=== PATIENT | male | born 1950 | race Caucasian/White ===

== ENCOUNTER 2017-05-11 17:18 | Inpatient (IN) | payer OTHER ==
[~2017-05-11] VITALS: Ht 185.4 cm; Wt 63.5 kg
[2017-05-11] MEDS ORDERED: MAG HYDROX/AL HYDROX/SIMETH 30 ML LIQUID UDC PO PRN (18:30)
[2017-05-11] MEDS ORDERED: BUPRENORPHINE HCL 2 MG TAB.SUBL SL PRN (18:30)
[2017-05-11] MEDS ORDERED: LOPERAMIDE HCL 2 MG CAPSULE PO PRN ×2 (18:30)
[2017-05-11] MEDS ORDERED: LORAZEPAM 2 MG/1 ML VIAL IM PRN (18:30)
[2017-05-11] MEDS ORDERED: DICYCLOMINE HCL 20 MG TABLET PO PRN (18:30)
[2017-05-11] MEDS ORDERED: MIRALAX 17 GM POWD.PACK PO PRN (18:30)
[2017-05-11] MEDS ORDERED: MAGNESIUM HYDROXIDE 30 ML LIQUID UDC PO PRN (18:30)
[2017-05-11] MEDS ORDERED: hydrALAZINE HCL 50 MG TABLET PO PRN (18:30)
[2017-05-11] MEDS ORDERED: ONDANSETRON ODT 4 MG TAB.RAPDIS SL PRN (18:30)
[2017-05-11] MEDS ORDERED: diphenhydrAMINE 50 MG CAPSULE PO PRN (18:30)
[2017-05-11] MEDS ORDERED: ONDANSETRON 4 MG/2 ML VIAL IM PRN (18:30)
[2017-05-11] MEDS ORDERED: ACETAMINOPHEN 325 MG TABLET PO PRN (18:30)
[2017-05-11 18:57] LABS: *AMPHETAMINE, URINE NEGATIVE (NEGATIVE); *BARBITURATE, URINE NEGATIVE (NEGATIVE); *CANNABINOID, URINE POSITIVE (NEGATIVE); *COCCAINE, URINE NEGATIVE (NEGATIVE); *OPIATE, URINE NEGATIVE (NEGATIVE); *PHENCYCLIDINE SCREEN,URINE NEGATIVE (NEGATIVE)
[2017-05-11] MEDS: METHOCARBAMOL 750 MG TABLET PO PRN (19:30)
[2017-05-11] MEDS ORDERED: THIAMINE HCL 200 MG/2 ML VIAL IM ONE (19:30)
[2017-05-11] MEDS: LORAZEPAM 1 MG TABLET PO PRN (19:30)
--- NOTE | 2017-05-11 19:30 | NUR ---
RN note PRN Ativan and PRN Subutex Pt noted to be anxious, agitated and with tremors observed. COWS-13, CIWA-14. Administered Subutex 4 mg SL PRN and Ativan 2 mg PO. Will reassess.
--- NOTE | 2017-05-11 19:30 | NUR ---
1930 Patient received in his room # 310, on [facility] floor, awake, moderately intoxicated, slightly agitated and asking " for meds now". Patient threatens " to go AMA", per Charge Nurse, Arlen report to this nurse. Patient presents with a bloated face, smell of alcohol on his person and has gross body shakes and hand tremors. Patient's color is slightly rosenda and his skin is warm, dry and intact. Dry, intact, medium-sized, red-colored abrasion noted on right knee and dry, intact medium-sized, dark red-colored abrasion noted on right elbow. Patient states, " I was drinking and missed my balance recently". Patient's speech is slightly slow and slurred but appropriate for the most part. Patient states that he stands 6 feet and 1 inch tall and he weighs 140 lbs. Patient states, " I guess I lost weight in the last few months, maybe almost 20 pounds". " Sometimes, I just have no desire to eat". Patient is oriented to person, place and his personal situation. Reoriented to day, date and time. Patient gives eye contact briefly, then he looks away when he answers nurse's assess questions. Patient states that this is his first time in detox treatment and also he school secretary brought him to [facility], this afternoon. Patient denies any food and drug allergies and he states that he has " sees a counselor and has a PCP, but the names are in his wallet, which he is not in possession of at this time. Patient denies any seizure history or pre-existing psychiatric condition, though he states that he does feel some undiagnosed depression sometimes. 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 Patient states that he has been under pain management ( prescribed hydrocodone and medical marijuana) for his neuropathy. Vital signs are: 98.3-73-18 98/64, O2 Sat 96%, CIWA 6. Patient is admitted for: (1) Alcohol (Vodka), 750 ml orally daily for the past 3 months, last drink was on 05/11/17, but patient is unsure of the amount, (2) Hydrocodone (prescribed is pain mgmt since 2007), 2 to 3 tabs per day, Orally, last use was on 05/09/17, " maybe 2 pills". (3) Medical Marijuana smoked daily, but patient is unsure of the amount. Patient smoked last on 05/10/17, but patient can not remember the amount. Patient keeps nodding out during assessments and had to be frequently prompted to stay alert. Patient also tened to ramble on when asked pointed questions Addendum: 05/12/17 at 0626 by CHRIS ABREU RN 1929 continued- Patient also tended to ramble on when asked pointed questions about himself. Patient oriented to nurse call light and his room. Fall/seizure precautions in place. Bed is locked and in lowest position. Call light in place on patient's bed.
--- NOTE | 2017-05-11 19:32 | NUR ---
RN note PRN Robaxin Pt c/o muscle pain=01/22. Administered Robaxin 750 mg PO as ordered. Will reassess.
[2017-05-11 20:00] VITALS: BP 98/64
--- NOTE | 2017-05-11 20:30 | NUR ---
RN note reassess Pt reassessed, COWS=7, CIWA=9. Per pt, pain level decreased to 3/10. Pt noted to be more calm.
[2017-05-11] MEDS ORDERED: TRAZODONE 50 MG TABLET PO PRN (21:00)
[2017-05-11] MEDS ORDERED: LORAZEPAM 1 MG TABLET PO SCH (21:00)
[2017-05-11 23:25] LABS: BASOPHILS % (AUTO) 0.8 % (0.0-2.0); EOSINOPHILS % (AUTO) 0.8 % (0.0-7.0); HEMATOCRIT 39.6 % (36.7-47.1); HEMOGLOBIN 13.5 g/dL (12.5-16.3); LYMPHOCYTES # (AUTO) 0.8 K/uL (20.0-40.0); LYMPHOCYTES % (AUTO) 17.3 % (20.5-51.5); MEAN CORPUSCULAR HEMOGLOBIN 33.5 uug (23.8-33.4); MEAN CORPUSCULAR HGB CONC 34 g/dL (32.5-36.3); MEAN CORPUSCULAR VOLUME 98.4 fL (73.0-96.2); MONOCYTES # (AUTO) 0.3 K/uL (2.0-10.0); MONOCYTES % (AUTO) 6.2 % (0.0-11.0); NEUTROPHILS # (AUTO) 3.7 K/uL (1.8-8.9); NEUTROPHILS % (AUTO) 74.9 % (38.5-71.5); PLATELET COUNT (AUTO) 92 K/uL (152-348); RED BLOOD CELL COUNT(AUTO) 4.03 MIL/uL (4.06-5.63); WHITE BLOOD COUNT (AUTO) 4.9 K/uL (3.6-10.2)
[2017-05-11 23:26] LABS: BILIRUBIN,TOTAL 0.8 mg/dL (0.2-1.0); CREATININE 0.8 mg/dL (0.6-1.3); MAGNESIUM 1.8 mg/dL (1.8-2.4); POTASSIUM 3.6 mmol/L (3.5-5.1); TOTAL PROTEIN, SERUM 6.5 g/dL (6.4-8.2)
[2017-05-12] VITALS (8 sets, daily range): BP systolic 97–174; BP diastolic 58–99
--- NOTE | 2017-05-12 | NUR ---
V/S are: 98.5-102-14 97/58, O2 Sat 96%. Patient is too sleepy to participate in COWS,CIWA assessments at this time.
--- NOTE | 2017-05-12 | NUR ---
Patient sleeping soundly with eyes closed and respirations deep, even, unlabored at 14. V/S are: 98.5-102-14 97/58, O2 Sat 97%. CIWA, COWS deferred as patient continues to sleep.
[2017-05-12] MEDS ORDERED: LORAZEPAM 1 MG TABLET ONE (01:30)
[2017-05-12] MEDS ORDERED: IBUP-1953 PO (02:44)
[2017-05-12] MEDS ORDERED: OXYM15SP NS (02:44)
[2017-05-12] MEDS ORDERED: FLUO-119 PO (02:44)
[2017-05-12] MEDS ORDERED: MILK175C4 PO (02:44)
[2017-05-12] MEDS ORDERED: NAPR375T4 PO (02:44)
[2017-05-12] MEDS ORDERED: NEOM28.3 TP (02:44)
[2017-05-12] MEDS ORDERED: AMOX125S56 PO (02:44)
[2017-05-12] MEDS ORDERED: GLYC-16 RC (02:44)
[2017-05-12] MEDS ORDERED: PRED20TA PO (02:44)
[2017-05-12] MEDS ORDERED: TEST200V3 IM (02:44)
[2017-05-12 03:50] LABS: EOSINOPHILS % (MANUAL) 1 % (0-8); LYMPHOCYTES % (MANUAL) 19 % (20-40); MONOCYTES % (MANUAL) 6 % (2-10); NEUTROPHILS % (MANUAL) 74 % (42-75)
--- NOTE | 2017-05-12 04:00 | NUR ---
V/S are: 98.3-108-16 127/70, O2 Sat 97%, COWS 5, COWS 6. Patient continues to be sleepy.
[2017-05-12] MEDS: LORAZEPAM 1 MG TABLET PO PRN ×2 (04:09→06:10)
--- NOTE | 2017-05-12 04:10 | NUR ---
RN note PRN Ativan Pt c/o feeling anxious, increasingly agitated and with gross tremors noted. CIWA=9. Administered Ativan 1 mg PO. Will reassess.
--- NOTE | 2017-05-12 05:17 | NUR ---
RN note reassess Pt still noted with gross tremors but somewhat better than the previous hour. CIWA=7.
--- NOTE | 2017-05-12 06:11 | NUR ---
RN note PRN Ativan Pt c/o increasing gross tremors, anxiety and mild nausea. CIWA=10. Administered Ativan 1 mg PO PRN as ordered. Will be reassessed.
--- NOTE | 2017-05-12 06:30 | NUR ---
0630 Patient slept a total of 9 hours and he had 1 void and no stools. Total intake was 500 ml p.o. Prn medications given noted separately per floor protocol. V/SS afebrile, last COWS 5, Last CIWA 6. Patient is presently sleeping comfortably with eyes closed and respirations even, unlabored at 14. Patient not awakened for COWS, CIWA as these assessments ordered Q 4hr while awake.
--- NOTE | 2017-05-12 07:35 | NUR ---
START OF SHIFT Received report from manager shift nurse. Pt is lying in bed resting. He is a yo male admitted to [facility] on 05/11 for ETOH and Opioid dependence. He is A&O and ambulatory. NKA, full code status, on a regular diet. PMH of Head and neck cancer, HPV, fractures of nose, fingers, arm, leg, bilateral feet neuropathy. On admission pt reported using vodka 750mL per day for 3 months, hydrocodone, 2-3 tabs per day, and medical marijuana. 4 day Ativan taper started today with PRN Subutex available. Pt is observed with moderate tremors and moist skin. He reports anxiety. Taper due today. Fall and seizure precautions in place. Bed is down with call light in reach. Addendum: 05/12/17 at 1332 by SE VITALE RN He is a 67 yo male.
[2017-05-12] MEDS: MULTIVITAMINS,THERAPEUTIC TABLET PO SCH (08:29)
[2017-05-12] MEDS: THIAMINE HCL 100 MG TABLET PO SCH (08:29)
[2017-05-12] MEDS: FOLIC ACID 1 MG TABLET PO SCH (08:29)
[2017-05-12] MEDS ORDERED: TUBERCULIN,PURIF.PROT.DERIV. 5 TU/0.1 ML TEST ID ONE (09:00)
[2017-05-12] MEDS ORDERED: LORAZEPAM 1 MG TABLET PO SCH (09:00)
[2017-05-12] MEDS ORDERED: LORAZEPAM 1 MG TABLET PO ONE (10:00)
[2017-05-12] MEDS ORDERED: PROPRANOLOL HCL 20 MG TABLET PO ONE (10:00)
--- NOTE | 2017-05-12 10:20 | NUR ---
One time Ativan and Inderal administration Pt has severe gross tremors, diaphoresis, anxiety, and restlessness. He has visual hallucinations. He reports seeing rats running across the room. He is A&O x3. COWS 11 and CIWA 17. Notified who saw pt on the floor. Onetime order for Ativan and Inderal received and carried out.
--- NOTE | 2017-05-12 11:20 | NUR ---
One time Ativan and Inderal reassessment PRN Ativan and Inderal somewhat effective. Tremors are now reduced to moderate. He is less diaphoretic. He reports feeling less anxious. COWS 8 and CIWA 13.
--- NOTE | 2017-05-12 12:30 | NUR ---
IV Insertion 22 gauge IV inserted to the left hand and secured in place. It is patent and intact. Pt tolerated the insertion.
[2017-05-12] MEDS: IV D5 1/2 NS 1000 ML 1,000 ML IV SCH ×2 (12:48→21:22)
--- NOTE | 2017-05-12 13:00 | NUR ---
1:1 INHALATION THERAPY TEACHER Pt placed on 1:1 INHALATION THERAPY TEACHER for safety. He has full body tremors, unsteady gait, mild hallucinations, and mild confusion.
[2017-05-12] MEDS: METHOCARBAMOL 750 MG TABLET PO PRN (13:06)
[2017-05-12] MEDS: LORAZEPAM 1 MG TABLET PO SCH ×3 (13:06→21:20)
--- NOTE | 2017-05-12 13:10 | NUR ---
PRN Zofran and Robaxin Pt has moderate-severe full body tremors, nausea, diaphoresis, and anxiety. PRN Zofran and Robaxin administered.
--- NOTE | 2017-05-12 14:10 | NUR ---
PRN Zofran and Robaxin reassessment PRN Zofran effective. Pt reports nausea is relieved. PRN Robaxin somewhat effective. Pt reports Robaxin provided some relief. No further medications requested.
[2017-05-12] MEDS: IBUPROFEN 400 MG TABLET PO PRN (16:10)
--- NOTE | 2017-05-12 16:14 | NUR ---
PRN Motrin Pt reports low back pain 11/22. PRN Motrin administered.
--- NOTE | 2017-05-12 17:14 | NUR ---
PRN Motrin reassessment PRN Motrin effective. Pt reports back ache is relieved.
--- NOTE | 2017-05-12 18:54 | NUR ---
IV RE-INSERTED IV re-inserted on Left upper arm #22 gauge, intact and patent flushed with 10cc NS.
--- NOTE | 2017-05-12 19:15 | NUR ---
START OF SHIFT NOTE : Pt. is a 67 years old male admitted to [facility] on 05/11/2017 for ETOH and Opioid dependence. NKA, full code status, on a regular diet. PMH of Head and neck cancer, HPV, fractures of nose, fingers, arm, leg, bilateral feet neuropathy. 4 day Ativan taper started on 05/13/2017 with PRN Subutex available. Pt is observed with moderate tremors, unsteady gait, complains of flashes, mild body ache, anxiety. He is placed 1:1 JIG GRINDER for safety. IV D51/2NS is running at 125 ml/hour. Safety measures in place : bed on lowest position with side rails x2 up for safety, call light within reach. Will continue to monitor closely and offer help.
--- NOTE | 2017-05-12 19:28 | NUR ---
END OF SHIFT Report provided to retail shift leader nurse. Pt is lying in bed resting. He has a 1:[address] for safety r/t unsteady gait, tremors, and weakness. He is a 67 [facility] and [facility]ioid [facility]. He is A&O and ambulatory. NKA, full code status, on a regular diet. PMH of Head and neck cancer, HPV, fractures of nose, fingers, arm, leg, bilateral feet neuropathy. On admission pt reported using vodka 750mL per day for 3 months, hydrocodone, 2-3 tabs per day, and medical marijuana. 4 day Ativan taper started today with PRN Subutex available. Pt had severe tremors, restlessness, diaphoresis, anxiety, and hallucinations. Symptoms have improved throughout the day. Onetime Ativan and Inderal administered. PRN Robaxin, Motrin, and Zofran administered along with Ativan taper. Symptoms have improved throughout the day. He had a 22 gauge IV to the right hand that became dislodged. New IV site is 22 gauge to the left FA. It is patent is intact. D5 NS running at 125mL/hr. Last COWS 5 and CIWA 8. His appetite is poor. He drank 480mL Fall and seizure precautions in place. Bed is down with call light in reach.
--- NOTE | 2017-05-12 21:00 | NUR ---
PRN DESYREL , VISTARIL Pt. complains of increased level of anxiety, sleeplessness. PRN DESYREL , VISTARIL given as ordered. Safety measures in place : bed on lowest position with side rails x2 up for safety, call light within reach. Will continue to monitor closely and offer help.
[2017-05-12] MEDS: PROPRANOLOL HCL 20 MG TABLET PO SCH (21:20)
[2017-05-12] MEDS: GABAPENTIN 100 MG CAPSULE PO SCH (21:21)
--- NOTE | 2017-05-12 22:00 | NUR ---
RE-ASSESSMENT DIANA DIAZ Pt. is sleeping, RR=16, unlabored and even . Safety measures in place : bed on lowest position with side rails x2 up for safety, call light within reach. Will continue to monitor closely and offer help.
[2017-05-13] VITALS (9 sets, daily range): BP systolic 114–170; BP diastolic 61–102
--- NOTE | 2017-05-13 00:12 | NUR ---
PRN ATIVAN PO , CIWA=8 Pt. complains of increased level of anxiety,is restless and agitated CIWA=8. PRN ATIVAN PO given as ordered. Safety measures in place : bed on lowest position with side rails x2 up for safety, call light within reach. Will continue to monitor closely and offer help.
[2017-05-13] MEDS: LORAZEPAM 1 MG TABLET PO PRN ×3 (00:38→06:22)
--- NOTE | 2017-05-13 01:00 | NUR ---
RE-ASSESSMENT ATIVAN Pt. is less restrless and agitated, can resting quietly short periods of time , CIWA=6, RR=18, unlabored and even . Safety measures in place : bed on lowest position with side rails x2 up for safety, call light within reach. Will continue to monitor closely and offer help.
--- NOTE | 2017-05-13 02:43 | NUR ---
RN note PRN Ativan IV Pt noted to be more anxious, with increasing hallucinations and worsening symptoms of Delirium Tremens. Pt refuses PO medication. MD notified and he ordered Ativan 2 mg IV Q4H for CIWA >15. Current CIWA is 23. Primary nurse to administer.
--- NOTE | 2017-05-13 02:43 | NUR ---
PRN ATIVAN IV , CIWA=23 Pt. is restless and agitated, disoriented, skin wet, CIWA=23. PRN ATIVAN IV given as ordered(MD was called). Safety measures in place : bed on lowest position with side rails x2 up for safety, call light within reach. Will continue to monitor closely and offer help.
[2017-05-13] MEDS ORDERED: LORAZEPAM 2 MG/1 ML VIAL IV PRN ×2 (02:45→14:45)
[2017-05-13] MEDS ORDERED: LORAZEPAM 2 MG/1 ML VIAL ONE (02:58)
--- NOTE | 2017-05-13 03:30 | NUR ---
RE-ASSESSMENT ATIVAN IV , CIWA=11 Pt. is less restless and agitated, fell asleep, CIWA=11, RR=18, unlabored and even . Safety measures in place : bed on lowest position with side rails x2 up for safety, call light within reach. Will continue to monitor closely and offer help.
[2017-05-13] MEDS: IV D5 1/2 NS 1000 ML 1,000 ML IV SCH ×2 (04:30→13:06)
--- NOTE | 2017-05-13 06:30 | NUR ---
PRN ATIVAN PO , HYDRALAZINE ,CIWA=13 Pt. is restless again, confused, skin wet, CIWA=13, RZ=389/102, AK=052. PRN HYDRALAZINE, ATIVAN PO given as ordered. Safety measures in place : bed on lowest position with side rails x2 up for safety, call light within reach. Will continue to monitor closely and offer help.
--- NOTE | 2017-05-13 06:53 | NUR ---
END OF SHIFT NOTE : Pt. is a 67 years old male admitted to [facility] on 05/11/2017 for ETOH and Opioid dependence. NKA, full code status, on a regular diet. PMH of Head and neck cancer, HPV, fractures of nose, fingers, arm, leg, bilateral feet neuropathy. 4 day Ativan taper started on 05/13/2017 with PRN Subutex available. He is placed 1:1 FATS AND OILS LOADER for safety. PRN BENADRYL, DESYREL, HYDRALAZINE were given during my shift. Pt. became agitated and confused after midnight, PO dose of Ativan didnt work, is contacted, new order given, Ativan 2mg IV given as ordered at 02:30 A.M., CIWA=23 and COWS=9. IV is removed accidentally by patient at 03:15 A.M. RR=16, even and unlabored, lungs clear upon auscultation, abdomen soft and non- distended. Pt denies nausea, vomiting and diarrhea. CIWA and COWS taken when pt. was alert during the night, LAST CIWA=13 ,COWS= 6 at 0630 , INTAKE= 355ml+1,000 ml(IV), voided x 1, slept 3 hours. Safety measures in place : bed on lowest position with side rails x2 up for safety, call light within reach. Will continue to monitor closely and offer help.
--- NOTE | 2017-05-13 07:30 | NUR ---
PRN Ativan and Hydralazine reassessment PRN Ativan and Hydralazine mostly effective. Pt is lying still in bed resting with eyes closed. He continues to be slightly restless. B/P 129/88 and HR 94.
--- NOTE | 2017-05-13 07:35 | NUR ---
START OF SHIFT Received report from material handler 1st shift nurse. Pt is lying in bed resting. He is a 67 yo male admitted to [facility] on 05/11 for ETOH and Opioid dependence. He is disoriented with unsteady gait r/t withdrawal symptoms. 1:[address] for safety[address] He uses a wheelchair to transfer. He has NKA, is full code status, and on a regular diet. PMH of Head and neck cancer, HPV, fractures of nose, fingers, arm, leg, bilateral feet neuropathy. On admission pt reported using vodka 750mL per day for 3 months, hydrocodone, 2-3 tabs per day, and medical marijuana. 4 day Ativan taper started yesterday with PRN Subutex available. Pt is observed to be lying in bed with eyes closed and restless at times. Respirations even and unlabored. Fall and seizure precautions in place. Bed is down with call light in reach.
[2017-05-13 08:25] LABS: BASOPHILS % (AUTO) 0.5 % (0.0-2.0); EOSINOPHILS # (AUTO) 0.1 K/uL (0.0-0.7); EOSINOPHILS % (AUTO) 0.8 % (0.0-7.0); HEMATOCRIT 38.7 % (36.7-47.1); HEMOGLOBIN 13.3 g/dL (12.5-16.3); LYMPHOCYTES # (AUTO) 0.5 K/uL (20.0-40.0); LYMPHOCYTES % (AUTO) 5.9 % (20.5-51.5); MEAN CORPUSCULAR HEMOGLOBIN 33.6 uug (23.8-33.4); MEAN CORPUSCULAR HGB CONC 34 g/dL (32.5-36.3); MEAN CORPUSCULAR VOLUME 97.9 fL (73.0-96.2); MONOCYTES # (AUTO) 0.5 K/uL (2.0-10.0); MONOCYTES % (AUTO) 6.5 % (0.0-11.0); NEUTROPHILS # (AUTO) 6.9 K/uL (1.8-8.9); NEUTROPHILS % (AUTO) 86.3 % (38.5-71.5); RED BLOOD CELL COUNT(AUTO) 3.96 MIL/uL (4.06-5.63)
[2017-05-13 08:41] LABS: PLATELET COUNT (AUTO) 77 K/uL (152-348); WHITE BLOOD COUNT (AUTO) 7.9 K/uL (3.6-10.2)
[2017-05-13] MEDS ORDERED: LORAZEPAM 1 MG TABLET PO SCH (09:00)
[2017-05-13] MEDS: GABAPENTIN 100 MG CAPSULE PO SCH (09:01)
[2017-05-13] MEDS: LORAZEPAM 1 MG TABLET PO SCH ×2 (09:01→15:00)
[2017-05-13] MEDS: FOLIC ACID 1 MG TABLET PO SCH (09:01)
[2017-05-13] MEDS: PROPRANOLOL HCL 20 MG TABLET PO SCH (09:01)
[2017-05-13] MEDS: MULTIVITAMINS,THERAPEUTIC TABLET PO SCH (09:02)
[2017-05-13] MEDS: METHOCARBAMOL 750 MG TABLET PO PRN (09:02)
[2017-05-13] MEDS: THIAMINE HCL 100 MG TABLET PO SCH (09:02)
[2017-05-13] MEDS: IBUPROFEN 400 MG TABLET PO PRN (09:02)
[2017-05-13 09:15] LABS: BILIRUBIN,DIRECT 0.7 mg/dL (0.0-0.2); CREATININE 0.7 mg/dL (0.6-1.3); MAGNESIUM 1.5 mg/dL (1.8-2.4); POTASSIUM 3.5 mmol/L (3.5-5.1); TOTAL PROTEIN, SERUM 6.1 g/dL (6.4-8.2)
[2017-05-13] MEDS: LORAZEPAM 2 MG/1 ML VIAL IM ONE ×2 (09:30→10:15)
--- NOTE | 2017-05-13 09:58 | NUR ---
# 22g IV started left upper arm. D51/2NS @ 125cc/hr via pump.
[2017-05-13 10:00] LABS: BAND % (MANUAL) 2 % (0-10); LYMPHOCYTES % (MANUAL) 10 % (20-40); MONOCYTES % (MANUAL) 5 % (2-10); NEUTROPHILS % (MANUAL) 83 % (42-75)
[2017-05-13] MEDS ORDERED: MAGNESIUM OXIDE 400 MG TABLET PO ONE (10:15)
[2017-05-13] MEDS: LORAZEPAM 2 MG/1 ML VIAL IV PRN ×2 (10:15→13:54)
--- NOTE | 2017-05-13 10:20 | NUR ---
PRN Ativan IV 2mg Pt is confused, anxious, restless, disoriented, and hallucinating. CIWA score 43. PRN Ativan IV administered.
[2017-05-13 10:51] LABS: HEPATITIS B SURFACE AG Negative (Negative)
--- NOTE | 2017-05-13 11:10 | NUR ---
Nursing Note PRN Ativan IV 2mg documented in eMAR at 1108 was actually administered at 1020. Computer lost power before saving scanned medication at 1020.
--- NOTE | 2017-05-13 11:20 | NUR ---
PRN Ativan reassessment PRN Ativan somewhat effective. Pt's tremors decreased and he is somewhat less anxious and agitated. He is able to relax in bed with occasional restlessness. CIWA 20.
[2017-05-13 12:07] LABS: *TESTOSTERONE, SERUM 246 ng/dL (264-916)
[2017-05-13] MEDS ORDERED: LORAZEPAM 2 MG/1 ML VIAL IV ONE ×2 (12:30→14:45)
--- NOTE | 2017-05-13 12:50 | NUR ---
One time Ativan Pt's CIWA 33. He is oriented to person only. He is experiencing moderate auditory and visual hallucinations with moderate tremors. B/P 127/66 and HR 89. Ativan IV administered per MD orders.
--- NOTE | 2017-05-13 13:35 | NUR ---
PRN Ativan reassessment PRN Ativan not effective. Pt's CIWA increased to 39.
--- NOTE | 2017-05-13 13:54 | NUR ---
PRN Ativan Pt is experiencing delirium tremons. He is disoriented, experiencing visual and auditory hallucinations, anxiety, and restlessness. CIWA score 39. PRN Ativan IV administered per orders.
--- NOTE | 2017-05-13 14:55 | NUR ---
PRN Ativan reassessment PRN Ativan somewhat effective. Pt's CIWA score now 30. He continues to be anxious, restless, and disoriented.
--- NOTE | 2017-05-13 15:05 | NUR ---
One time Ativan MD in to assess pt. Pt continues to be disoriented, confused, with tremors, hallucinations, anxiety, and restlessness. CIWA score 36. One time Ativan IV administered per orders.
--- NOTE | 2017-05-13 17:40 | NUR ---
PT TRANSFERRED Pt transferred to the ER at 1740 per MD orders.
[2017-05-14] MEDS ORDERED: LORAZEPAM 1 MG TABLET PO SCH ×2 (09:00)
[2017-05-15] MEDS ORDERED: LORAZEPAM 1 MG TABLET PO SCH ×2 (09:00)
[2017-05-16] MEDS ORDERED: LORAZEPAM 1 MG TABLET PO SCH (09:00)
== END 2017-05-13 17:13 | disposition short-term general hospital (02) | DRG 896 ==
LOC: SRC 17:18
PROVIDERS: ADMIT Internal Medicine; ATTEND Internal Medicine
PROC: HZ2ZZZZ Detoxification Services for Substance Abuse Treatment (ICD-10-PCS; principal; 2017-05-11)
DX: F10.231 Alcohol dependence with withdrawal delirium (principal); K85.20 Alcohol induced acute pancreatitis without necrosis or infection; F11.90 Opioid use, unspecified, uncomplicated; D69.6 Thrombocytopenia, unspecified; K70.10 Alcoholic hepatitis without ascites; Y90.9 Presence of alcohol in blood, level not specified; E29.1 Testicular hypofunction; Z85.89 Personal history of malignant neoplasm of other organs and systems; G47.00 Insomnia, unspecified; F12.10 Cannabis abuse, uncomplicated; I15.9 Secondary hypertension, unspecified; R26.81 Unsteadiness on feet
CPT/HCPCS: 36415; 80307; 80349; 82746; 83735; 84403; 85025; 86580; 86592; 86705; 86803; 87340; 87806; A4663; G0480; J2060; J3411; Q0162; Q0163

== ENCOUNTER 2017-05-13 17:51 | Inpatient (IN) | payer MEDICARE, OTHER ==
[~2017-05-13] VITALS: Ht 172.7 cm; Wt 68.9 kg
[~2017-05-13 17:51] MED LIST: AMOX125S56 PO; FLUO-119 PO; GLYC-16 RC; IBUP-1953 PO; MILK175C4 PO; NAPR-1192 PO; NEOM28.3 TP; OXYM15SP NS; PRED20TA PO; TEST200V3 IM
--- NOTE | 2017-05-13 17:56 | NUR ---
Dr. Orozco spoke with Dr. Westbrook via telephone.
--- NOTE | 2017-05-13 18:00 | NUR ---
Information about pt's current medications unavailable upon arrival.
--- NOTE | 2017-05-13 18:04 | NUR ---
Mrsa collected and sent to lab.
[2017-05-13] MEDS ORDERED: IV NORMAL SALINE 1000 ML BAG IV ONE (18:15)
[2017-05-13] MEDS ORDERED: MAGNESIUM HYDROXIDE 30 ML LIQUID UDC PO PRN (18:30)
[2017-05-13 18:38] VITALS: BP 141/87
--- NOTE | 2017-05-13 18:38 | NUR ---
Patient in from ER. vitals signs stable patient restless agitated. vitals signs stable 98.8. 141/87. HR 86, RR25. patient restless agitated attempting to get out of bed. Gas Line Repairer Hidy notified. Dr. Westbrook will be called to be notified of pt's admission. pending procedures will be endorse to incoming shift.
[2017-05-13 19:00] VITALS: BP 154/95
--- NOTE | 2017-05-13 19:23 | NUR ---
Dr. Westbrook called to be notified of new admission and also to be notified of the need for 1:1 sitter. due restlessness and agitation pt. getting OOB. without supervision. and not following commands.
--- NOTE | 2017-05-13 19:29 | NUR ---
spoked to gumaro henriquez and informed md patient very confused on and off oriented only to name ,tries to get oob bed ,high risk for fall . as per day shift he already stood up twice to walk unable to educate patient restless and very anxious and , with order to have sitter and may restraint if needed .
--- NOTE | 2017-05-13 19:30 | NUR ---
report received from Ellen flores day shift. new admission from ER . dx : AMS AND DT .patient confused, agitated/ anxious at times ,uncooperative and unable to educate, noted patient to be hallucinating visually and auditory , tremors noted at times to bilateral upper and lower extremities.called doctor florence for admitting orders.called nursing wet end supervisor informed patient very confused and tries to get oob unable to educate and potential for fall and harm to self . no family noted at this time . Addendum: 05/14/17 at 0245 by ABILIO PARRY RN Amended: Links added.
[2017-05-13 20:00] VITALS: BP 149/95
--- NOTE | 2017-05-13 20:00 | NUR ---
sitter at bedside to help with patient and for patient safety .
[2017-05-13] MEDS: LORAZEPAM 2 MG/1 ML VIAL IV PRN ×2 (20:11→22:46)
[2017-05-13] MEDS: ENOXAPARIN SODIUM 40 MG/0.4 ML DISP.SYRIN SQ SCH (20:13)
[2017-05-13] MEDS: IV NS 1000 ML 1,000 ML IV PRN (20:22)
[2017-05-13 21:00] VITALS: BP 156/95
[2017-05-13 22:00] VITALS: BP 146/92
[2017-05-13 23:00] VITALS: BP 154/29
--- NOTE | 2017-05-13 23:00 | NUR ---
unable to educate patient very confused .condom -reliefit placed to carver bag drain. Addendum: 05/14/17 at 0247 by ABILIO PARRY RN Amended: Links added. Addendum: 05/14/17 at 0248 by ABILIO PARRY RN Amended: Links added.
--- NOTE | 2017-05-13 23:00 | NUR ---
Ativan given prn as needed for agitation,now patient less anxious and less body tremors noted sleeps on and off vital signs with in normal limits .soft wrist restraints applied .follow restraints protocol .continue to monitor vital signs levels of comfort and
[2017-05-14] VITALS (29 sets, daily range): BP systolic 86–224; BP diastolic 48–113
[2017-05-14] MEDS: LORAZEPAM 2 MG/1 ML VIAL IV PRN ×6 (01:13→12:28)
--- NOTE | 2017-05-14 05:30 | NUR ---
prn Ativan given for agitation and restless continue to monitor vital signs and levels of pain . continue to follow restraints protocol .am care done and changed soiled linens and gown .scds used to bilateral lower extremities.hob up.
[2017-05-14 05:46] LABS: BASOPHILS % (AUTO) 0.2 % (0.0-2.0); EOSINOPHILS # (AUTO) 0.1 K/uL (0.0-0.7); EOSINOPHILS % (AUTO) 1.1 % (0.0-7.0); HEMATOCRIT 38.1 % (40-50); LYMPHOCYTES # (AUTO) 0.7 K/UL (0.8-4.8); MEAN CORPUSCULAR HEMOGLOBIN 33.5 UUG (27.0-31.0); MEAN CORPUSCULAR HGB CONC 34 g/dL (32.0-37.0); MEAN CORPUSCULAR VOLUME 98.1 FL (82.0-92.0); MONOCYTES # (AUTO) 0.6 K/UL (0.1-1.30); NEUTROPHILS # (AUTO) 7.5 K/UL (1.8-8.9); NEUTROPHILS % (AUTO) 83.7 % (38.5-71.5); PLATELET COUNT (AUTO) 81 K/UL (150-450); RED BLOOD CELL COUNT(AUTO) 3.88 MIL/UL (4.7-6.1); WHITE BLOOD COUNT (AUTO) 8.9 K/UL (4.0-11.2)
[2017-05-14 06:08] LABS: BILIRUBIN,DIRECT 0.5 mg/dL (0.0-0.2); BILIRUBIN,TOTAL 1.5 mg/dL (0.2-1.0); CREATININE 0.7 mg/dL (0.6-1.3); MAGNESIUM 1.6 mg/dL (1.8-2.4); PHOSPHOROUS 2.8 mg/dL (2.5-4.9); POTASSIUM 3.6 mmol/L (3.5-5.1)
--- NOTE | 2017-05-14 07:30 | NUR ---
RECIEVED PT RESTING IN BED, ON SOFT WRIST RESTRAINTS BOTH HANDS. AWAKE BUT VERY CONFUSE. DOES NOT FOLLOW COMMANDS. VERY JITTERY AND SHAKEY AND PT RESPIRATION IS VERY ERRATIC. O2SAT IS MAINTAINED AT 98% ON 2LNC. IV SITE IS INTACT. IVF INFUSING WELL ON LEFT UPPER ARM. AFEBRILE.
[2017-05-14] MEDS: IV NS 1000 ML 1,000 ML IV PRN (07:51)
[2017-05-14] MEDS: PANTOPRAZOLE SODIUM 40 MG TABLET.DR PO SCH (07:55)
--- NOTE | 2017-05-14 08:30 | NUR ---
SEEN AND EXAMINED BY DR ANDREWS WITH NEW ORDERS. AWARE OF PT'S DETOXIFICATION CONDITION. PT IS CONSTANTLY MEDICATED WITH ATIVAN 1MG SLOW IVP ORDERED.
[2017-05-14] MEDS: THIAMINE HCL 100 MG TABLET PO SCH (09:12)
[2017-05-14] MEDS: MULTIVITAMINS,THERAPEUTIC TABLET PO SCH (09:12)
[2017-05-14] MEDS: FOLIC ACID 1 MG TABLET PO SCH (09:12)
--- NOTE | 2017-05-14 10:00 | NUR ---
PT IS ON SEVERE AND INTENSED TREMORS, SBP IS GOING UP IN THE 200. AND HR IS FASTER ABOVE 110. SLEEPING ON AND OFF.
[2017-05-14] MEDS: IV D5 1/2 NS 1000 ML 1,000 ML IV SCH ×2 (11:05→20:23)
[2017-05-14 11:21] LABS: BAND % (MANUAL) 1 % (0-10); EOSINOPHILS % (MANUAL) 1 % (0-8); LYMPHOCYTES % (MANUAL) 10 % (20-40); MONOCYTES % (MANUAL) 6 % (2-10); NEUTROPHILS % (MANUAL) 82 % (42-75)
[2017-05-14] MEDS ORDERED: LORAZEPAM 2 MG/1 ML VIAL IV PRN (13:30)
--- NOTE | 2017-05-14 15:00 | NUR ---
PT DOES NOT RESPOND TO ATIVAN MEDICATION. CONTINUED TO BE SHAKING A LOT AND RESPIRATORY RATE IS BECOMING SHALLOW. NOTIFIED DR ANDREWS OF PT'S CONDITION. NUPUR FOR INTUBATION FOR DETOXING CONDITION.
--- NOTE | 2017-05-14 15:20 | NUR ---
NOTIFIED ER MD . INTUBATION DONE BY DR DUARTE. ET 7.5CM AT 23CM LIP LINE. VENT SETTING AT AC-16, VT-500, FIO2-100, PEEP-5. CHEST XRAY DONE FOR ET PLACEMENT CONFIRMATION. PT GOT ETOMEDATE OF 20MG SLOW IVP AND FOLLOWED BY SACCS 0F 50MG SLOW IVP ORDERED.
--- NOTE | 2017-05-14 15:43 | NUR ---
PT WAS INTUBATED AND PLACED ON FOX VENT, AC 16, Vt 500, +5, FIO2 100%. 7.5 ETT IS PATENT AND SECURED WITH ANCHOR FAST AT APPROX 23CM AT THE LIP. TOLERATING VENT SETTINGS WELL AT THIS TIME. MINIMAL AMOUNT OF SECRETIONS. ALARMS ARE ON AND AUDIBLE, BVM AT BEDSIDE. WILL CONTINUE TO MONITOR.
[2017-05-14] MEDS: MAGNESIUM SULFATE/D5W 100 ML IV SCH ×2 (16:08→17:28)
[2017-05-14] MEDS: PROPOFOL 100 ML IV PRN ×2 (16:30→20:34)
--- NOTE | 2017-05-14 16:30 | NUR ---
ABG DONE, PO2 ABOVE 500, FIO2 LOWERED DOWN TO 60%. PT IS A LITTLE BIT AWAKE. STARTED ON PROPOFOL DRIP FOR SEDATION AT 5MCG/KG/MIN.
[2017-05-14 16:52] LABS: ABG BASE EXCESS -4.2 mmol/L; ABG HCO3 18.8 mmol/L; ABG PO2 507.8 mmHg (75.0-100.0); ABG SITE RIGHT BRACHIAL; COHb 0.8 % (0.5-1.5); MetHb 0.4 % (0.0-1.5); O2Hb 98.5 % (94.0-97.0); VENT MODE VENT - A/C; VT, ABG 500 mL
[2017-05-14] MEDS: DEXTROSE 5% IV PRN ×2 (17:28→23:47)
[2017-05-14] MEDS: LORAZEPAM IV PRN ×2 (17:28→23:47)
--- NOTE | 2017-05-14 17:30 | NUR ---
STARTED ON ATIVAN DRIP AT 2MG/HR ORDERED TO KEEP PT CALM.
[2017-05-14] MEDS: ENOXAPARIN SODIUM 40 MG/0.4 ML DISP.SYRIN SQ SCH (18:40)
--- NOTE | 2017-05-14 19:15 | NUR ---
Pt is on Browning settings AC 16, VT 500, PEEP+5 and FIO2-60%. 7.5 ETT is at 23cm at the lip. BVM is at bedside, Pt to be monitored throughout the shift. Browning alarm parameters have been checked and remain audible at this time.
--- NOTE | 2017-05-14 19:30 | NUR ---
received patient orally intubated and sedated on propofol . patient also on Ativan for DT withdrawal .patient open eyes to name but doesn't follow commands on and off restless .restraints protocol followed and observed .continue to monitor vital signs and levels of comfort and levels of sedation . Addendum: 05/15/17 at 0532 by ABILIO PARRY RN Amended: Links added. Addendum: 05/15/17 at 0535 by ABILIO PARRY RN Amended: Links added. Addendum: 05/15/17 at 0538 by ABILIO PARRY RN Amended: Links added.
--- NOTE | 2017-05-14 20:00 | NUR ---
tolerating vent setting saturation 98% and rr 16 to 20.suction patient orally via mouth and via ett . hob up . Addendum: 05/15/17 at 0535 by ABILIO PARRY RN Amended: Links added. Addendum: 05/15/17 at 0538 by ABILIO PARRY RN Amended: Links added.
--- NOTE | 2017-05-14 22:00 | NUR ---
soft wrist restraint used for patient safety at times notes to be reaching to the ETT tube .continue to monitor levels of sedation and comfort. Addendum: 05/15/17 at 0538 by ABILIO PARRY RN Amended: Links added.
[2017-05-15] VITALS (26 sets, daily range): BP systolic 86–137; BP diastolic 38–85
--- NOTE | 2017-05-15 02:00 | NUR ---
no new skin breakdown noted . turned and reposition patient . Addendum: 05/15/17 at 0541 by ABILIO PARRY RN Amended: Links added.
--- NOTE | 2017-05-15 04:30 | NUR ---
am care done ,changed soiled linens and gown .skin care done . no new skin injury done . turned and reposition . hob up .
[2017-05-15 05:12] LABS: CREATININE 0.9 mg/dL (0.6-1.3); MAGNESIUM 1.8 mg/dL (1.8-2.4)
[2017-05-15 05:28] LABS: POTASSIUM 2.7 mmol/L (3.5-5.1)
[2017-05-15] MEDS: IV D5 1/2 NS 1000 ML 1,000 ML IV SCH ×2 (05:46→18:13)
--- NOTE | 2017-05-15 05:56 | NUR ---
Pt remains on Browning at this time. No changes made to the ventilator settings. Pt appeared to have tolerated ventilator settings well. 7.[address] patent and secure at approx. 23cm at the lip. Browning alarm parameters have been checked and remain audible.
--- NOTE | 2017-05-15 06:00 | NUR ---
tolerating vent setting . vital signs with in normal limits . remains confused and doesn't follow commands .open eyes spontaneously and moved upper and lower extremities . condom catheter in place intake and output done .
[2017-05-15] MEDS: PANTOPRAZOLE SODIUM 40 MG TABLET.DR PO SCH (06:18)
--- NOTE | 2017-05-15 06:30 | NUR ---
called md service for lab result this am . awaiting call back .
--- NOTE | 2017-05-15 07:30 | NUR ---
RECIEVED PT LYING IN BED, SLEEPING ON AND OFF. PT ON PROPOFOL DRIP AT 5MCG/KG/MIN ON RIGHT AC. PT ON SOFT WRIST RESTRAINTS BOTH HANDS. OPENS EYES VERY EASILY. ETT 7.5CM AT 23CM LIP LINE. VENT SETTING OF AC-16, TV-500, FIO2 60%, AND PEEP-5. O2 SAT 100%. LUNGS ARE ARE CLEAR. SECRETIONS IS VERY MINIMAL. AFEBRILE.
[2017-05-15] MEDS ORDERED: POTASSIUM CHLORIDE 50 ML IV SCH (08:45)
[2017-05-15] MEDS: THIAMINE HCL 100 MG TABLET PO SCH (09:00)
[2017-05-15] MEDS: MULTIVITAMINS,THERAPEUTIC TABLET PO SCH (09:00)
[2017-05-15] MEDS: FOLIC ACID 1 MG TABLET PO SCH (09:00)
--- NOTE | 2017-05-15 09:00 | NUR ---
STARTED ON ATIVAN DRIP AT 4MG/HR. PT STILL ON AND OFF RESTLESSNESS.
--- NOTE | 2017-05-15 09:00 | NUR ---
SEEN AND EXAMINED BY DR ANDREWS WITH NEW ORDERS.
[2017-05-15 09:21] LABS: ABG BASE EXCESS 0.5 mmol/L; ABG HCO3 22.4 mmol/L; ABG PCO2 28.3 mmHg (35.0-45.0); ABG PH 7.516 (7.350-7.450); ABG PO2 250.8 mmHg (75.0-100.0); ABG SITE RIGHT RADIAL; ABG TOTAL HEMOGLOBIN 12.6 G/dL (13.5-18.0); COHb 1.2 % (0.5-1.5); MetHb 0.5 % (0.0-1.5); O2Hb 98.1 % (94.0-97.0); VENT MODE VENT - A/C; VT, ABG 500 mL
[2017-05-15] MEDS ORDERED: MAGNESIUM SULFATE/D5W 100 ML IV SCH (09:30)
--- NOTE | 2017-05-15 09:52 | NUR ---
PT RECEIVED ORALLY INTUBATED WITH 7.5 ETT 23CM AT THE LIP ON FOX VENT WITH SETTINGS OF A/C 20, VT 500, PEEP +5, 60%. VENT ALARMS ARE ON AND AUDIBLE. ETT IS SECURE WITH ANCHOR-FAST AND PT HAS GOOD SKIN INTEGRITY. ORAL CARE DONE AND ETT MOVED TO THE CENTER. POST ABG, FIO2 TITRATED TO 50%, RN TRACY WAS NOTIFIED AND AWARE. PT IS SHOWING NO SIGNS OF RESPIRATORY DISTRESS AT THIS TIME. WILL CONTINUE TO MONITOR.
--- NOTE | 2017-05-15 10:30 | NUR ---
SEEN AND EXAMINED BY DR HERRERA FOR CONSULT. ABG DONE AND FIO2 DOWN TO 50%.
[2017-05-15] MEDS: PANTOPRAZOLE SODIUM 40 MG VIAL IV SCH (10:31)
[2017-05-15] MEDS: POTASSIUM CHLORIDE 10 MEQ in IV DEXTROSE 5% 50 ML IV SCH ×4 (10:52→16:19)
--- NOTE | 2017-05-15 11:00 | NUR ---
VENT CHANGED TO AC-12 ORDERED.
--- NOTE | 2017-05-15 12:00 | NUR ---
PROPOFOL UO TO 15MCG/KG/MIN. PT STILL FIGHTING ON THE VENT.
--- NOTE | 2017-05-15 13:56 | NUR ---
VENT RATE CHANGED TO 12 PER MD ORDERS. FIO2 TITRATED TO 40%. MACI MOLINA WAS NOTIFIED AND AWARE.
--- NOTE | 2017-05-15 14:00 | NUR ---
PT VOID IS DECREASING. BLADDER SCAN DONE AND 450CC URINE. INSERTED FOLEYCATHER BUT RESISTANT. RANI CHARGE NURSE IN MED SURG INSERTED A COUDET FR 14 WITH GOOD SUCCESS. DRAINED VERY DARK ORANGEY URINE.
[2017-05-15] MEDS: LORAZEPAM IV PRN ×2 (15:00→17:58)
[2017-05-15] MEDS: DEXTROSE 5% IV PRN ×2 (15:00→17:58)
--- NOTE | 2017-05-15 16:00 | NUR ---
PT HAS A HUGE LIQUIDY STOOL VEY FOWL ODOR. PM CARE RENDERED. FIRST STEP MATTRESS PLACED IN. PROPOFOL DRIP INCREASED UP TO 45MCG/KG/MIN AND ATIVAN UP TO 7MG/HR. PT IS CALM.
--- NOTE | 2017-05-15 16:30 | NUR ---
INSERTED NGT FR 14 ORDERED FOR TUBE FEEDING.. BUT UNABLE TO. TRIED BOTH NARES. ANOTHER RN TRIED IT BUT FAILED.
--- NOTE | 2017-05-15 17:15 | NUR ---
CONSULT ORDER RECEIVED FOR NG TF. 67 YEAR OLD MALE ADMITTED FOR SUPERVISED WITHDRAWAL FROM ALCOHOL, HAD TO BE TRANSFERRED TO CCU FOR UNSTABLE VITALS, PT IS VERY LETHARGIC AND ALTERED INITIATE TF- FIBERSOURCE 75 CC X 24 HRS TO PROVIDED 2160 KCAL IN 1650 MLS VOLUME FORMULA,89 GMS PROTEIN START TF AT 30 CCS AND INCREASE BY 10 CCS Q 8 HRS TO MEET GOAL RATE OF 75 CCS DETAIL ASSESSMENT WILL BE DONE IN 2 DAYS CONTINUE PLAN OF CARE Addendum: 05/15/17 at [address] Amended: Links added.
[2017-05-15] MEDS: PROPOFOL 100 ML IV PRN ×2 (17:32→23:48)
--- NOTE | 2017-05-15 18:00 | NUR ---
HAD ANOTHER BOUTS OF VERY LARGE LOOSE BM. INSERTED FLEXISEAL ORDERED.
--- NOTE | 2017-05-15 18:34 | NUR ---
SPUTUM SAMPLE COLLECTED, MACI MOLINA WAS NOTIFIED AND AWARE.
[2017-05-15] MEDS: ENOXAPARIN SODIUM 40 MG/0.4 ML DISP.SYRIN SQ SCH (18:56)
--- NOTE | 2017-05-15 19:59 | NUR ---
PT RECEIVED ON FOX VENT WITH VENT SETTINGS OF AC 12, VT 500 PEEP +5, 40% FIO2. PT SHOWING NO S/S OF RESPIRATORY DISTRESS AT THIS TIME. NO CHANGES MADE ON VENT AT THIS TIME. ALARMS CHECKED, ARE ON AND AUDIBLE. PT IS ORALLY INTUBATED WITH 7.5 ETT APPROX. 23CM LIP LINE. ETT IS PATENT AND SECURED VIA ANCHOR FAST. ORAL CARE DONE. HME CHANGED. SUCTIONED SMALL AMOUNT OF THICK, PALE SECRETIONS. AMBU BAG IS AT BEDSIDE. VENT PLUGGED INTO RED EMERGENCY OUTLET. WILL CONTINUE TO MONITOR ACCORDINGLY.
[2017-05-16] VITALS (32 sets, daily range): BP systolic 86–126; BP diastolic 43–82
[2017-05-16] MEDS: IV D5 1/2 NS 1000 ML 1,000 ML IV SCH ×2 (02:54→13:10)
[2017-05-16 04:55] LABS: BASOPHILS # (AUTO) 0.1 K/uL (0.0-8.0); BASOPHILS % (AUTO) 0.5 % (0.0-2.0); EOSINOPHILS # (AUTO) 0.1 K/uL (0.0-0.7); EOSINOPHILS % (AUTO) 0.9 % (0.0-7.0); HEMATOCRIT 37.2 % (40-50); HEMOGLOBIN 12.9 G/DL (14.0-18.0); LYMPHOCYTES # (AUTO) 0.6 K/UL (0.8-4.8); LYMPHOCYTES % (AUTO) 5.3 % (20.5-51.5); MEAN CORPUSCULAR HGB CONC 35 g/dL (32.0-37.0); MONOCYTES # (AUTO) 0.9 K/UL (0.1-1.30); MONOCYTES % (AUTO) 8.3 % (0.0-11.0); NEUTROPHILS # (AUTO) 9.3 K/UL (1.8-8.9); PLATELET COUNT (AUTO) 111 K/UL (150-450)
[2017-05-16 05:18] LABS: BILIRUBIN,TOTAL 1.2 mg/dL (0.2-1.0); CREATININE 0.7 mg/dL (0.6-1.3); TOTAL PROTEIN, SERUM 5.7 g/dL (6.4-8.2)
--- NOTE | 2017-05-16 07:26 | NUR ---
Pt received in bed, semi-dior's, unable to communicate.. orally intubated, ETT 7.5, 23 at lip moved to center of mouth.. Vent: Browning with settings: A/C 12, Vt 500, PEEP +5, FiO2 30%, tolerating well, no changes made at this time.. Alarms on and audible, charted as received.. will continue to monitor..
[2017-05-16 08:26] LABS: ABG BASE EXCESS 1.5 mmol/L; ABG HCO3 25.2 mmol/L; ABG PCO2 36.7 mmHg (35.0-45.0); ABG PH 7.455 (7.350-7.450); ABG PO2 112.2 mmHg (75.0-100.0); ABG SITE LEFT RADIAL; ABG TOTAL HEMOGLOBIN 12.3 G/dL (13.5-18.0); COHb 1.3 % (0.5-1.5); MetHb 0.3 % (0.0-1.5); O2Hb 97.2 % (94.0-97.0); VENT MODE VENT - A/C; VT, ABG 500 mL
[2017-05-16] MEDS: PROPOFOL 100 ML IV PRN (08:44)
[2017-05-16] MEDS: LORAZEPAM IV PRN (08:45)
[2017-05-16] MEDS: DEXTROSE 5% IV PRN (08:45)
[2017-05-16] MEDS ORDERED: PANTOPRAZOLE SODIUM 40 MG VIAL IV SCH (09:00)
[2017-05-16] MEDS: FOLIC ACID 1 MG TABLET PO SCH (09:00)
[2017-05-16] MEDS: PANTOPRAZOLE SODIUM 40 MG VIAL IV SCH (09:00)
[2017-05-16] MEDS: THIAMINE HCL 100 MG TABLET PO SCH (09:00)
[2017-05-16] MEDS: MULTIVITAMINS,THERAPEUTIC TABLET PO SCH (09:00)
[2017-05-16] MEDS ORDERED: POTASSIUM CHLORIDE 20 MEQ POWDER PACKET GT ONE ×2 (12:30→15:30)
[2017-05-16] MEDS ORDERED: LORAZEPAM IV PRN (14:00)
[2017-05-16] MEDS ORDERED: DEXTROSE 5% IV PRN (14:00)
[2017-05-16] MEDS ORDERED: SODIUM PHOSPHATE MM 15 MM in IV DEXTROSE 5% 250 ML IV ONE (17:30)
[2017-05-16] MEDS: ENOXAPARIN SODIUM 40 MG/0.4 ML DISP.SYRIN SQ SCH (18:45)
--- NOTE | 2017-05-16 19:44 | NUR ---
Receive pt orally intubated with 7.5 ETT~23cm at lip line, on Browning vent with the following settings of AC-12, Vt-500, PEEP+5, FIO2-30%. No respiratory distress noted. Airway care done, pt responded to physical stimuli. ETT moved to the right. Resus. bag at bedside. PPE used. Vent and alarms checked and reset.
[2017-05-17] VITALS (35 sets, daily range): BP systolic 90–154; BP diastolic 49–98
[2017-05-17] MEDS: IV D5 1/2 NS 1000 ML 1,000 ML IV SCH ×3 (02:39→17:14)
[2017-05-17] MEDS: PROPOFOL 100 ML IV PRN ×3 (02:40→17:16)
[2017-05-17 05:08] LABS: CARBON DIOXIDE 27 mmol/L (21-32); CHLORIDE 106 mmol/L (98-107); CREATININE 0.6 mg/dL (0.6-1.3); GLUCOSE 153 mg/dL (74-106); UREA NITROGEN, BLOOD 6 mg/dL (7-18)
[2017-05-17 05:13] LABS: POTASSIUM 2.7 mmol/L (3.5-5.1)
[2017-05-17] MEDS ORDERED: POTASSIUM CHLORIDE 20 MEQ POWDER PACKET PO ONE (06:45)
--- NOTE | 2017-05-17 07:50 | NUR ---
RECEIVED PT ON CONTINUOUS VENT AC 12 VT 500 PEEP 5 FIO2 30%. ORAL CARE DONE, SUCTION SMALL AMOUNT THICK YELLOW SECRETIONS.VENT CHECKED, ALARMS WORKI NG WELL AND AUDIBLE. PPE USED. NO DISTRESS NOTED AT THIS TIME. WILL CONTINUE TO MONITOR.
[2017-05-17] MEDS: PANTOPRAZOLE SODIUM 40 MG VIAL IV SCH (08:05)
[2017-05-17] MEDS: THIAMINE HCL 100 MG TABLET PO SCH (08:06)
[2017-05-17] MEDS: MULTIVITAMINS,THERAPEUTIC TABLET PO SCH (08:06)
[2017-05-17] MEDS: FOLIC ACID 1 MG TABLET PO SCH (08:06)
[2017-05-17 08:56] LABS: ABG BASE EXCESS -0.2 mmol/L; ABG HCO3 22.7 mmol/L; ABG PCO2 31.6 mmHg (35.0-45.0); ABG PH 7.474 (7.350-7.450); ABG PO2 136.1 mmHg (75.0-100.0); ABG SITE RIGHT RADIAL; ABG TOTAL HEMOGLOBIN 12.4 G/dL (13.5-18.0); COHb 1.1 % (0.5-1.5); MetHb 0.3 % (0.0-1.5); O2Hb 97.8 % (94.0-97.0); VENT MODE VENT - A/C
[2017-05-17] MEDS: VANCOMYCIN FOR PO/GT/NG USE GT SCH ×2 (12:00→17:05)
[2017-05-17] MEDS: ENOXAPARIN SODIUM 40 MG/0.4 ML DISP.SYRIN SQ SCH (18:04)
--- NOTE | 2017-05-17 19:58 | NUR ---
PATIENT RECEIVED ON MECHANICAL VENTILATOR WITH THE FOLLOWING SETTINGS THAT ARE CHARTED ON THE MECHANICAL VENT NOTES. SUCTIONED SMALL AMOUNTS OF THICK YELLOW SECRETIONS. ET TUBE SIZE 7.5, 23 CM AT LIP LINE. ET TUBE IS IN THE MIDDLE OF THE LIP. NO SOB NOTED AT THIS TIME. ALARMS ARE ON AND AUDIBLE. VENT IS PLUGGED IN THE RED OUTLET. WILL CONTINUE TO MONITOR THROUGHOUT SHIFT.
[2017-05-17] MEDS ORDERED: FIBERSOURCE HN 1000ML LIQUID NG PRN (20:00)
[2017-05-18] VITALS (31 sets, daily range): BP systolic 81–177; BP diastolic 47–114
[2017-05-18] MEDS: VANCOMYCIN FOR PO/GT/NG USE GT SCH ×5 (00:10→23:44)
[2017-05-18] MEDS: PROPOFOL 100 ML IV PRN ×5 (01:09→23:47)
[2017-05-18] MEDS: IV D5 1/2 NS 1000 ML 1,000 ML IV SCH ×3 (04:19→23:47)
[2017-05-18 06:51] LABS: BASOPHILS % (AUTO) 0.4 % (0.0-2.0); EOSINOPHILS # (AUTO) 0.1 K/uL (0.0-0.7); EOSINOPHILS % (AUTO) 0.9 % (0.0-7.0); HEMATOCRIT 36.4 % (36.7-47.1); HEMOGLOBIN 12.5 g/dL (12.5-16.3); LYMPHOCYTES # (AUTO) 0.7 K/uL (20.0-40.0); LYMPHOCYTES % (AUTO) 7.1 % (20.5-51.5); MEAN CORPUSCULAR HEMOGLOBIN 34.1 uug (23.8-33.4); MEAN CORPUSCULAR HGB CONC 34 g/dL (32.5-36.3); MEAN CORPUSCULAR VOLUME 99.3 fL (73.0-96.2); MONOCYTES # (AUTO) 1.4 K/uL (2.0-10.0); MONOCYTES % (AUTO) 15.2 % (0.0-11.0); NEUTROPHILS % (AUTO) 76.4 % (38.5-71.5); PLATELET COUNT (AUTO) 205 K/uL (152-348); RED BLOOD CELL COUNT(AUTO) 3.66 MIL/uL (4.06-5.63); WHITE BLOOD COUNT (AUTO) 9.1 K/uL (3.6-10.2)
[2017-05-18 06:52] LABS: CARBON DIOXIDE 25 mmol/L (21-32); CHLORIDE 106 mmol/L (98-107); CREATININE 0.5 mg/dL (0.6-1.3); GLUCOSE 124 mg/dL (74-106); MAGNESIUM 1.7 mg/dL (1.8-2.4); PHOSPHOROUS 2.8 mg/dL (2.5-4.9); POTASSIUM 3.1 mmol/L (3.5-5.1); UREA NITROGEN, BLOOD 6 mg/dL (7-18)
[2017-05-18] MEDS ORDERED: POTASSIUM CHLORIDE 20 MEQ TAB.PRT.SR PO ONE (08:30)
[2017-05-18] MEDS: MAGNESIUM SULFATE/D5W 100 ML IV SCH ×2 (09:01→10:11)
[2017-05-18] MEDS: THIAMINE HCL 100 MG TABLET PO SCH (09:02)
[2017-05-18] MEDS: FOLIC ACID 1 MG TABLET PO SCH (09:02)
[2017-05-18] MEDS: MULTIVITAMINS,THERAPEUTIC TABLET PO SCH (09:02)
[2017-05-18] MEDS: PANTOPRAZOLE SODIUM 40 MG VIAL IV SCH (09:02)
[2017-05-18 09:07] LABS: ABG BASE EXCESS 1.1 mmol/L; ABG HCO3 24.2 mmol/L; ABG PCO2 33.5 mmHg (35.0-45.0); ABG PH 7.477 (7.350-7.450); ABG PO2 121.5 mmHg (75.0-100.0); ABG SITE LEFT RADIAL; ABG TOTAL HEMOGLOBIN 12.2 G/dL (13.5-18.0); COHb 0.8 % (0.5-1.5); MetHb 0.4 % (0.0-1.5); O2Hb 97.8 % (94.0-97.0); VENT MODE VENT - A/C; VT, ABG 500 mL
[2017-05-18] MEDS: POTASSIUM CHLORIDE 20 MEQ POWDER PACKET NG SCH (09:42)
[2017-05-18] MEDS: CLONIDINE HCL 0.1 MG TABLET PO PRN ×2 (09:49→19:48)
[2017-05-18] MEDS: HYDROCODONE/APAP 5-325MG TABLET PO PRN (09:50)
[2017-05-18] MEDS ORDERED: IV NORMAL SALINE 500 ML IV ONE ×2 (12:15→13:30)
--- NOTE | 2017-05-18 12:15 | NUR ---
persistent hypotension, call to Dr Westbrook. orders received for fluid challenge 500ml NS Addendum: 05/18/17 at 1222 by LAURE POLLACK RN Amended: Links added.
--- NOTE | 2017-05-18 13:30 | NUR ---
call to dr Westbrook for persistent hypotension despite fluid bolus. orders received for another 500 ml fluid bolus. then levophed prn to keep map >65 Addendum: 05/18/17 at 1416 by LAURE POLLACK RN Amended: Links added. Addendum: 05/18/17 at 1417 by LAURE POLLACK RN Amended: Links added. Addendum: 05/18/17 at 1417 by LAURE POLLACK RN Amended: Links added.
--- NOTE | 2017-05-18 13:55 | NUR ---
IV NS 500 ml started and completed. bp better Addendum: 05/18/17 at 1417 by LAURE POLLACK RN Amended: Links added. Addendum: 05/18/17 at 1417 by LAURE POLLACK RN Amended: Links added.
--- NOTE | 2017-05-18 14:14 | NUR ---
seen by dr Eli. report given. orders received Addendum: 05/18/17 at 1414 by LAURE POLLACK RN Amended: Chente added. Addendum: 05/18/17 at 1416 by LAURE POLLACK RN Amended: [place] added. Addendum: 05/18/17 at 1417 by LAURE POLLACK RN Amended: Chente added. Addendum: 05/18/17 at 1417 by LAURE POLLACK RN Amended: Links added.
[2017-05-18 14:31] LABS: BAND % (MANUAL) 2 % (0-10); LYMPHOCYTES % (MANUAL) 8 % (20-40); MONOCYTES % (MANUAL) 14 % (2-10); NEUTROPHILS % (MANUAL) 76 % (42-75)
--- NOTE | 2017-05-18 18:05 | NUR ---
RESUMED CARE POST REPORT FROM NOC SHIFT. PATIENT IS INTUBATED WILTH ET TUBE SIZE 7.5 TAPED AT APPROXIMATELY 23 AT LIP. ORAL CARE DONE AND MOVED ETT TO THE MIDDLE RIGHT. ABG DONE WITH RESULT GIVEN TO LAURE POLLACK RN. NO CHANGES WAS MADE TODAY.
[2017-05-18] MEDS: ENOXAPARIN SODIUM 40 MG/0.4 ML DISP.SYRIN SQ SCH (18:13)
--- NOTE | 2017-05-18 19:13 | NUR ---
RECEIVED PT ON FOX VENT SETTINGS OF AC 12, VT 500 PEEP +5, 30% FIO2. NO VENT CHANGES MADE. VENT CHECK DONE. ALARMS CHECKED, ARE ON AND FUNCTIONING PROPERLY. PT IS ORALLY INTUBATED WITH 7.5 ETT APPROXIMATELY 23CM LIP LINE. ETT IS PATENT AND SECURED VIA ANCHOR-FAST. HME CHANGED. ORAL CARE DONE. SUCTIONED SMALL AMOUNT OF THICK, PALE SECRETIONS. BVM IS AT BEDSIDE. VENT IS PLUGGED INTO RED EMERGENCY OUTLET. NO S/S OF RESPIRATORY DISTRESS NOTED. WILL CONTINUE TO MONITOR THROUGHOUT SHIFT.
--- NOTE | 2017-05-18 19:15 | NUR ---
REPORT GIVEN TO Sayra RN Addendum: 05/18/17 at 1947 by LAURE POLLACK RN Amended: Links added.
--- NOTE | 2017-05-18 19:30 | NUR ---
Report received. Patient on contact isolation for stool C diff. Orally intubated and to mechanical ventilator with settings: AC=12, FIO2=30%, PEEP=5 and LX=805 ml. Sat above 94%. Opens eyes to name but doesn't follow commands. Easily gets agitated. Oral secretions drooling from side of mouth. Suctioned for large clear thick secretions. Oral care rendered. On Diprivan drip; increased to 45 mcg/kg/min. for adequate sedation. Assessment completed. Addendum: 05/19/17 at 0049 by JOSH MARKS RN Amended: Links added.
--- NOTE | 2017-05-18 19:48 | NUR ---
Clonidine 0.1 mg given via patent NGT. SBP 170's. Addendum: 05/19/17 at 0051 by JOSH MARKS RN Amended: Links added. Addendum: 05/19/17 at 0054 by JOSH MARKS RN Amended: Links added.
[2017-05-18] MEDS: FIBERSOURCE HN 1000ML LIQUID NG PRN (19:49)
[2017-05-19] VITALS (36 sets, daily range): BP systolic 92–215; BP diastolic 48–146
--- NOTE | 2017-05-19 | NUR ---
Requires frequent oral suctioning; patient grimacing during care. Medicated with [place] via NGT. Tolerating NGT feedings fairly well. Addendum: 05/19/17 at 0055 by JOSH MARKS RN Amended: Links added.
[2017-05-19] MEDS: HYDROCODONE/APAP 5-325MG TABLET PO PRN ×3 (00:03→22:01)
[2017-05-19] MEDS: PROPOFOL 100 ML IV PRN ×5 (04:04→21:12)
--- NOTE | 2017-05-19 05:00 | NUR ---
Patient awake after am care, very agitated, stiff and doesn't follow commands. Diprivan drip increased to 50 mcg/kg/min. Medicated with [place] for generalized discomfort. Monitored closely.
[2017-05-19] MEDS: HYDROCODONE/APAP 10-325 MG TABLET PO PRN (05:11)
[2017-05-19 05:15] LABS: BASOPHILS # (AUTO) 0.1 K/uL (0.0-8.0); BASOPHILS % (AUTO) 0.5 % (0.0-2.0); EOSINOPHILS # (AUTO) 0.1 K/uL (0.0-0.7); EOSINOPHILS % (AUTO) 0.6 % (0.0-7.0); HEMATOCRIT 34.5 % (36.7-47.1); HEMOGLOBIN 11.8 g/dL (12.5-16.3); LYMPHOCYTES # (AUTO) 0.4 K/uL (20.0-40.0); LYMPHOCYTES % (AUTO) 3.1 % (20.5-51.5); MEAN CORPUSCULAR HEMOGLOBIN 33.7 uug (23.8-33.4); MEAN CORPUSCULAR HGB CONC 34 g/dL (32.5-36.3); MEAN CORPUSCULAR VOLUME 98.9 fL (73.0-96.2); MONOCYTES # (AUTO) 1.1 K/uL (2.0-10.0); MONOCYTES % (AUTO) 9.9 % (0.0-11.0); NEUTROPHILS # (AUTO) 9.8 K/uL (1.8-8.9); NEUTROPHILS % (AUTO) 85.9 % (38.5-71.5); PLATELET COUNT (AUTO) 256 K/uL (152-348); RED BLOOD CELL COUNT(AUTO) 3.49 MIL/uL (4.06-5.63); WHITE BLOOD COUNT (AUTO) 11.4 K/uL (3.6-10.2)
[2017-05-19] MEDS: VANCOMYCIN FOR PO/GT/NG USE GT SCH ×4 (05:23→23:46)
[2017-05-19 05:30] LABS: CARBON DIOXIDE 26 mmol/L (21-32); CHLORIDE 106 mmol/L (98-107); CREATININE 0.6 mg/dL (0.6-1.3); GLUCOSE 107 mg/dL (74-106); MAGNESIUM 1.7 mg/dL (1.8-2.4); PHOSPHOROUS 2.7 mg/dL (2.5-4.9); POTASSIUM 3.1 mmol/L (3.5-5.1); UREA NITROGEN, BLOOD 7 mg/dL (7-18)
--- NOTE | 2017-05-19 05:50 | NUR ---
PCXray done. Patient still gets agitated when stimulated. Skin warm. Temp [id number]=708 orally. Tylenol given.
[2017-05-19] MEDS: ACETAMINOPHEN 325 MG TABLET PO PRN (05:54)
--- NOTE | 2017-05-19 07:00 | NUR ---
No neuro changes. Report given to am shift.
[2017-05-19] MEDS: PANTOPRAZOLE SODIUM 40 MG VIAL IV SCH (08:14)
[2017-05-19] MEDS: FOLIC ACID 1 MG TABLET PO SCH (08:15)
[2017-05-19] MEDS: THIAMINE HCL 100 MG TABLET PO SCH (08:15)
[2017-05-19] MEDS: MULTIVITAMINS,THERAPEUTIC TABLET PO SCH (08:15)
[2017-05-19] MEDS: POTASSIUM CHLORIDE 20 MEQ POWDER PACKET NG SCH (08:16)
[2017-05-19] MEDS ORDERED: POTASSIUM CHLORIDE 10 MEQ CAPSULE.SA PO SCH (09:00)
[2017-05-19] MEDS ORDERED: POTASSIUM CHLORIDE 20 MEQ POWDER PACKET NG ONE (09:00)
[2017-05-19] MEDS: IV D5 1/2 NS 1000 ML 1,000 ML IV SCH (09:05)
[2017-05-19 09:37] LABS: ABG BASE EXCESS 1.5 mmol/L; ABG HCO3 23.6 mmol/L; ABG PCO2 29.9 mmHg (35.0-45.0); ABG PH 7.516 (7.350-7.450); ABG PO2 83.8 mmHg (75.0-100.0); ABG SITE RIGHT RADIAL; ABG TOTAL HEMOGLOBIN 12.5 G/dL (13.5-18.0); COHb 1.4 % (0.5-1.5); MetHb 0.5 % (0.0-1.5); O2Hb 95.7 % (94.0-97.0); VENT MODE VENT - A/C; VT, ABG 500 mL
--- NOTE | 2017-05-19 09:47 | NUR ---
PT REMAINS ON FOX VENT, SETTINGS AC 12, VT 500, +5, FIO2 30%. 7.5 ETT IS PATENT AND SECURED WITH ETT DOMINGUEZ APPROX 23CM AT THE LIP. WEANING NOT DONE THIS MORNING DUE TO HIGH FEVER AND AGITATION. SMALL AMOUNT OF THICK YELLOW SECRETIONS. WILL CONTINUE TO MONITOR. ALARMS ARE ON AND AUDIBLE, BVM AT BEDSIDE.
--- NOTE | 2017-05-19 09:57 | NUR ---
Dr. Calvert in the unit to examine patient; full report given aware of pt's current fever of 103.3 rectally and that patient on cooling measures. also informed that weaning held due restlessness agitation and high fever. Addendum: 05/19/[address] RN Also informed that blood cultures drawn, per protocol.
--- NOTE | 2017-05-19 10:56 | NUR ---
Dr. Eli pulmonary services in the unit to examine patient, report given and informed of pt's condition and that weaning held this morning. See orders. Addendum: 05/19/[address] GOODMAN RN also informed that patient is back on Ativan drip due to restlessness agitation and high fever. see vital signs sheet record.
[2017-05-19] MEDS: OXACILLIN SODIUM 2 G in IV NORMAL SALINE 100 ML IV SCH ×2 (13:10→19:02)
[2017-05-19] MEDS: MAGNESIUM SULFATE/D5W 100 ML IV SCH ×2 (16:40→17:39)
[2017-05-19] MEDS: ENOXAPARIN SODIUM 40 MG/0.4 ML DISP.SYRIN SQ SCH (17:52)
--- NOTE | 2017-05-19 19:55 | NUR ---
Pt received on Browning vent with the following settings of AC 12, VT 500, Peep +5, FiO2 30%. Pt is orally intubated with a 7.5 ETT, secured approximately at 23cm with Stuart Fast. No signs of respiratory distress noted at this time, pt appears to be tolerating vent settings well. Suctioned pt with small amount of thick pale-yellowish secretions. Ambu-bag at bedside. Vent alarms functioning and audible. Will continue to monitor pt throughout shift.
--- NOTE | 2017-05-19 20:00 | NUR ---
Remains intubated on vent, appears comfortable on current settings. Adequately sedated on Diprivan and Ativan drips. Readily gets anxious with suctioning and positioning. Bilateral soft wrist restraints maintained, circ checks adequate. Safety measures observed at all times. Tube feedings well tolerated. Aspiration precautions maintained. HOB up elevated at all times. Remains febrile, cooling measures on going. Maintained on contact isolation for CDiff stools. Nursing comfort measures observed at all times. Please see CCU flowsheet for full assessment and clinical data.
[2017-05-19] MEDS: FIBERSOURCE HN 1000ML LIQUID NG PRN (20:11)
[2017-05-19] MEDS: IV NORMAL SALINE 250 ML IV PRN (23:46)
[2017-05-19] MEDS: Z GUARD REMEDY PASTE 57 GM TUBE TOP PRN (23:47)
[2017-05-20] VITALS (32 sets, daily range): BP systolic 87–145; BP diastolic 33–79
[2017-05-20] MEDS: OXACILLIN SODIUM 2 G in IV NORMAL SALINE 100 ML IV SCH ×4 (00:50→19:11)
[2017-05-20] MEDS: PROPOFOL 100 ML IV PRN ×3 (02:13→16:04)
[2017-05-20] MEDS: Z GUARD REMEDY PASTE 57 GM TUBE TOP PRN (02:14)
[2017-05-20] MEDS: VANCOMYCIN FOR PO/GT/NG USE GT SCH ×3 (05:48→17:34)
[2017-05-20 05:55] LABS: BASOPHILS # (AUTO) 0.1 K/uL (0.0-8.0); BASOPHILS % (AUTO) 0.6 % (0.0-2.0); EOSINOPHILS % (AUTO) 0.4 % (0.0-7.0); HEMATOCRIT 31.3 % (36.7-47.1); HEMOGLOBIN 10.8 g/dL (12.5-16.3); LYMPHOCYTES # (AUTO) 0.3 K/uL (20.0-40.0); LYMPHOCYTES % (AUTO) 3.2 % (20.5-51.5); MEAN CORPUSCULAR HEMOGLOBIN 34.1 uug (23.8-33.4); MEAN CORPUSCULAR HGB CONC 35 g/dL (32.5-36.3); MEAN CORPUSCULAR VOLUME 98.9 fL (73.0-96.2); MONOCYTES # (AUTO) 1.1 K/uL (2.0-10.0); MONOCYTES % (AUTO) 10.5 % (0.0-11.0); NEUTROPHILS # (AUTO) 8.7 K/uL (1.8-8.9); NEUTROPHILS % (AUTO) 85.3 % (38.5-71.5); PLATELET COUNT (AUTO) 225 K/uL (152-348); RED BLOOD CELL COUNT(AUTO) 3.16 MIL/uL (4.06-5.63); WHITE BLOOD COUNT (AUTO) 10.2 K/uL (3.6-10.2)
--- NOTE | 2017-05-20 06:00 | NUR ---
Uneventful night. Temp. trending down, cooling measures in progress. Please see CCU flowsheet for trends and clinical data.
[2017-05-20 06:10] LABS: CARBON DIOXIDE 29 mmol/L (21-32); CHLORIDE 102 mmol/L (98-107); CREATININE 0.6 mg/dL (0.6-1.3); GLUCOSE 112 mg/dL (74-106); MAGNESIUM 1.8 mg/dL (1.8-2.4); PHOSPHOROUS 3.9 mg/dL (2.5-4.9); POTASSIUM 3.2 mmol/L (3.5-5.1); UREA NITROGEN, BLOOD 10 mg/dL (7-18)
--- NOTE | 2017-05-20 08:00 | NUR ---
Pt received on Browning vent, settings of AC12, VT 500, Peep +5, FiO2 30%. Pt is orally intubated with a 7.5 ETT, secured approx @ 23cm lip line with ETT gant. No signs of respiratory distress noted at this time, pt appears to be tolerating vent settings well. lavage/sxn'd sm/mod thick pale secretions noted. BVM at bedside. Vent alarms audible, checked and reset. Weaning for this AM CPAP/PS6 with abg's to be drawn in 1hr.
[2017-05-20] MEDS: PANTOPRAZOLE SODIUM 40 MG VIAL IV SCH (08:42)
[2017-05-20] MEDS: POTASSIUM CHLORIDE 20 MEQ POWDER PACKET NG SCH (08:42)
[2017-05-20] MEDS: FOLIC ACID 1 MG TABLET PO SCH (08:42)
[2017-05-20] MEDS: THIAMINE HCL 100 MG TABLET PO SCH (08:42)
[2017-05-20] MEDS: MULTIVITAMINS,THERAPEUTIC TABLET PO SCH (08:42)
[2017-05-20] MEDS ORDERED: POTASSIUM CHLORIDE 20 MEQ POWDER PACKET GT ONE (09:15)
--- NOTE | 2017-05-20 09:20 | NUR ---
Dr. Bach the unit to examine patient, report given orders to replace potassium via NG tube received.
[2017-05-20 09:23] LABS: ABG BASE EXCESS 4.5 mmol/L; ABG HCO3 28.8 mmol/L; ABG PCO2 41.8 mmHg (35.0-45.0); ABG PH 7.456 (7.350-7.450); ABG PO2 73.1 mmHg (75.0-100.0); ABG SITE LEFT RADIAL; ABG TOTAL HEMOGLOBIN 11.4 G/dL (13.5-18.0); COHb 0.9 % (0.5-1.5); CPAP,BG 0 cmH20; MetHb 0.3 % (0.0-1.5); O2Hb 94.7 % (94.0-97.0); VENT MODE VENT - CPAP/PS6
--- NOTE | 2017-05-20 11:28 | NUR ---
Patient back on regular vent setting A/C12, TV 500; FIO2 30% PEEP5.
[2017-05-20] MEDS: ACETAMINOPHEN 325 MG TABLET PO PRN ×2 (14:33→21:23)
--- NOTE | 2017-05-20 15:45 | NUR ---
Dr. Pat in the unit to examine patient, full report given. Orders received specimen sent as order. see order history.
[2017-05-20 17:31] LABS: *BLOOD, URINE NEGATIVE (NEGATIVE); *CLARITY,URINE SLIGHTLY CLOUDY (CLEAR); *COLOR,URINE DARK YELLOW (YELLOW); *KETONES,URINE TRACE (NEGATIVE); *PROTEIN,URINE 1+ (NEGATIVE); *UROBILINOGEN,URINE 0.2 E.U./dl (NORMAL); LEUKOCYTE ESTERASE ,URINE NEGATIVE (NEGATIVE); NITRITE, URINE POSITIVE (NEGATIVE); UGLUCOSE NEGATIVE (NEGATIVE)
[2017-05-20] MEDS: METRONIDAZOLE 500 MG/NS 100ML 500 MG in PREMIXED 1 EACH IV SCH (17:34)
[2017-05-20] MEDS: ENOXAPARIN SODIUM 40 MG/0.4 ML DISP.SYRIN SQ SCH (17:36)
[2017-05-20 17:40] LABS: *BILIRUBIN,URIN 1+ (NEGATIVE)
[2017-05-20 17:45] LABS: BACTERIA,URINE FEW /HPF (NONE SEEN)
[2017-05-20 17:46] LABS: CALCIUM OXALATE CRYSTALS,UR RARE /HPF (NONE SEEN); SQUAMOUS EPITHELIAL CELL,UR FEW /HPF (NONE SEEN)
[2017-05-20] MEDS: FIBERSOURCE HN 1000ML LIQUID NG PRN (17:59)
[2017-05-20] MEDS: LACTOBACILLUS RHAMNOSUS GG 1 EACH CAPSULE PO SCH (21:23)
--- NOTE | 2017-05-20 22:38 | NUR ---
PT RECEIVED ORALLY INTUBATED WITH A SIZE 7.5 ETT 23 CM AT THE LIP, ON A FOX VENT WITH SETTINGS OF A/C 12, VT 500, PEEP +5, AND 30% FIO2. VENT ALARMS ARE ON AND AUDIBLE, AMBU-BAG IS AT BEDSIDE. ORAL CARE DONE, AND ETT WAS MOVED TO THE LEFT. SUCTIONED SMALL AMOUNT OF WHITE AND YELLOW SECRETIONS. PT IS TOLERATING VENT SETTINGS WELL, NO SIGNS OF RESPIRATORY DISTRESS NOTED. WILL CONTINUE TO MONITOR.
[2017-05-21] VITALS (35 sets, daily range): BP systolic 89–221; BP diastolic 55–144
[2017-05-21] MEDS: VANCOMYCIN FOR PO/GT/NG USE GT SCH ×4 (00:05→18:28)
[2017-05-21] MEDS: METRONIDAZOLE 500 MG/NS 100ML 500 MG in PREMIXED 1 EACH IV SCH ×3 (01:05→16:46)
[2017-05-21] MEDS: OXACILLIN SODIUM 2 G in IV NORMAL SALINE 100 ML IV SCH ×4 (01:28→18:28)
[2017-05-21] MEDS: IV NORMAL SALINE 250 ML IV PRN (01:31)
[2017-05-21] MEDS: PROPOFOL 100 ML IV PRN ×5 (02:46→21:20)
[2017-05-21] MEDS: CLONIDINE HCL 0.1 MG TABLET PO PRN (05:06)
[2017-05-21 05:20] LABS: BASOPHILS # (AUTO) 0.2 K/uL (0.0-8.0); BASOPHILS % (AUTO) 1.7 % (0.0-2.0); EOSINOPHILS # (AUTO) 0.1 K/uL (0.0-0.7); EOSINOPHILS % (AUTO) 0.6 % (0.0-7.0); HEMATOCRIT 37.7 % (40-50); HEMOGLOBIN 12.8 G/DL (14.0-18.0); LYMPHOCYTES # (AUTO) 0.7 K/UL (0.8-4.8); LYMPHOCYTES % (AUTO) 5.2 % (20.5-51.5); MEAN CORPUSCULAR HGB CONC 34 g/dL (32.0-37.0); MEAN CORPUSCULAR VOLUME 97.4 FL (82.0-92.0); MONOCYTES # (AUTO) 1.6 K/UL (0.1-1.30); MONOCYTES % (AUTO) 12.5 % (0.0-11.0); NEUTROPHILS # (AUTO) 10.1 K/UL (1.8-8.9); PLATELET COUNT (AUTO) 324 K/UL (150-450); RED BLOOD CELL COUNT(AUTO) 3.87 MIL/UL (4.7-6.1); WHITE BLOOD COUNT (AUTO) 12.7 K/UL (4.0-11.2)
[2017-05-21] MEDS: PANTOPRAZOLE ORAL SUSPENSION 40 MG SUSPDR.PKT NG SCH (05:21)
[2017-05-21 05:55] LABS: CREATININE 0.7 mg/dL (0.6-1.3); MAGNESIUM 1.8 mg/dL (1.8-2.4); PHOSPHOROUS 4.1 mg/dL (2.5-4.9)
--- NOTE | 2017-05-21 08:04 | NUR ---
CPAP - PS 6 trial started.. will continue to monitor..
[2017-05-21] MEDS: LACTOBACILLUS RHAMNOSUS GG 1 EACH CAPSULE PO SCH ×2 (08:26→20:07)
[2017-05-21] MEDS: FOLIC ACID 1 MG TABLET PO SCH (08:26)
[2017-05-21] MEDS: THIAMINE HCL 100 MG TABLET PO SCH (08:26)
[2017-05-21] MEDS: MULTIVITAMINS,THERAPEUTIC TABLET PO SCH (08:26)
[2017-05-21] MEDS: POTASSIUM CHLORIDE 20 MEQ POWDER PACKET NG SCH (08:27)
[2017-05-21] MEDS: FIBERSOURCE HN 1000ML LIQUID NG PRN (08:27)
[2017-05-21 09:18] LABS: ABG BASE EXCESS 4.6 mmol/L; ABG HCO3 28.8 mmol/L; ABG PCO2 41.2 mmHg (35.0-45.0); ABG PH 7.462 (7.350-7.450); ABG PO2 96.8 mmHg (75.0-100.0); ABG SITE LEFT BRACHIAL; ABG TOTAL HEMOGLOBIN 11.2 G/dL (13.5-18.0); COHb 0.9 % (0.5-1.5); MetHb 0.2 % (0.0-1.5); O2Hb 96.8 % (94.0-97.0); VENT MODE CPAP
[2017-05-21 10:11] LABS: BAND % (MANUAL) 13 % (0-10); LYMPHOCYTES % (MANUAL) 6 % (20-40); METAMYELOCYTES % 1 % (0-1); MONOCYTES % (MANUAL) 13 % (2-10); NEUTROPHILS % (MANUAL) 67 % (42-75)
--- NOTE | 2017-05-21 10:20 | NUR ---
Pt.was seen by with extubation orders/Diprivan was turn off.
[2017-05-21] MEDS ORDERED: ALBUTEROL SULFATE 2.5 MG/3 ML NEBU NEB PRN (10:30)
[2017-05-21] MEDS ORDERED: DC PROPOFOL ONCE EXTUBATED XX PRN (10:30)
[2017-05-21] MEDS: ALBUTEROL SULFATE 2.5 MG/3 ML NEBU NEB SCH ×3 (11:17→19:40)
--- NOTE | 2017-05-21 13:53 | NUR ---
Pt.awake/alert,following directions was extubated by RT,went to resp.distress , became cyanotic and Sat% dropped into the 70s so CODE RENEE was called.
--- NOTE | 2017-05-21 13:55 | NUR ---
Pt awake, following directions, SpO2 99%.. pt extubated as per MD orders..
--- NOTE | 2017-05-21 14:10 | NUR ---
Pt extubated, difficulty breathing / shortness of breath, pt saturation dropped, rescue breathing with BVM started, ER called, arrived ordered BiPap, before BiPap applied pt re-intubated with ETT 7.5, 23 at lip.. vent settings resumed: A/C 12, Vt 500, PEEP 5, FiO2 30%.. Saturation 90%, FiO2 raised to 50% by nurse.. ABG to be drawn 1 hour.. Sputum sample obtained..
--- NOTE | 2017-05-21 14:10 | NUR ---
pt.was reintubated by ERMD . ETT was confer by X-RAY.
[2017-05-21] MEDS: ACETAMINOPHEN 325 MG TABLET PO PRN (14:24)
--- NOTE | 2017-05-21 14:45 | NUR ---
[phone] was paged. [phone] was paged again ,call back notified with pt.status,ABG resolt,elev.temp 101.1 ,care out new orders.
[2017-05-21 15:30] LABS: ABG BASE EXCESS 3.2 mmol/L; ABG HCO3 25.8 mmol/L; ABG PCO2 32.6 mmHg (35.0-45.0); ABG PH 7.516 (7.350-7.450); ABG PO2 65.3 mmHg (75.0-100.0); ABG SITE LEFT RADIAL; ABG TOTAL HEMOGLOBIN 11.8 G/dL (13.5-18.0); COHb 0.7 % (0.5-1.5); MetHb 0.3 % (0.0-1.5); O2Hb 93.8 % (94.0-97.0); VENT MODE VENT - A/C; VT, ABG 500 mL
[2017-05-21] MEDS ORDERED: ETOMIDATE 20 MG/10 ML VIAL IV ONE (15:56)
--- NOTE | 2017-05-21 17:50 | NUR ---
FiO2 at 70%
--- NOTE | 2017-05-21 18:00 | NUR ---
Pt.sedated,no s/s of acute distress.
[2017-05-21] MEDS: ENOXAPARIN SODIUM 40 MG/0.4 ML DISP.SYRIN SQ SCH (18:28)
--- NOTE | 2017-05-21 20:00 | NUR ---
tolerating vent settings saturation 100 % rr 14. suction patient via ett and via orally .moderate secretions from mouth .on propofol for sedation . continue to monitor levels of sedation ,patient withdraws to pain and facial grimace noted to pain. doesn't follow commands . Addendum: 05/21/17 at 2113 by ABILIO PARRY RN Amended: Links added.
--- NOTE | 2017-05-21 20:29 | NUR ---
PHARMACY CLINICAL NOTES: (VANCOMYCIN DOSING) S: 67 YO MALE ; W/DX OF RESPIRATORY FAILURE, SPUTUM CX==> S. AUREUS SENS. TO OXACILLIN ==> ON OXACILLIN 2GM Q6H BUT WBC STAYED ELEVATED AND HE HAD HIGH TEMP TODAY. ID CHANGED TO ZOSYN AND VANCOMYCIN AND RE-ORDERED ALL CX O: BUN/SCR 14/0.7; WBC 12.7, TEMP 101.1, DOSING WT 168 LBS A/P: WILL DOSE VANCOMYCIN 1250 MG Q12H; (FIRST DOSE TONIGHT @ 2100) WITH ESTIMATED PEAK OF 36 AND TROUGH OF 15.3. WILL ORDER TROUGH PRIOR TO 4TH DOSE AND ADJUST THE DOSE IF NECESSARY.
--- NOTE | 2017-05-21 20:30 | NUR ---
turned and reposition patient offloaded back with pillow ,scds used to bilateral lower extremities .elevated upper and lower extremities with pillows. Addendum: 05/21/17 at 2142 by ABILIO PARRY RN Amended: Links added.
--- NOTE | 2017-05-21 20:30 | NUR ---
afebrile temp 99.4 orally .continue to monitor vital signs and continue to monitor signs and symptoms of infection . patient seen and visited by jet with new antibiotic ordered . started patient on Zosyn and vancomycin IV . Addendum: 05/21/17 at 2108 by ABILIO PARRY RN Amended: Links added. Addendum: 05/21/17 at 2113 by ABILIO PARRY RN Amended: Links added.
[2017-05-21] MEDS: PIPERACILLIN/TAZOBACTAM/D5W 50 ML IV SCH (20:32)
[2017-05-21] MEDS: VANCOMYCIN IV 1,250 MG in IV DEXTROSE 5% 500 ML IV SCH (20:47)
[2017-05-21] MEDS: HYDROCODONE/APAP 10-325 MG TABLET PO PRN (21:19)
--- NOTE | 2017-05-21 21:53 | NUR ---
Receive pt orally intubated with 7.5 ETT~23cm at lip line, on Browning vent with the following settings of AC-12, Vt-500, PEEP+5, FIO2-70%. Pt tachypneic and tachycardic, RN aware. Airway care done, pt responded to physical stimuli. In-line HHN tx with 2.5mg Albuterol given, pt tolerated well. ETT moved to the left. Resus. bag at bedside. PPE used. Vent and alarms on and . Addendum: 05/21/17 at 2156 by JOSELINE WATERMAN RT Vent and alarms on and audible.
[2017-05-22] VITALS (36 sets, daily range): BP systolic 96–130; BP diastolic 57–84
[2017-05-22] MEDS: VANCOMYCIN FOR PO/GT/NG USE GT SCH ×5 (00:18→23:39)
[2017-05-22] MEDS: METRONIDAZOLE 500 MG/NS 100ML 500 MG in PREMIXED 1 EACH IV SCH ×3 (00:18→16:57)
[2017-05-22] MEDS: PIPERACILLIN/TAZOBACTAM/D5W 50 ML IV SCH ×4 (01:34→18:16)
[2017-05-22] MEDS: PROPOFOL 100 ML IV PRN ×5 (02:11→22:31)
[2017-05-22 05:17] LABS: BASOPHILS # (AUTO) 0.1 K/uL (0.0-8.0); BASOPHILS % (AUTO) 0.5 % (0.0-2.0); EOSINOPHILS # (AUTO) 0.1 K/uL (0.0-0.7); EOSINOPHILS % (AUTO) 0.6 % (0.0-7.0); HEMATOCRIT 31.9 % (36.7-47.1); HEMOGLOBIN 10.9 g/dL (12.5-16.3); LYMPHOCYTES # (AUTO) 0.8 K/uL (20.0-40.0); LYMPHOCYTES % (AUTO) 7.9 % (20.5-51.5); MEAN CORPUSCULAR HEMOGLOBIN 33.5 uug (23.8-33.4); MEAN CORPUSCULAR HGB CONC 34 g/dL (32.5-36.3); MEAN CORPUSCULAR VOLUME 97.9 fL (73.0-96.2); MONOCYTES # (AUTO) 1.3 K/uL (2.0-10.0); MONOCYTES % (AUTO) 12.3 % (0.0-11.0); NEUTROPHILS # (AUTO) 8.1 K/uL (1.8-8.9); NEUTROPHILS % (AUTO) 78.7 % (38.5-71.5); PLATELET COUNT (AUTO) 325 K/uL (152-348); RED BLOOD CELL COUNT(AUTO) 3.26 MIL/uL (4.06-5.63); WHITE BLOOD COUNT (AUTO) 10.3 K/uL (3.6-10.2)
--- NOTE | 2017-05-22 05:27 | NUR ---
Cont. monitor pt on present vent settings. During the shift pt still tachypneic. Present vent settings pt tolerated well, no changes made. Sx and lavage prn. HME changed. ETT repositioned X3. Resus. bag at bedside. Vent and alarms checked and reset.
--- NOTE | 2017-05-22 05:30 | NUR ---
am care done ,changed soiled linens and gown . skin care done . [place] care and vent care done .turned and reposition . uneventful night . patient tolerated vent setting and tolerated propofol for sedation ,patient withdraws to pain but doesn't follow commands . no eye contact. vital signs with in normal limits no pressors due medication a,antibiotics given as scheduled.
[2017-05-22 05:31] LABS: CARBON DIOXIDE 30 mmol/L (21-32); CHLORIDE 102 mmol/L (98-107); CREATININE 0.6 mg/dL (0.6-1.3); GLUCOSE 140 mg/dL (74-106); MAGNESIUM 1.8 mg/dL (1.8-2.4); PHOSPHOROUS 3.5 mg/dL (2.5-4.9); POTASSIUM 3.8 mmol/L (3.5-5.1); UREA NITROGEN, BLOOD 12 mg/dL (7-18)
[2017-05-22] MEDS: PANTOPRAZOLE ORAL SUSPENSION 40 MG SUSPDR.PKT NG SCH (05:39)
[2017-05-22 06:17] LABS: BAND % (MANUAL) 11 % (0-10); LYMPHOCYTES % (MANUAL) 9 % (20-40); METAMYELOCYTES % 2 % (0-1); MONOCYTES % (MANUAL) 10 % (2-10); NEUTROPHILS % (MANUAL) 68 % (42-75)
[2017-05-22] MEDS: ALBUTEROL SULFATE 2.5 MG/3 ML NEBU NEB SCH ×4 (07:22→19:25)
[2017-05-22] MEDS: MULTIVITAMINS,THERAPEUTIC TABLET PO SCH (08:22)
[2017-05-22] MEDS: THIAMINE HCL 100 MG TABLET PO SCH (08:22)
[2017-05-22] MEDS: LACTOBACILLUS RHAMNOSUS GG 1 EACH CAPSULE PO SCH ×2 (08:22→20:17)
[2017-05-22] MEDS: FOLIC ACID 1 MG TABLET PO SCH (08:22)
[2017-05-22] MEDS: POTASSIUM CHLORIDE 20 MEQ POWDER PACKET NG SCH (08:22)
[2017-05-22 08:49] LABS: ABG BASE EXCESS 7.1 mmol/L; ABG HCO3 30.9 mmol/L; ABG PCO2 40.8 mmHg (35.0-45.0); ABG PH 7.497 (7.350-7.450); ABG PO2 178.8 mmHg (75.0-100.0); ABG SITE LEFT RADIAL; ABG TOTAL HEMOGLOBIN 11.4 G/dL (13.5-18.0); COHb 0.6 % (0.5-1.5); MetHb 0.3 % (0.0-1.5); O2Hb 98.7 % (94.0-97.0); VENT MODE VENT - A/C; VT, ABG 500 mL
[2017-05-22] MEDS: VANCOMYCIN IV 1,250 MG in IV DEXTROSE 5% 500 ML IV SCH ×2 (09:37→20:17)
--- NOTE | 2017-05-22 10:30 | NUR ---
seen by dr powell. orders received Addendum: 05/22/17 at 1755 by LAURE POLLACK RN Amended: Links added.
--- NOTE | 2017-05-22 11:07 | NUR ---
Clinical pharmacy note-Vancomycin dosing per pharmacy Subjective: To continue Vancomycin dosing on this patient for pneumonia Objective: BUN 12 Scr 0.6 WBC 10.3 Temp 99.8 Assessment/Plan: Since renal function is stable, will continue same dose of Vancomycin 1250mg IV every 12hrs (second dose given today at 0900) and draw trough by 4th dose(ordered for tomorrow at 0830) for expected trough around 15. Will monitor and follow daily.
[2017-05-22] MEDS ORDERED: IOHEXOL 350 100 ML INFUS..BTL ONE (11:19)
[2017-05-22] MEDS ORDERED: IV NORMAL SALINE 250 ML IV ONE (11:19)
[2017-05-22] MEDS ORDERED: NORMAL SALINE FLUSH 10 ML DISP.SYRIN ONE (11:19)
--- NOTE | 2017-05-22 15:30 | NUR ---
to ct for cta chest/ back to room. pm care done/reporsitioned thereafter Addendum: 05/22/17 at 1748 by LAURE POLLACK RN Amended: Links added. Addendum: 05/22/17 at 1755 by LAURE POLLACK RN Amended: Links added.
[2017-05-22] MEDS ORDERED: IV NORMAL SALINE 250 ML IV PRN (17:15)
[2017-05-22] MEDS: ENOXAPARIN SODIUM 40 MG/0.4 ML DISP.SYRIN SQ SCH (17:39)
--- NOTE | 2017-05-22 19:14 | NUR ---
BELLA report given to Evaristo RN Addendum: 05/22/17 at 1914 by LAURE POLLACK RN Amended: Links added.
--- NOTE | 2017-05-22 19:30 | NUR ---
intubated and on ventilator ac mode rate of 12/ tv500/ fio2 50% and peep 5suction patient via ett and via mouth moderate to large oral secretions suction prn and hob up .continue to monitor rr and saturation , Addendum: 05/22/17 at 2014 by ABILIO PARRY RN Amended: Links added.
--- NOTE | 2017-05-22 22:00 | NUR ---
turned and reposition patient ,tube feedings in progress and tolerating tube feedings .hob up and aspiration .due medication given via ngt .
--- NOTE | 2017-05-22 23:05 | NUR ---
PT ON CONT FOX VENT WITH 7.5 ET/TUBE IN PLACE , 23CM LIP LINE, AND ROTATED, WITH CURRENT VENT SETTINGS, A/C 12, VT 500ML, PEEP5, 50%, PT DOES ASSIST AT TIMES, [id number] BPM, AT TIMES, PT IS SEDATED ON DIPRIVAN, BUT STILL MOVES A LITTLE, WITH GOOD COUGH EFFORT, AND SUCTION MOUTH WITH YANKAUER, VERY PROD, CHECK CUFF, NEB INLINE ALBUTEROL TOLL WELL, ALL ALARMS OK, AMBU BAG AT BEDSIDE, NO VENT CHANGES MADE AT THIS TIME, PT STABLE, CHANGE HME.Jeremy COLLINS CLEANING SUPERVISOR Addendum: 05/22/17 at 2308 by KRUNAL COLLINS RT Amended: Links added.
[2017-05-23] VITALS (37 sets, daily range): BP systolic 95–163; BP diastolic 56–86
[2017-05-23] MEDS: METRONIDAZOLE 500 MG/NS 100ML 500 MG in PREMIXED 1 EACH IV SCH ×3 (00:33→16:58)
[2017-05-23] MEDS: PIPERACILLIN/TAZOBACTAM/D5W 50 ML IV SCH ×4 (00:34→18:24)
[2017-05-23] MEDS: PROPOFOL 100 ML IV PRN ×6 (02:22→21:20)
--- NOTE | 2017-05-23 04:30 | NUR ---
am care done ,changed soiled linens and gown .skin care done . vent care done and suction orally .vital signs with in normal limits .
[2017-05-23] MEDS: PANTOPRAZOLE ORAL SUSPENSION 40 MG SUSPDR.PKT NG SCH (05:12)
[2017-05-23] MEDS: VANCOMYCIN FOR PO/GT/NG USE GT SCH ×4 (05:12→23:07)
[2017-05-23 05:34] LABS: BASOPHILS # (AUTO) 0.2 K/uL (0.0-8.0); BASOPHILS % (AUTO) 1.2 % (0.0-2.0); EOSINOPHILS # (AUTO) 0.1 K/uL (0.0-0.7); EOSINOPHILS % (AUTO) 0.6 % (0.0-7.0); HEMATOCRIT 28.4 % (36.7-47.1); HEMOGLOBIN 9.8 g/dL (12.5-16.3); LYMPHOCYTES # (AUTO) 1.3 K/uL (20.0-40.0); LYMPHOCYTES % (AUTO) 8.6 % (20.5-51.5); MEAN CORPUSCULAR HEMOGLOBIN 33.5 uug (23.8-33.4); MEAN CORPUSCULAR HGB CONC 34 g/dL (32.5-36.3); MEAN CORPUSCULAR VOLUME 97.4 fL (73.0-96.2); MONOCYTES # (AUTO) 1.3 K/uL (2.0-10.0); MONOCYTES % (AUTO) 8.7 % (0.0-11.0); NEUTROPHILS # (AUTO) 12.1 K/uL (1.8-8.9); NEUTROPHILS % (AUTO) 80.9 % (38.5-71.5); PLATELET COUNT (AUTO) 431 K/uL (152-348); RED BLOOD CELL COUNT(AUTO) 2.92 MIL/uL (4.06-5.63); WHITE BLOOD COUNT (AUTO) 14.9 K/uL (3.6-10.2)
--- NOTE | 2017-05-23 05:38 | NUR ---
END OF SHIFT SUMMARY ON PATIENT, PT WITH 7.5 ET/TUBE IN PLACE WITH 23CM LIP LINE, WITH ANCHOR FAST IN PLACE CENTER REPOSITION, WITH CURRENT VENT SETTINGS, A/C 12, VT 500ML, PEEP 5, 50%, PT DOES ASSIST AT TIMES, CHECK CUFF, CHANGE HME, NEB INLINE X 1 WITH ALBUTEROL, TOLL WELL, ALL ALARMS OK, AMBU BAG AT BEDSIDE, NO VENT CHANGES MADE AT THIS TIME, PT IS SEDATED, BUT DOES SEMI AWAKE AT TIMES, ABG ON DAY SHIFT, WITH GOOD OXYGENATION, SUCTIONED A LOT OF MOUTH SECRETIONS, THICK WHITISH TINGE SECRETIONS, AND SUCTIONED ET/TUBE LESS PRODUCTIVE, NO VENT CHANGES MADE AT THIS TIME.Jeremy COLLINS RCP Addendum: 05/23/17 at 0542 by KRUNAL COLLINS RT Amended: Links added.
[2017-05-23 05:51] LABS: CARBON DIOXIDE 32 mmol/L (21-32); CHLORIDE 103 mmol/L (98-107); CREATININE 0.6 mg/dL (0.6-1.3); GLUCOSE 107 mg/dL (74-106); MAGNESIUM 1.9 mg/dL (1.8-2.4); PHOSPHOROUS 3.6 mg/dL (2.5-4.9); UREA NITROGEN, BLOOD 10 mg/dL (7-18)
--- NOTE | 2017-05-23 06:30 | NUR ---
uneventful night patient tolerating vent settings and sedation patient open eyes on and off able to moved the right hand and lower extremities .slow and weak ,advised not to pulled ett tube continue to monitor vital signs and levels of comfort.
[2017-05-23] MEDS: IV NORMAL SALINE 250 ML IV PRN (06:33)
[2017-05-23] MEDS: ALBUTEROL SULFATE 2.5 MG/3 ML NEBU NEB SCH ×4 (07:40→19:11)
[2017-05-23 07:55] LABS: BAND % (MANUAL) 10 % (0-10); LYMPHOCYTES % (MANUAL) 10 % (20-40); METAMYELOCYTES % 2 % (0-1); MONOCYTES % (MANUAL) 9 % (2-10); MYELOCYTES % 2 % (0-0); NEUTROPHILS % (MANUAL) 67 % (42-75)
[2017-05-23 08:19] LABS: ABG BASE EXCESS 7.1 mmol/L; ABG HCO3 31.1 mmol/L; ABG PCO2 41.8 mmHg (35.0-45.0); ABG PO2 120.6 mmHg (75.0-100.0); ABG SITE LEFT RADIAL; ABG TOTAL HEMOGLOBIN 11.1 G/dL (13.5-18.0); COHb 0.8 % (0.5-1.5); MetHb 0.2 % (0.0-1.5); O2Hb 97.8 % (94.0-97.0); VENT MODE VENT - A/C; VT, ABG 500 mL
[2017-05-23] MEDS: THIAMINE HCL 100 MG TABLET PO SCH (08:20)
[2017-05-23] MEDS: FOLIC ACID 1 MG TABLET PO SCH (08:20)
[2017-05-23] MEDS: MULTIVITAMINS,THERAPEUTIC TABLET PO SCH (08:20)
[2017-05-23] MEDS: POTASSIUM CHLORIDE 20 MEQ POWDER PACKET NG SCH (08:20)
[2017-05-23] MEDS: LACTOBACILLUS RHAMNOSUS GG 1 EACH CAPSULE PO SCH ×2 (08:20→21:09)
[2017-05-23] MEDS: FIBERSOURCE HN 1000ML LIQUID NG PRN (08:50)
[2017-05-23] MEDS: HYDROCODONE/APAP 10-325 MG TABLET PO PRN ×2 (09:10→17:00)
--- NOTE | 2017-05-23 09:45 | NUR ---
Dr. Burton pulmonary services in the unit to examine patient, full report given and also observed patient been restless and agitated. Orders received see order hx.
[2017-05-23] MEDS ORDERED: VANCOMYCIN IV 1,250 MG in IV DEXTROSE 5% 500 ML IV SCH (10:00)
--- NOTE | 2017-05-23 10:05 | NUR ---
Dr. mccann in the unit to examine patient; full report given.
[2017-05-23] MEDS: FENTANYL CITRAT IV 1,250 MCG in IV NORMAL SALINE 225 ML IV PRN (11:17)
--- NOTE | 2017-05-23 11:24 | NUR ---
Clinical pharmacy note-Vancomycin dosing per pharmacy Subjective: To continue Vancomycin dosing on this patient for pneumonia Objective: BUN 10 Scr 0.6 WBC 14.9 Temp 99.9 vanco trough level: 8.6 Assessment/Plan: Since vanco trough level is sub-therapeutic, will change dose from Vancomycin 1250mg IV every 12hrs to vanco 1250mg IVPB q9hr for predicted vanco trough level of 15 mcg/ml at steady state. 1st dose was due today at 1000. Plan to draw trough by 4th dose(not yet ordered). Will monitor and follow daily.
--- NOTE | 2017-05-23 14:30 | NUR ---
Dr. Pat in the unit to examine patient; full report given. also informed of preliminary blood cultures.
--- NOTE | 2017-05-23 17:03 | NUR ---
PT REMAINS ON MECHANICAL VENTILATION, NO VENT CHANGES ORDERED. DOING WELL WITH NO S/S OF RESPIRATORY DISTRESS NOTED. ORAL CARE DONE, SUCTIONED AND LAVAGED SMALL AMOUNT OF THICK YELLOW SECRETIONS. INLINE TXS GIVEN WITH NO ADVERSE REACTIONS. ALARMS ARE ON AND AUDIBLE, BVM AT BEDSIDE. ETT IS PATENT AND SECURED WITH ANCHOR FAST.
[2017-05-23] MEDS: ENOXAPARIN SODIUM 40 MG/0.4 ML DISP.SYRIN SQ SCH (18:13)
--- NOTE | 2017-05-23 19:29 | NUR ---
Pt rec'd on Browning settings AC 12, VT 500, FIO2-35% and PEEP+5. No resp. distress noted. 7.5 ETT is patent and secure at approx. 23cm now at the left side of mouth. BVM is at bedside. Pt to be monitored throughout the shift, adm'd resp neb txs per MD orders and PRN SX. Browning alarm parameters have been checked and remain audible.
--- NOTE | 2017-05-23 19:30 | NUR ---
orally intubated on ac mode rate of 12/500/foi2 35% peep of 5.saturation 100% rr 20. suction patient orally and via ett . moderate secretions from the mouth suction prn as needed .hob up aspiration precaution Addendum: 05/23/17 at 2248 by ABILIO PARRY RN Amended: Links added.
--- NOTE | 2017-05-23 20:00 | NUR ---
patient very restless and agiated on propofol and fentanyl drip . obtained order from :forrest for restraints for safety . Addendum: 05/24/17 at 0607 by ABILIO PARRY RN Amended: Links added.
[2017-05-23] MEDS ORDERED: LORAZEPAM 2 MG/1 ML VIAL ONE (20:20)
[2017-05-23] MEDS: LORAZEPAM 2 MG/1 ML VIAL IV PRN ×2 (20:26→23:54)
--- NOTE | 2017-05-23 20:29 | NUR ---
called gumaro clayton and informed md patient very restless very agitated opening eyes and moved all extremities and getting oob unable to educate doesn't follow commands and on propofol at 50 mcg/kg /min and fentanyl at 50 mcg/hr . as per md we cannot increase propofol patient on DTs and alcohol withdrawal. obtained order for Ativan 1 mg q 1 hour prn for agitation and restlessness medication taken from the pyxis and unable to scan using a multi via Ativan bottle ..
--- NOTE | 2017-05-23 22:00 | NUR ---
total care patient turned and reposition . elevated upper and lower extremities with pillows .scds used . bilateral heels off bed Addendum: 05/24/17 at 0611 by ABILIO PARRY RN Amended: Links added.
--- NOTE | 2017-05-23 22:00 | NUR ---
turned and reposition patient , elevated upper and lower extremities and heels off bed . scds used . no new skin injury noted . Addendum: 05/23/17 at 2250 by ABILIO PARRY RN Amended: Links added.
[2017-05-24] VITALS (35 sets, daily range): BP systolic 96–159; BP diastolic 51–87
[2017-05-24] MEDS ORDERED: LORAZEPAM 2 MG/1 ML VIAL ONE (00:10)
[2017-05-24] MEDS: METRONIDAZOLE 500 MG/NS 100ML 500 MG in PREMIXED 1 EACH IV SCH ×3 (00:13→17:02)
[2017-05-24] MEDS: PIPERACILLIN/TAZOBACTAM/D5W 50 ML IV SCH ×4 (00:16→18:49)
[2017-05-24] MEDS: PROPOFOL 100 ML IV PRN ×3 (01:46→10:23)
--- NOTE | 2017-05-24 05:28 | NUR ---
Patient remains on Browning with no changes made to the ventilator settings. No resp. distress noted throughout the shift. Pt was routinely sx'd and melchor'd ventilaor settings and resp neb tx well. 7.5 ETT is patent and secure at approx. 23cm now at the leftt side of the mouth. Resusc. bag is at bedside. Browning alarm parameters have been checked and remain audible.
[2017-05-24 05:36] LABS: BASOPHILS # (AUTO) 0.1 K/uL (0.0-8.0); BASOPHILS % (AUTO) 0.9 % (0.0-2.0); EOSINOPHILS # (AUTO) 0.2 K/uL (0.0-0.7); HEMATOCRIT 30.7 % (36.7-47.1); HEMOGLOBIN 10.4 g/dL (12.5-16.3); LYMPHOCYTES # (AUTO) 1.3 K/uL (20.0-40.0); LYMPHOCYTES % (AUTO) 8.5 % (20.5-51.5); MEAN CORPUSCULAR HEMOGLOBIN 33.4 uug (23.8-33.4); MEAN CORPUSCULAR HGB CONC 34 g/dL (32.5-36.3); MEAN CORPUSCULAR VOLUME 98.5 fL (73.0-96.2); MONOCYTES # (AUTO) 0.9 K/uL (2.0-10.0); MONOCYTES % (AUTO) 6.1 % (0.0-11.0); NEUTROPHILS % (AUTO) 83.5 % (38.5-71.5); PLATELET COUNT (AUTO) 456 K/uL (152-348); RED BLOOD CELL COUNT(AUTO) 3.11 MIL/uL (4.06-5.63); WHITE BLOOD COUNT (AUTO) 15.6 K/uL (3.6-10.2)
[2017-05-24] MEDS: PANTOPRAZOLE ORAL SUSPENSION 40 MG SUSPDR.PKT NG SCH (05:41)
[2017-05-24] MEDS: VANCOMYCIN FOR PO/GT/NG USE GT SCH ×4 (05:42→23:48)
[2017-05-24 05:51] LABS: CARBON DIOXIDE 31 mmol/L (21-32); CHLORIDE 105 mmol/L (98-107); CREATININE 0.6 mg/dL (0.6-1.3); GLUCOSE 102 mg/dL (74-106); POTASSIUM 3.6 mmol/L (3.5-5.1); UREA NITROGEN, BLOOD 10 mg/dL (7-18)
[2017-05-24 06:18] LABS: ABG BASE EXCESS 5.3 mmol/L; ABG HCO3 30.4 mmol/L; ABG PCO2 46.7 mmHg (35.0-45.0); ABG PH 7.431 (7.350-7.450); ABG PO2 96.5 mmHg (75.0-100.0); ABG SITE LEFT BRACHIAL; COHb 0.6 % (0.5-1.5); MetHb 0.3 % (0.0-1.5); O2Hb 96.8 % (94.0-97.0); VENT MODE VENT - A/C; VT, ABG 500 mL
[2017-05-24] MEDS: IV NORMAL SALINE 250 ML IV PRN (06:27)
[2017-05-24] MEDS: ALBUTEROL SULFATE 2.5 MG/3 ML NEBU NEB SCH ×4 (08:00→19:06)
[2017-05-24] MEDS: POTASSIUM CHLORIDE 20 MEQ POWDER PACKET NG SCH (08:43)
[2017-05-24] MEDS: FOLIC ACID 1 MG TABLET PO SCH (08:44)
[2017-05-24] MEDS: MULTIVITAMINS,THERAPEUTIC TABLET PO SCH (08:44)
[2017-05-24] MEDS: LACTOBACILLUS RHAMNOSUS GG 1 EACH CAPSULE PO SCH ×2 (08:44→20:37)
[2017-05-24] MEDS: THIAMINE HCL 100 MG TABLET PO SCH (08:44)
--- NOTE | 2017-05-24 09:37 | NUR ---
PT RECEIVED ORALLY INTUBATED WITH A SIZE 7.5 ETT APPROXIMATELY 23CM AT THE LIP. PT IS ON MECHANICAL VENTILATION ON A FOX VENT WITH SETTINGS OF A/C 12, VT 500, PEEP +5, AND 35% FIO2. VENT ALARMS ARE ON AND AUDIBLE, AMBU-BAG AT BEDSIDE. ETT MOVED TO THE RIGHT SIDE OF THE MOUTH. HHN TX TOLERATED WELL WITH NO ADVERSE REACTIONS NOTED. PT IS CURRENTLY TOLERATING VENT SETTINGS WELL, SHOWING NO SIGNS OF RESPIRATORY DISTRESS AT THIS TIME. PT IS IN CONTACT ISOLATION ROOM, PPE USED. WILL CONTINUE TO MONITOR.
--- NOTE | 2017-05-24 10:15 | NUR ---
Dr. Calvert attending physician in to assess patient.
--- NOTE | 2017-05-24 10:35 | NUR ---
Dr. lopez pulmonary services in the unit to examine patient; report given orders received and carried out. see orders hx.
[2017-05-24] MEDS: LORAZEPAM 2 MG/1 ML VIAL IV PRN ×4 (11:39→20:37)
[2017-05-24] MEDS: FENTANYL CITRAT IV 1,250 MCG in IV NORMAL SALINE 225 ML IV PRN (12:06)
[2017-05-24] MEDS: MIDAZOLAM HCL 100 MG in IV DEXTROSE 5% 80 ML IV PRN ×2 (12:18→23:52)
--- NOTE | 2017-05-24 17:41 | NUR ---
at this time patient on versed and fentanyl drip sedation not achieved as desired. patient remains restless and agitated opening eyes spontaneously.
[2017-05-24] MEDS: ENOXAPARIN SODIUM 40 MG/0.4 ML DISP.SYRIN SQ SCH (18:49)
--- NOTE | 2017-05-24 19:06 | NUR ---
PT RECEIVED ON FOX VENT WITH VENT SETTINGS OF AC 12, VT 500, PEEP +5, FIO2 35%. PT APPEARS TO BE TOLERATING CURRENT SETTINGS. NO CHANGES MADE AT THIS TIME. NO S/S OF RESPIRATORY DISTRESS OBSERVED. PT IS ORALLY INTUBATED WITH 7.5 ETT APPROX. 23CM LIP LINE. ETT IS PATENT AND SECURED VIA ANCHOR-FAST. ADMINISTERED Q/4 W/A ALBUTEROL TX. TOLERATED WELL. ORAL CARE DONE. HME CHANGED. SUCTIONED SMALL AMOUNT OF THIN, PALE SECRETIONS. AMBU BAG IS AT BEDSIDE. WILL CONTINUE TO MONITOR THROUGHOUT SHIFT.
--- NOTE | 2017-05-24 20:00 | NUR ---
orally intubated and sedated on versed and fentanyl. sedation vacation done when off sedation patient open eyes move all extremities but doesn't follow commands very restless and agitated .back on sedation and continue to monitor levels of comfort and sedation .restraints protocol observed Addendum: 05/25/17 at 0850 by ABILIO PARRY RN Amended: Links added.
[2017-05-25] VITALS (33 sets, daily range): BP systolic 93–176; BP diastolic 54–104
[2017-05-25] MEDS ORDERED: VANCOMYCIN IV 1,250 MG in IV DEXTROSE 5% 500 ML IV SCH (01:00)
[2017-05-25] MEDS: METRONIDAZOLE 500 MG/NS 100ML 500 MG in PREMIXED 1 EACH IV SCH ×3 (01:34→16:56)
[2017-05-25] MEDS: PIPERACILLIN/TAZOBACTAM/D5W 50 ML IV SCH ×6 (01:35→19:21)
[2017-05-25] MEDS ORDERED: VANCOMYCIN 1000 MG VIAL ONE (01:42)
[2017-05-25] MEDS ORDERED: VANCOMYCIN HCL 500 MG VIAL ONE (01:43)
[2017-05-25] MEDS: LORAZEPAM 2 MG/1 ML VIAL IV PRN ×4 (02:49→19:37)
--- NOTE | 2017-05-25 04:00 | NUR ---
tolerating vent setting and vital signs with in normal limits.
[2017-05-25 05:11] LABS: BASOPHILS # (AUTO) 0.1 K/uL (0.0-8.0); BASOPHILS % (AUTO) 0.5 % (0.0-2.0); EOSINOPHILS # (AUTO) 0.2 K/uL (0.0-0.7); HEMATOCRIT 32.4 % (36.7-47.1); HEMOGLOBIN 10.9 g/dL (12.5-16.3); LYMPHOCYTES # (AUTO) 1.7 K/uL (20.0-40.0); MEAN CORPUSCULAR HEMOGLOBIN 33.1 uug (23.8-33.4); MEAN CORPUSCULAR HGB CONC 34 g/dL (32.5-36.3); MEAN CORPUSCULAR VOLUME 98.2 fL (73.0-96.2); MONOCYTES # (AUTO) 0.8 K/uL (2.0-10.0); MONOCYTES % (AUTO) 4.4 % (0.0-11.0); NEUTROPHILS % (AUTO) 85.1 % (38.5-71.5); PLATELET COUNT (AUTO) 513 K/uL (152-348); WHITE BLOOD COUNT (AUTO) 18.8 K/uL (3.6-10.2)
[2017-05-25] MEDS: VANCOMYCIN FOR PO/GT/NG USE GT SCH ×3 (05:30→17:51)
[2017-05-25] MEDS: PANTOPRAZOLE ORAL SUSPENSION 40 MG SUSPDR.PKT NG SCH (05:31)
[2017-05-25 05:59] LABS: CARBON DIOXIDE 30 mmol/L (21-32); CHLORIDE 102 mmol/L (98-107); CREATININE 0.6 mg/dL (0.6-1.3); GLUCOSE 124 mg/dL (74-106); POTASSIUM 3.6 mmol/L (3.5-5.1); UREA NITROGEN, BLOOD 9 mg/dL (7-18)
[2017-05-25 06:15] LABS: BAND % (MANUAL) 6 % (0-10); LYMPHOCYTES % (MANUAL) 13 % (20-40); MONOCYTES % (MANUAL) 2 % (2-10); MYELOCYTES % 2 % (0-0); NEUTROPHILS % (MANUAL) 77 % (42-75)
[2017-05-25] MEDS: IV NORMAL SALINE 250 ML IV PRN (06:33)
--- NOTE | 2017-05-25 07:00 | NUR ---
dr aguilar called back covering for md de la cruz dictated labs cbc and bmp .low sodium .low h/h. with order to transfused 2 units of prbc with dialysis , Addendum: 05/25/17 at 0836 by ABILIO PARRY RN wrong patient wrong entry ,
[2017-05-25] MEDS: ALBUTEROL SULFATE 2.5 MG/3 ML NEBU NEB SCH ×4 (07:28→19:24)
[2017-05-25 08:50] LABS: ABG BASE EXCESS 6.4 mmol/L; ABG HCO3 31.5 mmol/L; ABG PCO2 47.9 mmHg (35.0-45.0); ABG PH 7.436 (7.350-7.450); ABG PO2 93.9 mmHg (75.0-100.0); ABG SITE LEFT BRACHIAL; ABG TOTAL HEMOGLOBIN 10.7 G/dL (13.5-18.0); COHb 0.9 % (0.5-1.5); MetHb 0.2 % (0.0-1.5); O2Hb 96.7 % (94.0-97.0); VENT MODE VENT - A/C; VT, ABG 500 mL
[2017-05-25] MEDS: POTASSIUM CHLORIDE 20 MEQ POWDER PACKET NG SCH (09:28)
[2017-05-25] MEDS: THIAMINE HCL 100 MG TABLET PO SCH (09:28)
[2017-05-25] MEDS: MULTIVITAMINS,THERAPEUTIC TABLET PO SCH (09:28)
[2017-05-25] MEDS: LACTOBACILLUS RHAMNOSUS GG 1 EACH CAPSULE PO SCH ×2 (09:28→21:09)
[2017-05-25] MEDS: FOLIC ACID 1 MG TABLET PO SCH (09:29)
[2017-05-25 10:20] LABS: *BILIRUBIN,URIN NEGATIVE (NEGATIVE); *BLOOD, URINE Trace-lysed (NEGATIVE); *CLARITY,URINE SLIGHTLY CLOUDY (CLEAR); *COLOR,URINE YELLOW (YELLOW); *KETONES,URINE NEGATIVE (NEGATIVE); *PROTEIN,URINE NEGATIVE (NEGATIVE); *UROBILINOGEN,URINE 0.2 E.U./dl (NORMAL); LEUKOCYTE ESTERASE ,URINE TRACE (NEGATIVE); NITRITE, URINE NEGATIVE (NEGATIVE); UGLUCOSE NEGATIVE (NEGATIVE)
[2017-05-25] MEDS: VANCOMYCIN IV 1,250 MG in IV DEXTROSE 5% 500 ML IV SCH ×2 (10:39→20:29)
[2017-05-25 10:53] LABS: BACTERIA,URINE NONE SEEN /HPF (NONE SEEN); SQUAMOUS EPITHELIAL CELL,UR FEW /HPF (NONE SEEN)
[2017-05-25] MEDS: FENTANYL CITRAT IV 1,250 MCG in IV NORMAL SALINE 225 ML IV PRN ×2 (12:56→12:58)
[2017-05-25] MEDS: MIDAZOLAM HCL 100 MG in IV DEXTROSE 5% 80 ML IV PRN ×2 (13:11→22:51)
--- NOTE | 2017-05-25 13:59 | NUR ---
Clinical pharmacy note-Vancomycin dosing per pharmacy Subjective: To re-start Vancomycin dosing on this patient for pneumonia. Recent resp cx came back pos for staph aureus Objective: BUN 9 Scr 0.6 WBC 18.8 Temp 98.8 One dose 1250mg vanco given 05/25 @0144 Assessment/Plan: Will restart previously dosed schedule of 1250mg q9hr for estimated trough of 15, second dose today at 1100. Trough ordered beofre 4th scheduled dose, due at 0430 tomorrow early am 05/26. Will check trough and reschedule as needed. Will follow
--- NOTE | 2017-05-25 15:29 | NUR ---
Patient awake and restless. medicated with ativan, versed drip at 10mg/hr, fentanyl at 50mcg/hr. legs are out of bed. right ankle restraint applied Addendum: 05/25/17 at 1538 by LAURE POLLACK RN Amended: Links added.
--- NOTE | 2017-05-25 16:00 | NUR ---
tube fdg resumed.fibersource at 75ml/hr via ngt/ HOB elevated above 30 degrees Addendum: 05/25/17 at 1919 by LAURE POLLACK RN Amended: Links added.
[2017-05-25] MEDS: FIBERSOURCE HN 1000ML LIQUID NG PRN (16:56)
[2017-05-25] MEDS: ENOXAPARIN SODIUM 40 MG/0.4 ML DISP.SYRIN SQ SCH (17:52)
--- NOTE | 2017-05-25 19:22 | NUR ---
report given to Sayra LUX.. Addendum: 05/25/17 at 1923 by LAURE POLLACK RN Amended: Links added.
--- NOTE | 2017-05-25 19:30 | NUR ---
Report received. Patient orally intubated and to mechanical ventilator with same settings. Extremely restless, bucking the ventilator, MELÉNDEZ well with hands trying to reach for the ETT despite restraints . On continuous Versed and Fentanyl drip. Sat [id number]% on 30 % FIO2. Patient reoriented to place and time. Plan of care discussed with him such as CPAP trial in am. Assessment completed. Addendum: 05/25/17 at 2049 by JOSH MARKS RN Amended: Links added.
--- NOTE | 2017-05-25 19:37 | NUR ---
Medicated with Ativan IV. Addendum: 05/25/17 at 2101 by JOSH MARKS RN Amended: Links added. Addendum: 05/25/17 at 210 by JOSH MARKS RN Amended: Links added.
--- NOTE | 2017-05-25 19:37 | NUR ---
received patient on a mechanical ventilator with the following settings: ac 12, vt 500, peep +5, and 35% fio2. patient is orally intubated with a 7.5 et tube. et tube is approx. 23 cm at the lip line. et tube is secured with anchor-fast. hhn tx given per md orders and tolerated well with no adverse reactions noted. hme changed. vent alarms are on and audible. ambu bag is by bedside. no vent changes made at this time. no sob noted. will continue to monitor patient.
--- NOTE | 2017-05-25 20:30 | NUR ---
Ativan IV effective; BP 130 systole. On contact isolation for Stool C diff.
--- NOTE | 2017-05-25 21:01 | NUR ---
Patient's called; updated of patient's condition. Aware of plan of care.
--- NOTE | 2017-05-25 21:20 | NUR ---
Seen by Janice Bryan EXPERIMENTAL MECH[employer]IC [employer]LECT[employer]; with orders.
[2017-05-25] MEDS: Z GUARD REMEDY PASTE 57 GM TUBE TOP PRN (22:38)
[2017-05-25] MEDS: CLONIDINE HCL 0.1 MG TABLET PO PRN (22:41)
[2017-05-25] MEDS ORDERED: OXACILLIN SODIUM 2 GM ONE (22:57)
[2017-05-26] VITALS (29 sets, daily range): BP systolic 98–176; BP diastolic 51–105
--- NOTE | 2017-05-26 | NUR ---
Patient sleeping; Versed drip titrated down. Addendum: 05/26/17 at 0033 by JOSH MARKS RN Amended: Links added.
[2017-05-26] MEDS: OXACILLIN SODIUM 2 G in IV NORMAL SALINE 100 ML IV SCH ×5 (00:03→23:31)
[2017-05-26] MEDS: VANCOMYCIN FOR PO/GT/NG USE GT SCH ×5 (00:03→23:32)
[2017-05-26] MEDS: METRONIDAZOLE 500 MG/NS 100ML 500 MG in PREMIXED 1 EACH IV SCH ×3 (01:03→16:13)
--- NOTE | 2017-05-26 02:00 | NUR ---
Patient starting to get restless; reoriented to place and time. Appears to understand instructions, but still with increasing restless ness. RT paged.
[2017-05-26] MEDS: LORAZEPAM 2 MG/1 ML VIAL IV PRN ×7 (02:15→23:02)
--- NOTE | 2017-05-26 02:15 | NUR ---
Extremely restless. Legs over the rails and patient trying to sit up. Bucking the vent. Medicated with Ativan 1 mg IV. ( Forgot to chart medication in eMAR; dose was from multi dose vial ) RT here. Suctioned. Continue to reorient patient as to the plan of care but futile. Stayed with patient. Repositioned with RT's help. HOB above 30 degrees at all times.
[2017-05-26 05:11] LABS: BASOPHILS # (AUTO) 0.1 K/uL (0.0-8.0); BASOPHILS % (AUTO) 0.6 % (0.0-2.0); EOSINOPHILS # (AUTO) 0.2 K/uL (0.0-0.7); EOSINOPHILS % (AUTO) 1.4 % (0.0-7.0); HEMATOCRIT 28.6 % (36.7-47.1); HEMOGLOBIN 9.6 g/dL (12.5-16.3); LYMPHOCYTES # (AUTO) 1.1 K/uL (20.0-40.0); LYMPHOCYTES % (AUTO) 7.4 % (20.5-51.5); MEAN CORPUSCULAR HEMOGLOBIN 32.8 uug (23.8-33.4); MEAN CORPUSCULAR HGB CONC 34 g/dL (32.5-36.3); MEAN CORPUSCULAR VOLUME 97.7 fL (73.0-96.2); MONOCYTES # (AUTO) 0.9 K/uL (2.0-10.0); MONOCYTES % (AUTO) 5.8 % (0.0-11.0); NEUTROPHILS % (AUTO) 84.8 % (38.5-71.5); PLATELET COUNT (AUTO) 688 K/uL (152-348); RED BLOOD CELL COUNT(AUTO) 2.93 MIL/uL (4.06-5.63); WHITE BLOOD COUNT (AUTO) 15.3 K/uL (3.6-10.2)
[2017-05-26 05:19] LABS: CARBON DIOXIDE 33 mmol/L (21-32); CHLORIDE 106 mmol/L (98-107); CREATININE 0.6 mg/dL (0.6-1.3); GLUCOSE 102 mg/dL (74-106); POTASSIUM 3.4 mmol/L (3.5-5.1); UREA NITROGEN, BLOOD 6 mg/dL (7-18)
[2017-05-26] MEDS: PANTOPRAZOLE ORAL SUSPENSION 40 MG SUSPDR.PKT NG SCH (05:38)
[2017-05-26] MEDS: CLONIDINE HCL 0.1 MG TABLET PO PRN (06:08)
[2017-05-26] MEDS: Z GUARD REMEDY PASTE 57 GM TUBE TOP PRN ×2 (06:22→20:26)
[2017-05-26] MEDS: FIBERSOURCE HN 1000ML LIQUID NG PRN (06:22)
--- NOTE | 2017-05-26 06:50 | NUR ---
Patient saturating well on current vent settings. With periods of extreme restlessness and agitation. Very uncooperative, trying to get out of bed despite RN's reorientation. Ativan 1 mg IV given 3 times during the shift; with good effect. Remains on Versed and Fentanyl drips at 10mg/H and 50 mcg/H respectively.
--- NOTE | 2017-05-26 07:15 | NUR ---
report received from Sayra LUX. 67 yr old male wo was admitted on 05/13 for altered mental status and respiratory distress. had been intubated and reintubated since this admission. remains orally intubated to vent tv 500, ac 12 fio2 30% peep of 5cm. on 2 sedatives versed at 10mg/hr and fentanyl at 50mcg/hr. is receiving tube fdg fibersource at 75ml/hr.via ngt. carver catheter intact with adequate urine output ekg sinus rhythm. bp stable. Addendum: 05/26/17 at 1736 by LAURE POLLACK RN Amended: Links added.
[2017-05-26] MEDS: ALBUTEROL SULFATE 2.5 MG/3 ML NEBU NEB SCH ×4 (07:26→19:19)
--- NOTE | 2017-05-26 07:30 | NUR ---
CARE RESUMED POST AM REPORT. RECEIVED PT ON SETTINGS OF AC12, VT 500, PEEP 5 AND FIO2 30%. PT IS SEDATED BUT IS QUITE AWAKE AT THIS TIME. IN LINE MEDICATION GIVEN WITHOUT COMPLICATION. SUCTIONED FOR SMALL AMOUNT OF THICK WHITISH AND FOAMY SECRETIONS. ORAL CARE DONE AND MOVED ET TUBE TO MID LIP.
--- NOTE | 2017-05-26 07:30 | NUR ---
placed on cpap, psv 6, fio2 30%. versed decreased to 5mg/hr and fentanyl drip to 10mcg/hr. while on cpap. abgs were drawn. results satisfactory. Addendum: 05/26/17 at 1739 by LAURE POLLACK RN Amended: Links added. Addendum: 05/26/17 at 1740 by LAURE POLLACK RN Amended: Links added. Addendum: 05/26/17 at 1744 by LAURE RUELO RN Amended: Links added. Addendum: 05/26/17 at 1747 by LAURE POLLACK RN Amended: Links added. Addendum: 05/26/17 at 1811 by LAURE POLLACK RN Amended: Links added. Addendum: 05/26/17 at 1812 by LAURE POLLACK RN Amended: Links added. Addendum: 05/26/17 at 1815 by LAURE POLLACK RN Amended: Links added.
--- NOTE | 2017-05-26 08:23 | NUR ---
medicated for agitation/ also medicated for generalized discomfort Addendum: 05/26/17 at 1740 by LAURE POLLACK RN Amended: Links added. Addendum: 05/26/17 at 1744 by LAURE POLLACK RN Amended: Links added. Addendum: 05/26/17 at 1747 by LAURE POLLACK RN Amended: Links added. Addendum: 05/26/17 at 1811 by LAURE POLLACK RN Amended: Links added. Addendum: 05/26/17 at 1812 by LAURE POLLACK RN Amended: Links added. Addendum: 05/26/17 at 1815 by LAURE POLLACK RN Amended: Links added.
--- NOTE | 2017-05-26 08:35 | NUR ---
STARTED PT ON CPAP WITH PRESSURE SUPPORT 6 AT 0735 AND BLOOD GAS WAS DRAWN PT 0830. RESULT WAS GIVEN TO LAURE POLLACK RN. STILL WAITING FOR NEW ORDERS.
[2017-05-26 08:41] LABS: ABG BASE EXCESS 4.6 mmol/L; ABG HCO3 28.4 mmol/L; ABG PCO2 38.8 mmHg (35.0-45.0); ABG PH 7.482 (7.350-7.450); ABG PO2 106.6 mmHg (75.0-100.0); ABG SITE LEFT BRACHIAL; ABG TOTAL HEMOGLOBIN 10.8 G/dL (13.5-18.0); COHb 0.6 % (0.5-1.5); CPAP,BG 0 cmH20; MetHb 0.2 % (0.0-1.5); O2Hb 97.7 % (94.0-97.0); VENT MODE VENT - CPAP; VT, ABG 618 mL
[2017-05-26 08:58] LABS: EOSINOPHILS % (MANUAL) 2 % (0-8); LYMPHOCYTES % (MANUAL) 8 % (20-40); MONOCYTES % (MANUAL) 3 % (2-10); NEUTROPHILS % (MANUAL) 87 % (42-75)
[2017-05-26] MEDS: THIAMINE HCL 100 MG TABLET PO SCH (09:04)
[2017-05-26] MEDS: MULTIVITAMINS,THERAPEUTIC TABLET PO SCH (09:04)
[2017-05-26] MEDS: POTASSIUM CHLORIDE 20 MEQ POWDER PACKET NG SCH (09:04)
[2017-05-26] MEDS: FOLIC ACID 1 MG TABLET PO SCH (09:04)
[2017-05-26] MEDS: LACTOBACILLUS RHAMNOSUS GG 1 EACH CAPSULE PO SCH ×2 (09:04→20:26)
[2017-05-26] MEDS: HYDROCODONE/APAP 5-325MG TABLET PO PRN (09:05)
[2017-05-26] MEDS: MIDAZOLAM HCL 100 MG in IV DEXTROSE 5% 80 ML IV PRN (10:09)
[2017-05-26] MEDS ORDERED: DC PROPOFOL ONCE EXTUBATED XX PRN (10:50)
--- NOTE | 2017-05-26 11:00 | NUR ---
seen by dr adelson. elizondo, chest xray, lab results reviewed. current condition report given orders received. Addendum: 05/26/17 at 0 by LAURE POLLACK RN Amended: Links added. Addendum: 05/26/17 at 1821 by LAURE POLLACK RN Amended: Links added. Addendum: 05/26/17 at 1826 by LAURE POLLACK RN Amended: Links added. Addendum: 05/26/17 at 1829 by LAURE POLLACK RN Amended: Links added.
--- NOTE | 2017-05-26 11:00 | NUR ---
extubated and placed on 6l per mask. patient kept pulling mask off despite restraints by moving head from sides to sides. frequent oral care given. Addendum: 05/26/17 at 1817 by LAURE POLLACK RN Amended: Links added. Addendum: 05/26/17 at 182 by LAURE POLLACK RN Amended: Links added. Addendum: 05/26/17 at 1822 by LAURE POLLACK RN Amended: Links added. Addendum: 05/26/17 at 1826 by LAURE POLLACK RN Amended: Links added. Addendum: 05/26/17 at 1828 by LAURE POLLACK RN Amended: Links added.
--- NOTE | 2017-05-26 11:05 | NUR ---
Extubated patient upon Dr. Eli's order. Placed on 6 lpm simple mask after hhn treatment. Patient is quite restless but responds appropriately, even [id number]% at this time.
--- NOTE | 2017-05-26 12:12 | NUR ---
PAGED DR. VILLALTA IN REGARDS OF THE PT'S BP, AWAITING A CALL BACK.
[2017-05-26] MEDS ORDERED: DEXAMETHASONE SOD PHOSPHATE 10 MG INJ IV ONE (12:30)
--- NOTE | 2017-05-26 12:46 | NUR ---
medicated for persistent agitation/ also medicated for persistent hypertension post extubation. patient has a lot of stridor and coughing. is able to expectorate but swallows phlegm. suctioned naso pharyngeally prn. hob elevated to prevent aspiration. ngt removed, tube fdg dcd. patient remains on restraints both wrists and ankles. patient trying to get out of bed. is mouthing words but so muffled Addendum: 05/26/17 at 1744 by LAURE POLLACK RN Amended: Links added. Addendum: 05/26/17 at 1747 by LAURE POLLACK RN Amended: Links added. Addendum: 05/26/17 at 1810 by LAURE POLLACK RN Amended: Links added. Addendum: 05/26/17 at 1811 by LAURE POLLACK RN Amended: Links added. Addendum: 05/26/17 at 1814 by LAURE POLLACK RN Amended: Links added.
[2017-05-26] MEDS: hydrALAZINE HCL 20 MG/1 ML VIAL IV PRN ×2 (12:52→17:51)
--- NOTE | 2017-05-26 12:55 | NUR ---
kcl IV given for k3.4 Addendum: 05/26/17 at 1829 by LAURE POLLACK RN Amended: Links added.
[2017-05-26 13:00] LABS: ABG HCO3 30.2 mmol/L; ABG PCO2 42.4 mmHg (35.0-45.0); ABG PH 7.471 (7.350-7.450); ABG PO2 82.4 mmHg (75.0-100.0); ABG SITE LEFT BRACHIAL; ABG TOTAL HEMOGLOBIN 11.6 G/dL (13.5-18.0); COHb 0.4 % (0.5-1.5); MetHb 0.3 % (0.0-1.5); O2Hb 96.3 % (94.0-97.0); VENT MODE COOL AEROSOL
[2017-05-26] MEDS ORDERED: POTASSIUM CHLORIDE 50 ML IV ONE (13:00)
--- NOTE | 2017-05-26 13:00 | NUR ---
patient remains restless. has now both ankle restraints as well as bilateral wrist restraints. Nursing supervisor instrument mechanics aware. and DR Sam Perez made aware. orders received for renew acute medical restraints, 1:1 sitter and continue with ativan ANASTASIA prn. Addendum: 05/26/17 at 1826 by LAURE POLLACK RN Amended: Links added. Addendum: 05/26/17 at 1828 by LAURE POLLACK RN Amended: Links added.
--- NOTE | 2017-05-26 13:21 | NUR ---
medicated for persistent stridor and frequent coughing spells. Addendum: 05/26/17 at 1810 by LAURE POLLACK RN Amended: Links added. Addendum: 05/26/17 at 1811 by LAURE POLLACK RN Amended: Links added. Addendum: 05/26/17 at 1814 by LAURE POLLACK RN Amended: Links added.
[2017-05-26] MEDS ORDERED: IV NORMAL SALINE 500 ML IV PRN (14:15)
[2017-05-26] MEDS: POTASSIUM CHLORIDE 10 MEQ in IV DEXTROSE 5% 100 ML IV SCH ×2 (14:16→15:51)
--- NOTE | 2017-05-26 16:00 | NUR ---
swallow screen done. patient is able toswallow liquid and meds without difficulty except patient is coughing a lot and has large amount of mucus. will strat on clear liquids with aspiration precautions. Addendum: 05/26/17 at 1855 by LAURE POLLACK RN Amended: Links added.
--- NOTE | 2017-05-26 16:00 | NUR ---
swallow screen done. patient is able to swallow liquid and meds without difficulty except patient is coughing a lot and has large amount of mucus. will startt on clear liquids with aspiration precautions. Addendum: 05/26/17 at 1858 by LAURE POLLACK RN Amended: Links added.
--- NOTE | 2017-05-26 16:04 | NUR ---
medicated for persistent restlessness. breathingis more labored and patient more tachycardic. call to [facility]. dr srikanth de leon dental practitioner. will do abg. abgs drawn per RT.on 5lnc. results to dr hernan lara. will start on racepi nebs Addendum: 05/26/17 at 1747 by LAURE POLLACK RN Amended: Links added. Addendum: 05/26/17 at 1811 by LAURE POLLACK RN Amended: Links added. Addendum: 05/26/17 at 1812 by LAURE POLLACK RN Amended: Links added. Addendum: 05/26/17 at 1815 by LAURE POLLACK RN Amended: Chente added.
[2017-05-26] MEDS: IV NORMAL SALINE 500 ML IV PRN (16:24)
--- NOTE | 2017-05-26 16:28 | NUR ---
Per request from nurse supervisor assembly and packing Janell Wiley, SW met with ETELVINA Mitchell and MACI Lozano to discuss patient's daughter's inquiry about DPOA. SW discussed with both Paula and Marta the requirements pertaining to an individual's cognitive status for them to be able to complete an Advance Directive, which it was agreed that the patient does not meet at this time. SW was then informed that patient is , and SW explained that healthcare decisions are usually deferred to the spouse, if the patient is unable to express their own healthcare wishes and in the absence of an advance directive. SW also provided some information on the conservatorship process, and informed both Paula and Marta that if the family wanted additional information and resources, that this SW is available to meet with them. Paula and Marta agreed. No further SS intervention needed at this time.
[2017-05-26 16:39] LABS: ABG BASE EXCESS 0.8 mmol/L; ABG HCO3 23.3 mmol/L; ABG PCO2 30.5 mmHg (35.0-45.0); ABG PH 7.501 (7.350-7.450); ABG PO2 69.4 mmHg (75.0-100.0); ABG SITE LEFT BRACHIAL; ABG TOTAL HEMOGLOBIN 11.9 G/dL (13.5-18.0); COHb 1.5 % (0.5-1.5); O2Hb 94.6 % (94.0-97.0); VENT MODE Nasal Cannula
--- NOTE | 2017-05-26 17:00 | NUR ---
seen by dr shelub. patel aware of persistent loose stools. orders received to place a rectal tube. flexiseal inserted. Addendum: 05/26/17 at 1821 by LAURE POLLACK RN Amended: Links added. Addendum: 05/26/17 at 1826 by LAURE POLLACK RN Amended: Links added. Addendum: 05/26/17 at 1828 by LAURE POLLACK RN Amended: Links added.
[2017-05-26] MEDS: ENOXAPARIN SODIUM 40 MG/0.4 ML DISP.SYRIN SQ SCH (17:48)
--- NOTE | 2017-05-26 17:51 | NUR ---
medicated for hypertension Addendum: 05/26/17 at 1815 by LAURE POLLACK RN Amended: Links added.
--- NOTE | 2017-05-26 17:51 | NUR ---
medicated for hypertension. Addendum: 05/26/17 at 1812 by LAURE POLLACK RN Amended: Chente added. Addendum: 05/26/17 at 1815 by LAURE POLLACK RN Amended: Chente price.
[2017-05-26] MEDS: RACEPINEPHRINE HCL 2.25% 0.5 ML NEBU NEB SCH (19:19)
--- NOTE | 2017-05-26 19:22 | NUR ---
BELLA report given to Sayra LUX. Addendum: 05/26/17 at 1922 by LAURE POLLACK RN Amended: Links added.
--- NOTE | 2017-05-26 19:30 | NUR ---
Report received. Patient extremely restless, tachycardic and very confused. Trying to get out of bed. On 4 pt. soft restraints for safety. Able to follow simple commands and making eye contact but very agitated. Reoriented and advised appropriately. S/P extubation and on 5 L NC. Bryant RT and sitter Desire at bedside. On full fall precautions. Patient with weak cough effort; unable to expectorate secretions. Suctioned for thick white, clear oral secretions. Addendum: 05/26/17 at 2644 by JOSH MARKS RN Amended: Links added.
--- NOTE | 2017-05-26 19:41 | NUR ---
Medicated with Ativan IV. Patient appears to engage with RN when talked to but no appropriate verbal responses. Monitored closely. Addendum: 05/26/17 at 2316 by JOSH MARKS RN Amended: Links added.
--- NOTE | 2017-05-26 20:30 | NUR ---
With frequent weak cough; requires oral suctioning every now and then.
--- NOTE | 2017-05-26 21:30 | NUR ---
Patient still awake after Ativan, mildly restless. PM care done. Turned and repositioned. Addendum: 05/27/17 at 0016 by JOSH MARKS RN Amended: Links added.
--- NOTE | 2017-05-26 23:00 | NUR ---
Extremely restless again. Sat down to 88-90%, HR up to 120's-130's. Pulled up and repositioned. HOB above 30 degrees at all times. Reoriented PRN. Medicated with Ativan IV.
--- NOTE | 2017-05-26 23:35 | NUR ---
called; updated of patient's condition. Ativan effective. Patient mildly restless.
[2017-05-27] VITALS (33 sets, daily range): BP systolic 86–180; BP diastolic 56–104
[2017-05-27] MEDS: METRONIDAZOLE 500 MG/NS 100ML 500 MG in PREMIXED 1 EACH IV SCH ×3 (00:57→16:31)
[2017-05-27] MEDS: RACEPINEPHRINE HCL 2.25% 0.5 ML NEBU NEB SCH ×4 (01:40→19:59)
[2017-05-27] MEDS: hydrALAZINE HCL 20 MG/1 ML VIAL IV PRN ×2 (02:43→09:30)
[2017-05-27] MEDS: LORAZEPAM 2 MG/1 ML VIAL IV PRN ×4 (03:54→11:43)
--- NOTE | 2017-05-27 03:54 | NUR ---
Ativan IV given again for extremely agitation. Tremulous and fidgety. Safety precautions maintained at all times.
[2017-05-27 05:22] LABS: BASOPHILS # (AUTO) 0.1 K/uL (0.0-8.0); BASOPHILS % (AUTO) 0.4 % (0.0-2.0); EOSINOPHILS # (AUTO) 0.2 K/uL (0.0-0.7); EOSINOPHILS % (AUTO) 0.9 % (0.0-7.0); HEMATOCRIT 31.1 % (40-50); HEMOGLOBIN 10.6 G/DL (14.0-18.0); LYMPHOCYTES # (AUTO) 1.4 K/UL (0.8-4.8); LYMPHOCYTES % (AUTO) 6.7 % (20.5-51.5); MEAN CORPUSCULAR HGB CONC 34 g/dL (32.0-37.0); MEAN CORPUSCULAR VOLUME 96.4 FL (82.0-92.0); MONOCYTES # (AUTO) 1.1 K/UL (0.1-1.30); MONOCYTES % (AUTO) 5.6 % (0.0-11.0); NEUTROPHILS # (AUTO) 17.5 K/UL (1.8-8.9); NEUTROPHILS % (AUTO) 86.4 % (38.5-71.5); PLATELET COUNT (AUTO) 1000 K/UL (150-450); RED BLOOD CELL COUNT(AUTO) 3.23 MIL/UL (4.7-6.1); WHITE BLOOD COUNT (AUTO) 20.3 K/UL (4.0-11.2)
[2017-05-27 05:44] LABS: CARBON DIOXIDE 25 mmol/L (21-32); CHLORIDE 109 mmol/L (98-107); CREATININE 0.6 mg/dL (0.6-1.3); GLUCOSE 100 mg/dL (74-106); MAGNESIUM 1.9 mg/dL (1.8-2.4); PHOSPHOROUS 1.8 mg/dL (2.5-4.9); POTASSIUM 3.4 mmol/L (3.5-5.1); UREA NITROGEN, BLOOD 6 mg/dL (7-18)
[2017-05-27] MEDS: VANCOMYCIN FOR PO/GT/NG USE GT SCH ×4 (05:50→23:42)
[2017-05-27] MEDS: OXACILLIN SODIUM 2 G in IV NORMAL SALINE 100 ML IV SCH ×4 (05:50→23:34)
[2017-05-27] MEDS: PANTOPRAZOLE ORAL SUSPENSION 40 MG SUSPDR.PKT NG SCH (06:02)
--- NOTE | 2017-05-27 06:22 | NUR ---
Awake all night; mildly to severely agitated with Ativan IV PRN. Eyes open and tracks, follows simple commands. Requires frequent oral suctioning. With weak cough effort. PO meds given with apple sauce and by a syringe. Patient swallows good but coughs afterwards. HOB elevated above 30 degrees at all times. Remains tachycardic; sat above 94% on 5L NC O2. Sitter at bedside.
[2017-05-27 06:32] LABS: BAND % (MANUAL) 6 % (0-10); LYMPHOCYTES % (MANUAL) 5 % (20-40); MONOCYTES % (MANUAL) 6 % (2-10); MYELOCYTES % 2 % (0-0); NEUTROPHILS % (MANUAL) 81 % (42-75)
[2017-05-27] MEDS ORDERED: ETOMIDATE 20 MG/10 ML VIAL MC ONE (07:11)
[2017-05-27] MEDS: ALBUTEROL SULFATE 2.5 MG/3 ML NEBU NEB SCH ×7 (07:19→23:46)
[2017-05-27] MEDS: THIAMINE HCL 100 MG TABLET PO SCH (08:06)
[2017-05-27] MEDS: LACTOBACILLUS RHAMNOSUS GG 1 EACH CAPSULE PO SCH ×2 (08:06→20:46)
[2017-05-27] MEDS: MULTIVITAMINS,THERAPEUTIC TABLET PO SCH (08:06)
[2017-05-27] MEDS: FOLIC ACID 1 MG TABLET PO SCH (08:06)
[2017-05-27] MEDS: POTASSIUM CHLORIDE 20 MEQ POWDER PACKET NG SCH (08:06)
[2017-05-27 08:55] LABS: ABG BASE EXCESS 1.2 mmol/L; ABG HCO3 23.9 mmol/L; ABG PCO2 31.5 mmHg (35.0-45.0); ABG PH 7.498 (7.350-7.450); ABG PO2 53.3 mmHg (75.0-100.0); ABG SITE LEFT BRACHIAL; ABG TOTAL HEMOGLOBIN 10.8 G/dL (13.5-18.0); COHb 0.7 % (0.5-1.5); MetHb 0.4 % (0.0-1.5); O2Hb 88.3 % (94.0-97.0); VENT MODE Nasal Cannula
--- NOTE | 2017-05-27 09:30 | NUR ---
Dr. Eli [facility] in the unit to examine patient; full report given.
--- NOTE | 2017-05-27 10:02 | NUR ---
Dr. Perez in the unit to examine patient; full report given and himself witness restlessness and agitation. Addendum: 05/27/[address] RN and both blood pressure and heart rate elevated.
--- NOTE | 2017-05-27 11:45 | NUR ---
At this time patient started desaturating, to the mid-80's. pulse oxymeter changed to a new, and also patient suction, one dose of Ativan given. no improvement noted and RT notified. patient placed on simple mask 5 liters, and saturation slowly to 88-90%. Patient remains restless with sbp in the 190's. Md. kang.
--- NOTE | 2017-05-27 11:58 | NUR ---
Dr. Sam Perez in the unit to examine patient.
[2017-05-27] MEDS ORDERED: FUROSEMIDE 40 MG/4 ML VIAL IV ONE (12:00)
[2017-05-27] MEDS ORDERED: KETAMINE HCL 500 MG/10 ML INJ IV ONE (12:15)
[2017-05-27] MEDS: LABETALOL HCL 100 MG/20 ML VIAL IV PRN (12:17)
[2017-05-27] MEDS: POTASSIUM PHOSPHATE MM 5 MMOL in IV DEXTROSE 5% 100 ML IV SCH ×4 (12:55→19:21)
--- NOTE | 2017-05-27 12:56 | NUR ---
Dr. Perez in the unit since 1100 this morning, and at 1240 patient reintubated, due to progressive decompensation. saturation in the low 80's patient in visible stress, with stridors and rr in the high 40's. at 1240 doses of Etomidate and succcinylcholine given as order. Patient successfully intubated at the first attempt by Dr. Sam Peerz, with Dr. Coulter anesthesiologist as a back up in the the room. RT team at bedside. Patient left on A/C 12, TV. 500, Peep + 5, and 30% FIO2.
--- NOTE | 2017-05-27 13:05 | NUR ---
At this time Dr. Sam Perez on the phone and updating Jovita Hardin pt's of events this afternoon.
[2017-05-27] MEDS: PROPOFOL 100 ML IV PRN ×2 (13:24→16:25)
[2017-05-27 13:33] LABS: ABG BASE EXCESS 4.6 mmol/L; ABG HCO3 28.2 mmol/L; ABG PCO2 38.4 mmHg (35.0-45.0); ABG PH 7.484 (7.350-7.450); ABG PO2 63.5 mmHg (75.0-100.0); ABG SITE LEFT BRACHIAL; ABG TOTAL HEMOGLOBIN 13.3 G/dL (13.5-18.0); COHb 0.9 % (0.5-1.5); MetHb 0.4 % (0.0-1.5); O2Hb 92.1 % (94.0-97.0); VENT MODE VENT - A/C; VT, ABG 500 mL
[2017-05-27] MEDS: FUROSEMIDE 40 MG/4 ML VIAL IV SCH ×4 (14:30→23:42)
[2017-05-27] MEDS: IPRATROPIUM BROMIDE 0.5 MG/2.5 ML NEBU NEB SCH ×3 (14:55→23:46)
--- NOTE | 2017-05-27 16:45 | NUR ---
Dr. Pat in the unit to examine patient; full report given.
[2017-05-27] MEDS: ENOXAPARIN SODIUM 40 MG/0.4 ML DISP.SYRIN SQ SCH (17:50)
--- NOTE | 2017-05-27 18:04 | NUR ---
RE INTUBATED PT DUE TO STRIDOR AND TO ESTABLISH A PATENT AIRWAY. HE IS INTUBATED WITH ET TUBE SIZE 8 TAPED AT APPROXIMATELY 24 CM AT LIP WHICH WAS EVENTUALLY PULLED OUT TO 22 CM AT MID LIP AFTER THE C X RAY. PATIENT WAS SEDATED AND IS NON RESPONSIVE AT THIS TIME. ABG WAS ALSO DRAWN 30 MINUTES AFTER AND THE RESULT WAS SEEN BY PAWAN MARTINEZ DNP. NO NEW ORDER WAS MADE. NEW SETTINGS ARE: AC 12, VT 500, PEEP 5 AND FIO2 30%.
[2017-05-27 19:00] LABS: CREATININE 0.7 mg/dL (0.6-1.3); MAGNESIUM 1.7 mg/dL (1.8-2.4); PHOSPHOROUS 3.8 mg/dL (2.5-4.9)
[2017-05-27 19:02] LABS: POTASSIUM 2.9 mmol/L (3.5-5.1)
[2017-05-27] MEDS ORDERED: POTASSIUM CHLORIDE 50 ML IV SCH (20:00)
--- NOTE | 2017-05-27 20:00 | NUR ---
RECEIVED PT.ORALLY INTUBATED TO VENT W/ SETTINGS OF AC-12, TV-500, FIO2-30%, PEEP-+5 W/ O2 SAT OF 99%. ON DIPRIVAN DRIP @ 50MCQ/KG/MIN ON RFA. NS @ 10CC/HR ON R UPPER ARM. REPOSITIONED ON HIS SIDE W/ HOB ELEVATED. ORAL GASTRIC TUBE CLAMPED, INTACT & PATENT.
--- NOTE | 2017-05-27 20:15 | NUR ---
ETT ADVANCED BY RT BY 2CM ORERED BY Mau MUNOZ.
[2017-05-27] MEDS: MAGNESIUM SULFATE/D5W 100 ML IV SCH ×4 (20:19→23:36)
[2017-05-27] MEDS ORDERED: POTASSIUM CHLORIDE 20 MEQ POWDER PACKET GT ONE (20:30)
--- NOTE | 2017-05-27 22:00 | NUR ---
HS CARE DONE. REPOSITIONED & SUCTIONED.
--- NOTE | 2017-05-27 23:51 | NUR ---
PT ON CONT FOX VENT WITH 7.5 ET/TUBE IN PLACE 23CM LIP LINE/ ROTATE ANCHOR FAST TO LEFT SIDE, WITH CURRENT VENT SETTINGS, A/C 12, VT 500ML, PEEP 5, 30%, PT DOES ASSIST AT TIMES, WITH GOOD COUGH EFFORT, SUCTIONED PINKISH TINGE SECRETIONS, AND ORAL CAR AND SUCTION WITH MURRAY RODRIGUEZ, INLINE NEB X 1 WITH RACEMIC. EPI.- F/B ALBUTEROL/ ATROVENT MURRAY AVILA, ALL ALARMS OK, AMBU BAG AT BEDSIDE, NO VENT CHANGES MADE AT THIS TIME, PT STABLE, CHANGE HME. Jeremy YADAVP Addendum: 05/27/17 at 2355 by KRUNAL COLLINS RT Amended: Links added.
[2017-05-28] VITALS (38 sets, daily range): BP systolic 59–114; BP diastolic 40–77
--- NOTE | 2017-05-28 | NUR ---
AFEBRILE. BP STABLE. REPOSITIONED & SUCTIONED.
[2017-05-28] MEDS ORDERED: POTASSIUM CHLORIDE 20 MEQ POWDER PACKET GT ONE (00:30)
[2017-05-28] MEDS: METRONIDAZOLE 500 MG/NS 100ML 500 MG in PREMIXED 1 EACH IV SCH ×3 (01:20→17:38)
[2017-05-28] MEDS: RACEPINEPHRINE HCL 2.25% 0.5 ML NEBU NEB SCH ×2 (01:53→07:41)
[2017-05-28] MEDS: PROPOFOL 100 ML IV PRN ×6 (02:39→22:29)
[2017-05-28 03:20] LABS: CREATININE 0.8 mg/dL (0.6-1.3); POTASSIUM 3.6 mmol/L (3.5-5.1)
[2017-05-28] MEDS: IPRATROPIUM BROMIDE 0.5 MG/2.5 ML NEBU NEB SCH ×6 (03:27→23:08)
[2017-05-28] MEDS: ALBUTEROL SULFATE 2.5 MG/3 ML NEBU NEB SCH ×6 (03:28→23:08)
--- NOTE | 2017-05-28 04:00 | NUR ---
AM CARE DONE. ORAL CARE DONE. REPOSITIONED ON HIS SIDE W/ HOB ELEVATED.
[2017-05-28 04:59] LABS: BASOPHILS # (AUTO) 0.1 K/uL (0.0-8.0); BASOPHILS % (AUTO) 0.5 % (0.0-2.0); EOSINOPHILS % (AUTO) 0.2 % (0.0-7.0); HEMATOCRIT 34.1 % (36.7-47.1); HEMOGLOBIN 11.7 g/dL (12.5-16.3); LYMPHOCYTES # (AUTO) 1.3 K/uL (20.0-40.0); LYMPHOCYTES % (AUTO) 5.7 % (20.5-51.5); MEAN CORPUSCULAR HEMOGLOBIN 33.4 uug (23.8-33.4); MEAN CORPUSCULAR HGB CONC 35 g/dL (32.5-36.3); MEAN CORPUSCULAR VOLUME 96.8 fL (73.0-96.2); MONOCYTES # (AUTO) 1.5 K/uL (2.0-10.0); MONOCYTES % (AUTO) 6.5 % (0.0-11.0); NEUTROPHILS # (AUTO) 19.9 K/uL (1.8-8.9); NEUTROPHILS % (AUTO) 87.1 % (38.5-71.5); PLATELET COUNT (AUTO) 947 K/uL (152-348); RED BLOOD CELL COUNT(AUTO) 3.52 MIL/uL (4.06-5.63); WHITE BLOOD COUNT (AUTO) 22.8 K/uL (3.6-10.2)
[2017-05-28 05:15] LABS: CREATININE 0.8 mg/dL (0.6-1.3); MAGNESIUM 2.6 mg/dL (1.8-2.4); PHOSPHOROUS 3.7 mg/dL (2.5-4.9); POTASSIUM 3.6 mmol/L (3.5-5.1)
[2017-05-28 05:19] LABS: BILIRUBIN,DIRECT 0.2 mg/dL (0.0-0.2); BILIRUBIN,TOTAL 0.4 mg/dL (0.2-1.0); TOTAL PROTEIN, SERUM 6.7 g/dL (6.4-8.2)
[2017-05-28] MEDS: PANTOPRAZOLE ORAL SUSPENSION 40 MG SUSPDR.PKT NG SCH (05:31)
[2017-05-28] MEDS: VANCOMYCIN FOR PO/GT/NG USE GT SCH ×3 (05:31→17:39)
[2017-05-28] MEDS: OXACILLIN SODIUM 2 G in IV NORMAL SALINE 100 ML IV SCH ×3 (05:32→18:03)
[2017-05-28] MEDS: IV NORMAL SALINE 500 ML IV PRN (05:35)
--- NOTE | 2017-05-28 06:00 | NUR ---
REMAINS SEDATED ON DIPRIVAN DRIP @ 50MCQ/KG/MIN. REPOSITIONED W/ HOB ELEVATED.
[2017-05-28 06:15] LABS: ABG BASE EXCESS 5.7 mmol/L; ABG HCO3 28.8 mmol/L; ABG PCO2 36.7 mmHg (35.0-45.0); ABG PH 7.513 (7.350-7.450); ABG SITE LEFT RADIAL; ABG TOTAL HEMOGLOBIN 11.8 G/dL (13.5-18.0); COHb 0.8 % (0.5-1.5); MetHb 0.2 % (0.0-1.5); O2Hb 96.4 % (94.0-97.0); VENT MODE VENT - A/C; VT, ABG 500 mL
--- NOTE | 2017-05-28 07:40 | NUR ---
RECEIVED PT ON CONTINUOUS VENT AC 12 VT 500 PEEP 5 FIO2 30%. ETT 7.5 SECURED AT 23CM LIP LINE VIA ANCHOR FAST. ORAL CARE DONE. IN LINE TX GIVEN WITH UD ALBUTEROL + UD ATROVENT FOLLOWED BY UD RACEMIC EPI ORDERED. SUCTION PRN. VENT CHECKED, ALARMS WORKING WELL AND AUDIBLE. AMBU BAG AT BEDSIDE. NO DISTRESS NOTED AT THIS TIME. WILL CONTINUE TO MONITOR. PPE USED. Addendum: 05/28/17 at 1557 by SHANNON GUERRERO RT ETT 8.0 SECURED AT 22 CM LIP LINE . CXR DONE. TUBE PLACEMENT VERIFIED.
[2017-05-28] MEDS: FOLIC ACID 1 MG TABLET PO SCH (08:05)
[2017-05-28] MEDS: LACTOBACILLUS RHAMNOSUS GG 1 EACH CAPSULE PO SCH ×2 (08:05→20:36)
[2017-05-28] MEDS: THIAMINE HCL 100 MG TABLET PO SCH (08:05)
[2017-05-28] MEDS: MULTIVITAMINS,THERAPEUTIC TABLET PO SCH (08:05)
[2017-05-28] MEDS: POTASSIUM CHLORIDE 20 MEQ POWDER PACKET NG SCH (08:14)
--- NOTE | 2017-05-28 09:20 | NUR ---
Dr. Eli in the unit to examine patient; full report given. See orders.
--- NOTE | 2017-05-28 10:00 | NUR ---
At this time Dr. Vargas notified of pt's changes in condition, heart rate in the high 150's 160's atrial fibrillation with RVR. and of blood pressure in the low 70's.
--- NOTE | 2017-05-28 10:15 | NUR ---
Dr. Sam Perez in the unit to see patient, and also on the phone with to update her of pt's current condition and to obtain consent for Synchronized cardioversion, and central line placement. At this time also ETT advanced 2cm by RT as ordered by .
[2017-05-28] MEDS ORDERED: IV NORMAL SALINE 1000 ML BAG IV ONE (10:30)
[2017-05-28] MEDS ORDERED: FENTANYL CITRATE 100 MCG/2 ML AMPUL IV PRN (10:30)
--- NOTE | 2017-05-28 10:45 | NUR ---
At this time after patient consented and time out performed. Synchronized cardio version performed on patient, who converted to sinus rhythm as confirmed by EKG post procedure. Patient adequately sedated and medicated and bolus with 1 liter normal saline as ordered. SBP in the high 80's.
--- NOTE | 2017-05-28 10:45 | NUR ---
CALLED FOR [facility]. DR. MICHELLE VILLALTA IN CHARGED AND LANE LUX AT BEDSIDE. NO COMPLICATIONS NOTED. RE ADJUST ET TUBE PLACEMENT AND NOW SITS AT 2-3 CM ABOVE MESHA. TUBE PLACEMENT VERIFIED ON CXR BY DR. MICHELLE VILLALTA.
[2017-05-28] MEDS ORDERED: AMIODARONE HCL IV 150 MG in IV DEXTROSE 5% 100 ML IV ONE (11:00)
[2017-05-28] MEDS ORDERED: AMIODARONE HCL IV 900 MG in IV DEXTROSE 5% 482 ML IV PRN (11:15)
[2017-05-28] MEDS: ENOXAPARIN SODIUM 80 MG/0.8 ML DISP.SYRIN SQ SCH ×2 (11:33→20:37)
--- NOTE | 2017-05-28 13:15 | NUR ---
DR. Sam Perez called to be notified of pt's sbp been in the low 80's. Orders to continue monitoring received.
--- NOTE | 2017-05-28 13:55 | NUR ---
Dr. Pat in the unit to examine patient, report given.
--- NOTE | 2017-05-28 15:26 | NUR ---
JANNA spoke with patient's biometrics specialist/friend Michael Portillo, . Mr. Portillo provided SW with some information regarding the family dynamics. JANNA then asked Mr. Portillo about what legal rights he has on the patient, and he stated that he has the right to sign personal documents for the patient, but he does not have any legal rights to make medical decision or provide medical authorizations/signatures. Mr. Portillo is not patient's medical POA, and JANNA explained to Dr. Portillo that at this time medical decision would defer to patient's if patient is not able to make them on his own. Mr. Portillo did not contest this. Conservatorship was discussed, which Mr. Portillo stated he would consider submitting a request for if he feels is necessary. SS Director Anette Mckeon and CNO Kristen Carson informed of above.
--- NOTE | 2017-05-28 19:00 | NUR ---
CONTINUOUS MECHANICAL VENTILATED PT REMAINS ON VENT SETTINGS OF AC 12, VT 500, PEEP +5, FIO2 35%. NO CHANGES MADE AT THIS TIME. PT SHOWING NO S/S OF RESPIRATORY DISTRESS AT THIS TIME. PT IS ORALLY INTUBATED WITH 8.0 ETT APPROX. 22CM AT THE LIP. ENDOTRACHEAL TUBE IS PATENT AND SECURED WITH ANCHOR-FAST. PT GIVEN Q4 ALBUTEROL/ATROVENT TX ORDERED BY MD. HME CHANGED NEEDED. SUCTIONED SMALL AMOUNT OF THICK, PALE SECRETIONS. BVM IS AT BEDSIDE. WILL CONTINUE TO MONITOR PT THROUGHOUT SHIFT.
--- NOTE | 2017-05-28 20:00 | NUR ---
RECEIVED PT SEDATED W/ DIPRIVAN DRIP @ 70MCQ/KG/ MIN., ORALLY INTUBATED TO VENT W/ SETTINGS OF AC-12, TV-500, FIO2-30%, PEEP-+5. O2 SAT 99%. ON AMIODARONE DRIP @ 0.5MG/HR VIA TLC ON RIJ. NS @ 10 CC/HR FOR IVPB MEDS. SUCTIONED ORALLY & VIA ETT W/ MOD. THICK TANNISH MUCOUS. REPOSITIONED PT ON HIS SIDE W/ HOB ELEVATED.
--- NOTE | 2017-05-28 21:45 | NUR ---
DR RICE CAME IN W/ ORDER OF PERIPHERAL BLOOD FOR FLOW CYTOMETRY TO RULE OUT LEUKEMIA & LYMPHOMA, LAB NOTIFIED RE: THIS ORDER.
--- NOTE | 2017-05-28 23:00 | NUR ---
HS CARE DONE. ORAL CARE DONE Q2H. REPOSITIONED & SUCTIONED.
[2017-05-29] VITALS (30 sets, daily range): BP systolic 87–160; BP diastolic 41–82
[2017-05-29] MEDS: OXACILLIN SODIUM 2 G in IV NORMAL SALINE 100 ML IV SCH ×5 (00:45→23:34)
[2017-05-29] MEDS: VANCOMYCIN FOR PO/GT/NG USE GT SCH ×5 (00:45→23:34)
[2017-05-29] MEDS: METRONIDAZOLE 500 MG/NS 100ML 500 MG in PREMIXED 1 EACH IV SCH ×3 (01:29→16:52)
[2017-05-29] MEDS: PROPOFOL 100 ML IV PRN ×6 (01:41→21:47)
[2017-05-29] MEDS: IPRATROPIUM BROMIDE 0.5 MG/2.5 ML NEBU NEB SCH ×5 (03:33→19:10)
[2017-05-29] MEDS: ALBUTEROL SULFATE 2.5 MG/3 ML NEBU NEB SCH ×5 (03:33→19:10)
--- NOTE | 2017-05-29 04:00 | NUR ---
AM CARE DONE. ORAL CARE DONE.
[2017-05-29 05:04] LABS: BASOPHILS # (AUTO) 0.2 K/uL (0.0-8.0); BASOPHILS % (AUTO) 1.2 % (0.0-2.0); EOSINOPHILS # (AUTO) 0.1 K/uL (0.0-0.7); EOSINOPHILS % (AUTO) 0.6 % (0.0-7.0); HEMATOCRIT 31.6 % (36.7-47.1); HEMOGLOBIN 10.9 g/dL (12.5-16.3); LYMPHOCYTES # (AUTO) 1.3 K/uL (20.0-40.0); LYMPHOCYTES % (AUTO) 8.3 % (20.5-51.5); MEAN CORPUSCULAR HEMOGLOBIN 33.8 uug (23.8-33.4); MEAN CORPUSCULAR HGB CONC 35 g/dL (32.5-36.3); MONOCYTES % (AUTO) 6.3 % (0.0-11.0); NEUTROPHILS # (AUTO) 12.9 K/uL (1.8-8.9); NEUTROPHILS % (AUTO) 83.6 % (38.5-71.5); PLATELET COUNT (AUTO) 830 K/uL (152-348); RED BLOOD CELL COUNT(AUTO) 3.22 MIL/uL (4.06-5.63); WHITE BLOOD COUNT (AUTO) 15.4 K/uL (3.6-10.2)
[2017-05-29] MEDS: PANTOPRAZOLE ORAL SUSPENSION 40 MG SUSPDR.PKT NG SCH (05:25)
[2017-05-29] MEDS: IV NORMAL SALINE 500 ML IV PRN (05:27)
[2017-05-29 05:28] LABS: CREATININE 0.7 mg/dL (0.6-1.3); MAGNESIUM 2.1 mg/dL (1.8-2.4); PHOSPHOROUS 3.1 mg/dL (2.5-4.9); POTASSIUM 3.6 mmol/L (3.5-5.1)
--- NOTE | 2017-05-29 05:30 | NUR ---
REPOSITIONED ON HIS SIDE W/ HOB ELEVATED AFTER CXR DONE.
[2017-05-29 08:13] LABS: ABG BASE EXCESS 4.7 mmol/L; ABG HCO3 28.6 mmol/L; ABG PCO2 39.6 mmHg (35.0-45.0); ABG PH 7.476 (7.350-7.450); ABG PO2 88.8 mmHg (75.0-100.0); ABG SITE RIGHT RADIAL; COHb 1.1 % (0.5-1.5); MetHb 0.3 % (0.0-1.5); VENT MODE VENT - A/C; VT, ABG 500 mL
[2017-05-29] MEDS: FOLIC ACID 1 MG TABLET PO SCH (08:43)
[2017-05-29] MEDS: LACTOBACILLUS RHAMNOSUS GG 1 EACH CAPSULE PO SCH ×2 (08:43→20:51)
[2017-05-29] MEDS: THIAMINE HCL 100 MG TABLET PO SCH (08:43)
[2017-05-29] MEDS: MULTIVITAMINS,THERAPEUTIC TABLET PO SCH (08:43)
[2017-05-29] MEDS: POTASSIUM CHLORIDE 20 MEQ POWDER PACKET NG SCH (08:43)
[2017-05-29] MEDS: ENOXAPARIN SODIUM 80 MG/0.8 ML DISP.SYRIN SQ SCH ×2 (08:44→20:50)
[2017-05-29 09:30] LABS: BAND % (MANUAL) 1 % (0-10); EOSINOPHILS % (MANUAL) 1 % (0-8); LYMPHOCYTES % (MANUAL) 8 % (20-40); MONOCYTES % (MANUAL) 9 % (2-10); NEUTROPHILS % (MANUAL) 81 % (42-75)
--- NOTE | 2017-05-29 10:05 | NUR ---
PT.WAS SEEN BY MAYA PARSON MD
--- NOTE | 2017-05-29 11:30 | NUR ---
SEDATION VACATION DONE,PT.AWAKE,FOLLOWING COMMAND ,MOVING ALL EXTR.
--- NOTE | 2017-05-29 12:07 | NUR ---
PT.WAS SEEN BY REBA HDEZ MD AND
[2017-05-29] MEDS ORDERED: FIBERSOURCE HN 1000ML LIQUID GT PRN (17:00)
--- NOTE | 2017-05-29 17:02 | NUR ---
PT REMAINS ON MECHANICAL VENTILATION, NO VENT CHANGES ORDERED. CURRENT SETTINGS AC 12, Vt 500, +5, 30% FIO2. DOING WELL WITH NO SOB NOTED. ORAL CARE DONE, SUCTIONED AND LAVAGED SMALL AMOUNT OF THICK YELLOW SECRETIONS. INLINE TXS GIVEN WITH NO ADVERSE REACTIONS. ALARMS ARE ON AND AUDIBLE, BVM AT BEDSIDE. ETT IS PATENT AND SECURED WITH ANCHOR FAST.
--- NOTE | 2017-05-29 18:30 | NUR ---
Pt. is lightly sedated,watching TV,denies any pain,no s/s of distress.
--- NOTE | 2017-05-29 19:14 | NUR ---
PT RECEIVED ON CMV WITH ETT SECURED AND AIRWAY PATENT. HEATER WORKER PERFORMED AND PT RECEIVING ADEQUATE VENT VOLUMES. VENT ALARM SSET AND AUDIBLE.
--- NOTE | 2017-05-29 20:00 | NUR ---
RECEIVED PT. ORALLY INTUBATED TO VENT W/ SETTINGS OF AC-12,TV-500, FIO2-30%, PEEP-+5, W/ O2 SAT OF 99%. ORAL GASTRIC TUBE INTACT, CHECKED PLACEMENT & CHECKED RESIDUAL NONE NOTED. ON TUBE FDG OF FIBERSOURCE @ 35CC/HR. ON DIPRIVAN DRIP @60MCQ/KG/MIN VIA TLC ON RIJ. NS @ 10CC/HR FOR IVPB MEDS. REPOSITIONED PT TO SIDE W/ HOB ELEVATED.
--- NOTE | 2017-05-29 23:00 | NUR ---
HS CARE DONE. SUCTIONED & REPOSITIONED.
[2017-05-30] VITALS (25 sets, daily range): BP systolic 84–156; BP diastolic 54–97
[2017-05-30] MEDS: METRONIDAZOLE 500 MG/NS 100ML 500 MG in PREMIXED 1 EACH IV SCH ×3 (00:28→17:10)
[2017-05-30] MEDS: PROPOFOL 100 ML IV PRN ×6 (02:01→22:24)
--- NOTE | 2017-05-30 04:00 | NUR ---
AM CARE DONE. ORAL CARE DONE.REPOSITIONED ON HIS BACK FOR CXR W/ HOB ELEVATED.
[2017-05-30 04:57] LABS: BASOPHILS # (AUTO) 0.1 K/uL (0.0-8.0); EOSINOPHILS # (AUTO) 0.1 K/uL (0.0-0.7); EOSINOPHILS % (AUTO) 1.1 % (0.0-7.0); HEMATOCRIT 30.5 % (36.7-47.1); HEMOGLOBIN 10.2 g/dL (12.5-16.3); LYMPHOCYTES % (AUTO) 8.6 % (20.5-51.5); MEAN CORPUSCULAR HEMOGLOBIN 32.6 uug (23.8-33.4); MEAN CORPUSCULAR HGB CONC 33 g/dL (32.5-36.3); MEAN CORPUSCULAR VOLUME 97.4 fL (73.0-96.2); MONOCYTES # (AUTO) 0.6 K/uL (2.0-10.0); MONOCYTES % (AUTO) 5.6 % (0.0-11.0); NEUTROPHILS # (AUTO) 9.6 K/uL (1.8-8.9); NEUTROPHILS % (AUTO) 83.7 % (38.5-71.5); PLATELET COUNT (AUTO) 728 K/uL (152-348); RED BLOOD CELL COUNT(AUTO) 3.14 MIL/uL (4.06-5.63); WHITE BLOOD COUNT (AUTO) 11.5 K/uL (3.6-10.2)
[2017-05-30 04:59] LABS: CARBON DIOXIDE 30 mmol/L (21-32); CHLORIDE 111 mmol/L (98-107); CREATININE 0.6 mg/dL (0.6-1.3); GLUCOSE 116 mg/dL (74-106); MAGNESIUM 1.8 mg/dL (1.8-2.4); PHOSPHOROUS 2.3 mg/dL (2.5-4.9); POTASSIUM 3.4 mmol/L (3.5-5.1); UREA NITROGEN, BLOOD 8 mg/dL (7-18)
[2017-05-30] MEDS: VANCOMYCIN FOR PO/GT/NG USE GT SCH ×4 (05:21→23:31)
[2017-05-30] MEDS: PANTOPRAZOLE ORAL SUSPENSION 40 MG SUSPDR.PKT NG SCH (05:21)
[2017-05-30] MEDS: OXACILLIN SODIUM 2 G in IV NORMAL SALINE 100 ML IV SCH ×4 (05:21→23:31)
[2017-05-30] MEDS: IV NORMAL SALINE 500 ML IV PRN (05:53)
--- NOTE | 2017-05-30 06:00 | NUR ---
REPOSITIONED ON HIS SIDE W/ HOB ELEVATED AFTER CXR.
[2017-05-30] MEDS: ALBUTEROL SULFATE 2.5 MG/3 ML NEBU NEB SCH ×5 (06:59→23:32)
[2017-05-30] MEDS: IPRATROPIUM BROMIDE 0.5 MG/2.5 ML NEBU NEB SCH ×5 (06:59→23:32)
--- NOTE | 2017-05-30 07:00 | NUR ---
PATIENT RECEIVED ON VENT SETTINGS OF AC 12, VT 500, PEEP +5, FIO2 35%. NO S/S OF RESPIRATORY DISTRESS NOTED AT THIS TIME. PT IS ORALLY INTUBATED WITH 8.0 ETT APPROX. 22CM AT THE LIP. ADVANCED ETTUBE TO 24CM PER MD. NO SOB NOTED. ENDOTRACHEAL TUBE IS PATENT AND SECURED WITH ANCHOR-FAST. TX ADMINISTED VIA HHN ORDERED. HME CHANGED NEEDED. SUCTIONED SMALL AMOUNT OF THICK, PALE SECRETIONS. BVM IS AT BEDSIDE. WILL CONTINUE TO MONITOR PT THROUGHOUT SHIFT.
[2017-05-30 07:48] LABS: ABG BASE EXCESS 4.2 mmol/L; ABG HCO3 28.5 mmol/L; ABG PCO2 41.5 mmHg (35.0-45.0); ABG PH 7.454 (7.350-7.450); ABG PO2 104.6 mmHg (75.0-100.0); ABG SITE RIGHT RADIAL; ABG TOTAL HEMOGLOBIN 11.3 G/dL (13.5-18.0); COHb 0.8 % (0.5-1.5); MetHb 0.4 % (0.0-1.5); O2Hb 97.2 % (94.0-97.0); VENT MODE VENT - A/C; VT, ABG 500 mL
--- NOTE | 2017-05-30 08:00 | NUR ---
patient restless despite propofol drip. drip increase to 75mcg/kg/min. also medicated for anxiety. Addendum: 05/30/17 at 1059 by LAURE POLLACK RN Amended: Links added. Addendum: 05/30/17 at 1102 by LAURE POLLACK RN Amended: Links added.
[2017-05-30] MEDS: LORAZEPAM 2 MG/1 ML VIAL IV PRN ×2 (08:14→12:56)
[2017-05-30] MEDS: THIAMINE HCL 100 MG TABLET PO SCH (08:22)
[2017-05-30] MEDS: MULTIVITAMINS,THERAPEUTIC TABLET PO SCH (08:22)
[2017-05-30] MEDS: FOLIC ACID 1 MG TABLET PO SCH (08:22)
[2017-05-30] MEDS: LACTOBACILLUS RHAMNOSUS GG 1 EACH CAPSULE PO SCH ×2 (08:22→20:36)
[2017-05-30] MEDS: ENOXAPARIN SODIUM 80 MG/0.8 ML DISP.SYRIN SQ SCH ×2 (08:23→20:37)
--- NOTE | 2017-05-30 08:30 | NUR ---
noted hypotension 82/42. tube fdg held, placed patient flat on bed supine, propofol drip titrated down to 65mcg/kg/min. Addendum: 05/30/17 at 1102 by LAURE POLLACK RN Amended: Links added.
[2017-05-30] MEDS: POTASSIUM CHLORIDE 20 MEQ POWDER PACKET NG SCH (09:19)
--- NOTE | 2017-05-30 09:30 | NUR ---
Seen by Dr Couch with new orders. Addendum: 05/30/17 at 1057 by LAURE POLLACK RN Amended: Links added. Addendum: 05/30/17 at 1059 by LAURE POLLACK RN Amended: Links added. Addendum: 05/30/17 at 1102 by LAURE POLLACK RN Amended: Links added.
[2017-05-30] MEDS ORDERED: IV NORMAL SALINE 500 ML IV ONE (10:45)
--- NOTE | 2017-05-30 10:49 | NUR ---
seen by dr powell. orders received. ett tube advanced to 24 cm by Minnie RT Addendum: 05/30/17 at 1049 by LARUE POLLACK RN Amended: Links added.
--- NOTE | 2017-05-30 12:50 | NUR ---
awake and agitated, backing the ventilator. medicated for anxiety/ propofol up to 75mcg/kg/min Addendum: 05/30/17 at 1259 by LAURE POLLACK RN Amended: Links added.
[2017-05-30] MEDS ORDERED: POTASSIUM CHLORIDE 20 MEQ POWDER PACKET NG ONE (13:30)
[2017-05-30] MEDS ORDERED: POTASSIUM CHLORIDE 20 MEQ TAB.PRT.SR PO ONE (13:30)
[2017-05-30] MEDS ORDERED: IV NORMAL SALINE 500 ML BAG IV ONE (13:45)
--- NOTE | 2017-05-30 13:53 | NUR ---
seen by dr hernan lara, with new orders. Addendum: 05/30/17 at 1353 by LAURE POLLACK RN Amended: Links added.
--- NOTE | 2017-05-30 14:00 | NUR ---
500ml of IV NS given as IV bolus for oliguria. Addendum: 05/30/17 at 1528 by LAURE POLLACK RN Amended: Links added.
[2017-05-30] MEDS: MIDAZOLAM HCL 100 MG in IV DEXTROSE 5% 80 ML IV PRN (14:32)
[2017-05-30] MEDS: IV 1/2NS 1000 ML 1,000 ML IV PRN (14:46)
--- NOTE | 2017-05-30 15:19 | NUR ---
versed drip started and titrated so to be able to bring down diprivan drip around 50mcg/kg/min. now at 60mcg/kg.min. versed at 2mg/hr Addendum: 05/30/17 at 1519 by LAURE POLLACK RN Amended: Links added.
[2017-05-30] MEDS ORDERED: NEUTRA PHOS PACKET NG ONE (15:30)
--- NOTE | 2017-05-30 20:00 | NUR ---
RECEIVED PT. SEDATED W/ DIPRIVAN DRIP @ 50MCQ/KG/MIN & VERSED @ 4MG/HR. VIA TLC ON RIJ. ORALLY INTUBATED TO VENT W/ SETTINGS OF AC-12. TV-500, FIO2-30%, PEEP-+5 W/ O2 SAT OF 99%. SUCTIONED ORALLY & VIA ETT W/ THIN TANNISH MUCOUS MOD. AMT. ORAL GASTRIC TUBE INTACT, CHECKED PLACEMENT & RESIDUAL NONE NOTED. ON TUBE FDG OF FIBERSOURCE HN @ 65CC/HR. IVF 1/2NS @ 100 CC/HR,ONLY 1L. REPOSITIONED ON HIS SIDE W/ HOB ELEVATED . URINE OUTPUT REMAINS SCANTY, MD AWARE.
[2017-05-30] MEDS: FIBERSOURCE HN 1000ML LIQUID GT PRN (21:56)
--- NOTE | 2017-05-30 22:00 | NUR ---
HS CARE DONE. ORAL CARE DONE. REPOSITIONED & SUCTIONED.
--- NOTE | 2017-05-30 22:37 | NUR ---
PATIENT RECEIVED ORALLY INTUBATED WITH A SIZE 8.0 ETT APPROX. 22CM AT THE LIP, ON A FOX VENT WITH SETTINGS OF AC 12, VT 500, PEEP +5, AND FIO2 35%. VENT ALARMS ARE ON AND AUDIBLE. ETT SECURED WITH AN ANCHOR-FAST WITH GOOD SKIN INTEGRITY. ORAL CARE DONE AND ETT MOVED TO THE RIGHT SIDE OF THE MOUTH. HHN TX TOLERATED WELL WITH NO ADVERSE REACTIONS NOTED. SUCTIONED SMALL AMOUNT OF PALE THICK SECRETIONS. AMBU-BAG IS AT BEDSIDE. WILL CONTINUE TO MONITOR.
[2017-05-31] VITALS (32 sets, daily range): BP systolic 84–147; BP diastolic 50–89
--- NOTE | 2017-05-31 | NUR ---
SLIGHTLY FEBRILE, BP STABLE. COLD SPONGED BATH GIVEN.
[2017-05-31] MEDS: METRONIDAZOLE 500 MG/NS 100ML 500 MG in PREMIXED 1 EACH IV SCH ×3 (00:37→16:02)
[2017-05-31] MEDS: PROPOFOL 100 ML IV PRN ×5 (02:53→23:30)
[2017-05-31] MEDS: ALBUTEROL SULFATE 2.5 MG/3 ML NEBU NEB SCH ×6 (03:30→22:52)
[2017-05-31] MEDS: IPRATROPIUM BROMIDE 0.5 MG/2.5 ML NEBU NEB SCH ×6 (03:30→22:52)
--- NOTE | 2017-05-31 04:00 | NUR ---
AM CARE DONE. ORAL CARE DONE Q2H & PRN. REPOSITIONED ON HIS BACK FOR CXR. W/ HOB ELEVATED.
[2017-05-31 05:01] LABS: CARBON DIOXIDE 30 mmol/L (21-32); CHLORIDE 108 mmol/L (98-107); CREATININE 0.5 mg/dL (0.6-1.3); GLUCOSE 141 mg/dL (74-106); MAGNESIUM 1.8 mg/dL (1.8-2.4); PHOSPHOROUS 2.1 mg/dL (2.5-4.9); POTASSIUM 3.4 mmol/L (3.5-5.1); UREA NITROGEN, BLOOD 7 mg/dL (7-18)
[2017-05-31 05:19] LABS: BASOPHILS % (AUTO) 0.4 % (0.0-2.0); EOSINOPHILS # (AUTO) 0.1 K/uL (0.0-0.7); EOSINOPHILS % (AUTO) 1.3 % (0.0-7.0); HEMATOCRIT 32.7 % (36.7-47.1); LYMPHOCYTES # (AUTO) 1.1 K/uL (20.0-40.0); LYMPHOCYTES % (AUTO) 10.5 % (20.5-51.5); MEAN CORPUSCULAR HEMOGLOBIN 32.9 uug (23.8-33.4); MEAN CORPUSCULAR HGB CONC 34 g/dL (32.5-36.3); MEAN CORPUSCULAR VOLUME 97.8 fL (73.0-96.2); MONOCYTES # (AUTO) 0.7 K/uL (2.0-10.0); MONOCYTES % (AUTO) 6.9 % (0.0-11.0); NEUTROPHILS # (AUTO) 8.5 K/uL (1.8-8.9); NEUTROPHILS % (AUTO) 80.9 % (38.5-71.5); PLATELET COUNT (AUTO) 742 K/uL (152-348); RED BLOOD CELL COUNT(AUTO) 3.35 MIL/uL (4.06-5.63); WHITE BLOOD COUNT (AUTO) 10.5 K/uL (3.6-10.2)
[2017-05-31] MEDS: VANCOMYCIN FOR PO/GT/NG USE GT SCH ×4 (05:33→23:30)
[2017-05-31] MEDS: OXACILLIN SODIUM 2 G in IV NORMAL SALINE 100 ML IV SCH ×4 (05:33→23:30)
[2017-05-31] MEDS: IV NORMAL SALINE 500 ML IV PRN (05:34)
[2017-05-31] MEDS: PANTOPRAZOLE ORAL SUSPENSION 40 MG SUSPDR.PKT NG SCH (05:35)
--- NOTE | 2017-05-31 06:00 | NUR ---
REPOSITIONED ON HIS SIDE W/ HOB ELEVATED AFTER CXR, OPENS HIS EYES & FOLLOWS TO SIMPLE COMMAND.. V/S STABLE.URINE OUTPUT IS LOW, MD AWARE.
[2017-05-31 06:53] LABS: ABG BASE EXCESS 1.8 mmol/L; ABG HCO3 25.5 mmol/L; ABG PCO2 36.6 mmHg (35.0-45.0); ABG PH 7.461 (7.350-7.450); ABG PO2 100.8 mmHg (75.0-100.0); ABG SITE RIGHT RADIAL; ABG TOTAL HEMOGLOBIN 11.5 G/dL (13.5-18.0); COHb 1.1 % (0.5-1.5); MetHb 0.4 % (0.0-1.5); VENT MODE VENT - A/C
--- NOTE | 2017-05-31 07:10 | NUR ---
report received from Katherine, 67 yr old malw who was admitted on 05/13/17 post AMS and respiratory failure, was reintubated times 2 for stridor and Upper airway obstruction and was on heavy sedation while intubated for possible DTs. Currently orally intubated. ett #8 at 24cm lip line.to vent ac 12, tv500, [id number] and fio2 30%. carver catheter intact is oliguric. is receiving tube fdg fibersource at 65ml/hr.via OGT. tlc central line intact via right internal jugular vein, on versed drip at 4mg/hr, propofol drip at 50mcg/kg/min. 1/2 NS at 100ml/hr Addendum: 05/31/17 at 0807 by LAURE POLLACK RN Amended: Links added.
--- NOTE | 2017-05-31 08:08 | NUR ---
seen by Dr Eli, orders received. Addendum: 05/31/17 at 0808 by LAURE POLLACK RN Amended: Links added.
[2017-05-31] MEDS: LORAZEPAM 2 MG/1 ML VIAL IV PRN (08:32)
[2017-05-31] MEDS: POTASSIUM CHLORIDE 20 MEQ POWDER PACKET NG SCH (08:33)
[2017-05-31] MEDS: LACTOBACILLUS RHAMNOSUS GG 1 EACH CAPSULE PO SCH ×2 (08:33→20:07)
[2017-05-31] MEDS: MULTIVITAMINS,THERAPEUTIC TABLET PO SCH (08:33)
[2017-05-31] MEDS: FOLIC ACID 1 MG TABLET PO SCH (08:33)
[2017-05-31] MEDS: THIAMINE HCL 100 MG TABLET PO SCH (08:33)
[2017-05-31] MEDS: ENOXAPARIN SODIUM 80 MG/0.8 ML DISP.SYRIN SQ SCH ×2 (08:34→20:13)
[2017-05-31] MEDS: POTASSIUM PHOSPHATE MM 7.5 MMOL in IV DEXTROSE 5% 100 ML IV SCH ×2 (08:45→11:10)
--- NOTE | 2017-05-31 10:02 | NUR ---
awake and agitated, trying to get oob. versed drip titrated up to 5mcg/hr. medicated with ativan as well. Addendum: 05/31/17 at 1002 by LAURE POLLACK RN Amended: Links added. Addendum: 05/31/17 at 1005 by LAURE POLLCAK RN Amended: Links added.
--- NOTE | 2017-05-31 10:05 | NUR ---
kphos 7.5 meq times 2 bags started IV for phos2.1 and k3.4 Addendum: 05/31/17 at 1005 by LAURE POLLACK RN Amended: Links added.
--- NOTE | 2017-05-31 11:00 | NUR ---
seen by Dr Tang. elias orders received Addendum: 05/31/17 at 1249 by LAURE POLLACK RN Amended: Chente price. Addendum: 05/31/17 at 1249 by LAURE POLLACK RN Amended: Chente price.
[2017-05-31] MEDS: MIDAZOLAM HCL 100 MG in IV DEXTROSE 5% 80 ML IV PRN (11:10)
--- NOTE | 2017-05-31 12:53 | NUR ---
seen by Dr Sam Perez. Carver catheter was irrigated but was obstructed, old carver catheter removed and replaced with a new Carver catheter #16. 900ml of dark concentrated urine was immediately drained. Addendum: 05/31/17 at 1254 by LAURE POLLACK RN Amended: Links added. Addendum: 05/31/17 at 1309 by LAURE POLLACK RN Amended: Links added.
--- NOTE | 2017-05-31 13:09 | NUR ---
hypotensive at present. tube fdg off temporarily. HOB lowered down till bp above 90 systolic. Addendum: 05/31/17 at 1309 by LAURE POLLACK RN Amended: Links added.
--- NOTE | 2017-05-31 15:16 | NUR ---
complete bed bath given. perineal area is excoriated. zguard applied. rectal tube irrigated for sone stool leakage. flexiseal baloon deflated and reinflated for good seal. turned to the right side. appears more comfortable towards the right side. patient is calmer. propofol down to 3omcg/kg/min. versed is increased to to 6mg/hr. tbe fdg resumed at 65ml/hr. bp is stable. urine picked up. Addendum: 05/31/17 at 1516 by LAURE POLLACK RN Amended: Links added.
[2017-05-31] MEDS: FIBERSOURCE HN 1000ML LIQUID GT PRN (17:13)
--- NOTE | 2017-05-31 17:58 | NUR ---
PT IS MORE STABLE TODAY. REMAIN ON CURRENT VENTILATOR SETTINGS NO NEW ORDER WAS RECEIVED. TOLERATED IN LINE TREATMENT WELL. SUCTIONED FOR MODERATE AMOUNT OF THICK WHITISH SECRETIONS. ORAL CARE DONE AND MOVED ET TUBE TO THE CENTER OF THE LIP. VENTILATOR IS WORKING WELL WITH ALL ALARMS ACTIVE.
--- NOTE | 2017-05-31 19:10 | NUR ---
Pt received on Browning vent with settings of AC 12, VT 500, Peep +5, FiO2 30%. Pt is orally intubated with a 8.0 ETT, secured with anchor fast approximately at 22cm at the lip. Moved ETT from left side to middle of mouth. No signs of respiratory distress noted at this time. Pt appears to be tolerating vent settings well. Inline tx given per md orders. Suctioned pt with moderate amount of pale secretions. Vent alarms functioning and audible. Ambu-bag at bedside. Will continue to monitor pt throughout shift. Addendum: 06/01/17 at 0119 by KRUNAL BROWN RT ETT secured with anchor fast at approximately 24cm at the lip.
--- NOTE | 2017-05-31 19:20 | NUR ---
Report given to Evaristo RN Addendum: 05/31/17 at 1920 by LAURE POLLACK RN Amended: Links added.
--- NOTE | 2017-05-31 19:30 | NUR ---
ETT to vent on ac mode ,tolerating vent settings rr 20 to 25 saturation 100% oral care done suction via ett and via mouth . Addendum: 05/31/17 at 2207 by ABILIO PARRY RN Amended: Links added. Addendum: 05/31/17 at 2207 by ABILIO PARRY RN Amended: Links added. Addendum: 05/31/17 at 2210 by ABILIO PARRY RN Amended: Links added.
--- NOTE | 2017-05-31 19:45 | NUR ---
patient in bed orally intubated ac 12/500/peep 5 fio2 30% ,sedated on propofol 30 mcg/kg/min and versed at 6 mg/hr patient open yes spontaneously and to name and at times moved right and left hand from side to side slow and weak , nod head to simple questions.tube feedings in progress FiberSource at 65 cc/hour goal is reach ,very little residual about 15 ml.hob up and aspiration precaution observed . Alvarado to bsd and rectal tube flexiseal intact to gravity drain . no family noted . continue to monitor vitals and levels of comfort .
--- NOTE | 2017-05-31 20:00 | NUR ---
turned and reposition patient . elevated upper and lower extremities with pillows,bilateral heels offloaded .scds used to lower extremities. Addendum: 05/31/17 at 2211 by ABILIO PARRY RN Amended: Links added.
--- NOTE | 2017-05-31 22:00 | NUR ---
tube feedings in progress patient tolerating tube feedings ,due medication crushed and given to the ngt .flushed water water q meds hob up and aspiration precaution observed. Addendum: 05/31/17 at 2216 by ABILIO PARRY RN Amended: Links added.
[2017-06-01] VITALS (31 sets, daily range): BP systolic 91–132; BP diastolic 40–88
[2017-06-01] MEDS: LORAZEPAM 2 MG/1 ML VIAL IV PRN (00:31)
[2017-06-01] MEDS: METRONIDAZOLE 500 MG/NS 100ML 500 MG in PREMIXED 1 EACH IV SCH ×3 (00:32→16:45)
--- NOTE | 2017-06-01 00:40 | NUR ---
patient observed at times reaching to the ETT tube versed was increase initially to 8 mg/hour ,but still patient restless , RR is 30 to 31.given prn Ativan and continue to monitor levels of comfort and anxiety . Addendum: 06/01/17 at 0041 by ABILIO PARRY RN Amended: Links added. Addendum: 06/01/17 at 0043 by ABILIO PARRY RN Amended: Links added.
--- NOTE | 2017-06-01 00:42 | NUR ---
afebrile ,continue to monitor labs and signs and symptoms of infection .for am labs tomorrow cbc ,cmp mag and phos , chest pcxray , Addendum: 06/01/17 at 0043 by ABILIO PARRY RN Amended: Links added.
[2017-06-01] MEDS: HYDROCODONE/APAP 5-325MG TABLET PO PRN ×2 (01:07→08:00)
--- NOTE | 2017-06-01 01:08 | NUR ---
patient HR 115,check temp 98.1 orally ,unable to described pain when asked shake head to yes on pain . given prn pain medication .
[2017-06-01] MEDS: ALBUTEROL SULFATE 2.5 MG/3 ML NEBU NEB SCH ×6 (02:40→22:30)
[2017-06-01] MEDS: IPRATROPIUM BROMIDE 0.5 MG/2.5 ML NEBU NEB SCH ×6 (02:40→22:30)
--- NOTE | 2017-06-01 04:30 | NUR ---
am labs collected done aseptically and flushed cvp lines
[2017-06-01 04:51] LABS: BASOPHILS # (AUTO) 0.1 K/uL (0.0-8.0); BASOPHILS % (AUTO) 1.1 % (0.0-2.0); EOSINOPHILS # (AUTO) 0.2 K/uL (0.0-0.7); EOSINOPHILS % (AUTO) 1.5 % (0.0-7.0); HEMATOCRIT 31.1 % (36.7-47.1); HEMOGLOBIN 10.5 g/dL (12.5-16.3); LYMPHOCYTES # (AUTO) 1.1 K/uL (20.0-40.0); LYMPHOCYTES % (AUTO) 9.1 % (20.5-51.5); MEAN CORPUSCULAR HEMOGLOBIN 33.3 uug (23.8-33.4); MEAN CORPUSCULAR HGB CONC 34 g/dL (32.5-36.3); MEAN CORPUSCULAR VOLUME 98.3 fL (73.0-96.2); MONOCYTES # (AUTO) 0.7 K/uL (2.0-10.0); MONOCYTES % (AUTO) 6.2 % (0.0-11.0); NEUTROPHILS # (AUTO) 9.8 K/uL (1.8-8.9); NEUTROPHILS % (AUTO) 82.1 % (38.5-71.5); PLATELET COUNT (AUTO) 617 K/uL (152-348); RED BLOOD CELL COUNT(AUTO) 3.16 MIL/uL (4.06-5.63)
--- NOTE | 2017-06-01 05:00 | NUR ---
am care done ,bath patient ,incontinent of small soft stool leaking around the rectal area irrigated rectal tube flexiseal .perianal and scrotal area with excoriated,redness area cleanse with soap and water pat dry and applied hydrogel and z-guard .changed soiled linens and gown.Alvarado care done and oral care done .upper and lower extremities elevated with pillows .
--- NOTE | 2017-06-01 05:00 | NUR ---
portable chest xray done by control valve technician at bedside.
[2017-06-01 05:02] LABS: CARBON DIOXIDE 29 mmol/L (21-32); CHLORIDE 109 mmol/L (98-107); CREATININE 0.6 mg/dL (0.6-1.3); GLUCOSE 136 mg/dL (74-106); MAGNESIUM 1.7 mg/dL (1.8-2.4); PHOSPHOROUS 2.4 mg/dL (2.5-4.9); UREA NITROGEN, BLOOD 7 mg/dL (7-18)
--- NOTE | 2017-06-01 05:15 | NUR ---
patient moving upper and lower extremities ,open eyes spontaneously at times noted patient trying to get oob ,reoriented and educated with place and time and condition .closed supervision done .fall precaution observed ,
[2017-06-01] MEDS: VANCOMYCIN FOR PO/GT/NG USE GT SCH ×4 (05:27→23:13)
[2017-06-01] MEDS: PANTOPRAZOLE ORAL SUSPENSION 40 MG SUSPDR.PKT NG SCH (05:28)
[2017-06-01] MEDS: OXACILLIN SODIUM 2 G in IV NORMAL SALINE 100 ML IV SCH ×4 (05:28→23:12)
[2017-06-01] MEDS: MIDAZOLAM HCL 100 MG in IV DEXTROSE 5% 80 ML IV PRN ×2 (05:31→17:00)
[2017-06-01] MEDS: PROPOFOL 100 ML IV PRN ×3 (06:36→20:37)
[2017-06-01] MEDS: Z GUARD REMEDY PASTE 57 GM TUBE TOP PRN ×2 (06:44→08:01)
[2017-06-01] MEDS: IV NORMAL SALINE 500 ML IV PRN (07:15)
--- NOTE | 2017-06-01 07:15 | NUR ---
report received from Corrine, 67 yr old male who was admitted on 05/13/17 post AMS and respiratory failure, was reintubated times 2 for stridor and Upper airway obstruction and was on heavy sedation while intubated for possible DTs. Currently orally intubated. ett #8 at 24cm lip line.to vent ac 12, tv500, cami8df and fio2 30%. carver catheter intact is oliguric. is receiving tube fdg fibersource at 65ml/hr.via OGT. tlc central line intact via right internal jugular vein, on versed drip at 6mg/hr, propofol drip at 30mcg/kg/min. felxiseal rectal tube intact for diarrhea. ekg sinus rhythm, bp stable Addendum: 06/01/17 at 1034 by LAURE POLLACK RN Amended: Links added.
[2017-06-01 07:27] LABS: ABG HCO3 27.5 mmol/L; ABG PCO2 41.6 mmHg (35.0-45.0); ABG PH 7.438 (7.350-7.450); ABG PO2 104.1 mmHg (75.0-100.0); ABG SITE RIGHT RADIAL; ABG TOTAL HEMOGLOBIN 11.3 G/dL (13.5-18.0); COHb 0.8 % (0.5-1.5); MetHb 0.4 % (0.0-1.5); O2Hb 97.1 % (94.0-97.0); VENT MODE VENT - A/C12; VT, ABG 500 mL
--- NOTE | 2017-06-01 07:54 | NUR ---
PT REC'D ON FOX VENT SETTINGS: AC 12, VT 500, Peep +5, FiO2 30%. PT ORALLY INTUBATED 8.0 ETT SECURED WITH TUBE DOMINGUEZ AT APPROX 23CM-24CM AT THE LIP, CENTER OF MOUTH. PT TOLERATING VENT WELL, NO SIGNS OF DISTRESS NOTED AT THIS TIME. INLINE NEB TX'S TO BE GIVEN PER MD ORDER. PT SXN'D WITH MOD PALE THICK SECRETIONS. VENT ALARMS AUDIBLE, CHECKED AND RESET. BVM AT BEDSIDE. WILL CONT TO MONITOR AND REPORT ANY CHANGES.
[2017-06-01] MEDS: LACTOBACILLUS RHAMNOSUS GG 1 EACH CAPSULE PO SCH ×2 (07:59→20:30)
[2017-06-01] MEDS: MULTIVITAMINS,THERAPEUTIC TABLET PO SCH (07:59)
[2017-06-01] MEDS: FOLIC ACID 1 MG TABLET PO SCH (07:59)
[2017-06-01] MEDS: THIAMINE HCL 100 MG TABLET PO SCH (08:00)
[2017-06-01] MEDS: POTASSIUM CHLORIDE 20 MEQ POWDER PACKET NG SCH (08:00)
[2017-06-01] MEDS: ENOXAPARIN SODIUM 80 MG/0.8 ML DISP.SYRIN SQ SCH ×2 (08:21→20:34)
--- NOTE | 2017-06-01 13:10 | NUR ---
large amount of diarrhiec stools leaked around flexiseal. pericare done. zguard applied to per anal area. flexiseal irrigated. balloon deflated and reinflated. Addendum: 06/01/17 at 1311 by LAURE POLLACK RN Amended: Links added. Addendum: 06/01/17 at 1312 by LAURE POLLACK RN Amended: Links added. Addendum: 06/01/17 at 1314 by LAURE RUELO RN Amended: Links added.
--- NOTE | 2017-06-01 13:12 | NUR ---
Jovita Mason, here visiting. Dr Persaud here to discuss plan of care with the . Addendum: 06/01/17 at 1312 by LAURE POLLACK RN Amended: Links added. Addendum: 06/01/17 at 1314 by LAURE POLLACK RN Amended: Links added.
--- NOTE | 2017-06-01 13:13 | NUR ---
medicated for generalized discomfort Addendum: 06/01/17 at 1314 by LAURE POLLACK RN Amended: Links added.
[2017-06-01] MEDS: MAGNESIUM SULFATE/D5W 100 ML IV SCH ×2 (14:25→14:57)
--- NOTE | 2017-06-01 14:25 | NUR ---
magnesium total of 2 gms started IV for magnesium 1.7 Addendum: 06/01/17 at 1828 by LAURE POLLACK RN Amended: Links added. Addendum: 06/01/17 at 1829 by LAURE POLLACK RN Amended: Links added. Addendum: 06/01/17 at 1833 by LAURE POLLACK RN Amended: Links added.
--- NOTE | 2017-06-01 16:00 | NUR ---
NEW ETT DOMINGUEZ PLACE. RE-SECURED ETT AT 23CM-24CM LIP-LINE
--- NOTE | 2017-06-01 16:30 | NUR ---
complete bed bath given also shaven, ett gant replaced by Walter NEWBERRY, skin care done / right knee wound care done. tube fdg resumed at 65ml/hr via ogt Addendum: 06/01/17 at 1833 by LAURE POLLACK RN Amended: Links added.
[2017-06-01] MEDS: FIBERSOURCE HN 1000ML LIQUID GT PRN (16:50)
[2017-06-01] MEDS ORDERED: NEUTRA PHOS PACKET PO ONE (17:15)
--- NOTE | 2017-06-01 17:50 | NUR ---
neutraphos 2 packets given via ogt for phos 2.4 Addendum: 06/01/17 at 0 by LAURE POLLACK RN Amended: Links added. Addendum: 06/01/17 at 1832 by LAURE POLLACK RN Amended: Links added.
--- NOTE | 2017-06-01 19:21 | NUR ---
report given to Corrine Addendum: 06/01/17 at 1921 by LAURE POLLACK RN Amended: Links added.
--- NOTE | 2017-06-01 19:30 | NUR ---
orally intubated when received ,on ac mode rate 12 tv500,fio2 30% peep 5 ,tolerating vent setting no respiratory distress noted . suction orally and via the ett . sedated on versed and propofol .patient open eyes spontaneously and follow simple commands .able to moved upper and lower extremities.continue to monitor levels of comfort . Addendum: 06/01/17 at 2130 by ABILIO PARRY RN Amended: Links added. Addendum: 06/01/17 at 2130 by ABILIO PARRY RN Amended: Links added. Addendum: 06/01/17 at 2139 by ABILIO PARRY RN Amended: Links added.
--- NOTE | 2017-06-01 19:42 | NUR ---
Pt rec'd on Browning settings AC 12, VT 500, FIO2-30% and PEEP+5. No resp. distress noted. 8.0 ETT is patent and secure at approx. 27 cm now at the right side of mouth. BVM is at bedside. Pt to be monitored throughout the shift, adm'd resp neb txs per MD orders and PRN SX. Browning alarm parameters have been checked and remain audible.
--- NOTE | 2017-06-01 20:30 | NUR ---
tolerating tube feedings on Fiber[employer] at 65 cc/hour goal is reach hob up and aspiration precaution observed.rectal tube in place noted to be leaking with soft form to loose stools, patient able to push out rectal tube and when patient cough the rectal tube comes,rectal tube out .rectal area red and excoriated cleanse area with soap and water and applied z guard . Addendum: 06/01/17 at 2139 by ABILIO PARRY RN Amended: Links added.
[2017-06-02] VITALS (25 sets, daily range): BP systolic 90–136; BP diastolic 49–85
--- NOTE | 2017-06-02 | NUR ---
patient in bed no signs and symptom of pain vital sign with in normal limits .tolerating vent settings rr 13 and saturation 100% turned and reposition and elevated upper and lower extremities with pillows ,scds used to bilateral lower extremities .tolerating tube feedings very minimal residual .hob up and aspiration precaution observed. Addendum: 06/02/17 at 0141 by ABILIO PARRY RN Amended: Links added.
[2017-06-02] MEDS: METRONIDAZOLE 500 MG/NS 100ML 500 MG in PREMIXED 1 EACH IV SCH ×3 (00:30→17:01)
[2017-06-02] MEDS: PROPOFOL 100 ML IV PRN ×4 (01:58→18:21)
--- NOTE | 2017-06-02 02:00 | NUR ---
bp low 90/61, patient calm , more stimuli for patient to be awaken ,sas 3 ,reduced propofol t0 30 mcg/kg/min and reduced versed to 5 mg/hr .continue to monitor levels of comfort and sedation .
[2017-06-02] MEDS: ALBUTEROL SULFATE 2.5 MG/3 ML NEBU NEB SCH ×6 (02:30→22:51)
[2017-06-02] MEDS: IPRATROPIUM BROMIDE 0.5 MG/2.5 ML NEBU NEB SCH ×6 (02:30→22:51)
[2017-06-02] MEDS: OXACILLIN SODIUM 2 G in IV NORMAL SALINE 100 ML IV SCH ×4 (05:11→23:48)
[2017-06-02] MEDS: PANTOPRAZOLE ORAL SUSPENSION 40 MG SUSPDR.PKT NG SCH (05:11)
[2017-06-02] MEDS: VANCOMYCIN FOR PO/GT/NG USE GT SCH ×4 (05:12→23:48)
[2017-06-02 05:17] LABS: BASOPHILS # (AUTO) 0.1 K/uL (0.0-8.0); BASOPHILS % (AUTO) 0.7 % (0.0-2.0); EOSINOPHILS # (AUTO) 0.4 K/uL (0.0-0.7); EOSINOPHILS % (AUTO) 3.9 % (0.0-7.0); HEMATOCRIT 29.8 % (36.7-47.1); LYMPHOCYTES # (AUTO) 1.2 K/uL (20.0-40.0); LYMPHOCYTES % (AUTO) 12.1 % (20.5-51.5); MEAN CORPUSCULAR HEMOGLOBIN 33.1 uug (23.8-33.4); MEAN CORPUSCULAR HGB CONC 34 g/dL (32.5-36.3); MEAN CORPUSCULAR VOLUME 98.6 fL (73.0-96.2); MONOCYTES # (AUTO) 0.6 K/uL (2.0-10.0); MONOCYTES % (AUTO) 6.4 % (0.0-11.0); NEUTROPHILS # (AUTO) 7.4 K/uL (1.8-8.9); NEUTROPHILS % (AUTO) 76.9 % (38.5-71.5); PLATELET COUNT (AUTO) 516 K/uL (152-348); RED BLOOD CELL COUNT(AUTO) 3.02 MIL/uL (4.06-5.63); WHITE BLOOD COUNT (AUTO) 9.6 K/uL (3.6-10.2)
[2017-06-02 05:37] LABS: CARBON DIOXIDE 31 mmol/L (21-32); CHLORIDE 109 mmol/L (98-107); CREATININE 0.5 mg/dL (0.6-1.3); GLUCOSE 132 mg/dL (74-106); MAGNESIUM 1.8 mg/dL (1.8-2.4); PHOSPHOROUS 2.5 mg/dL (2.5-4.9); POTASSIUM 3.7 mmol/L (3.5-5.1); TRIGLYCERIDES 102 MG/DL (30-150); UREA NITROGEN, BLOOD 7 mg/dL (7-18)
--- NOTE | 2017-06-02 05:40 | NUR ---
am care done no bm at this time,bath patient ,changed soiled linens ,z guard applied to perianal area ,groin area .am labs collected and flushed cvp line .portable chest x ray done by sex crimes detective and abg done by respiratory therapist .patient open eyes spontaneously and facial grimace noted to pain . due medication for 0600 given .
[2017-06-02] MEDS: Z GUARD REMEDY PASTE 57 GM TUBE TOP PRN ×2 (05:53→20:33)
[2017-06-02 05:58] LABS: ABG BASE EXCESS 3.6 mmol/L; ABG PCO2 41.9 mmHg (35.0-45.0); ABG PH 7.443 (7.350-7.450); ABG PO2 104.5 mmHg (75.0-100.0); ABG SITE RIGHT RADIAL; ABG TOTAL HEMOGLOBIN 10.9 G/dL (13.5-18.0); COHb 0.8 % (0.5-1.5); MetHb 0.3 % (0.0-1.5); O2Hb 97.3 % (94.0-97.0); VENT MODE VENT - A/C; VT, ABG 500 mL
[2017-06-02 06:03] LABS: CREATINE KINASE, TOTAL 26 U/L (39-308)
[2017-06-02] MEDS: LORAZEPAM 2 MG/1 ML VIAL IV PRN (07:57)
[2017-06-02] MEDS: MULTIVITAMINS,THERAPEUTIC TABLET PO SCH (08:01)
[2017-06-02] MEDS: LACTOBACILLUS RHAMNOSUS GG 1 EACH CAPSULE PO SCH ×2 (08:01→20:30)
[2017-06-02] MEDS: POTASSIUM CHLORIDE 20 MEQ POWDER PACKET NG SCH (08:01)
[2017-06-02] MEDS: THIAMINE HCL 100 MG TABLET PO SCH (08:01)
[2017-06-02] MEDS: FOLIC ACID 1 MG TABLET PO SCH (08:01)
[2017-06-02] MEDS: ENOXAPARIN SODIUM 80 MG/0.8 ML DISP.SYRIN SQ SCH ×2 (08:03→20:32)
[2017-06-02] MEDS: MIDAZOLAM HCL 100 MG in IV DEXTROSE 5% 80 ML IV PRN ×2 (09:16→21:15)
--- NOTE | 2017-06-02 09:30 | NUR ---
Dr. Eli in the unit to examine patient, report given see orders.
[2017-06-02] MEDS ORDERED: POTASSIUM CHLORIDE 50 ML IV SCH (11:45)
[2017-06-02] MEDS ORDERED: POTASSIUM CHLORIDE 20 MEQ POWDER PACKET NG ONE (12:45)
--- NOTE | 2017-06-02 14:30 | NUR ---
Dr. Couch in the unit to examine patient.
--- NOTE | 2017-06-02 16:00 | NUR ---
Dr. Pat in the unit to see patient.
[2017-06-02] MEDS: FIBERSOURCE HN 1000ML LIQUID GT PRN (17:01)
--- NOTE | 2017-06-02 19:30 | NUR ---
Report received. Patient orally intubated and to vent with settings: AC=12, FIO2=30%, BJ=742 ml and PEEP= 5 cm. Sat above 96%. On continuous Diprivan and Versed drips for sedation. Eyes open, able to follow simple commands. Denies pain. Contact isolation for stool C diff maintained. Assessment completed. Addendum: 06/02/17 at 2340 by JOSH MARKS RN Amended: Links added.
--- NOTE | 2017-06-02 19:41 | NUR ---
Received pt on Browning ventilator with the following settings of AC 12, VT 500, Peep +5, FiO2 30%. Pt is orally intubated with a 8.0 ETT, ETT is secured with anchor fast approximately at 24cm at the lip. Moved ETT from left side to middle of mouth. No signs of respiratory distress noted, pt tolerating vent settings well at this time. Inline tx given per md orders. Suctioned pt with moderate amount of pale secretions. Vent alarms checked and audible. Ambu-bag at bedside. Will continue to monitor pt throughout shift.
--- NOTE | 2017-06-02 21:00 | NUR ---
Seen by Dr. Tinsley.
[2017-06-03] VITALS (24 sets, daily range): BP systolic 94–175; BP diastolic 60–98
[2017-06-03] MEDS: METRONIDAZOLE 500 MG/NS 100ML 500 MG in PREMIXED 1 EACH IV SCH ×3 (00:47→17:03)
[2017-06-03] MEDS: PROPOFOL 100 ML IV PRN ×2 (01:41→07:00)
[2017-06-03] MEDS: IPRATROPIUM BROMIDE 0.5 MG/2.5 ML NEBU NEB SCH ×6 (03:11→23:40)
[2017-06-03] MEDS: ALBUTEROL SULFATE 2.5 MG/3 ML NEBU NEB SCH ×6 (03:11→23:40)
[2017-06-03] MEDS: IV NORMAL SALINE 500 ML IV PRN (05:06)
[2017-06-03 05:16] LABS: *IMMUNOGLOBULIN G, SERUM 737 mg/dL (700-1600); IMMUNOGLOBULIN A, SERUM 171 mg/dL (61-437); IMMUNOGLOBULIN M, SERUM 137 mg/dL (20-172)
[2017-06-03 05:20] LABS: BASOPHILS # (AUTO) 0.1 K/uL (0.0-8.0); EOSINOPHILS # (AUTO) 0.4 K/uL (0.0-0.7); EOSINOPHILS % (AUTO) 2.9 % (0.0-7.0); HEMATOCRIT 30.8 % (36.7-47.1); HEMOGLOBIN 10.4 g/dL (12.5-16.3); LYMPHOCYTES # (AUTO) 0.8 K/uL (20.0-40.0); MEAN CORPUSCULAR HEMOGLOBIN 32.9 uug (23.8-33.4); MEAN CORPUSCULAR HGB CONC 34 g/dL (32.5-36.3); MEAN CORPUSCULAR VOLUME 97.4 fL (73.0-96.2); MONOCYTES # (AUTO) 0.8 K/uL (2.0-10.0); MONOCYTES % (AUTO) 5.7 % (0.0-11.0); NEUTROPHILS # (AUTO) 11.6 K/uL (1.8-8.9); NEUTROPHILS % (AUTO) 84.4 % (38.5-71.5); PLATELET COUNT (AUTO) 479 K/uL (152-348); RED BLOOD CELL COUNT(AUTO) 3.16 MIL/uL (4.06-5.63); WHITE BLOOD COUNT (AUTO) 13.8 K/uL (3.6-10.2)
[2017-06-03 05:24] LABS: ALANINE AMINOTRANSFERASE 11 U/L (16-63); ALKALINE PHOSPHATASE 89 U/L (50-136); ASPARTATE AMINOTRANSFERASE 16 U/L (15-37); BILIRUBIN,TOTAL 0.2 mg/dL (0.2-1.0); CARBON DIOXIDE 31 mmol/L (21-32); CHLORIDE 107 mmol/L (98-107); CREATININE 0.5 mg/dL (0.6-1.3); GLUCOSE 121 mg/dL (74-106); MAGNESIUM 1.7 mg/dL (1.8-2.4); PHOSPHOROUS 2.8 mg/dL (2.5-4.9); POTASSIUM 3.8 mmol/L (3.5-5.1); TOTAL PROTEIN, SERUM 5.5 g/dL (6.4-8.2); UREA NITROGEN, BLOOD 7 mg/dL (7-18)
[2017-06-03] MEDS: VANCOMYCIN FOR PO/GT/NG USE GT SCH ×4 (05:28→23:43)
[2017-06-03] MEDS: PANTOPRAZOLE ORAL SUSPENSION 40 MG SUSPDR.PKT NG SCH (05:32)
[2017-06-03] MEDS: OXACILLIN SODIUM 2 G in IV NORMAL SALINE 100 ML IV SCH ×4 (05:32→23:43)
--- NOTE | 2017-06-03 05:40 | NUR ---
Stable on current vent settings. Requires frequent suctioning. Still on Versed and Diprivan drip; mildly sedated. Tolerating tube feedings well.
[2017-06-03] MEDS: FIBERSOURCE HN 1000ML LIQUID GT PRN (06:06)
[2017-06-03] MEDS: LACTOBACILLUS RHAMNOSUS GG 1 EACH CAPSULE PO SCH ×2 (08:00→20:23)
[2017-06-03] MEDS: POTASSIUM CHLORIDE 20 MEQ POWDER PACKET NG SCH (08:00)
[2017-06-03] MEDS: MULTIVITAMINS,THERAPEUTIC TABLET PO SCH (08:00)
[2017-06-03] MEDS: THIAMINE HCL 100 MG TABLET PO SCH (08:00)
[2017-06-03] MEDS: ENOXAPARIN SODIUM 80 MG/0.8 ML DISP.SYRIN SQ SCH ×2 (08:01→20:24)
[2017-06-03] MEDS: FOLIC ACID 1 MG TABLET PO SCH (08:01)
--- NOTE | 2017-06-03 09:00 | NUR ---
Propofol titrated down for CPAP trial and at this time patient placed on CPAP with PSV 8. Saturation maintain above 95%. no tachypnea or restlessness noted at this time. Addendum: 06/03/[address]MAN RN Versed titrated down to 3mg/hr.
[2017-06-03 10:15] LABS: ABG BASE EXCESS 3.7 mmol/L; ABG HCO3 28.3 mmol/L; ABG PCO2 42.6 mmHg (35.0-45.0); ABG PO2 105.8 mmHg (75.0-100.0); ABG SITE RIGHT RADIAL; ABG TOTAL HEMOGLOBIN 10.6 G/dL (13.5-18.0); COHb 0.7 % (0.5-1.5); MetHb 0.3 % (0.0-1.5); O2Hb 97.3 % (94.0-97.0); VENT MODE VENT - CPAP
[2017-06-03 10:17] LABS: ALBUMIN 2.2 g/dL (2.9-4.4); ALPHA-1-GLOBULIN 0.2 g/dL (0.0-0.4); ALPHA-2-GLOBULIN 0.7 g/dL (0.4-1.0); BETA GLOBULIN 0.6 g/dL (0.7-1.3); GAMMA GLOBULIN 0.8 g/dL (0.4-1.8); GLOBULIN, TOTAL 2.3 g/dL (2.2-3.9); M-SPIKE Not Observed g/dL (Not Observed)
--- NOTE | 2017-06-03 10:45 | NUR ---
DR. Eli pulmonary services in the unit to examine patient; report given. After examining patient and reviewing resulted ABG's orders to stop propofol and versed received. And prepare patient patient for extubation. At this time called at message left awaiting call back.
--- NOTE | 2017-06-03 10:56 | NUR ---
RT informed of care plan.
--- NOTE | 2017-06-03 11:00 | NUR ---
At this time patient fully awake and informed of care plan at this time following directions.
--- NOTE | 2017-06-03 11:08 | NUR ---
Patient extubated at this time and placed on 3 liters. Patient fully awake following commands.
--- NOTE | 2017-06-03 11:15 | NUR ---
PT RECEIVED ON FOX VENT, AT 1110 PT WAS EXTUBATED POST VENT WEANING TRIAL. HHN TX GIVEN, DOING WELL AT THIS TIME. NO SOB NOTED. WILL CONTINUE TO MONITOR FOR S/S OF RESPIRATORY DISTRESS. BVM AT BEDSIDE.
[2017-06-03] MEDS ORDERED: MAGNESIUM SULFATE/D5W 100 ML IV SCH (12:45)
--- NOTE | 2017-06-03 14:45 | NUR ---
At this time patient having an episode of restlessness, and agitation, verbalizing been unable to breath. Patient with persistent cough and unable breath deeply and bring up secretions.
--- NOTE | 2017-06-03 14:50 | NUR ---
RT Mayo at bedside and breathing treatment and deep suction performed, patient still having stridor saturation with saturation up to 88-94%. Dr. Eli and Dr. Torres notified.
--- NOTE | 2017-06-03 15:30 | NUR ---
A call back from Dr. Eli and report given.
--- NOTE | 2017-06-03 16:00 | NUR ---
Dr. Couch in the unit to examine patient, report given.
[2017-06-03] MEDS: IV 1/2NS 1000 ML 1,000 ML IV PRN (16:05)
[2017-06-03 16:13] LABS: ABG BASE EXCESS 4.2 mmol/L; ABG HCO3 28.6 mmol/L; ABG PCO2 42.1 mmHg (35.0-45.0); ABG PO2 85.2 mmHg (75.0-100.0); ABG SITE RIGHT RADIAL; ABG TOTAL HEMOGLOBIN 11.4 G/dL (13.5-18.0); COHb 1.1 % (0.5-1.5); MetHb 0.3 % (0.0-1.5); O2Hb 95.7 % (94.0-97.0); VENT MODE Nasal Cannula
--- NOTE | 2017-06-03 16:38 | NUR ---
ID Dr. Pat in the unit.
--- NOTE | 2017-06-03 19:30 | NUR ---
Report received. Patient awake, confused, trying to get out of bed. Advised and reoriented PRN. Sitter at bedside. Medicated with Ativan IV. Fall and safety precautions maintained. Coughing; suctioned orally for white to sung secretions. Addendum: 06/03/17 at 2130 by JOSH MARKS RN Amended: Links added.
[2017-06-03] MEDS: LORAZEPAM 2 MG/1 ML VIAL IV PRN ×2 (19:35→22:24)
--- NOTE | 2017-06-03 21:00 | NUR ---
With periods of mild to moderate restlessness. Also with frequent coughing spells; suctioned rally for moderate thick white secretions.
[2017-06-03] MEDS: hydrALAZINE HCL 20 MG/1 ML VIAL IV PRN (21:33)
--- NOTE | 2017-06-03 21:33 | NUR ---
Medicated with Hydralizine IV for hypertension.
--- NOTE | 2017-06-03 22:24 | NUR ---
With increasing restlessness. Ativan IV given. PM care rendered.
[2017-06-04] VITALS (24 sets, daily range): BP systolic 124–169; BP diastolic 59–120
[2017-06-04] MEDS: HYDROCODONE/APAP 5-325MG TABLET PO PRN (00:22)
--- NOTE | 2017-06-04 00:22 | NUR ---
Patient restless again; c/o back pain. Medicated with [place]co. Medication crushed and given with applesauce. No swallowing difficulty but continues to have coughing spells and requires frequent oral suctioning.
[2017-06-04] MEDS: METRONIDAZOLE 500 MG/NS 100ML 500 MG in PREMIXED 1 EACH IV SCH ×3 (00:40→17:35)
[2017-06-04] MEDS: ALBUTEROL SULFATE 2.5 MG/3 ML NEBU NEB SCH ×6 (03:34→23:13)
[2017-06-04] MEDS: IPRATROPIUM BROMIDE 0.5 MG/2.5 ML NEBU NEB SCH ×6 (03:34→23:13)
[2017-06-04] MEDS: LORAZEPAM 2 MG/1 ML VIAL IV PRN ×6 (03:59→23:21)
[2017-06-04] MEDS: IV 1/2NS 1000 ML 1,000 ML IV PRN ×2 (04:00→22:09)
[2017-06-04 05:12] LABS: BASOPHILS # (AUTO) 0.1 K/uL (0.0-8.0); BASOPHILS % (AUTO) 0.8 % (0.0-2.0); EOSINOPHILS # (AUTO) 0.4 K/uL (0.0-0.7); EOSINOPHILS % (AUTO) 3.2 % (0.0-7.0); HEMATOCRIT 30.4 % (36.7-47.1); HEMOGLOBIN 10.3 g/dL (12.5-16.3); LYMPHOCYTES % (AUTO) 8.7 % (20.5-51.5); MEAN CORPUSCULAR HEMOGLOBIN 32.8 uug (23.8-33.4); MEAN CORPUSCULAR HGB CONC 34 g/dL (32.5-36.3); MEAN CORPUSCULAR VOLUME 96.8 fL (73.0-96.2); MONOCYTES # (AUTO) 0.9 K/uL (2.0-10.0); MONOCYTES % (AUTO) 7.5 % (0.0-11.0); NEUTROPHILS # (AUTO) 9.4 K/uL (1.8-8.9); NEUTROPHILS % (AUTO) 79.8 % (38.5-71.5); PLATELET COUNT (AUTO) 405 K/uL (152-348); RED BLOOD CELL COUNT(AUTO) 3.14 MIL/uL (4.06-5.63); WHITE BLOOD COUNT (AUTO) 11.8 K/uL (3.6-10.2)
[2017-06-04 05:17] LABS: CARBON DIOXIDE 29 mmol/L (21-32); CHLORIDE 107 mmol/L (98-107); CREATININE 0.5 mg/dL (0.6-1.3); GLUCOSE 96 mg/dL (74-106); MAGNESIUM 1.7 mg/dL (1.8-2.4); PHOSPHOROUS 2.5 mg/dL (2.5-4.9); POTASSIUM 3.4 mmol/L (3.5-5.1); UREA NITROGEN, BLOOD 5 mg/dL (7-18)
[2017-06-04] MEDS: OXACILLIN SODIUM 2 G in IV NORMAL SALINE 100 ML IV SCH ×4 (05:23→23:21)
[2017-06-04] MEDS: VANCOMYCIN FOR PO/GT/NG USE GT SCH (05:23)
[2017-06-04] MEDS: PANTOPRAZOLE ORAL SUSPENSION 40 MG SUSPDR.PKT NG SCH (06:00)
--- NOTE | 2017-06-04 06:30 | NUR ---
Protonix not given; patient has frequent coughing spells, swallows good but with immediate coughing after liquid Vancomycin. HOB elevated above 30 degrees at all times.
--- NOTE | 2017-06-04 07:30 | NUR ---
RECIEVED PT IN BED. 1 ON 1 SITTER ON BOARD. PT IS RESTLESS AND CONFUSED, AND SOMETIMES NOT FOLLOWS OMMANDS. MOVES ALL EXTRFEMETIES WELL. HR IS SR TO ST WHILE PT IS RESTLESS. PICC LINE ON RIGHT IJ INTACT IVF INFUSING WELL. AFEBRILE. STILL NPO.
--- NOTE | 2017-06-04 08:00 | NUR ---
PT IS TURNING ON HIS OWN. COUGHING ON AND OFF WIWTH WHITISH SECRETIONS. MEDICATED WITH ATIVAN 1MG SLOW IVP FOR RESTLESSNESS.
[2017-06-04] MEDS: ENOXAPARIN SODIUM 80 MG/0.8 ML DISP.SYRIN SQ SCH ×2 (08:36→20:22)
[2017-06-04 09:19] LABS: ABG PCO2 32.6 mmHg (35.0-45.0); ABG PH 7.485 (7.350-7.450); ABG PO2 92.3 mmHg (75.0-100.0); ABG SITE RIGHT RADIAL; ABG TOTAL HEMOGLOBIN 10.9 G/dL (13.5-18.0); COHb 0.9 % (0.5-1.5); MetHb 0.3 % (0.0-1.5); O2Hb 96.7 % (94.0-97.0); VENT MODE Nasal Cannula
[2017-06-04] MEDS ORDERED: MAGNESIUM OXIDE 400 MG TABLET GT ONE (10:45)
[2017-06-04] MEDS ORDERED: POTASSIUM CHLORIDE 20 MEQ POWDER PACKET GT ONE (10:45)
[2017-06-04] MEDS ORDERED: POTASSIUM CHLORIDE 50 ML IV ONE (12:15)
[2017-06-04] MEDS ORDERED: MAGNESIUM SULFATE/D5W 100 ML IV ONE (12:15)
[2017-06-04] MEDS: POTASSIUM CHLORIDE 10 MEQ in IV DEXTROSE 5% 50 ML IV SCH ×2 (13:11→16:16)
--- NOTE | 2017-06-04 15:29 | NUR ---
FIO2 TITRATED DOWN TO 3LPM NC AND SPO2 IS MAINTAINED WITHIN NORMAL LIMITS
[2017-06-04] MEDS: hydrALAZINE HCL 20 MG/1 ML VIAL IV PRN (18:31)
--- NOTE | 2017-06-04 20:00 | NUR ---
Pt awake, alert, with periods of restlessness. 1:1 Sitter at bedside at all times. Safety and fall precautions observed all the time. Resp easy and regular. O2 3L/min in use with adequate saturations. Has frequent clearing of throat. Suctioned PRN to minimal secretions. RT providing Neb Tx and is helpful. Nursing comfort measures observed at all times. Please see CCU flowsheet for full assessment and clinical data.
[2017-06-04] MEDS: NYSTATIN OINTMENT 15 GM TUBE TOP SCH (20:31)
[2017-06-04] MEDS: Z GUARD REMEDY PASTE 57 GM TUBE TOP PRN (22:10)
[2017-06-05] VITALS (33 sets, daily range): BP systolic 0–182; BP diastolic 55–99
--- NOTE | 2017-06-05 00:01 | NUR ---
Ativan IV given PRN for extreme restlessness. See EMar for administration times. Pt reassured frequently and reality-orientation done.
[2017-06-05] MEDS: METRONIDAZOLE 500 MG/NS 100ML 500 MG in PREMIXED 1 EACH IV SCH ×3 (00:41→17:08)
[2017-06-05] MEDS: hydrALAZINE HCL 20 MG/1 ML VIAL IV PRN (02:15)
[2017-06-05] MEDS: IPRATROPIUM BROMIDE 0.5 MG/2.5 ML NEBU NEB SCH ×5 (02:30→19:28)
[2017-06-05] MEDS: ALBUTEROL SULFATE 2.5 MG/3 ML NEBU NEB SCH ×5 (02:31→19:28)
[2017-06-05] MEDS: LORAZEPAM 2 MG/1 ML VIAL IV PRN ×2 (02:44→22:48)
--- NOTE | 2017-06-05 04:00 | NUR ---
Sitter remains at bedside. Pt has periods of being calm, appears to be asleep. When awake, continues to clear throat. Suctioned to small amounts of thick white secretions. Close monitoring continues.
[2017-06-05 05:24] LABS: BASOPHILS # (AUTO) 0.1 K/uL (0.0-8.0); EOSINOPHILS # (AUTO) 0.2 K/uL (0.0-0.7); EOSINOPHILS % (AUTO) 1.4 % (0.0-7.0); HEMATOCRIT 32.6 % (36.7-47.1); LYMPHOCYTES # (AUTO) 0.8 K/uL (20.0-40.0); LYMPHOCYTES % (AUTO) 6.5 % (20.5-51.5); MEAN CORPUSCULAR HEMOGLOBIN 32.4 uug (23.8-33.4); MEAN CORPUSCULAR HGB CONC 34 g/dL (32.5-36.3); MEAN CORPUSCULAR VOLUME 96.5 fL (73.0-96.2); MONOCYTES # (AUTO) 0.7 K/uL (2.0-10.0); MONOCYTES % (AUTO) 6.1 % (0.0-11.0); NEUTROPHILS # (AUTO) 10.4 K/uL (1.8-8.9); PLATELET COUNT (AUTO) 394 K/uL (152-348); RED BLOOD CELL COUNT(AUTO) 3.38 MIL/uL (4.06-5.63); WHITE BLOOD COUNT (AUTO) 12.2 K/uL (3.6-10.2)
[2017-06-05 05:28] LABS: CARBON DIOXIDE 26 mmol/L (21-32); CHLORIDE 102 mmol/L (98-107); CREATININE 0.5 mg/dL (0.6-1.3); GLUCOSE 93 mg/dL (74-106); MAGNESIUM 1.5 mg/dL (1.8-2.4); PHOSPHOROUS 2.5 mg/dL (2.5-4.9); POTASSIUM 3.1 mmol/L (3.5-5.1); UREA NITROGEN, BLOOD 4 mg/dL (7-18)
--- NOTE | 2017-06-05 05:45 | NUR ---
Sitter at bedside yelling out to staff that pt unresponsive with dusky color. Found pt unresponsive, not breathing and pulseless. Code Blue called. Please see Code Blue Sheet. Pt intubated by Dr. Smith with ETT #7 at 22 cm lipline. CXR stat called for ETT placement confirmation.
[2017-06-05] MEDS: PROPOFOL 100 ML IV PRN ×4 (05:59→20:34)
[2017-06-05] MEDS: OXACILLIN SODIUM 2 G in IV NORMAL SALINE 100 ML IV SCH ×3 (05:59→17:40)
[2017-06-05] MEDS: PANTOPRAZOLE ORAL SUSPENSION 40 MG SUSPDR.PKT NG SCH (06:00)
--- NOTE | 2017-06-05 06:07 | NUR ---
Code Blue called. 05:55. Pt intubated by Dr Smith with 7.0 ETT~22cm at lip line and placed on Browning vent with the following settings of AC-16, Vt-700, FIO2-100%. ETT secured with Zuni Fast. HME and Sx Banks changed. Post intubation ABG at 07:00 will notified day shift. Resus. bag at bedside. vent and alarms on and audible.
[2017-06-05] MEDS ORDERED: PROPOFOL 100 ML ONE (06:14)
--- NOTE | 2017-06-05 06:30 | NUR ---
Appears comfortable on vent with prescribed settings. Sedated on Diprivan drip. VS and rhythm stable. For ABGs at 0700.
[2017-06-05 07:29] LABS: ABG BASE EXCESS 0.8 mmol/L; ABG HCO3 22.1 mmol/L; ABG PCO2 25.2 mmHg (35.0-45.0); ABG PO2 305.8 mmHg (75.0-100.0); ABG SITE RIGHT RADIAL; ABG TOTAL HEMOGLOBIN 10.5 G/dL (13.5-18.0); COHb 0.3 % (0.5-1.5); MetHb 0.3 % (0.0-1.5); O2Hb 99.1 % (94.0-97.0); VENT MODE VENT - A/C; VT, ABG 700 mL
--- NOTE | 2017-06-05 07:30 | NUR ---
Pt. sedated to scaile RASS-2,no s/s of acute distress or pain noted.
--- NOTE | 2017-06-05 08:31 | NUR ---
RECEIVED PT RE INTUBATED WITH ET TUBE SIZE 7.0, TAPED AT APPROX 22CM AT LIP. PLACED ON SETTINGS OF AC 16, VT 700 AND FIO2 100%. ABG DONE WITH PO2 300 PLUS. REDUCED FIO2 70 % AND WILL TITRATE. ORAL CARE DONE AND NO NEW ORDER HAS BEEN RECEIVED YET.
[2017-06-05] MEDS: NYSTATIN OINTMENT 15 GM TUBE TOP SCH ×2 (08:34→20:05)
[2017-06-05] MEDS: ENOXAPARIN SODIUM 80 MG/0.8 ML DISP.SYRIN SQ SCH ×2 (08:37→20:07)
[2017-06-05] MEDS: Z GUARD REMEDY PASTE 57 GM TUBE TOP PRN ×2 (08:38→22:48)
[2017-06-05] MEDS: MAGNESIUM SULFATE/D5W 100 ML IV SCH ×2 (09:37→10:14)
--- NOTE | 2017-06-05 10:30 | NUR ---
Pt.was seen by his litigation attorney associate Lindsey Rodriguez pt.sedated.
[2017-06-05] MEDS: POTASSIUM PHOSPHATE MM 5 MMOL in IV DEXTROSE 5% 100 ML IV SCH ×2 (10:33→12:24)
--- NOTE | 2017-06-05 11:50 | NUR ---
Pt.was seen by with new orders.
[2017-06-05] MEDS: IV 1/2NS 1000 ML 1,000 ML IV PRN (12:26)
--- NOTE | 2017-06-05 12:27 | NUR ---
WOUND CARE CONSULT: PT NOT TURNED FOR SKIN ASSESSMENT DUE TO PT UNSTABLE, S/P CODE BLUE TODAY AND REINTUBATED. PER NURSING STAFF, FUNGAL RASH BEING TREATED. WILL SEE PT PT CONDITION PERMITS. ALL SKIN PROTECTION MEASURES IN PLACE INCLUDING FIRST STEP MATTRESS. MD IN AGREEMENT WITH PLAN OF CARE.
--- NOTE | 2017-06-05 12:40 | NUR ---
Pt.was seen by REBA HDEZ MD.
--- NOTE | 2017-06-05 14:30 | NUR ---
Pt.was seen by PARUL BULLOCK
[2017-06-05] MEDS ORDERED: POTASSIUM CHLORIDE 20 MEQ POWDER PACKET NG ONE (15:15)
--- NOTE | 2017-06-05 16:25 | NUR ---
Pt.was seen by .
--- NOTE | 2017-06-05 18:45 | NUR ---
Pt. sleeping,no s/s of distress or pain noted.
[2017-06-05] MEDS: FIBERSOURCE HN 1000ML LIQUID GT PRN (19:13)
--- NOTE | 2017-06-05 19:25 | NUR ---
Pt received orally intubated, in semi dior position and on continuous mechanical ventilation via 7.0 ETT secured at 22cm lip line. No respiratory distress noted. Pt is on Browning ventilator on ordered settings of A/C 16, VT-600, PEEP +5, FIO2-60% Pt awake and responsive, tolerating vent settings well. Sxn'd for small amts of yellowish/white secretions. In-line nebulizer treatments given as ordered Q4 with Albuterol/Atrovent. Txs tolerated well, with no adverse reactions noted. Oral care done. ETT moved to Right side of mouth. Good skin integrity noted to application area of Jasper-fast. Vent alarm parameters checked, on and audible. Ventilator plugged into red emergency outlet. Bag/valve/mask at bedside. Will continue to monitor.
--- NOTE | 2017-06-05 20:00 | NUR ---
Remains intubated on vent, comfortable on current settings. Sedated on Diprivan drip. Pt awake, nods appropriately, pointing to family photos posted on wall and mouthing words. Events of this early AM leading to reintubation explained. Pt shaking head. Psychological support offered. NG tube placement rechecked for patency then started Fibersource to goal 65 ml/hr. Aspiration precautions with HOB up observed at all times. Please see CCU flowsheet for full assessment and clinical data.
[2017-06-05] MEDS: MIDAZOLAM HCL 2 MG/2 ML VIAL IV PRN (20:34)
--- NOTE | 2017-06-05 21:30 | NUR ---
Dr. Tinsley called in; updated with pt condition. stated he spoke with Dr. Hare about trach placement but there's no specific plan when procedure be done.
--- NOTE | 2017-06-05 21:35 | NUR ---
FIO2 decreased to 50% per MD order for FIO2 titration to maintain SpO2 >= 92%. Tolerating well. SpO2-100%. MACI Barahona notified.
--- NOTE | 2017-06-05 23:30 | NUR ---
Dr. Hare called in, pt condition report given. stated plan to do trach procedure at 1000 AM. New order for NPO after MN and AM labs carried out. RN Box Lidder aware.
[2017-06-06] VITALS (45 sets, daily range): BP systolic 82–145; BP diastolic 43–86
[2017-06-06] MEDS: ALBUTEROL SULFATE 2.5 MG/3 ML NEBU NEB SCH ×7 (00:07→23:47)
[2017-06-06] MEDS: IPRATROPIUM BROMIDE 0.5 MG/2.5 ML NEBU NEB SCH ×7 (00:07→23:47)
[2017-06-06] MEDS: OXACILLIN SODIUM 2 G in IV NORMAL SALINE 100 ML IV SCH ×5 (00:22→23:48)
[2017-06-06] MEDS: METRONIDAZOLE 500 MG/NS 100ML 500 MG in PREMIXED 1 EACH IV SCH ×3 (00:41→17:44)
--- NOTE | 2017-06-06 01:05 | NUR ---
RT titrated down FIO2 to 40%. Pt continues to saturate well at 100%. Will continue to observe closely.
[2017-06-06] MEDS: PROPOFOL 100 ML IV PRN ×5 (01:27→22:13)
[2017-06-06 05:21] LABS: ALANINE AMINOTRANSFERASE 13 U/L (16-63); ALKALINE PHOSPHATASE 78 U/L (50-136); ASPARTATE AMINOTRANSFERASE 20 U/L (15-37); BILIRUBIN,TOTAL 0.4 mg/dL (0.2-1.0); CARBON DIOXIDE 26 mmol/L (21-32); CHLORIDE 105 mmol/L (98-107); CREATININE 0.5 mg/dL (0.6-1.3); GLUCOSE 87 mg/dL (74-106); MAGNESIUM 1.7 mg/dL (1.8-2.4); PHOSPHOROUS 2.9 mg/dL (2.5-4.9); TOTAL PROTEIN, SERUM 4.8 g/dL (6.4-8.2); UREA NITROGEN, BLOOD 5 mg/dL (7-18)
[2017-06-06 05:31] LABS: BASOPHILS # (AUTO) 0.1 K/uL (0.0-8.0); BASOPHILS % (AUTO) 0.8 % (0.0-2.0); EOSINOPHILS # (AUTO) 0.4 K/uL (0.0-0.7); EOSINOPHILS % (AUTO) 3.7 % (0.0-7.0); HEMATOCRIT 29.2 % (36.7-47.1); LYMPHOCYTES # (AUTO) 0.9 K/uL (20.0-40.0); LYMPHOCYTES % (AUTO) 9.2 % (20.5-51.5); MEAN CORPUSCULAR HEMOGLOBIN 33.3 uug (23.8-33.4); MEAN CORPUSCULAR HGB CONC 34 g/dL (32.5-36.3); MONOCYTES # (AUTO) 0.7 K/uL (2.0-10.0); MONOCYTES % (AUTO) 6.9 % (0.0-11.0); NEUTROPHILS # (AUTO) 7.5 K/uL (1.8-8.9); NEUTROPHILS % (AUTO) 79.4 % (38.5-71.5); PLATELET COUNT (AUTO) 326 K/uL (152-348); RED BLOOD CELL COUNT(AUTO) 3.01 MIL/uL (4.06-5.63); WHITE BLOOD COUNT (AUTO) 9.5 K/uL (3.6-10.2)
[2017-06-06 05:44] LABS: POTASSIUM 2.7 mmol/L (3.5-5.1)
[2017-06-06] MEDS: PANTOPRAZOLE ORAL SUSPENSION 40 MG SUSPDR.PKT NG SCH (06:00)
--- NOTE | 2017-06-06 06:00 | NUR ---
Close CCU monitoring continues. Stable rhythm and VS. Await for EPIC MD to return call for this AM's critical potassium level. Please see CCU flowsheet for trends and clinical data. Diprivan drip continues to infuse at 45 mcg/kg/min.
[2017-06-06] MEDS: IV 1/2NS 1000 ML 1,000 ML IV PRN ×2 (06:17→23:17)
--- NOTE | 2017-06-06 07:00 | NUR ---
Called and left message to and to software configuration manager for trach consent. Await for return call.
--- NOTE | 2017-06-06 07:10 | NUR ---
Spoke to Dr. Tinsley about pt's critical potassium and of pt general condition. Made aware pt has no surgical consent at this time. No new orders noted.
--- NOTE | 2017-06-06 07:30 | NUR ---
RECIEVED PT SEDATED, ON DIPRIVAN DRIP AT 45MCG/KG/MIN.
--- NOTE | 2017-06-06 08:00 | NUR ---
PT IS NPO. CALLED UP [facility] ATTY. MR LEONARD AND LEFT HIM A MESSAGE CONCERNING PT'S PROCEEDURE AT 10AM. AWAITING FOR A CALL BACK.
[2017-06-06 08:05] LABS: ABG BASE EXCESS 1.9 mmol/L; ABG HCO3 24.8 mmol/L; ABG PCO2 32.5 mmHg (35.0-45.0); ABG PO2 109.1 mmHg (75.0-100.0); ABG SITE LEFT RADIAL; ABG TOTAL HEMOGLOBIN 10.7 G/dL (13.5-18.0); MetHb 0.4 % (0.0-1.5); VENT MODE VENT - A/C; VT, ABG 600 mL
--- NOTE | 2017-06-06 08:30 | NUR ---
CALLED UP MR BARRIGA'S NITHYA LEO AND INFORMED HER OF PT'S SCHEDULED PROCEEDURE AT 10AM. STATED THAT SHE WILL NOTIFY ATTY DEVIT CONCERNING THE CONSENT. AWAITING FOR THE FAMILY'S DECISSION AT THIS TIME.
--- NOTE | 2017-06-06 09:00 | NUR ---
STILL AWAITING FOR FAMILY TO CALL ME BACK. NOTIFIED DR GASTELUM REGARDING THE CONSENT SITUATION AT THIS TIME.
[2017-06-06] MEDS: NYSTATIN OINTMENT 15 GM TUBE TOP SCH ×2 (09:08→20:30)
--- NOTE | 2017-06-06 09:40 | NUR ---
MR NITHYA'S DAUGHTER RUCHI CALLED AND WANTED TO LET ME KNOW THAT SHE WANTED TO ASK A SECOND OPINION FROM [facility] AND WILL CALL ME BACK DEREK.
--- NOTE | 2017-06-06 09:45 | NUR ---
MR BARRIGA'S DAUGHTER RUCHI ALLED BACK AND WANTED TO CANCEL THE PROCCEDURE TODAY. NOTIFIED DR ARGUETA OF FAMILY'S DECISSION AND ALSO DR GASTELUM. PROCEEDURE IS CANCELLED ORDERED. NOTIFIED RN WEB MACHINE TENDER OF THE CANCELLATION.
[2017-06-06] MEDS ORDERED: MAGNESIUM OXIDE 400 MG TABLET NG ONE (11:15)
[2017-06-06] MEDS ORDERED: POTASSIUM CHLORIDE 20 MEQ POWDER PACKET NG ONE (11:15)
[2017-06-06] MEDS: ENOXAPARIN SODIUM 80 MG/0.8 ML DISP.SYRIN SQ SCH ×2 (11:38→20:31)
--- NOTE | 2017-06-06 13:00 | NUR ---
SEEN AND EXAMINED BY DR HENSLEY WITH NEW ORDERS. RT CHANGED VENT SETTING FOR TIDAL VOLUME TO 550 ORDERED. PT TOLERATING WELL.
[2017-06-06] MEDS: POTASSIUM CHLORIDE 50 ML IV SCH ×2 (14:12→15:33)
--- NOTE | 2017-06-06 16:00 | NUR ---
PT IS MEDICATED WITH ATIVAN 1MG TWICE TO SUPPLEMENT PT'S SEDATION SECONDARY TO HIS RESTLESSNESS. STARTED ON HIS TUBE FEEDING AND TOLERATING WELL.
[2017-06-06] MEDS: LORAZEPAM 2 MG/1 ML VIAL IV PRN ×2 (16:17→22:31)
[2017-06-06] MEDS ORDERED: NOREPINEPHRINE BITARTRATE 4 MG/4 ML VIAL IV ONE (19:39)
[2017-06-06] MEDS: NOREPINEPHRINE BITARTRATE 16 MG in IV DEXTROSE 5% 500 ML IV PRN (19:48)
[2017-06-06] MEDS: FIBERSOURCE HN 1000ML LIQUID GT PRN (20:32)
[2017-06-06] MEDS: HYDROCODONE/APAP 5-325MG TABLET PO PRN (22:12)
--- NOTE | 2017-06-06 22:39 | NUR ---
PT ON CONT FOX VENT WITH 7.0 ET/TUBE IN PLACE , 22CM LIP LINE, WITH ANCHOR FAST, CENTER IN PLACE, WITH CURRENT VENT SETTINGS, A/C 16, [id number] , 40%, PT DOES ASSIST AT TIMES, PT IS SEDATED ON DIPRIVAN, BUT STILL COUGHS A LOT, SUCTIONED LIGHT PALE YELL TINGE SECRETIONS, AND SUCTION MOUTH WITH MURRAY RODRIGUEZ, CHECK CUFF, CHANGE HME, NEB INLINE Q4 HOURS WITH ALBUTEROL/ ATROVENT MURRAY AVILA, NO VENT CHANGES MADE AT THIS TIME, ALL ALARMS OK, AMBU BAG AT BEDSIDE. Jeremy COLLINS RCP Addendum: 06/06/17 at 2242 by KRUNAL COLLINS RT Amended: Links added.
[2017-06-07] VITALS (94 sets, daily range): BP systolic 90–125; BP diastolic 49–95
[2017-06-07] MEDS: METRONIDAZOLE 500 MG/NS 100ML 500 MG in PREMIXED 1 EACH IV SCH ×3 (00:38→16:42)
[2017-06-07] MEDS: LORAZEPAM 2 MG/1 ML VIAL IV PRN ×4 (01:56→23:35)
[2017-06-07] MEDS: PROPOFOL 100 ML IV PRN ×7 (03:04→23:35)
[2017-06-07] MEDS: IPRATROPIUM BROMIDE 0.5 MG/2.5 ML NEBU NEB SCH ×6 (04:22→23:04)
[2017-06-07] MEDS: ALBUTEROL SULFATE 2.5 MG/3 ML NEBU NEB SCH ×6 (04:23→23:04)
[2017-06-07 05:24] LABS: BASOPHILS # (AUTO) 0.1 K/uL (0.0-8.0); BASOPHILS % (AUTO) 0.6 % (0.0-2.0); CARBON DIOXIDE 28 mmol/L (21-32); CHLORIDE 107 mmol/L (98-107); CREATININE 0.5 mg/dL (0.6-1.3); EOSINOPHILS # (AUTO) 0.7 K/uL (0.0-0.7); EOSINOPHILS % (AUTO) 5.8 % (0.0-7.0); GLUCOSE 162 mg/dL (74-106); HEMATOCRIT 31.7 % (36.7-47.1); HEMOGLOBIN 10.7 g/dL (12.5-16.3); LYMPHOCYTES # (AUTO) 0.6 K/uL (20.0-40.0); LYMPHOCYTES % (AUTO) 5.3 % (20.5-51.5); MAGNESIUM 1.6 mg/dL (1.8-2.4); MEAN CORPUSCULAR HEMOGLOBIN 32.8 uug (23.8-33.4); MEAN CORPUSCULAR HGB CONC 34 g/dL (32.5-36.3); MEAN CORPUSCULAR VOLUME 97.1 fL (73.0-96.2); MONOCYTES # (AUTO) 0.6 K/uL (2.0-10.0); MONOCYTES % (AUTO) 5.3 % (0.0-11.0); NEUTROPHILS # (AUTO) 9.6 K/uL (1.8-8.9); PHOSPHOROUS 2.6 mg/dL (2.5-4.9); PLATELET COUNT (AUTO) 332 K/uL (152-348); POTASSIUM 2.9 mmol/L (3.5-5.1); RED BLOOD CELL COUNT(AUTO) 3.26 MIL/uL (4.06-5.63); UREA NITROGEN, BLOOD 5 mg/dL (7-18); WHITE BLOOD COUNT (AUTO) 11.6 K/uL (3.6-10.2)
[2017-06-07] MEDS: PANTOPRAZOLE ORAL SUSPENSION 40 MG SUSPDR.PKT NG SCH (05:41)
[2017-06-07] MEDS: OXACILLIN SODIUM 2 G in IV NORMAL SALINE 100 ML IV SCH ×4 (05:41→23:35)
[2017-06-07] MEDS ORDERED: POTASSIUM CHLORIDE 20 MEQ POWDER PACKET GT ONE (07:02)
--- NOTE | 2017-06-07 07:15 | NUR ---
PT REC'D ON CONT FOX VENT WITH 7.0 ET/TUBE IN PLACE , 22CM LIP LINE, WITH ANCHOR FAST. CURRENT VENT SETTINGS, A/C 16, [id number] , 40%. NO SIGNS OF SOB NOTED. ADVANCED 2CM TO 24CM LIP LINE PER AYDEN WATKINS. SUCTIONED LIGHT PALE YELL TINGE SECRETIONS, TOLL WELL. SEWER CLEANER USED OF CUFF ASSESSMENT/INFLATION. HHN TX INLINE Q4 HOURS WITH ALBUTEROL/ ATROVENT TOLL WELL, NO VENT CHANGES MADE AT THIS TIME. ALARMS ARE ON/AUDIBLE. AMBU BAG AT BEDSIDE.
[2017-06-07 07:34] LABS: ABG BASE EXCESS 0.4 mmol/L; ABG HCO3 24.5 mmol/L; ABG PCO2 37.2 mmHg (35.0-45.0); ABG PH 7.436 (7.350-7.450); ABG PO2 107.6 mmHg (75.0-100.0); ABG SITE RIGHT RADIAL; ABG TOTAL HEMOGLOBIN 11.3 G/dL (13.5-18.0); MetHb 0.3 % (0.0-1.5); O2Hb 97.1 % (94.0-97.0); VENT MODE VENT - A/C; VT, ABG 550 mL
--- NOTE | 2017-06-07 08:00 | NUR ---
SEEN AND EXAMINED BY DR HENSLEY WITH NEW ORDERS.
--- NOTE | 2017-06-07 08:20 | NUR ---
PT'S K AND MAG ARE LOW AND HAS SUPPLEMENTAL COVERAGE ORDERED BY DR LING AND DR HENSLEY.
--- NOTE | 2017-06-07 08:30 | NUR ---
ABG RESULT SEEN BY DR HENSLEY. NO NEW VENT CHANGES ORDERED.
[2017-06-07] MEDS: POTASSIUM CHLORIDE 50 ML IV SCH ×2 (08:32→10:50)
[2017-06-07] MEDS: MAGNESIUM SULFATE 1 GM in IV DEXTROSE 5% 50 ML IV SCH ×2 (08:33→10:50)
[2017-06-07] MEDS: ENOXAPARIN SODIUM 80 MG/0.8 ML DISP.SYRIN SQ SCH ×2 (08:36→20:33)
[2017-06-07] MEDS: NYSTATIN OINTMENT 15 GM TUBE TOP SCH ×2 (08:38→20:34)
[2017-06-07] MEDS ORDERED: MAGNESIUM SULFATE/D5W 100 ML IV SCH (09:00)
--- NOTE | 2017-06-07 09:15 | NUR ---
RT PUSHED IN AT TUBE 2CM DOWN ORDERED. LIP LINE AT 24CM.
--- NOTE | 2017-06-07 10:30 | NUR ---
SUCTION SECRETIONS WITH SMALL WHITISH PHLEGM. REPOSITION TO HIS SIDES AT FREQUENT INTERVAL.
--- NOTE | 2017-06-07 14:30 | NUR ---
SEEN AND EXAMINED BY DR SAMUELS, NO ORDERS.
--- NOTE | 2017-06-07 17:00 | NUR ---
ORAL AND PM CARE RENDERED. PT MELLOWED DOWN WITH THE JOSE SHELDONIP.
[2017-06-07] MEDS: FIBERSOURCE HN 1000ML LIQUID GT PRN (17:26)
[2017-06-07] MEDS: VANCOMYCIN FOR PO/GT/NG USE PO SCH ×2 (18:42→23:35)
--- NOTE | 2017-06-07 19:15 | NUR ---
Receive pt orally intubated with 7.0 ETT~24cm at lip line, on Browning vent with the following settings of AC-16, Vt-550, PEEP+5, FIO2-35%. No s/s of respiratory distress noted. Airway care done, pt responded to physical stimuli. In-line HHn tx with 2.5mg Albuterol+0.5mg Atrovent given, pt tolerated well. ETT moved to the right. Resus. bag at bedside. PPE used. Vent and alarms checked and reset.
--- NOTE | 2017-06-07 20:00 | NUR ---
Sedated on propofol 50mcg/kg/min. Calm and cooperative, able to follow simple commands and nod head yes/no. ETT 7, 24 cm lip line. AC 16, Vt 550, PEEP 5, FiO2 35%. Sinus rhythm. BP stable on 5mcg/min Levophed. NG-tube to R nare patent-- Tube feeding as ordered. Alvarado cath patent and draining. RIJ central line in place, patent. IVF as ordered. DVT leg pumps in place. On 1st step mattress. SBAR report received from Aracely Palacios RN. Will continue plan of care.
[2017-06-07] MEDS: NOREPINEPHRINE BITARTRATE 16 MG in IV DEXTROSE 5% 500 ML IV PRN (20:09)
[2017-06-07] MEDS: IV 1/2NS 1000 ML 1,000 ML IV PRN (20:25)
--- NOTE | 2017-06-07 21:15 | NUR ---
Patient nods head yes when asked if he is experiencing pain/discomfort. Awake, occasional facial grimacing and frowning. Propofol at max rate. PRN pain medications administered. Will continue to monitor
[2017-06-07] MEDS: HYDROCODONE/APAP 5-325MG TABLET PO PRN (21:17)
[2017-06-08] VITALS (53 sets, daily range): BP systolic 94–144; BP diastolic 54–110
[2017-06-08] MEDS: METRONIDAZOLE 500 MG/NS 100ML 500 MG in PREMIXED 1 EACH IV SCH ×3 (01:14→16:01)
[2017-06-08] MEDS: ALBUTEROL SULFATE 2.5 MG/3 ML NEBU NEB SCH ×5 (02:48→19:33)
[2017-06-08] MEDS: IPRATROPIUM BROMIDE 0.5 MG/2.5 ML NEBU NEB SCH ×5 (02:48→19:33)
[2017-06-08] MEDS: PROPOFOL 100 ML IV PRN ×5 (04:10→23:15)
[2017-06-08 05:18] LABS: BASOPHILS # (AUTO) 0.1 K/uL (0.0-8.0); BASOPHILS % (AUTO) 0.9 % (0.0-2.0); EOSINOPHILS # (AUTO) 0.9 K/uL (0.0-0.7); EOSINOPHILS % (AUTO) 10.5 % (0.0-7.0); HEMATOCRIT 28.4 % (36.7-47.1); HEMOGLOBIN 9.9 g/dL (12.5-16.3); LYMPHOCYTES # (AUTO) 0.9 K/uL (20.0-40.0); LYMPHOCYTES % (AUTO) 11.3 % (20.5-51.5); MEAN CORPUSCULAR HGB CONC 35 g/dL (32.5-36.3); MEAN CORPUSCULAR VOLUME 97.8 fL (73.0-96.2); MONOCYTES # (AUTO) 0.6 K/uL (2.0-10.0); MONOCYTES % (AUTO) 6.8 % (0.0-11.0); NEUTROPHILS # (AUTO) 5.8 K/uL (1.8-8.9); NEUTROPHILS % (AUTO) 70.5 % (38.5-71.5); PLATELET COUNT (AUTO) 296 K/uL (152-348); RED BLOOD CELL COUNT(AUTO) 2.91 MIL/uL (4.06-5.63); WHITE BLOOD COUNT (AUTO) 8.2 K/uL (3.6-10.2)
[2017-06-08 05:21] LABS: CARBON DIOXIDE 29 mmol/L (21-32); CHLORIDE 108 mmol/L (98-107); CREATININE 0.5 mg/dL (0.6-1.3); GLUCOSE 132 mg/dL (74-106); MAGNESIUM 1.7 mg/dL (1.8-2.4); PHOSPHOROUS 2.6 mg/dL (2.5-4.9); POTASSIUM 3.5 mmol/L (3.5-5.1); UREA NITROGEN, BLOOD 5 mg/dL (7-18)
--- NOTE | 2017-06-08 05:27 | NUR ---
Cont. monitor pt on present vent settings. No respiratory distress noted during the shift. No changes to vent settings made. Sx and lavage PRN. HHN tx's given as ordered. ETT repositioned X3. Oral care done. Resus. bag at bedside. Vent and alarms on and audible.
[2017-06-08] MEDS: PANTOPRAZOLE ORAL SUSPENSION 40 MG SUSPDR.PKT NG SCH (06:10)
[2017-06-08] MEDS: OXACILLIN SODIUM 2 G in IV NORMAL SALINE 100 ML IV SCH ×3 (06:10→17:16)
[2017-06-08] MEDS: VANCOMYCIN FOR PO/GT/NG USE PO SCH (06:10)
[2017-06-08] MEDS: NYSTATIN OINTMENT 15 GM TUBE TOP SCH ×2 (08:04→21:10)
[2017-06-08] MEDS: LORAZEPAM 2 MG/1 ML VIAL IV PRN ×3 (08:04→14:59)
[2017-06-08] MEDS: ENOXAPARIN SODIUM 80 MG/0.8 ML DISP.SYRIN SQ SCH ×2 (08:05→21:03)
[2017-06-08 08:12] LABS: ABG BASE EXCESS 0.1 mmol/L; ABG HCO3 23.5 mmol/L; ABG PCO2 34.1 mmHg (35.0-45.0); ABG PH 7.457 (7.350-7.450); ABG PO2 102.9 mmHg (75.0-100.0); ABG SITE RIGHT RADIAL; ABG TOTAL HEMOGLOBIN 12.2 G/dL (13.5-18.0); COHb 1.2 % (0.5-1.5); MetHb 0.3 % (0.0-1.5); O2Hb 96.9 % (94.0-97.0); VENT MODE VENT - A/C; VT, ABG 550 mL
[2017-06-08] MEDS: FIBERSOURCE HN 1000ML LIQUID GT PRN (08:17)
--- NOTE | 2017-06-08 08:41 | NUR ---
Dr. Judd pulmonary services in the unit to examine patient; report given no orders received.
--- NOTE | 2017-06-08 09:46 | NUR ---
pt received on a harris vent with the following settings: ac 16, vt 550, peep +5, and 35% fio2. patient is orally intubated with a 7.0 et tube. et tube is approx. 24 cm at the lip line. et tube is secured with anchor-fast. et tube is on the right side of the lip. inline hhn tx given per md orders and tolerated well with no adverse reactions noted. hme changed. vent alarms are on and audible. ambu bag is by bedside. abg drawn and results given to sandra ortiz. no vent changes made at this time. oral care done. no sob noted. will continue to monitor patient.
[2017-06-08] MEDS: IV 1/2NS 1000 ML 1,000 ML IV PRN (10:32)
[2017-06-08] MEDS ORDERED: POTASSIUM CHLORIDE 20 MEQ POWDER PACKET NG ONE (10:45)
[2017-06-08] MEDS ORDERED: MAGNESIUM OXIDE 400 MG TABLET NG ONE (10:45)
[2017-06-08] MEDS ORDERED: FUROSEMIDE 20 MG/2 ML VIAL IV ONE (11:00)
[2017-06-08] MEDS: VANCOMYCIN FOR PO/GT/NG USE NG SCH ×2 (12:10→17:16)
--- NOTE | 2017-06-08 13:30 | NUR ---
Dr. Eli pulmonary services in the unit to examine patient, report given. see orders. Addendum: 06/08/[address] RN informed that patient was seen by Dr. Judd.
--- NOTE | 2017-06-08 14:26 | NUR ---
Dr. Torres in the unit to examine patient; as stated by meeting a meeting with family needs to be arrange for decision making. Case management to be involved. Addendum: 06/08/[address] RN Message left for Meggan yMers.
--- NOTE | 2017-06-08 14:26 | NUR ---
Also informed that patient remains with periods of agitation. orders received.
--- NOTE | 2017-06-08 16:21 | NUR ---
Dr. Resendez cardiology services in the unit to examine patient; full report given.
--- NOTE | 2017-06-08 17:40 | NUR ---
Ativan dose pulled at this time not administered. Pharmacist notified that medication placed back on the bin and that system did not allowed to returned since waste was done already.
--- NOTE | 2017-06-08 19:33 | NUR ---
PATIENT RECEIVED ORALLY INTUBATED WITH A SIZE 7.0 ETT APPROX. 24CM AT THE LIP, ON A FOX VENT WITH SETTINGS OF AC 16, VT 550, PEEP +5, AND FIO2 35%. VENT ALARMS ARE ON AND AUDIBLE. ETT IS SECURED WITH AN ANCHOR-FAST WITH GOOD SKIN INTEGRITY. ORAL CARE DONE, AND ETT MOVED TO THE MIDDLE OF THE MOUTH. HHN TX TOLERATED WELL, WITH NO ADVERSE REACTIONS NOTED AT THIS TIME. PT IS TOLERATING VENT SETTINGS WELL, SHOWING NO SIGNS OF RESPIRATORY DISTRESS AT HIS TIME. SUCTIONED SMALL AMOUNT OF WHITE AND YELLOW THICK SECRETIONS. AMBU-BAG IS AT BEDSIDE. WILL CONTINUE TO MONITOR THROUGHOUT SHIFT.
[2017-06-08] MEDS: MIDAZOLAM HCL 2 MG/2 ML VIAL IV PRN (21:04)
[2017-06-09] VITALS (24 sets, daily range): BP systolic 93–130; BP diastolic 53–98
[2017-06-09] MEDS: ALBUTEROL SULFATE 2.5 MG/3 ML NEBU NEB SCH ×7 (00:06→22:52)
[2017-06-09] MEDS: IPRATROPIUM BROMIDE 0.5 MG/2.5 ML NEBU NEB SCH ×7 (00:06→22:52)
[2017-06-09] MEDS: VANCOMYCIN FOR PO/GT/NG USE NG SCH ×5 (00:12→23:23)
[2017-06-09] MEDS: OXACILLIN SODIUM 2 G in IV NORMAL SALINE 100 ML IV SCH ×5 (00:12→23:22)
[2017-06-09] MEDS: LORAZEPAM 2 MG/1 ML VIAL IV PRN ×4 (00:13→23:21)
[2017-06-09] MEDS: METRONIDAZOLE 500 MG/NS 100ML 500 MG in PREMIXED 1 EACH IV SCH ×2 (01:35→08:24)
[2017-06-09] MEDS: IV 1/2NS 1000 ML 1,000 ML IV PRN (01:42)
[2017-06-09] MEDS: PROPOFOL 100 ML IV PRN ×5 (03:07→22:28)
[2017-06-09] MEDS: MIDAZOLAM HCL 2 MG/2 ML VIAL IV PRN ×3 (03:47→20:15)
[2017-06-09] MEDS: PANTOPRAZOLE ORAL SUSPENSION 40 MG SUSPDR.PKT NG SCH (05:33)
[2017-06-09 05:40] LABS: BASOPHILS # (AUTO) 0.1 K/uL (0.0-8.0); BASOPHILS % (AUTO) 1.1 % (0.0-2.0); EOSINOPHILS # (AUTO) 0.6 K/uL (0.0-0.7); EOSINOPHILS % (AUTO) 7.2 % (0.0-7.0); HEMOGLOBIN 10.4 g/dL (12.5-16.3); LYMPHOCYTES # (AUTO) 0.7 K/uL (20.0-40.0); LYMPHOCYTES % (AUTO) 8.5 % (20.5-51.5); MEAN CORPUSCULAR HEMOGLOBIN 32.8 uug (23.8-33.4); MEAN CORPUSCULAR HGB CONC 33 g/dL (32.5-36.3); MEAN CORPUSCULAR VOLUME 98.2 fL (73.0-96.2); MONOCYTES # (AUTO) 0.5 K/uL (2.0-10.0); MONOCYTES % (AUTO) 5.4 % (0.0-11.0); NEUTROPHILS # (AUTO) 6.8 K/uL (1.8-8.9); NEUTROPHILS % (AUTO) 77.8 % (38.5-71.5); PLATELET COUNT (AUTO) 302 K/uL (152-348); RED BLOOD CELL COUNT(AUTO) 3.16 MIL/uL (4.06-5.63); WHITE BLOOD COUNT (AUTO) 8.8 K/uL (3.6-10.2)
[2017-06-09 06:00] LABS: CARBON DIOXIDE 29 mmol/L (21-32); CHLORIDE 108 mmol/L (98-107); CREATININE 0.5 mg/dL (0.6-1.3); GLUCOSE 98 mg/dL (74-106); MAGNESIUM 1.6 mg/dL (1.8-2.4); PHOSPHOROUS 3.2 mg/dL (2.5-4.9); POTASSIUM 3.8 mmol/L (3.5-5.1); UREA NITROGEN, BLOOD 6 mg/dL (7-18)
--- NOTE | 2017-06-09 07:10 | NUR ---
PT REC'D ON FOX VENT SETTINGS AC16 VT550 Peep+5 35%FiO2. PT ORALLY INTUBATED 7.0 ETT SECURED WITH TUBE DOMINGUEZ AT APPROX 24CM AT THE LIP, CENTER OF MOUTH, SKIN INTEGRITY INTACT. PT TOLERATING VENT WELL, NO SIGNS OF DISTRESS NOTED AT THIS TIME. INLINE NEB TX'S TO BE GIVEN PER MD ORDER. PT SXN'D WITH MOD PALE THICK SECRETIONS. VENT ALARMS AUDIBLE, CHECKED AND RESET. BVM AT BEDSIDE. WILL CONT TO MONITOR AND REPORT ANY CHANGES.
[2017-06-09] MEDS: NYSTATIN OINTMENT 15 GM TUBE TOP SCH ×2 (08:25→21:04)
[2017-06-09] MEDS: ENOXAPARIN SODIUM 80 MG/0.8 ML DISP.SYRIN SQ SCH ×2 (08:33→21:04)
--- NOTE | 2017-06-09 08:38 | NUR ---
Dr. Pat infectious disease Md in the unit to examine patient; Dr. jorgensen of [facility].
[2017-06-09 09:13] LABS: ABG BASE EXCESS 2.9 mmol/L; ABG HCO3 26.3 mmol/L; ABG PCO2 35.8 mmHg (35.0-45.0); ABG PH 7.484 (7.350-7.450); ABG PO2 89.5 mmHg (75.0-100.0); ABG SITE RIGHT RADIAL; ABG TOTAL HEMOGLOBIN 10.6 G/dL (13.5-18.0); COHb 0.8 % (0.5-1.5); MetHb 0.4 % (0.0-1.5); O2Hb 96.3 % (94.0-97.0); VENT MODE VENT - A/C16; VT, ABG 550 mL
--- NOTE | 2017-06-09 10:30 | NUR ---
Dr. Couch cardiology services in the unit to examine patient, report given see orders.
--- NOTE | 2017-06-09 11:00 | NUR ---
Dr. Eli pulmonary services in the unit to examine patient; full report given and also informed of plan of care. See orders Hx.
[2017-06-09] MEDS: LACTOBACILLUS RHAMNOSUS GG 1 EACH CAPSULE PO SCH ×2 (11:01→21:02)
[2017-06-09] MEDS: MAGNESIUM SULFATE/D5W 100 ML IV SCH ×4 (11:02→14:09)
[2017-06-09] MEDS: FIBERSOURCE HN 1000ML LIQUID GT PRN (11:23)
--- NOTE | 2017-06-09 19:30 | NUR ---
Pt received on Browning vent with settings of AC 16, VT 550, Peep +5, FiO2 35%. Pt is orally intubated with a 7.0 ETT, secured with anchor fast approximately at 24cm at the lip. Moved ETT from middle to left side of mouth. No signs of respiratory distress noted at this time. Pt appears to be tolerating vent settings well. Inline tx given per md orders. Suctioned pt with moderate amount of pale secretions. Vent alarms functioning and audible. Ambu-bag at bedside. Will continue to monitor pt throughout shift.
[2017-06-10] VITALS (24 sets, daily range): BP systolic 90–136; BP diastolic 58–89
--- NOTE | 2017-06-10 01:53 | NUR ---
Pt remain sedated,not able to perform self care activities or maintains maximum range of motion. Addendum: 06/10/17 at 0153 by KENDALL CADET RN Amended: Chente added. Addendum: 06/10/17 at 0155 by KENDALL CADET RN Amended: Chente added. Addendum: 06/10/17 at 0158 by KENDALL CADET RN Amended: Links added. Addendum: 06/10/17 at 0205 by KENDALL CADET RN Amended: Links added. Addendum: 06/10/17 at 0205 by KENDALL CADET RN Amended: Links added. Addendum: 06/10/17 at 0205 by KENDALL CADET RN Amended: Links added. Addendum: 06/10/17 at 0206 by KENDALL CAEDT RN Amended: Links added. Addendum: 06/10/17 at 0206 by KENDALL CADET RN Amended: Links added. Addendum: 06/10/17 at 020 by KENDALL CADET RN Amended: Links added. Addendum: 06/10/17 at 7 by KENDALL CADET RN Amended: Chente added. Addendum: 06/10/17 at 8 by KENDALL CADET RN Amended: Links added. Addendum: 06/10/17 at 0208 by KENDALL CADET RN Amended: Links added. Addendum: 06/10/17 at 0208 by KENDALL CADET RN Amended: Links added.
--- NOTE | 2017-06-10 01:58 | NUR ---
Pt able to maintain patent airway no evidences of adventitious breath sounds. Addendum: 06/10/17 at 0158 by KENDALL CADET RN Amended: Chente added. Addendum: 06/10/17 at 0205 by KENDALL CADET RN Amended: Chente added. Addendum: 06/10/17 at 0205 by KENDALL CADET RN Amended: Links added. Addendum: 06/10/17 at 0205 by KENDALL CADET RN Amended: Links added. Addendum: 06/10/17 at 0206 by KENDALL CADET RN Amended: Links added. Addendum: 06/10/17 at 0206 by KENDALL CADET RN Amended: Links added. Addendum: 06/10/17 at 206 by KENDALL CADET RN Amended: Links added. Addendum: 06/10/17 at 0207 by KENDALL CADET RN Amended: Links added. Addendum: 06/10/17 at 0208 by KENDALL CADET RN Amended: Links added. Addendum: 06/10/17 at 8 by KENDALL CADET RN Amended: Chente added. Addendum: 06/10/17 at 0208 by KENDALL CADET RN Amended: Chente added.
--- NOTE | 2017-06-10 02:04 | NUR ---
Pt able to maintain adequate respiratory rate,depth, pattern, effort and patent airway Addendum: 06/10/17 at 0205 by KENDALL CADET RN Amended: Chente added. Addendum: 06/10/17 at 020 by KENDALL CADET RN Amended: Chente added. Addendum: 06/10/17 at 0205 by KENDALL CADET RN Amended: Links added. Addendum: 06/10/17 at 0206 by KENDALL CADET RN Amended: Links added. Addendum: 06/10/17 at 0206 by KENDALL CADET RN Amended: Links added. Addendum: 06/10/17 at 0207 by KENDALL CADET RN Amended: Links added. Addendum: 06/10/17 at 0207 by KENDALL CADET RN Amended: Links added. Addendum: 06/10/17 at 0208 by KENDALL CADET RN Amended: Links added. Addendum: 06/10/17 at 0208 by KENDALL CADET RN Amended: Chente added. Addendum: 06/10/17 at 0208 by KENDALL CADET RN Amended: Chente added.
[2017-06-10] MEDS: ALBUTEROL SULFATE 2.5 MG/3 ML NEBU NEB SCH ×6 (02:58→23:34)
[2017-06-10] MEDS: IPRATROPIUM BROMIDE 0.5 MG/2.5 ML NEBU NEB SCH ×6 (02:59→23:34)
[2017-06-10] MEDS: PROPOFOL 100 ML IV PRN ×5 (03:21→22:12)
[2017-06-10] MEDS: MIDAZOLAM HCL 2 MG/2 ML VIAL IV PRN ×3 (04:37→23:19)
[2017-06-10 05:33] LABS: ALANINE AMINOTRANSFERASE 12 U/L (16-63); ALKALINE PHOSPHATASE 76 U/L (50-136); ASPARTATE AMINOTRANSFERASE 12 U/L (15-37); BILIRUBIN,TOTAL 0.2 mg/dL (0.2-1.0); CARBON DIOXIDE 29 mmol/L (21-32); CHLORIDE 108 mmol/L (98-107); CREATININE 0.6 mg/dL (0.6-1.3); GLUCOSE 98 mg/dL (74-106); MAGNESIUM 1.9 mg/dL (1.8-2.4); PHOSPHOROUS 3.2 mg/dL (2.5-4.9); POTASSIUM 3.6 mmol/L (3.5-5.1); TOTAL PROTEIN, SERUM 5.4 g/dL (6.4-8.2); UREA NITROGEN, BLOOD 6 mg/dL (7-18)
[2017-06-10] MEDS: PANTOPRAZOLE ORAL SUSPENSION 40 MG SUSPDR.PKT NG SCH (05:35)
[2017-06-10] MEDS: OXACILLIN SODIUM 2 G in IV NORMAL SALINE 100 ML IV SCH ×4 (05:36→23:55)
[2017-06-10] MEDS: VANCOMYCIN FOR PO/GT/NG USE NG SCH ×4 (05:36→23:54)
[2017-06-10 05:44] LABS: BASOPHILS % (AUTO) 0.5 % (0.0-2.0); EOSINOPHILS # (AUTO) 0.6 K/uL (0.0-0.7); EOSINOPHILS % (AUTO) 7.5 % (0.0-7.0); HEMATOCRIT 30.2 % (40-50); HEMOGLOBIN 10.1 G/DL (14.0-18.0); LYMPHOCYTES # (AUTO) 0.8 K/UL (0.8-4.8); LYMPHOCYTES % (AUTO) 11.3 % (20.5-51.5); MEAN CORPUSCULAR HEMOGLOBIN 32.5 UUG (27.0-31.0); MEAN CORPUSCULAR HGB CONC 34 g/dL (32.0-37.0); MEAN CORPUSCULAR VOLUME 97.2 FL (82.0-92.0); MONOCYTES # (AUTO) 0.4 K/UL (0.1-1.30); MONOCYTES % (AUTO) 4.9 % (0.0-11.0); NEUTROPHILS # (AUTO) 5.5 K/UL (1.8-8.9); NEUTROPHILS % (AUTO) 75.8 % (38.5-71.5); PLATELET COUNT (AUTO) 358 K/UL (150-450); RED BLOOD CELL COUNT(AUTO) 3.11 MIL/UL (4.7-6.1); WHITE BLOOD COUNT (AUTO) 7.3 K/UL (4.0-11.2)
--- NOTE | 2017-06-10 07:12 | NUR ---
PT. RECEIVED ON CONTINUOUS VENT AC 16 VT 550 PEEP 5 FIO2 35%. ETT 7.0 SECURED AT 24CM LIP LINE VIA ANCHOR FAST. BS DIMINISHED . IN LINE TX GIVEN ORDERED. SUCTION PRN. VENT CHECKED, ALARMS WORKING WELL AND AUDIBLE.AMBU BAG AT BEDSIDE. NO DISTRESS NOTED AT THIS TIME. WILL CONTINUE TO MONITOR.
[2017-06-10] MEDS: LORAZEPAM 2 MG/1 ML VIAL IV PRN ×3 (07:42→21:23)
[2017-06-10] MEDS: LACTOBACILLUS RHAMNOSUS GG 1 EACH CAPSULE PO SCH ×2 (08:05→20:34)
[2017-06-10] MEDS: NYSTATIN OINTMENT 15 GM TUBE TOP SCH ×2 (08:06→20:35)
[2017-06-10] MEDS: ENOXAPARIN SODIUM 80 MG/0.8 ML DISP.SYRIN SQ SCH ×2 (08:06→20:36)
--- NOTE | 2017-06-10 12:50 | NUR ---
Dr. Eli pulmonary services in the unit to examine patient; full report given.
[2017-06-10] MEDS: IV NORMAL SALINE 250 ML IV PRN (16:48)
[2017-06-10] MEDS: FIBERSOURCE HN 1000ML LIQUID GT PRN (18:17)
--- NOTE | 2017-06-10 19:30 | NUR ---
Report received; patient orally intubated and to mechanical ventilator with same settings. Awake, tracks, follows simple commands. Mildly restless. On continuous Diprivan drip for sedation. Contact isolation maintained for stool c diff. Addendum: 06/11/17 at 0241 by JOSH MARKS RN Amended: Links added.
--- NOTE | 2017-06-10 19:35 | NUR ---
Pt rec'd on Browning settings AC 16, VT 550, FIO2-35% and PEEP+5. No resp. distress noted. 7.0 ETT is patent and secure at approx. 24 cm now at the left side of mouth. BVM is at bedside. Pt to be monitored throughout the shift, adm'd resp neb txs per MD orders and PRN SX. Browning alarm parameters have been checked and remain audible. Oral care done.
[2017-06-10] MEDS: Z GUARD REMEDY PASTE 57 GM TUBE TOP SCH (20:36)
--- NOTE | 2017-06-10 21:23 | NUR ---
Medicated with Ativan for increasing restlessness. VS stable. Addendum: 06/11/17 at 0242 by JOSH MARKS RN Amended: Links added.
[2017-06-11] VITALS (23 sets, daily range): BP systolic 103–145; BP diastolic 64–94
[2017-06-11] MEDS: LORAZEPAM 2 MG/1 ML VIAL IV PRN ×2 (01:24→09:25)
[2017-06-11] MEDS: PROPOFOL 100 ML IV PRN ×5 (02:16→20:42)
[2017-06-11] MEDS: IPRATROPIUM BROMIDE 0.5 MG/2.5 ML NEBU NEB SCH ×6 (02:31→23:40)
[2017-06-11] MEDS: ALBUTEROL SULFATE 2.5 MG/3 ML NEBU NEB SCH ×6 (02:31→23:40)
[2017-06-11] MEDS: MIDAZOLAM HCL 2 MG/2 ML VIAL IV PRN ×2 (03:29→20:42)
[2017-06-11] MEDS: IV NORMAL SALINE 250 ML IV PRN (04:54)
[2017-06-11 05:17] LABS: CARBON DIOXIDE 29 mmol/L (21-32); CHLORIDE 111 mmol/L (98-107); CREATININE 0.5 mg/dL (0.6-1.3); GLUCOSE 113 mg/dL (74-106); MAGNESIUM 1.7 mg/dL (1.8-2.4); PHOSPHOROUS 3.2 mg/dL (2.5-4.9); POTASSIUM 3.5 mmol/L (3.5-5.1); TRIGLYCERIDES 108 MG/DL (30-150); UREA NITROGEN, BLOOD 6 mg/dL (7-18)
[2017-06-11 05:23] LABS: BASOPHILS % (AUTO) 0.6 % (0.0-2.0); EOSINOPHILS # (AUTO) 0.4 K/uL (0.0-0.7); EOSINOPHILS % (AUTO) 5.3 % (0.0-7.0); HEMATOCRIT 29.6 % (40-50); HEMOGLOBIN 10.1 G/DL (14.0-18.0); LYMPHOCYTES # (AUTO) 0.9 K/UL (0.8-4.8); LYMPHOCYTES % (AUTO) 13.2 % (20.5-51.5); MEAN CORPUSCULAR HGB CONC 34 g/dL (32.0-37.0); MEAN CORPUSCULAR VOLUME 96.5 FL (82.0-92.0); MONOCYTES # (AUTO) 0.4 K/UL (0.1-1.30); MONOCYTES % (AUTO) 5.3 % (0.0-11.0); NEUTROPHILS # (AUTO) 5.5 K/UL (1.8-8.9); NEUTROPHILS % (AUTO) 75.6 % (38.5-71.5); PLATELET COUNT (AUTO) 351 K/UL (150-450); RED BLOOD CELL COUNT(AUTO) 3.07 MIL/UL (4.7-6.1); WHITE BLOOD COUNT (AUTO) 7.2 K/UL (4.0-11.2)
[2017-06-11] MEDS: OXACILLIN SODIUM 2 G in IV NORMAL SALINE 100 ML IV SCH ×4 (05:39→23:52)
[2017-06-11] MEDS: FIBERSOURCE HN 1000ML LIQUID GT PRN (05:39)
[2017-06-11] MEDS: VANCOMYCIN FOR PO/GT/NG USE NG SCH ×4 (05:49→23:53)
[2017-06-11] MEDS: PANTOPRAZOLE ORAL SUSPENSION 40 MG SUSPDR.PKT NG SCH (05:49)
--- NOTE | 2017-06-11 06:12 | NUR ---
Pt remains on Browning with no changes made to the ventilator settings. 7.0 ETT remains patent and secure at approx. 24cm now at the left lip side. No resp. distress noted throughout the shift. Browning alarm parameters have been checked and remain audible. BVM is at bedside.
--- NOTE | 2017-06-11 07:00 | NUR ---
Remains on Diprivan drip for sedation. Stable on current vent settings.
--- NOTE | 2017-06-11 07:24 | NUR ---
PT RECEIVEDO ON FOX VENT WITH SETTINGS OF AC 16, VT 550, PEEP +5, FIO2 35%. NO S/S OF RESPIRATORY DISTRESS OBSERVED AT THIS TIME. PT IS ORALLY INTUBATED WITH 7.0 ETT APPROX. 24CM AT THE LIP. ENDOTRACHEAL TUBE IS PATENT AND SECURED VIAANCHOR-FAST. PT GIVEN Q4 ALBUTEROL/ATROVENT TX ORDERED. HME CHANGED. ORAL CARE DONE. SUCTIONED SMALL AMOUNT OF THICK, PALE SECRETIONS. AMBU BAG IS AT BEDSIDE. WILL CONTINUE TO MONITOR PT THROUGHOUT SHIFT.
[2017-06-11] MEDS: Z GUARD REMEDY PASTE 57 GM TUBE TOP SCH ×2 (08:25→20:43)
[2017-06-11] MEDS: NYSTATIN OINTMENT 15 GM TUBE TOP SCH ×2 (08:25→20:44)
[2017-06-11] MEDS: LACTOBACILLUS RHAMNOSUS GG 1 EACH CAPSULE PO SCH ×2 (08:25→20:42)
[2017-06-11] MEDS: ENOXAPARIN SODIUM 80 MG/0.8 ML DISP.SYRIN SQ SCH ×2 (08:26→20:43)
[2017-06-11 09:33] LABS: ABG BASE EXCESS 3.2 mmol/L; ABG HCO3 26.6 mmol/L; ABG PCO2 36.3 mmHg (35.0-45.0); ABG PH 7.483 (7.350-7.450); ABG PO2 98.8 mmHg (75.0-100.0); ABG SITE LEFT RADIAL; COHb 0.9 % (0.5-1.5); MetHb 0.3 % (0.0-1.5); VENT MODE VENT - A/C; VT, ABG 550 mL
[2017-06-11] MEDS ORDERED: MAGNESIUM SULFATE/D5W 100 ML IV SCH (11:00)
--- NOTE | 2017-06-11 12:00 | NUR ---
Dr. Eli here to see pt. Full report given. New orders received.
--- NOTE | 2017-06-11 14:28 | NUR ---
Consent for tracheostomy insertion and CT contrast neck signed by the and daughter at the bedside. and daughter alert and oriented during the signing of the consent and are aware of the procedures to be done as explained by Dr. Torres.
--- NOTE | 2017-06-11 15:54 | NUR ---
family meeting held with patient's , Jovita Mason [phone], Judy, eldest daughter and her younger sister. [facility] ICU director, Yuliya Ayala and Stephanie Myers, senior case manager were also present. Dr Torres and Sreedhar provided details about risks and benefits of tracheostomy and also discussed current situtaion where pt. has been intubated and reintubated three times. produced durable power of civil rights attorney for healthcare document signed by patient. This document was reviewed by staff and MDs and will be placed in his chart. ENT consult will be ordered to assess throat mass and signed consent for tracheostomy. This protective services social worker provided her phone number for support in this decision-making process. expressed gratitude for the meeting and said that her questions were answered. Will monitor and provide ongoing support as needed.
[2017-06-11] MEDS ORDERED: IOHEXOL 300MG/ML 100 ML INFUS..BTL ONE (15:58)
[2017-06-11] MEDS ORDERED: NORMAL SALINE FLUSH 10 ML DISP.SYRIN ONE (15:58)
[2017-06-11] MEDS ORDERED: IV NORMAL SALINE 250 ML IV ONE (15:58)
--- NOTE | 2017-06-11 16:15 | NUR ---
Pt brought down to radiology for CT Neck with contrast with respiratory therapist. Cardiac safety monitor applied during transport. Pt stable and nad upon leaving the unit.
--- NOTE | 2017-06-11 16:50 | NUR ---
Pt returned to the unit from CT. Pt stable and nad upon returning to the unit.
--- NOTE | 2017-06-11 18:57 | NUR ---
End of shift: Pt resting in bed sedated with ETT 7.0 and 24cm at the lip line with continuous ventilation settings as follows: AC-16, TV-550ml, 35% FiO2, and PEEP-5. electronic device monitor and ventilation alarms working properly wnl. IV propofol infusing as ordered. Fall precautions and safety measures maintained. Alvarado cather intact and draining properly. Pt hemodynamically stable and nad noted.
--- NOTE | 2017-06-11 19:30 | NUR ---
Report received; care assumed. Patient sleeping, orally intubated and to mechanical ventilator with same settings. Stable on FIO2= 35%. Diprivan drip continuously for sedation. Contact isolation maintained. Assessment completed. Addendum: 06/12/17 at 0121 by JOSH MARKS RN Amended: Links added.
--- NOTE | 2017-06-11 20:42 | NUR ---
With increasing restlessness; medicated with Versed IV. VS stable.
[2017-06-11] MEDS: ONDANSETRON 4 MG/2 ML VIAL IV PRN (22:44)
--- NOTE | 2017-06-11 22:44 | NUR ---
Patient mildly restless, rubbing his stomach; confirmed abdominal discomfort. Repositioned. Tolerating NGT feedings. Medicated with Zofran IV. Addendum: 06/11/17 at 2254 by JOSH MARKS RN Amended: Links added.
[2017-06-12] VITALS (16 sets, daily range): BP systolic 115–163; BP diastolic 58–105
--- NOTE | 2017-06-12 00:05 | NUR ---
Results of CT of the neck called to Dr. Tinsley; orders received. Addendum: 06/12/17 at 0053 by JOSH MARKS RN Amended: Links added.
[2017-06-12] MEDS: PROPOFOL 100 ML IV PRN ×6 (00:30→22:41)
[2017-06-12] MEDS: IV D5/ 0.9% NACL 1,000 ML IV PRN (00:30)
[2017-06-12] MEDS: LORAZEPAM 2 MG/1 ML VIAL IV PRN ×3 (01:00→19:45)
--- NOTE | 2017-06-12 01:00 | NUR ---
With large amounts of clear oral secretions. With increasing agitation again. Legs over rails and diagonal in bed. Advised. Medicated with Ativan IV. Monitored closely.
[2017-06-12] MEDS: ALBUTEROL SULFATE 2.5 MG/3 ML NEBU NEB SCH ×6 (03:38→22:44)
[2017-06-12] MEDS: IPRATROPIUM BROMIDE 0.5 MG/2.5 ML NEBU NEB SCH ×6 (03:38→22:44)
--- NOTE | 2017-06-12 03:51 | NUR ---
PT ON CONT FOX VENT WITH 7.0 ET/TUBE, 24CM LIP LINE, CURRENT VENT SETTINGS, A/C 16, VT 550ML, PEEP5, 35% , ADJUST ANCHOR FAST TO CENTER, PT DOES ASSIST AT TIMES, RESTLESS AT TIMES, PT IS SEDATED, BUT STILL WAKES UP, SUCTIONED LIGHT PALE YELL TINGE SECRETIONS, WITH GOOD COUGH EFFORT, ORAL CARE DONE SUCTION MOUTH WITH ANCHOR, CUFF PRESSURE 24CM, NO VENT CHANGES MADE AT THIS TIME, CHANGE HME, NEB INLINE Q4 WITH ALBUTEROL/ ATROVENT TOLL WELL, ALL ALARMS OK, AMBU BAG AT BEDSIDE,CONSULT ON TRACH IN AM. Jeremy COLLINS RCP Addendum: 06/12/17 at 0355 by KRUNAL COLLINS RT Amended: Links added.
[2017-06-12] MEDS: OXACILLIN SODIUM 2 G in IV NORMAL SALINE 100 ML IV SCH ×2 (05:34→12:40)
[2017-06-12] MEDS: PANTOPRAZOLE ORAL SUSPENSION 40 MG SUSPDR.PKT NG SCH (05:34)
[2017-06-12] MEDS: VANCOMYCIN FOR PO/GT/NG USE NG SCH ×4 (05:34→23:12)
--- NOTE | 2017-06-12 06:21 | NUR ---
Awake and on and off restless all night. Remains on Diprivan drip at 50 mg/kg/min. Kept NPO. O2 sat above 94% on 35% FIO2.
[2017-06-12 06:27] LABS: CARBON DIOXIDE 28 mmol/L (21-32); CHLORIDE 111 mmol/L (98-107); CREATININE 0.5 mg/dL (0.6-1.3); GLUCOSE 92 mg/dL (74-106); MAGNESIUM 1.8 mg/dL (1.8-2.4); PHOSPHOROUS 3.2 mg/dL (2.5-4.9); POTASSIUM 3.5 mmol/L (3.5-5.1); UREA NITROGEN, BLOOD 5 mg/dL (7-18)
[2017-06-12 06:36] LABS: BASOPHILS # (AUTO) 0.1 K/uL (0.0-8.0); BASOPHILS % (AUTO) 1.3 % (0.0-2.0); EOSINOPHILS # (AUTO) 0.5 K/uL (0.0-0.7); EOSINOPHILS % (AUTO) 6.2 % (0.0-7.0); LYMPHOCYTES # (AUTO) 0.9 K/uL (20.0-40.0); LYMPHOCYTES % (AUTO) 11.3 % (20.5-51.5); MEAN CORPUSCULAR HEMOGLOBIN 33.8 uug (23.8-33.4); MEAN CORPUSCULAR HGB CONC 34 g/dL (32.5-36.3); MEAN CORPUSCULAR VOLUME 98.2 fL (73.0-96.2); MONOCYTES # (AUTO) 0.5 K/uL (2.0-10.0); MONOCYTES % (AUTO) 6.1 % (0.0-11.0); NEUTROPHILS # (AUTO) 5.9 K/uL (1.8-8.9); NEUTROPHILS % (AUTO) 75.1 % (38.5-71.5); PLATELET COUNT (AUTO) 356 K/uL (152-348); RED BLOOD CELL COUNT(AUTO) 3.26 MIL/uL (4.06-5.63); WHITE BLOOD COUNT (AUTO) 7.8 K/uL (3.6-10.2)
--- NOTE | 2017-06-12 07:16 | NUR ---
Spoke to patient's daughter Amalia. Phone consent obtained for Laryngoscopy with Biopsy and possible tracheostomy.
[2017-06-12] MEDS: LACTOBACILLUS RHAMNOSUS GG 1 EACH CAPSULE PO SCH ×2 (09:00→21:14)
[2017-06-12] MEDS: ENOXAPARIN SODIUM 80 MG/0.8 ML DISP.SYRIN SQ SCH ×2 (09:24→21:15)
[2017-06-12] MEDS: NYSTATIN OINTMENT 15 GM TUBE TOP SCH ×2 (09:24→21:24)
[2017-06-12] MEDS: Z GUARD REMEDY PASTE 57 GM TUBE TOP SCH ×2 (09:25→21:26)
--- NOTE | 2017-06-12 20:50 | NUR ---
I spoke with Dr. Reynoso via telephone to advise of pts' continued agitation/restlessness on 50 mcg/kg/min V propofol. I have given them prn ativan with no effect. Pt has soft wrist restraints to protect medical equipment and okd increasing IV Propofol up to max of 100 mcg/kg/min to achieve RASS -2, decrease maintenance NS to TKO and increase interval of prn IV ativan availability to q4h if needed
--- NOTE | 2017-06-12 21:48 | NUR ---
I received report from Ignacio RN @ 1910. Pt is awake, alert, nods "yes" "no" to questions and restless on 50 mcg/kg/min of IV Propofol. Raises and lowers legs all over bed, tries to sit up, he had one restrint on his right upper extremity and noted pt reached up with LUE and had hand on ETT, placed second restraint on LUE ( spoke with Dr. Martino about agitation). Orally intubated with 7.0 OETT secured with commercial gant @ 22 cm at right lip on ACVC rate 16, TV 550, 35% Fio2 and PEEP 5, respirations even unlabored, suctioned orally and per ETT for moderate amount of thin sputum, tolerated well. Right nare OGT secured at 69 cm with Fibersource HN infusing with pts up 30 degrees at ordered rate, checked residual - returned 5 ml tube feed - returned to pt. Urethral carver catheter in place with leg gant in place draining to gravity bag. Per off-going RN, pt is to be NPO at midnight for planned tracheostomy , noted signed consent in chart. Pt is on air mattress, turned [id number], monitoring for pt safety/comfort.
--- NOTE | 2017-06-12 22:16 | NUR ---
RECEIVED PT ON A FOX VENTILATOR WITH THE FOLLOWING SETTINGS: AC 16, VT 550, PEEP +5, 35%. PATIENT IS ORALLY INTUBATED WITH A 7.0 ET TUBE, APPROX. 24 CM LIP LINE. HME CHANGED. ET TUBE IS SECURED VIA ANCHOR FAST. SUCTIONED SMALL AMOUNTS OF THICK PALE SECRETIONS. VENT IS PLUGGED IN RED OUTLET. VENT SETTINGS ARE ON AND AUDIBLE. PT GIVEN Q4 HHN TX ORDERED. AMBU BAG IS BY BEDSIDE. NO SOB NOTED AT THIS TIME. WILL CONTINUE TO MONITOR.
[2017-06-13] VITALS (26 sets, daily range): BP systolic 100–168; BP diastolic 56–107
[2017-06-13] MEDS: LORAZEPAM 2 MG/1 ML VIAL IV PRN ×3 (00:20→23:35)
[2017-06-13] MEDS: PROPOFOL 100 ML IV PRN ×10 (00:22→22:25)
[2017-06-13] MEDS: IPRATROPIUM BROMIDE 0.5 MG/2.5 ML NEBU NEB SCH ×6 (02:54→23:18)
[2017-06-13] MEDS: ALBUTEROL SULFATE 2.5 MG/3 ML NEBU NEB SCH ×6 (02:54→23:17)
--- NOTE | 2017-06-13 03:03 | NUR ---
Full bed bath, linen/gown changed, pt shaved, chlorhexidine bath and chlorhexidine oral care given. Pt tolerated well.Suctioned pt orally and retrived medium sized bloody mucous plug from oral cavity. Monitoring for bleeding/changes.
[2017-06-13] MEDS: PANTOPRAZOLE ORAL SUSPENSION 40 MG SUSPDR.PKT NG SCH (04:06)
[2017-06-13] MEDS: VANCOMYCIN FOR PO/GT/NG USE NG SCH ×4 (04:06→23:19)
[2017-06-13 06:01] LABS: BASOPHILS % (AUTO) 0.5 % (0.0-2.0); EOSINOPHILS # (AUTO) 0.4 K/uL (0.0-0.7); HEMATOCRIT 31.7 % (36.7-47.1); HEMOGLOBIN 10.7 g/dL (12.5-16.3); LYMPHOCYTES # (AUTO) 1.2 K/uL (20.0-40.0); LYMPHOCYTES % (AUTO) 18.7 % (20.5-51.5); MEAN CORPUSCULAR HEMOGLOBIN 33.1 uug (23.8-33.4); MEAN CORPUSCULAR HGB CONC 34 g/dL (32.5-36.3); MONOCYTES # (AUTO) 0.3 K/uL (2.0-10.0); MONOCYTES % (AUTO) 5.3 % (0.0-11.0); NEUTROPHILS # (AUTO) 4.4 K/uL (1.8-8.9); NEUTROPHILS % (AUTO) 69.5 % (38.5-71.5); PLATELET COUNT (AUTO) 361 K/uL (152-348); RED BLOOD CELL COUNT(AUTO) 3.23 MIL/uL (4.06-5.63); WHITE BLOOD COUNT (AUTO) 6.3 K/uL (3.6-10.2)
[2017-06-13 06:17] LABS: ALANINE AMINOTRANSFERASE 9 U/L (16-63); ALKALINE PHOSPHATASE 94 U/L (50-136); ASPARTATE AMINOTRANSFERASE 14 U/L (15-37); BILIRUBIN,TOTAL 0.2 mg/dL (0.2-1.0); CARBON DIOXIDE 27 mmol/L (21-32); CHLORIDE 112 mmol/L (98-107); CREATININE 0.4 mg/dL (0.6-1.3); GLUCOSE 83 mg/dL (74-106); MAGNESIUM 1.7 mg/dL (1.8-2.4); PHOSPHOROUS 3.4 mg/dL (2.5-4.9); POTASSIUM 2.9 mmol/L (3.5-5.1); UREA NITROGEN, BLOOD 4 mg/dL (7-18)
--- NOTE | 2017-06-13 07:06 | NUR ---
Paged Dr. Naylor to notify of AM lab potassium level of 2.9. Awaiting return call.
--- NOTE | 2017-06-13 07:19 | NUR ---
PT REC'D ON A FOX VENT WITH THE FOLLOWING SETTINGS: AC 16, VT 550, PEEP +5, 35%. PATIENT IS ORALLY INTUBATED WITH A 7.0 ET TUBE, APPROX. 22 CM LIP LINE. HME CHANGED. ET TUBE IS SECURED VIA ANCHOR FAST. SUCTIONED SMALL AMOUNTS OF THICK PALE SECRETIONS. VENT IS PLUGGED IN RED OUTLET. VENT SETTINGS ARE ON AND AUDIBLE. PT TO BE GIVEN Q4 HHN TX ORDERED. AMBU BAG IS BY BEDSIDE. NO SOB NOTED AT THIS TIME. WILL CONTINUE TO MONITOR.
--- NOTE | 2017-06-13 07:42 | NUR ---
Re-paged Dr. Brian Santana to advise of potassium of 2.9
[2017-06-13] MEDS ORDERED: POTASSIUM CHLORIDE 20 MEQ POWDER PACKET GT ONE (08:15)
[2017-06-13 09:03] LABS: ABG BASE EXCESS 2.4 mmol/L; ABG HCO3 24.8 mmol/L; ABG PH 7.521 (7.350-7.450); ABG PO2 117.5 mmHg (75.0-100.0); ABG SITE LEFT RADIAL; ABG TOTAL HEMOGLOBIN 11.2 G/dL (13.5-18.0); COHb 0.5 % (0.5-1.5); MetHb 0.3 % (0.0-1.5); O2Hb 97.9 % (94.0-97.0); VENT MODE VENT - A/C; VT, ABG 550 mL
[2017-06-13] MEDS: POTASSIUM CHLORIDE 50 ML IV SCH ×2 (09:24→13:18)
[2017-06-13] MEDS: LACTOBACILLUS RHAMNOSUS GG 1 EACH CAPSULE PO SCH ×2 (10:05→21:04)
[2017-06-13] MEDS: ENOXAPARIN SODIUM 80 MG/0.8 ML DISP.SYRIN SQ SCH ×2 (10:07→21:04)
[2017-06-13] MEDS: NYSTATIN OINTMENT 15 GM TUBE TOP SCH ×2 (10:11→21:05)
[2017-06-13] MEDS: Z GUARD REMEDY PASTE 57 GM TUBE TOP SCH ×2 (10:12→21:05)
--- NOTE | 2017-06-13 11:00 | NUR ---
PER MD ORDER VENT CHANGES MADE RR TO 14 AND ETT TO BE ADVANCED 2CM RE-SECURED ET AT 24 LIPLINE
[2017-06-13] MEDS: MAGNESIUM SULFATE/D5W 100 ML IV SCH ×2 (17:12→18:39)
--- NOTE | 2017-06-13 19:00 | NUR ---
Receive pt orally intubated with 7.0 ETT~24cm at lip line, on Browning vent with the following settings of AC-14, Vt-550, PEEP+5, FIO2-35%. No s/s of respiratory distress noted. Airway care done, pt responded to physical stimuli. In-line HHn tx with 2.5mg Albuterol+0.5mg Atrovent given, pt tolerated well. ETT moved to the left. Resus. bag at bedside. PPE used. Vent and alarms on and audible.
--- NOTE | 2017-06-13 19:30 | NUR ---
received patient orally intubated and on ac mode rate 14 tv 550 fio35% and peep of 5.tolerating vent settings and saturation 100% . hob up . patient on propofol for sedation ,patient open eyes spontaneously on and off follow simple commands . will x4.follow restraints protocol .
[2017-06-13] MEDS: IV D5/ 0.9% NACL 1,000 ML IV PRN (19:44)
[2017-06-13] MEDS: FIBERSOURCE HN 1000ML LIQUID GT PRN (19:47)
--- NOTE | 2017-06-13 20:00 | NUR ---
restarted tube feedings Enrique hn at 70 ml /hour ,hob up aspiration precaution observed .no bm noted . aspiration precaution. Addendum: 06/14/17 at 0029 by ABILIO PARRY RN Amended: Links added.
[2017-06-13] MEDS: MIDAZOLAM HCL 2 MG/2 ML VIAL IV PRN (21:02)
[2017-06-14] VITALS (28 sets, daily range): BP systolic 88–155; BP diastolic 56–95
--- NOTE | 2017-06-14 | NUR ---
off tube feeding for laryngeal biopsy and possible tracheostomy .npo post midnight .prn Ativan and versed given for agitation and anxiety .
[2017-06-14] MEDS: ALBUTEROL SULFATE 2.5 MG/3 ML NEBU NEB SCH ×6 (02:30→22:34)
[2017-06-14] MEDS: IPRATROPIUM BROMIDE 0.5 MG/2.5 ML NEBU NEB SCH ×6 (02:30→22:34)
[2017-06-14] MEDS: MIDAZOLAM HCL 2 MG/2 ML VIAL IV PRN ×2 (03:09→20:18)
[2017-06-14] MEDS: PROPOFOL 100 ML IV PRN ×6 (03:23→23:56)
[2017-06-14] MEDS: LORAZEPAM 2 MG/1 ML VIAL IV PRN ×6 (04:04→22:52)
[2017-06-14] MEDS: PANTOPRAZOLE ORAL SUSPENSION 40 MG SUSPDR.PKT NG SCH (05:06)
[2017-06-14] MEDS: VANCOMYCIN FOR PO/GT/NG USE NG SCH ×4 (05:06→23:50)
[2017-06-14 05:30] LABS: BASOPHILS # (AUTO) 0.1 K/uL (0.0-8.0); BASOPHILS % (AUTO) 1.1 % (0.0-2.0); EOSINOPHILS # (AUTO) 0.3 K/uL (0.0-0.7); EOSINOPHILS % (AUTO) 4.9 % (0.0-7.0); HEMATOCRIT 31.5 % (36.7-47.1); HEMOGLOBIN 10.9 g/dL (12.5-16.3); LYMPHOCYTES # (AUTO) 1.2 K/uL (20.0-40.0); LYMPHOCYTES % (AUTO) 17.8 % (20.5-51.5); MEAN CORPUSCULAR HEMOGLOBIN 33.3 uug (23.8-33.4); MEAN CORPUSCULAR HGB CONC 35 g/dL (32.5-36.3); MEAN CORPUSCULAR VOLUME 96.6 fL (73.0-96.2); MONOCYTES # (AUTO) 0.4 K/uL (2.0-10.0); MONOCYTES % (AUTO) 5.4 % (0.0-11.0); NEUTROPHILS # (AUTO) 4.7 K/uL (1.8-8.9); NEUTROPHILS % (AUTO) 70.8 % (38.5-71.5); PLATELET COUNT (AUTO) 393 K/uL (152-348); RED BLOOD CELL COUNT(AUTO) 3.26 MIL/uL (4.06-5.63); WHITE BLOOD COUNT (AUTO) 6.6 K/uL (3.6-10.2)
[2017-06-14 05:48] LABS: CARBON DIOXIDE 27 mmol/L (21-32); CHLORIDE 111 mmol/L (98-107); CREATININE 0.6 mg/dL (0.6-1.3); GLUCOSE 83 mg/dL (74-106); MAGNESIUM 1.8 mg/dL (1.8-2.4); POTASSIUM 3.3 mmol/L (3.5-5.1); UREA NITROGEN, BLOOD 4 mg/dL (7-18)
--- NOTE | 2017-06-14 05:56 | NUR ---
called respiratory therapist and informed patient for laryngoscopy with biopsy and possible tracheostomy and OR called and patient needs to be in OR at 0600.off tube feedings since midnight .patient tolerating vent settings and vital signs with in normal limits .patient on propofol for sedation and prn Ativan and versed given for anxiety and agitation see EMAR .CONSENT signed by daughter in chart.
--- NOTE | 2017-06-14 06:15 | NUR ---
report given to OR NURSE , transported patient to OR with respiratory therapist and with 2 OR nurses .HAND OFF report given to anesthesiologist .
[2017-06-14] MEDS ORDERED: BUPIVACAINE PF 0.5% 30 ML VIAL ONE (06:20)
[2017-06-14] MEDS ORDERED: LIDOCAINE HCL 2% 20 ML VIAL ONE (06:21)
[2017-06-14] MEDS ORDERED: SUCCINYLCHOLINE CHLORIDE 200 MG/10 ML VIAL ONE (07:27)
--- NOTE | 2017-06-14 07:30 | NUR ---
Returned from OR
[2017-06-14] MEDS ORDERED: POTASSIUM CHLORIDE 50 ML IV SCH (08:30)
[2017-06-14] MEDS: ENOXAPARIN SODIUM 80 MG/0.8 ML DISP.SYRIN SQ SCH ×2 (08:58→20:24)
--- NOTE | 2017-06-14 08:58 | NUR ---
Held AM dose of Lovenox due to s/p recent tracheostomy procedure
[2017-06-14] MEDS: Z GUARD REMEDY PASTE 57 GM TUBE TOP SCH ×2 (09:00→20:18)
[2017-06-14] MEDS: NYSTATIN OINTMENT 15 GM TUBE TOP SCH ×2 (09:02→20:21)
[2017-06-14] MEDS: LACTOBACILLUS RHAMNOSUS GG 1 EACH CAPSULE PO SCH ×2 (09:03→20:18)
[2017-06-14 09:27] LABS: ABG BASE EXCESS -0.8 mmol/L; ABG HCO3 22.5 mmol/L; ABG PCO2 32.7 mmHg (35.0-45.0); ABG PH 7.455 (7.350-7.450); ABG PO2 90.2 mmHg (75.0-100.0); ABG SITE RIGHT RADIAL; ABG TOTAL HEMOGLOBIN 12.4 G/dL (13.5-18.0); MetHb 0.5 % (0.0-1.5); O2Hb 95.7 % (94.0-97.0); VENT MODE VENT - A/C; VT, ABG 550 mL
[2017-06-14] MEDS ORDERED: POTASSIUM CHLORIDE 50 ML IV ONE (09:30)
--- NOTE | 2017-06-14 10:39 | NUR ---
Dr. Eli at bedside for assessment. Report given
--- NOTE | 2017-06-14 17:36 | NUR ---
PT VENT CHECK WAS DONE NO DISTRESS NOTED AT THIS TIME. PT TRACH SECURED WITH SUTURES. NO VENT CHANGES AT THIS TIME WILL CONTINUE TO MONITOR PT.
--- NOTE | 2017-06-14 19:00 | NUR ---
RECEIVED PT ON CONTINUOUS VENT AC 14 VT 550 PEEP 5 FIO2 35% . TRACH IN PLACE AND SECURED. AMBU BAG AT BEDSIDE. IN LINE TX GIVEN ORDERED. SUCTION LAVAGE PRN. VENT CHECKED, ALARMS WORKING WELL AND AUDIBLE. NO SIGNS OF RESPIRATORY DISTRESS NOTED AT THIS TIME. WILL CONTINUE TO MONITOR.
--- NOTE | 2017-06-14 19:30 | NUR ---
Report received. Patient on contact isolation for stool C diff, with trache to vent with same settings. NAD noted. Awake, mildly restless, follows simple commands. Reoriented PRN. On continuous Diprivan drip for sedation. Assessment completed. Addendum: 06/15/17 at 0255 by JOSH MARKS RN Amended: Links added.
--- NOTE | 2017-06-14 22:52 | NUR ---
Mistakenly scanned Ativan again after scanning and giving it at 2247.
[2017-06-14] MEDS ORDERED: IPRATROPIUM BROMIDE 0.5 MG/2.5 ML NEBU ONE (22:57)
[2017-06-15] VITALS (23 sets, daily range): BP systolic 97–156; BP diastolic 58–94
[2017-06-15] MEDS: IPRATROPIUM BROMIDE 0.5 MG/2.5 ML NEBU NEB SCH ×6 (02:38→22:44)
[2017-06-15] MEDS: ALBUTEROL SULFATE 2.5 MG/3 ML NEBU NEB SCH ×6 (02:38→22:44)
[2017-06-15] MEDS: PROPOFOL 100 ML IV PRN ×9 (03:25→22:00)
[2017-06-15] MEDS: IV NORMAL SALINE 250 ML IV PRN (03:25)
[2017-06-15 05:31] LABS: BASOPHILS % (AUTO) 0.6 % (0.0-2.0); EOSINOPHILS # (AUTO) 0.5 K/uL (0.0-0.7); EOSINOPHILS % (AUTO) 6.1 % (0.0-7.0); HEMATOCRIT 28.2 % (36.7-47.1); HEMOGLOBIN 9.8 g/dL (12.5-16.3); LYMPHOCYTES # (AUTO) 1.1 K/uL (20.0-40.0); LYMPHOCYTES % (AUTO) 13.6 % (20.5-51.5); MEAN CORPUSCULAR HEMOGLOBIN 34.1 uug (23.8-33.4); MEAN CORPUSCULAR HGB CONC 35 g/dL (32.5-36.3); MEAN CORPUSCULAR VOLUME 97.6 fL (73.0-96.2); MONOCYTES # (AUTO) 0.6 K/uL (2.0-10.0); MONOCYTES % (AUTO) 7.4 % (0.0-11.0); NEUTROPHILS # (AUTO) 5.8 K/uL (1.8-8.9); NEUTROPHILS % (AUTO) 72.3 % (38.5-71.5); PLATELET COUNT (AUTO) 348 K/uL (152-348); RED BLOOD CELL COUNT(AUTO) 2.89 MIL/uL (4.06-5.63)
[2017-06-15 05:50] LABS: CARBON DIOXIDE 28 mmol/L (21-32); CHLORIDE 112 mmol/L (98-107); CREATININE 0.5 mg/dL (0.6-1.3); GLUCOSE 101 mg/dL (74-106); MAGNESIUM 1.7 mg/dL (1.8-2.4); PHOSPHOROUS 3.2 mg/dL (2.5-4.9); POTASSIUM 3.5 mmol/L (3.5-5.1); UREA NITROGEN, BLOOD 6 mg/dL (7-18)
[2017-06-15] MEDS: VANCOMYCIN FOR PO/GT/NG USE NG SCH ×3 (05:57→18:01)
[2017-06-15] MEDS: PANTOPRAZOLE ORAL SUSPENSION 40 MG SUSPDR.PKT NG SCH (05:57)
--- NOTE | 2017-06-15 06:48 | NUR ---
Remains on Diprivan drip at 50 mcg/kg/min. Still with mild to moderate restlessness. Medicated with Versed and Ativan PRN. VS stable. Tolerating NGT feedings well.; off at 0600 will be resumed at 0800. Comfortable on current vent settings. Trache with small amount of bleeding around the stoma. Contact isolation maintained.
--- NOTE | 2017-06-15 07:15 | NUR ---
SBAR report received from Rahul. 67 yr old male was admitted since 04/2917 for AMS. Resp failure.. patient newly trached. s/p trach 06/14/17. Shiley #8, trach site oozy with bloody drainage. Trach to vent ac 14, tv 550, [id number] fio2 35%. Patient is awake.despite propofol drip T 50mcg/kg/min. ekg sinus rhythm, bp 150/85. carver catheter intact. urine is adequate. is receiving tube fdg. fibersource at 70ml/hr off times 2 hrs 6am to 8am. ngt intact.dvt pumps off for now, afebrile. wrist restraints are in place. afebrile Addendum: 06/15/17 at 0903 by LAURE POLLACK RN Amended: Links added.
--- NOTE | 2017-06-15 07:26 | NUR ---
PT RECEIVED ON CMV WITH TRACH SECURED AND INTACT. AIRWAY PATENT. PT COMFORTABLE TOLERATING CURRENT VENT SETTINGS FINE WITH NO DISTRESS. SECONDARY HISTORY TEACHER PERFORMED AND PT RECEIVING ADEQUATE VENT VOLUMES. VENT ALARM SET AND AUDIBLE.
[2017-06-15] MEDS: LACTOBACILLUS RHAMNOSUS GG 1 EACH CAPSULE PO SCH ×2 (07:55→21:00)
[2017-06-15] MEDS: MIDAZOLAM HCL 2 MG/2 ML VIAL IV PRN ×2 (07:55→15:35)
[2017-06-15] MEDS: ENOXAPARIN SODIUM 80 MG/0.8 ML DISP.SYRIN SQ SCH ×2 (07:56→21:00)
--- NOTE | 2017-06-15 08:00 | NUR ---
medicated for restlessness. propofol drip titrated up to 60mcg/kg/min Addendum: 06/15/17 at 1244 by LAURE POLLACK RN Amended: Links added. Addendum: 06/15/17 at 1251 by LAURE POLLACK RN Amended: Links added.
[2017-06-15] MEDS: NYSTATIN OINTMENT 15 GM TUBE TOP SCH ×2 (08:18→21:00)
[2017-06-15] MEDS: Z GUARD REMEDY PASTE 57 GM TUBE TOP SCH ×2 (08:18→21:00)
[2017-06-15 09:04] LABS: ABG BASE EXCESS 0.4 mmol/L; ABG HCO3 24.5 mmol/L; ABG PCO2 37.9 mmHg (35.0-45.0); ABG PH 7.429 (7.350-7.450); ABG SITE RIGHT RADIAL; ABG TOTAL HEMOGLOBIN 13.3 G/dL (13.5-18.0); COHb 0.8 % (0.5-1.5); MetHb 0.3 % (0.0-1.5); O2Hb 97.2 % (94.0-97.0); VENT MODE VENT - A/C; VT, ABG 500 mL
--- NOTE | 2017-06-15 10:00 | NUR ---
propofol titrated up to 70mcg/kg/min Addendum: 06/15/17 at 1252 by LAURE POLLACK RN Amended: Links added.
--- NOTE | 2017-06-15 10:00 | NUR ---
medicated for restlessness Addendum: 06/15/17 at 1243 by LAURE POLLACK RN Amended: Chente added. Addendum: 06/15/17 at 1244 by LAURE POLLACK RN Amended: Links added. Addendum: 06/15/17 at 1251 by LAURE POLLACK RN Amended: Links added.
[2017-06-15] MEDS: LORAZEPAM 2 MG/1 ML VIAL IV PRN (10:15)
[2017-06-15] MEDS ORDERED: MAGNESIUM SULFATE/D5W 100 ML IV SCH (12:00)
[2017-06-15] MEDS ORDERED: POTASSIUM CHLORIDE 20 MEQ POWDER PACKET NG ONE (12:00)
--- NOTE | 2017-06-15 12:41 | NUR ---
magnesium 1.7. replaced with magnesium 1gm IV over 1 hr Addendum: 06/15/17 at 1241 by LAURE POLLACK RN Amended: Links added. Addendum: 06/15/17 at 1243 by LAURE POLLACK RN Amended: Links added. Addendum: 06/15/17 at 1244 by LAURE POLLACK RN Amended: Links added. Addendum: 06/15/17 at 1251 by LAURE POLLACK RN Amended: Links added.
--- NOTE | 2017-06-15 12:46 | NUR ---
k 3.1, replaced with kcl via ngt
--- NOTE | 2017-06-15 19:15 | NUR ---
report given to Freedom RN Addendum: 06/15/17 at 1956 by LAURE POLLACK RN Amended: Links added.
--- NOTE | 2017-06-15 19:20 | NUR ---
Received pt on Browning ventilator with the following settings of AC 14, VT 550, Peep +5, FiO2 35%. Pt's trache is secure and patent. No signs of respiratory distress noted, pt tolerating vent settings well at this time. Inline tx given per md orders. Suctioned pt with moderate amount of pale-yellowish secretions. Vent alarms checked and audible. Ambu-bag at bedside. Will continue to monitor pt throughout shift.
[2017-06-16] VITALS (24 sets, daily range): BP systolic 123–164; BP diastolic 73–105
[2017-06-16] MEDS: VANCOMYCIN FOR PO/GT/NG USE NG SCH ×4 (00:01→18:31)
[2017-06-16] MEDS: PROPOFOL 100 ML IV PRN ×7 (00:15→21:58)
[2017-06-16] MEDS: ALBUTEROL SULFATE 2.5 MG/3 ML NEBU NEB SCH ×6 (03:18→23:11)
[2017-06-16] MEDS: IPRATROPIUM BROMIDE 0.5 MG/2.5 ML NEBU NEB SCH ×6 (03:18→23:11)
[2017-06-16] MEDS ORDERED: PROPOFOL 200 MG/20 ML BOTTLE ONE (05:11)
[2017-06-16 05:42] LABS: BASOPHILS # (AUTO) 0.1 K/uL (0.0-8.0); EOSINOPHILS # (AUTO) 0.7 K/uL (0.0-0.7); EOSINOPHILS % (AUTO) 8.1 % (0.0-7.0); HEMATOCRIT 32.7 % (36.7-47.1); HEMOGLOBIN 10.9 g/dL (12.5-16.3); LYMPHOCYTES # (AUTO) 1.2 K/uL (20.0-40.0); LYMPHOCYTES % (AUTO) 14.9 % (20.5-51.5); MEAN CORPUSCULAR HEMOGLOBIN 32.9 uug (23.8-33.4); MEAN CORPUSCULAR HGB CONC 34 g/dL (32.5-36.3); MEAN CORPUSCULAR VOLUME 98.2 fL (73.0-96.2); MONOCYTES # (AUTO) 0.5 K/uL (2.0-10.0); NEUTROPHILS # (AUTO) 5.7 K/uL (1.8-8.9); PLATELET COUNT (AUTO) 368 K/uL (152-348); RED BLOOD CELL COUNT(AUTO) 3.33 MIL/uL (4.06-5.63); WHITE BLOOD COUNT (AUTO) 8.1 K/uL (3.6-10.2)
[2017-06-16 05:52] LABS: CARBON DIOXIDE 29 mmol/L (21-32); CHLORIDE 112 mmol/L (98-107); CREATININE 0.4 mg/dL (0.6-1.3); GLUCOSE 87 mg/dL (74-106); MAGNESIUM 1.8 mg/dL (1.8-2.4); PHOSPHOROUS 3.2 mg/dL (2.5-4.9); POTASSIUM 3.8 mmol/L (3.5-5.1); UREA NITROGEN, BLOOD 4 mg/dL (7-18)
[2017-06-16] MEDS: PANTOPRAZOLE ORAL SUSPENSION 40 MG SUSPDR.PKT NG SCH (06:14)
[2017-06-16] MEDS: Z GUARD REMEDY PASTE 57 GM TUBE TOP SCH ×2 (09:00→21:08)
--- NOTE | 2017-06-16 09:00 | NUR ---
oral (Tube) meds held in prep for PEG tube placement this noon.
[2017-06-16] MEDS ORDERED: CEFAZOLIN 1 G VIAL MC ONE ×2 (09:57→15:45)
[2017-06-16] MEDS ORDERED: IV LACTATED RINGERS SOLUTION 1,000 ML BAG IV ONE (09:57)
[2017-06-16] MEDS ORDERED: PROPOFOL 200 MG/20 ML BOTTLE IV ONE ×2 (09:57→15:45)
[2017-06-16] MEDS: NYSTATIN OINTMENT 15 GM TUBE TOP SCH ×2 (10:13→21:06)
--- NOTE | 2017-06-16 12:05 | NUR ---
Dr Copeland and Dr. Birmingham here to do PEG placement at bedside.
[2017-06-16] MEDS: LACTOBACILLUS RHAMNOSUS GG 1 EACH CAPSULE PO SCH ×2 (13:12→21:04)
[2017-06-16] MEDS: ENOXAPARIN SODIUM 80 MG/0.8 ML DISP.SYRIN SQ SCH ×2 (13:13→21:13)
--- NOTE | 2017-06-16 14:00 | NUR ---
propofol discontinued. still unconscious. no distress. monitoring.
--- NOTE | 2017-06-16 16:00 | NUR ---
restraint reduction: removed bilat wrist restraints. alert, follows directions. monitoring.
[2017-06-16] MEDS: LORAZEPAM 2 MG/1 ML VIAL IV PRN ×2 (17:24→21:04)
--- NOTE | 2017-06-16 17:43 | NUR ---
RECEIVED PT ON TRACH SHILEY NO. 8 CUFF, ON CURRENT VENTILATOR SETTINGS. AWAKE AND RESPONSIVE MOSTLY DURING THE DAY. IN LINE TREATMENTS GIVEN ORDERED. REQUIRES A LOT OF SUCTIONING FOR COPIOUS AMOUNT OF SECRETIONS, ORALLY AND FROM THE TRACH. CHANGED HME.
--- NOTE | 2017-06-16 18:50 | NUR ---
RECEIVED PT ON CONTINUOS VENT ON ABOVE SETTINGS. TRACH SHILEY 8 IN PLACED AND SECURED WITH TRACH TIE. IN LINE TX GIVEN ORDERED. SUCTION LAVAGE PRN. AMBU BAG AT BEDSIDE. NO DISTRESS NOTED AT THIS TIME. WILL CONTINUE TO MONITOR.
[2017-06-16] MEDS ORDERED: LORAZEPAM 2 MG/1 ML VIAL IV PRN (21:30)
[2017-06-16] MEDS: MORPHINE SULFATE 4 MG/1 ML DISP.SYRIN IV PRN (21:33)
[2017-06-16] MEDS ORDERED: MORPHINE SULFATE 4 MG/1 ML DISP.SYRIN ONE (21:47)
--- NOTE | 2017-06-16 23:10 | NUR ---
Pt received in semi dior position and on continuous mechanical ventilation via Trach. No respiratory distress noted. Pt is on Browning ventilator on ordered settings of A/C-14, VT-550, PEEP +5, FIO2-35% Pt tolerating vent settings well. Sxn'd for small amts of yellowish secretions. In-line nebulizer treatments given as ordered Q4 with Albuterol/Atrovent. Txs tolerated well, with no adverse reactions noted. Trach is Shiley 8, patent and secure. Vent alarm parameters checked, on and audible. Ventilator plugged into red emergency outlet. Bag/valve/mask and back up trach at bedside. Will continue to monitor.
[2017-06-17] VITALS (24 sets, daily range): BP systolic 90–151; BP diastolic 43–97
[2017-06-17] MEDS: VANCOMYCIN FOR PO/GT/NG USE NG SCH ×4 (00:25→18:37)
[2017-06-17] MEDS: ALBUTEROL SULFATE 2.5 MG/3 ML NEBU NEB SCH ×6 (03:08→22:37)
[2017-06-17] MEDS: IPRATROPIUM BROMIDE 0.5 MG/2.5 ML NEBU NEB SCH ×6 (03:08→22:37)
[2017-06-17] MEDS: LORAZEPAM 2 MG/1 ML VIAL IV PRN ×4 (05:47→23:14)
[2017-06-17] MEDS: MORPHINE SULFATE 4 MG/1 ML DISP.SYRIN IV PRN (05:48)
[2017-06-17] MEDS ORDERED: MORPHINE SULFATE 4 MG/1 ML DISP.SYRIN ONE (05:53)
[2017-06-17] MEDS ORDERED: LORAZEPAM 2 MG/1 ML VIAL ONE (05:54)
[2017-06-17] MEDS: PANTOPRAZOLE ORAL SUSPENSION 40 MG SUSPDR.PKT NG SCH (06:13)
[2017-06-17 06:26] LABS: CARBON DIOXIDE 29 mmol/L (21-32); CHLORIDE 109 mmol/L (98-107); CREATININE 0.5 mg/dL (0.6-1.3); GLUCOSE 87 mg/dL (74-106); POTASSIUM 3.6 mmol/L (3.5-5.1); UREA NITROGEN, BLOOD 5 mg/dL (7-18)
[2017-06-17 06:31] LABS: BASOPHILS # (AUTO) 0.3 K/uL (0.0-8.0); BASOPHILS % (AUTO) 3.3 % (0.0-2.0); EOSINOPHILS # (AUTO) 0.4 K/uL (0.0-0.7); EOSINOPHILS % (AUTO) 4.4 % (0.0-7.0); HEMATOCRIT 33.6 % (40-50); HEMOGLOBIN 11.4 G/DL (14.0-18.0); LYMPHOCYTES # (AUTO) 1.4 K/UL (0.8-4.8); LYMPHOCYTES % (AUTO) 13.9 % (20.5-51.5); MEAN CORPUSCULAR HEMOGLOBIN 32.9 UUG (27.0-31.0); MEAN CORPUSCULAR HGB CONC 34 g/dL (32.0-37.0); MEAN CORPUSCULAR VOLUME 96.6 FL (82.0-92.0); MONOCYTES # (AUTO) 0.4 K/UL (0.1-1.30); MONOCYTES % (AUTO) 4.5 % (0.0-11.0); NEUTROPHILS # (AUTO) 7.2 K/UL (1.8-8.9); NEUTROPHILS % (AUTO) 73.9 % (38.5-71.5); PLATELET COUNT (AUTO) 455 K/UL (150-450); RED BLOOD CELL COUNT(AUTO) 3.47 MIL/UL (4.7-6.1); WHITE BLOOD COUNT (AUTO) 9.7 K/UL (4.0-11.2)
[2017-06-17] MEDS: LACTOBACILLUS RHAMNOSUS GG 1 EACH CAPSULE PO SCH ×2 (08:45→21:35)
[2017-06-17] MEDS: Z GUARD REMEDY PASTE 57 GM TUBE TOP SCH ×2 (08:46→21:36)
[2017-06-17] MEDS: NYSTATIN OINTMENT 15 GM TUBE TOP SCH ×2 (08:46→21:37)
[2017-06-17] MEDS: ENOXAPARIN SODIUM 80 MG/0.8 ML DISP.SYRIN SQ SCH (09:34)
--- NOTE | 2017-06-17 15:37 | NUR ---
PT REMAINS ON MECHANICAL VENTILATION, NO CHANGES MADE. PT TOLERATING SETTINGS FAIRLY WELL. TRACH IS PATENT AND SECURED WITH TIES. BACK UP TRACH AT BEDSIDE. HAS MINIMAL AMOUNT OF YELLOW THIN SECRETIONS. INLINE TXS GIVEN WITH NO ADVERSE REACTIONS. ALARMS ARE ON AND AUDIBLE, BVM AT BEDSIDE. WILL CONTINUE TO MONITOR.
[2017-06-17] MEDS: RIVAROXABAN 10 MG TABLET PO SCH (18:37)
--- NOTE | 2017-06-17 19:07 | NUR ---
Pt received on Browning vent with the following settings of AC 14, VT 550, Peep +5, FiO2 35%. No signs of respiratory distress noted, pt tolerating vent settings well at this time. Pt is trached with a Shiley 8 trach, which is secure and patent. Inline tx given per md orders. Suctioned pt with large amount of pale-yellowish secretions. Vent alarms checked and audible. Ambu-bag at bedside. Will continue to monitor pt throughout shift.
[2017-06-17] MEDS: ONDANSETRON 4 MG/2 ML VIAL IV PRN (20:33)
--- NOTE | 2017-06-17 20:48 | NUR ---
pt vomiting and nauseated. prn zofran as per orders. feedings on hold for now
[2017-06-18] VITALS (20 sets, daily range): BP systolic 73–172; BP diastolic 53–106
[2017-06-18] MEDS: VANCOMYCIN FOR PO/GT/NG USE NG SCH ×5 (00:36→23:40)
[2017-06-18] MEDS: PROPOFOL 100 ML IV PRN ×2 (01:29→07:03)
[2017-06-18] MEDS: ALBUTEROL SULFATE 2.5 MG/3 ML NEBU NEB SCH ×6 (03:19→23:31)
[2017-06-18] MEDS: IPRATROPIUM BROMIDE 0.5 MG/2.5 ML NEBU NEB SCH ×6 (03:19→23:31)
[2017-06-18 05:30] LABS: BASOPHILS # (AUTO) 0.1 K/uL (0.0-8.0); BASOPHILS % (AUTO) 0.7 % (0.0-2.0); EOSINOPHILS # (AUTO) 0.2 K/uL (0.0-0.7); EOSINOPHILS % (AUTO) 2.3 % (0.0-7.0); HEMATOCRIT 28.8 % (36.7-47.1); HEMOGLOBIN 9.9 g/dL (12.5-16.3); LYMPHOCYTES # (AUTO) 1.4 K/uL (20.0-40.0); LYMPHOCYTES % (AUTO) 15.3 % (20.5-51.5); MEAN CORPUSCULAR HEMOGLOBIN 33.4 uug (23.8-33.4); MEAN CORPUSCULAR HGB CONC 34 g/dL (32.5-36.3); MEAN CORPUSCULAR VOLUME 97.6 fL (73.0-96.2); MONOCYTES # (AUTO) 0.6 K/uL (2.0-10.0); MONOCYTES % (AUTO) 6.6 % (0.0-11.0); NEUTROPHILS % (AUTO) 75.1 % (38.5-71.5); PLATELET COUNT (AUTO) 333 K/uL (152-348); RED BLOOD CELL COUNT(AUTO) 2.95 MIL/uL (4.06-5.63); WHITE BLOOD COUNT (AUTO) 9.3 K/uL (3.6-10.2)
[2017-06-18 05:45] LABS: CARBON DIOXIDE 29 mmol/L (21-32); CHLORIDE 109 mmol/L (98-107); CREATININE 0.5 mg/dL (0.6-1.3); GLUCOSE 77 mg/dL (74-106); PHOSPHOROUS 2.8 mg/dL (2.5-4.9); POTASSIUM 3.4 mmol/L (3.5-5.1); UREA NITROGEN, BLOOD 7 mg/dL (7-18)
[2017-06-18] MEDS: PANTOPRAZOLE ORAL SUSPENSION 40 MG SUSPDR.PKT NG SCH (06:24)
[2017-06-18 06:47] LABS: MAGNESIUM 1.6 mg/dL (1.8-2.4)
--- NOTE | 2017-06-18 07:25 | NUR ---
PT REMAIN ON CONTINUOUS VENT AC 14 VT 550 PEEP 5 FIO2 35%. AWAKE AND ALERT. IN LINE TX GIVEN ORDERED. SUCTION PRN. TRACH IN PLACED AND SECURED WITH TRACH TIE. AMBU BAG AT BEDSIDE. VENT CHECKED, ALARMS WORKING AND AUDIBLE. NO DISTRESS NOTED AT THIS TIME. WILL CONTINUE TO MONITOR.
[2017-06-18] MEDS: NYSTATIN OINTMENT 15 GM TUBE TOP SCH ×2 (09:00→20:43)
[2017-06-18] MEDS: LACTOBACILLUS RHAMNOSUS GG 1 EACH CAPSULE PO SCH ×2 (09:00→20:42)
[2017-06-18] MEDS: Z GUARD REMEDY PASTE 57 GM TUBE TOP SCH ×2 (09:01→20:59)
--- NOTE | 2017-06-18 09:07 | NUR ---
PT RECEIVED AWAKE ALERT RESPONSIVE TRACH TO VENT ON AC MODE. PT OFF SEDATION. PER MD ORDER PT PLACED ON CPAP OF 6. PT APPEARS TO BE TOLERATING WEANING FINE WITH NO DISTRESS OR SOB. WILL CONTINUE TO MONITOR
[2017-06-18 10:03] LABS: ABG BASE EXCESS 0.8 mmol/L; ABG HCO3 25.4 mmol/L; ABG PCO2 40.5 mmHg (35.0-45.0); ABG PH 7.415 (7.350-7.450); ABG PO2 118.2 mmHg (75.0-100.0); ABG SITE RIGHT BRACHIAL; ABG TOTAL HEMOGLOBIN 10.3 G/dL (13.5-18.0); COHb 0.6 % (0.5-1.5); MetHb 0.3 % (0.0-1.5); O2Hb 97.7 % (94.0-97.0); VENT MODE VENT - CPAP
[2017-06-18] MEDS ORDERED: POTASSIUM CHLORIDE 20 MEQ POWDER PACKET GT ONE (11:30)
[2017-06-18] MEDS: MAGNESIUM SULFATE/D5W 100 ML IV SCH ×2 (11:59→14:03)
--- NOTE | 2017-06-18 14:20 | NUR ---
SWALLOW EVAL DONE BY SPEECH THERAPIST, PMV ON AT THIS TIME. PT DESAT 86% AT 50% FIO2. RESUMED CPAP AT 35% AND MONITORED SPO2. PT SPO2 NOW AT 99%. SUCTION THICK YELLOW SECRETIONS.
[2017-06-18] MEDS: MORPHINE SULFATE 4 MG/1 ML DISP.SYRIN IV PRN ×2 (17:37→21:33)
[2017-06-18] MEDS: RIVAROXABAN 10 MG TABLET PO SCH (17:39)
--- NOTE | 2017-06-18 18:56 | NUR ---
SHIFT NOTE: PT IS AAO X4, MELÉNDEZ. NO NEURO DEFICIT NOTED. TRACH TO VENT AT [facility] SETTING. MAINTAINING SAO2 > 95%, TOLERATING WELL. PT UNCOOPERATIVE TRYING TO GET OOB NOT FOLLOWING DIRECTION. NOT CONFUSED. PT WAS FOUND SITTING ON FLOOR. CODE MYERS CALLED. NO SIGNS OF ANY INJURY NOTED. MD AWARE. PT WAS PUT BACT TO BED AND RESTRAINTS INITIATED. PT TEACHING ABOUT STAYING IN BED. PT WAS 1:1 TILL 1400. RESTRAINTS INITIATED. REQUESTED SITTER FOR PT. IVF INFUSING VIA RIJ. ONLY TWO PORTS WORKING MEDIAL PORT IS CLOGGED. 1600: PM CARE /BED BATH GIVEN. MEDICATED WITH MORPHINE 4MG FOR BACK PAIN WITH GOOD RELIEF. 1800 AWAKE WATCHING TV. NO ACUTE DISTRESS.
[2017-06-18] MEDS: LORAZEPAM 2 MG/1 ML VIAL IV PRN ×2 (19:10→23:40)
--- NOTE | 2017-06-18 21:22 | NUR ---
Received report on pt from day shift, RN (pt with restraints to BUE & BLE and sitting up in bed). Bhavana Steward arrived and updated on plan of care, in room with pt to aide with pt safety. Pt is very alert, restless, constantly sits up in bed and tries to maneuver body to reach toward tubes and lines. Tracks with eyes, nods appropriately to questions, will follow simple commands, reorienting pt to situation and plan of care/safety frequently. 8.0 shiley trach to vent patent on CPAP 35% Fio2 backup rate of 6, respirations are even, unlabored, Spo2 on R finger with good waveform in the ninties. Trach is midline, no acute bleeding or exudate noted from site. Fibersource tube feeding infusing to PEG without difficulty, pts HOB up 30 degrees at all times, checked residual = 5 ml, returned to pt. 16 vietnamese urethral catheter patent, draining urine to gravity bag below bladder, leg strap in place to prevent traction to tubing. Bilateral SCDs on pt. Skin intact under and around bilateral wrist and ankle restraints, quick release tie verified. Suction and ambubag in room, all alarms set and checked. Noted slight pink area of excoriation in groin area, nystatin cream applied after skin care. Addendum: 06/18/17 at 2146 by JAREN MARS RN Both the medial and the distal ports of RIJ Triple lumen CVL are occluded. Proximal port flushes easily and good blood return obtained.
[2017-06-19] VITALS (21 sets, daily range): BP systolic 82–165; BP diastolic 52–113
[2017-06-19] MEDS: MORPHINE SULFATE 4 MG/1 ML DISP.SYRIN IV PRN ×5 (00:36→22:35)
--- NOTE | 2017-06-19 02:46 | NUR ---
Pt continues with extreme agitation, have given prn medications, bathed/shaved pt, reorienting, no change. Pt placed back on rate ACVC, IV Propofol restarted (began at 5 mcg/kg/min and titrating up per protocol). Continues with soft wrist/ankle restraints, HOB up 30 degrees. Tolerating well.
[2017-06-19] MEDS: IPRATROPIUM BROMIDE 0.5 MG/2.5 ML NEBU NEB SCH ×6 (02:53→23:12)
[2017-06-19] MEDS: ALBUTEROL SULFATE 2.5 MG/3 ML NEBU NEB SCH ×6 (02:53→23:12)
[2017-06-19] MEDS: PROPOFOL 100 ML IV PRN (02:56)
--- NOTE | 2017-06-19 04:23 | NUR ---
Pt tolerating ventilator/procedures better. Still a bit restless, but no longer sitting up in bed, reaching for tubes/wires. Respirations even, unlabored. Continuing to monitor for tolerance/safety.
[2017-06-19 05:27] LABS: CARBON DIOXIDE 28 mmol/L (21-32); CHLORIDE 105 mmol/L (98-107); CREATININE 0.5 mg/dL (0.6-1.3); GLUCOSE 88 mg/dL (74-106); MAGNESIUM 1.5 mg/dL (1.8-2.4); POTASSIUM 3.1 mmol/L (3.5-5.1); UREA NITROGEN, BLOOD 7 mg/dL (7-18)
[2017-06-19] MEDS: PANTOPRAZOLE ORAL SUSPENSION 40 MG SUSPDR.PKT NG SCH (05:47)
[2017-06-19] MEDS: VANCOMYCIN FOR PO/GT/NG USE NG SCH ×4 (05:48→23:56)
--- NOTE | 2017-06-19 06:01 | NUR ---
Vent settings back to CPAP, IV Propofol off. Spo2 98% with good pleth. Pt very awake, sitting straight up in bed, trying to lean over side of bed and manipulating feet to pull tubing. 4 mg IV Morphine given slowly IV. Still sitting up in bed. Bhavana Steward at bedside. Monitoring pt for safety, physiologic changes
--- NOTE | 2017-06-19 07:12 | NUR ---
Report given at bedside to day shift RN. Questions answered. Pt still alert, sitting up in bed. No physiologic changes noted in ongoing patient assessment.
[2017-06-19] MEDS: LACTOBACILLUS RHAMNOSUS GG 1 EACH CAPSULE PO SCH ×2 (08:14→20:51)
[2017-06-19] MEDS: LORAZEPAM 2 MG/1 ML VIAL IV PRN ×4 (08:14→22:22)
[2017-06-19 10:26] LABS: ABG BASE EXCESS 3.6 mmol/L; ABG HCO3 28.6 mmol/L; ABG PCO2 45.1 mmHg (35.0-45.0); ABG PO2 131.6 mmHg (75.0-100.0); ABG SITE RIGHT RADIAL; ABG TOTAL HEMOGLOBIN 10.8 G/dL (13.5-18.0); COHb 0.7 % (0.5-1.5); MetHb 0.5 % (0.0-1.5); O2Hb 97.7 % (94.0-97.0)
--- NOTE | 2017-06-19 11:12 | NUR ---
seen by mcdonnell. orders received. Addendum: 06/19/17 at 1113 by LAURE POLLACK RN Amended: Links added.
[2017-06-19] MEDS: Z GUARD REMEDY PASTE 57 GM TUBE TOP SCH ×2 (12:20→21:12)
[2017-06-19] MEDS: NYSTATIN OINTMENT 15 GM TUBE TOP SCH ×2 (12:21→21:14)
[2017-06-19] MEDS ORDERED: POTASSIUM CHLORIDE 20 MEQ POWDER PACKET GT ONE (13:45)
[2017-06-19] MEDS: MAGNESIUM SULFATE/D5W 100 ML IV SCH ×2 (14:01→15:50)
--- NOTE | 2017-06-19 15:50 | NUR ---
persistent restlessness. medicated Addendum: 06/19/17 at 1713 by LAURE POLLACK RN Amended: Chente added. Addendum: 06/19/17 at 1718 by LAURE POLLACK RN Amended: Chente added.
--- NOTE | 2017-06-19 16:50 | NUR ---
Social Work Note: , Jovita Mason [phone] called and stated that international student counselor is visiting Anirudh and billing for each visit. She is very satisfied with his progress but wants the international student counselor to be denied acess to pt. while he is on ICU. She reports that international student counselor is saying he needs money for rent and Anirudh. She will reconsider later. Advised Eladio Chavez director of ICU. Eladio will advise RNs on ICU re / DPOA's request.
--- NOTE | 2017-06-19 17:00 | NUR ---
medicated for persistent agitated state. attempting to get oob, patient almost oob despite 4 poit restraints. no sitter available from 3pm. Addendum: 06/19/17 at 1718 by LAURE POLLACK RN Amended: Links added.
[2017-06-19] MEDS: IV NORMAL SALINE 250 ML IV PRN (17:20)
[2017-06-19] MEDS: RIVAROXABAN 10 MG TABLET PO SCH (18:14)
--- NOTE | 2017-06-19 18:14 | NUR ---
PT PLACED ON COOL AEROSOL AT 35% AT 0900 AND ABG WAS DRAWN POST ONE HOUR. PT IS TOLERATING THE COOL AEROSOL WELL AND HE IS ON COOL AEROSOL OF NOW . IN LINE TREATMENT GIVEN WITHOUT COMPLICATIONS. PT IS ALSO MORE RESPONSIVE THE WHOLE DAY. NO MORE CHANGES DONE.
[2017-06-19] MEDS: FIBERSOURCE HN 1000ML LIQUID GT PRN (20:21)
[2017-06-19] MEDS: LABETALOL HCL 100 MG/20 ML VIAL IV PRN (22:25)
[2017-06-20] VITALS (22 sets, daily range): BP systolic 94–185; BP diastolic 26–103
[2017-06-20] MEDS: LORAZEPAM 2 MG/1 ML VIAL IV PRN ×6 (02:30→18:40)
[2017-06-20] MEDS: IPRATROPIUM BROMIDE 0.5 MG/2.5 ML NEBU NEB SCH ×6 (03:30→23:43)
[2017-06-20] MEDS: ALBUTEROL SULFATE 2.5 MG/3 ML NEBU NEB SCH ×6 (04:04→23:43)
[2017-06-20 05:42] LABS: BASOPHILS # (AUTO) 0.1 K/uL (0.0-8.0); BASOPHILS % (AUTO) 0.5 % (0.0-2.0); EOSINOPHILS # (AUTO) 0.3 K/uL (0.0-0.7); EOSINOPHILS % (AUTO) 2.5 % (0.0-7.0); HEMATOCRIT 34.4 % (36.7-47.1); HEMOGLOBIN 11.4 g/dL (12.5-16.3); LYMPHOCYTES # (AUTO) 1.2 K/uL (20.0-40.0); LYMPHOCYTES % (AUTO) 9.1 % (20.5-51.5); MEAN CORPUSCULAR HEMOGLOBIN 32.1 uug (23.8-33.4); MEAN CORPUSCULAR HGB CONC 33 g/dL (32.5-36.3); MEAN CORPUSCULAR VOLUME 96.8 fL (73.0-96.2); MONOCYTES # (AUTO) 0.9 K/uL (2.0-10.0); MONOCYTES % (AUTO) 6.6 % (0.0-11.0); NEUTROPHILS # (AUTO) 11.2 K/uL (1.8-8.9); NEUTROPHILS % (AUTO) 81.3 % (38.5-71.5); PLATELET COUNT (AUTO) 376 K/uL (152-348); RED BLOOD CELL COUNT(AUTO) 3.56 MIL/uL (4.06-5.63); WHITE BLOOD COUNT (AUTO) 13.8 K/uL (3.6-10.2)
[2017-06-20] MEDS: PANTOPRAZOLE ORAL SUSPENSION 40 MG SUSPDR.PKT NG SCH (05:45)
[2017-06-20 05:50] LABS: MAGNESIUM 1.6 mg/dL (1.8-2.4); PHOSPHOROUS 2.2 mg/dL (2.5-4.9)
[2017-06-20] MEDS: VANCOMYCIN FOR PO/GT/NG USE NG SCH ×3 (05:51→18:30)
[2017-06-20 06:21] LABS: CARBON DIOXIDE 27 mmol/L (21-32); CHLORIDE 103 mmol/L (98-107); CREATININE 0.5 mg/dL (0.6-1.3); GLUCOSE 105 mg/dL (74-106); MAGNESIUM 1.7 mg/dL (1.8-2.4); POTASSIUM 3.5 mmol/L (3.5-5.1); UREA NITROGEN, BLOOD 4 mg/dL (7-18)
--- NOTE | 2017-06-20 07:00 | NUR ---
SHIFT NOTE:[id number]. AA AND CONFUSED. HAVING VISUAL AND AUDITORY HALLUCINATIONS. TALKING TO SOMEONE ONLY HE CAN SEE. CONSTANTLY TRYING TO GET OOB FULLING ON HIS TUBES. CONSTANT REORIENTATION BUT PT DOES NOT COMPLY. UNCOOPERATIVE. NO FALL NO INJURY THIS SHIFT. VSS, BUT HTN WHEN AGITATED. ON ATIVAN FOR AGITATION AND ON MORPHINE FOR BACK PAIN. ATIVAN NOT EFFECTIVE. PT HAS NOT SLEPT FOR TWO NIGHT REMAINS AGITATED/RESTLESS. PSYCH CONSULT PENDING. YI WITH JOSE M/CLOUDY URINE. OUTPUT QS. RIJ 3LUMEN ONE PORT IS SLUGGIN SH
[2017-06-20] MEDS: LACTOBACILLUS RHAMNOSUS GG 1 EACH CAPSULE PO SCH ×2 (08:10→21:09)
[2017-06-20] MEDS: NYSTATIN OINTMENT 15 GM TUBE TOP SCH ×2 (08:36→21:10)
[2017-06-20] MEDS: Z GUARD REMEDY PASTE 57 GM TUBE TOP SCH ×2 (08:37→21:10)
[2017-06-20] MEDS: MAGNESIUM SULFATE/D5W 100 ML IV SCH ×2 (12:03→13:30)
[2017-06-20] MEDS: MORPHINE SULFATE 4 MG/1 ML DISP.SYRIN IV PRN ×3 (12:23→21:09)
[2017-06-20] MEDS ORDERED: NEUTRA PHOS PACKET GT ONE (16:30)
[2017-06-20] MEDS: RIVAROXABAN 10 MG TABLET PO SCH (18:31)
[2017-06-20] MEDS: IV NORMAL SALINE 250 ML IV PRN (19:11)
[2017-06-20] MEDS ORDERED: HALOPERIDOL LACTATE 10 MG/5 ML ORAL SOLUTION UDC ONE (23:29)
[2017-06-21] VITALS (9 sets, daily range): BP systolic 110–175; BP diastolic 68–122
[2017-06-21] MEDS: HALOPERIDOL LACTATE 10 MG/5 ML ORAL SOLUTION UDC GT SCH ×3 (00:03→13:36)
[2017-06-21] MEDS: VANCOMYCIN FOR PO/GT/NG USE NG SCH ×4 (00:04→23:59)
[2017-06-21] MEDS ORDERED: HALOPERIDOL LACTATE 5 MG/1 ML VIAL ONE (01:04)
[2017-06-21] MEDS: HALOPERIDOL LACTATE 5 MG/1 ML VIAL IM PRN ×2 (01:09→12:07)
[2017-06-21] MEDS: LORAZEPAM 2 MG/1 ML VIAL IV PRN ×3 (02:02→12:29)
[2017-06-21] MEDS: MORPHINE SULFATE 4 MG/1 ML DISP.SYRIN IV PRN ×3 (02:08→21:27)
--- NOTE | 2017-06-21 03:13 | NUR ---
SHIFT NOTE : rECEIVED REPORT FROM MACI SONI. PT AA AND CONFUSED. STILL TRYING TO GET OOB. VERY RESTLESS. V/SS, AFEBRILE. CONTINUES TO GET OOB. HE HAS NOT SLEPT IN FOUR DAYS. CONSTANTLY FIGHTING TO GET OOB. SWINGING LEGS UP IN THE AIR. REACHING TO HOLD CEILING iv HOLDERS. SITTER IN ROOM WITH PT WHOM PT KICKED IN CHEST. TRIED TO HIT RT AND RN. WAS HERE TO SEE PT. HOLDAL ORDERED. ONE BOTTLE OF 5 MG OF HALDOL TAKEN FROM THE STOCK AND GIVEN TO PT IM. PT ALSO GOT 4 MG OF MORPHINE AND 1 MG OF ATIVAN NONE OF WHICH TOUCHED PT HE REMAINS WILD. DIFFICULT TO TO ACCURATE VS. BP READINGS ARE USUALLY WHEN IS VERY AGITATED AND RESTLESS. ALL NIGHT WITH PT REORIENTING HIM,BUT MENTATION REMAINS UNCHANGED (CONFUSED). FOR MORE DETAILED ASSESSMENT SEE FLOW SHEET.
[2017-06-21] MEDS: IPRATROPIUM BROMIDE 0.5 MG/2.5 ML NEBU NEB SCH ×6 (04:07→22:53)
[2017-06-21] MEDS: ALBUTEROL SULFATE 2.5 MG/3 ML NEBU NEB SCH ×6 (04:07→22:53)
[2017-06-21 05:29] LABS: CARBON DIOXIDE 28 mmol/L (21-32); CHLORIDE 105 mmol/L (98-107); CREATININE 0.4 mg/dL (0.6-1.3); GLUCOSE 106 mg/dL (74-106); MAGNESIUM 1.6 mg/dL (1.8-2.4); PHOSPHOROUS 3.2 mg/dL (2.5-4.9); POTASSIUM 3.3 mmol/L (3.5-5.1); UREA NITROGEN, BLOOD 4 mg/dL (7-18)
[2017-06-21] MEDS: PANTOPRAZOLE ORAL SUSPENSION 40 MG SUSPDR.PKT NG SCH (05:34)
[2017-06-21] MEDS: FIBERSOURCE HN 1000ML LIQUID GT PRN (05:41)
--- NOTE | 2017-06-21 07:30 | NUR ---
RECIEVED PT AWAKE IN BED. A LITTLE BIT RESTLESS.1 ON 1 SITTER AT THE BEDSIDE. PT ABLE TO MOVE ALL EXTREMETIES WELL. VERY CONFUSED, BUT FOLLOWS COMMANDS AT TIMES. TRACHEOSTOMY IN PLACE JOSÉ MIGUEL#8. NO APPARENT RESPIRATORY DISTRESS NOTED. PLACED ON A COOL MIST AT 6L. TOLERATED WELL. SUCTION FREQUENTLY WITH LARGE AMOUNT OF THICK YELLOW PHLEGM. O2SAT 98-100%.
--- NOTE | 2017-06-21 08:00 | NUR ---
HR MOSTLY ON SINUS TACHYCARDIA AT 100-117B/MIN. PT IS RESTLESS. RIGHT IJ TRIPLE LUMEN LINE IS CD&I AND PATENT.
[2017-06-21] MEDS: LACTOBACILLUS RHAMNOSUS GG 1 EACH CAPSULE PO SCH ×2 (08:18→21:28)
[2017-06-21] MEDS: Z GUARD REMEDY PASTE 57 GM TUBE TOP SCH ×2 (08:18→21:00)
[2017-06-21] MEDS: NYSTATIN OINTMENT 15 GM TUBE TOP SCH ×2 (08:20→21:29)
--- NOTE | 2017-06-21 10:00 | NUR ---
SEEN AND EXAMINED BY DR ANURADHA ESPITIA TO TRANSFER THE PT TO TELEMETRY UNIT.
[2017-06-21] MEDS ORDERED: POTASSIUM CHLORIDE 20 MEQ TAB.PRT.SR PO ONE (11:30)
[2017-06-21] MEDS: MAGNESIUM SULFATE/D5W 100 ML IV SCH ×2 (12:09→13:35)
--- NOTE | 2017-06-21 16:00 | NUR ---
PT HAS BEEN MEDICATED FREQUENTLY TO KEEP HIM CALM. BUT LAST ONLY VERY SHORTLY.
[2017-06-21] MEDS: RIVAROXABAN 10 MG TABLET PO SCH (18:00)
[2017-06-21] MEDS: hydrALAZINE HCL 20 MG/1 ML VIAL IV PRN (21:28)
[2017-06-21] MEDS: Z GUARD REMEDY PASTE 57 GM TUBE TOP PRN (21:29)
--- NOTE | 2017-06-21 22:50 | NUR ---
Nebulizer Treatment not given due to elevated HR. Pt HR 139. SpO2-99% No respiratory distress noted. RN aware.
[2017-06-22] VITALS (10 sets, daily range): BP systolic 100–151; BP diastolic 55–86
[2017-06-22] MEDS: IPRATROPIUM BROMIDE 0.5 MG/2.5 ML NEBU NEB SCH ×6 (03:30→22:40)
[2017-06-22] MEDS: ALBUTEROL SULFATE 2.5 MG/3 ML NEBU NEB SCH ×6 (03:30→22:40)
--- NOTE | 2017-06-22 03:30 | NUR ---
Nebulizer Treatment not given due to elevated HR. Pt HR 134. SpO2-99% No respiratory distress noted. RN aware.
[2017-06-22] MEDS: LABETALOL HCL 100 MG/20 ML VIAL IV PRN (04:20)
[2017-06-22 05:27] LABS: CARBON DIOXIDE 27 mmol/L (21-32); CHLORIDE 105 mmol/L (98-107); CREATININE 0.5 mg/dL (0.6-1.3); GLUCOSE 106 mg/dL (74-106); MAGNESIUM 1.8 mg/dL (1.8-2.4); PHOSPHOROUS 3.3 mg/dL (2.5-4.9); POTASSIUM 3.8 mmol/L (3.5-5.1); UREA NITROGEN, BLOOD 4 mg/dL (7-18)
[2017-06-22 05:32] LABS: BASOPHILS % (AUTO) 0.2 % (0.0-2.0); EOSINOPHILS # (AUTO) 0.2 K/uL (0.0-0.7); EOSINOPHILS % (AUTO) 1.2 % (0.0-7.0); HEMATOCRIT 32.5 % (36.7-47.1); HEMOGLOBIN 10.9 g/dL (12.5-16.3); LYMPHOCYTES # (AUTO) 0.7 K/uL (20.0-40.0); MEAN CORPUSCULAR HEMOGLOBIN 32.3 uug (23.8-33.4); MEAN CORPUSCULAR HGB CONC 34 g/dL (32.5-36.3); MONOCYTES % (AUTO) 7.1 % (0.0-11.0); NEUTROPHILS # (AUTO) 11.7 K/uL (1.8-8.9); NEUTROPHILS % (AUTO) 86.5 % (38.5-71.5); PLATELET COUNT (AUTO) 348 K/uL (152-348); RED BLOOD CELL COUNT(AUTO) 3.38 MIL/uL (4.06-5.63); WHITE BLOOD COUNT (AUTO) 13.6 K/uL (3.6-10.2)
[2017-06-22] MEDS: PANTOPRAZOLE ORAL SUSPENSION 40 MG SUSPDR.PKT NG SCH (05:40)
[2017-06-22] MEDS: VANCOMYCIN FOR PO/GT/NG USE NG SCH ×4 (05:41→17:01)
--- NOTE | 2017-06-22 07:10 | NUR ---
received report from Freedom LUX. Patient awake but confused. Trach tube to 30% Fio2. right IJ tlc intact. ns tko. sinus tach up to 130/min. carver catheter intact, urine is minimal amount with sediments. agitated all night. on isolation for cdiff. is tele status Addendum: 06/22/17 at 1859 by LAURE POLLACK RN Amended: Links added.
[2017-06-22] MEDS: LACTOBACILLUS RHAMNOSUS GG 1 EACH CAPSULE PO SCH ×2 (09:12→20:59)
[2017-06-22] MEDS: BENZTROPINE MESYLATE 1 MG TABLET GT SCH ×3 (09:14→17:03)
[2017-06-22] MEDS: HALOPERIDOL LACTATE 10 MG/5 ML ORAL SOLUTION UDC GT SCH ×3 (09:14→17:03)
[2017-06-22] MEDS: IV NORMAL SALINE 250 ML IV PRN (09:14)
[2017-06-22] MEDS: FIBERSOURCE HN 1000ML LIQUID GT PRN (09:15)
[2017-06-22] MEDS: hydrALAZINE HCL 20 MG/1 ML VIAL IV PRN (10:06)
[2017-06-22] MEDS ORDERED: hydrALAZINE HCL 25 MG TABLET GT PRN (11:00)
--- NOTE | 2017-06-22 11:00 | NUR ---
seen by dr adelson. george benites valve applied. no desat. Addendum: 06/22/17 at 1907 by LAURE POLLACK RN Amended: Links added. Addendum: 06/22/17 at 1915 by LAURE POLLACK RN Amended: Links added.
[2017-06-22] MEDS: Z GUARD REMEDY PASTE 57 GM TUBE TOP SCH ×2 (11:05→21:01)
[2017-06-22] MEDS: NYSTATIN OINTMENT 15 GM TUBE TOP SCH ×2 (11:06→21:00)
--- NOTE | 2017-06-22 12:05 | NUR ---
haldol IM given in addition to routine dosage. patient remains on restraints and with a 1:1 sitter Addendum: 06/22/17 at 1904 by LAURE POLLACK RN Amended: Chente added. Addendum: 06/22/17 at 1907 by LAURE POLLACK RN Amended: Links added. Addendum: 06/22/17 at 1915 by LAURE POLLACK RN Amended: Links added.
[2017-06-22] MEDS: METOPROLOL TARTRATE 25 MG TABLET GT SCH ×3 (12:46→23:48)
--- NOTE | 2017-06-22 14:00 | NUR ---
george benites valve removed. patient has a large amount of secretions Addendum: 06/22/17 at 1915 by LAURE POLLACK RN Amended: Links added.
[2017-06-22] MEDS: MORPHINE SULFATE 4 MG/1 ML DISP.SYRIN IV PRN ×2 (15:14→20:10)
[2017-06-22] MEDS: RIVAROXABAN 10 MG TABLET PO SCH (17:02)
--- NOTE | 2017-06-22 19:10 | NUR ---
report given to Jovani Addendum: 06/22/17 at 1950 by LAURE POLLACK RN Amended: Links added.
--- NOTE | 2017-06-22 22:00 | NUR ---
RECEIVED PATIENT ON 30% COOL AEROSOL VIA T-PIECE. PATIENT GIVEN Q4 HHN INLINE TREATMENT PER MD ORDERS. TOLERATED TREATMENT WELL WITH NO ADVERSE REACTIONS NOTED. SUCTIONED PATIENT WITH NO COMPLICATIONS. SPO2 98%. NO SOB NOTED AT THIS TIME. WILL CONTINUE TO MONITOR PATIENT.
[2017-06-22] MEDS: HALOPERIDOL LACTATE 5 MG/1 ML VIAL IM PRN (22:20)
[2017-06-23] VITALS (14 sets, daily range): BP systolic 89–132; BP diastolic 48–78
[2017-06-23] MEDS: MORPHINE SULFATE 4 MG/1 ML DISP.SYRIN IV PRN ×3 (03:07→19:41)
[2017-06-23] MEDS: IPRATROPIUM BROMIDE 0.5 MG/2.5 ML NEBU NEB SCH ×6 (03:10→22:38)
[2017-06-23] MEDS: ALBUTEROL SULFATE 2.5 MG/3 ML NEBU NEB SCH ×6 (03:10→22:38)
[2017-06-23 05:13] LABS: BASOPHILS # (AUTO) 0.1 K/uL (0.0-8.0); BASOPHILS % (AUTO) 0.8 % (0.0-2.0); EOSINOPHILS # (AUTO) 0.3 K/uL (0.0-0.7); EOSINOPHILS % (AUTO) 1.8 % (0.0-7.0); HEMATOCRIT 31.8 % (36.7-47.1); HEMOGLOBIN 10.7 g/dL (12.5-16.3); LYMPHOCYTES # (AUTO) 0.9 K/uL (20.0-40.0); LYMPHOCYTES % (AUTO) 6.7 % (20.5-51.5); MEAN CORPUSCULAR HEMOGLOBIN 32.4 uug (23.8-33.4); MEAN CORPUSCULAR HGB CONC 34 g/dL (32.5-36.3); MEAN CORPUSCULAR VOLUME 96.5 fL (73.0-96.2); MONOCYTES # (AUTO) 1.1 K/uL (2.0-10.0); MONOCYTES % (AUTO) 7.6 % (0.0-11.0); NEUTROPHILS # (AUTO) 11.5 K/uL (1.8-8.9); NEUTROPHILS % (AUTO) 83.1 % (38.5-71.5); PLATELET COUNT (AUTO) 354 K/uL (152-348); RED BLOOD CELL COUNT(AUTO) 3.29 MIL/uL (4.06-5.63); WHITE BLOOD COUNT (AUTO) 13.8 K/uL (3.6-10.2)
[2017-06-23 05:22] LABS: CARBON DIOXIDE 29 mmol/L (21-32); CHLORIDE 106 mmol/L (98-107); CREATININE 0.5 mg/dL (0.6-1.3); GLUCOSE 107 mg/dL (74-106); MAGNESIUM 1.7 mg/dL (1.8-2.4); PHOSPHOROUS 3.6 mg/dL (2.5-4.9); POTASSIUM 3.6 mmol/L (3.5-5.1); UREA NITROGEN, BLOOD 7 mg/dL (7-18)
[2017-06-23] MEDS: METOPROLOL TARTRATE 25 MG TABLET GT SCH ×3 (05:49→18:00)
[2017-06-23] MEDS: PANTOPRAZOLE ORAL SUSPENSION 40 MG SUSPDR.PKT NG SCH (05:49)
--- NOTE | 2017-06-23 07:30 | NUR ---
Received report from Evan De Jesus RN for day shift .Patient on 30% trach collar. Soft restraints on upper extremeties. Assess upper extremeties ROM to wrist and upper extremmeties. mOVING UPPER AND LOWER extremeties. Positive gag and strong cough. Mouth care given. Nurse at bedside or nursing staff present at all times
[2017-06-23] MEDS: LACTOBACILLUS RHAMNOSUS GG 1 EACH CAPSULE PO SCH ×2 (08:35→21:16)
[2017-06-23] MEDS: BENZTROPINE MESYLATE 1 MG TABLET GT SCH ×3 (08:35→16:40)
[2017-06-23] MEDS: HALOPERIDOL LACTATE 10 MG/5 ML ORAL SOLUTION UDC GT SCH ×3 (08:35→16:40)
[2017-06-23] MEDS: NYSTATIN OINTMENT 15 GM TUBE TOP SCH ×2 (08:37→21:17)
[2017-06-23] MEDS: Z GUARD REMEDY PASTE 57 GM TUBE TOP SCH ×2 (08:37→21:16)
[2017-06-23 09:14] LABS: ABG BASE EXCESS 1.2 mmol/L; ABG PCO2 32.1 mmHg (35.0-45.0); ABG PH 7.492 (7.350-7.450); ABG PO2 83.3 mmHg (75.0-100.0); ABG SITE RIGHT RADIAL; ABG TOTAL HEMOGLOBIN 11.9 G/dL (13.5-18.0); MetHb 0.3 % (0.0-1.5); O2Hb 95.5 % (94.0-97.0)
[2017-06-23] MEDS: IV NORMAL SALINE 250 ML IV PRN (10:44)
[2017-06-23] MEDS ORDERED: POTASSIUM CHLORIDE 20 MEQ TAB.PRT.SR PO ONE (12:45)
[2017-06-23] MEDS ORDERED: MAGNESIUM SULFATE 1 GM in IV DEXTROSE 5% 50 ML IV ONE (12:45)
[2017-06-23] MEDS ORDERED: MAGNESIUM SULFATE/D5W 100 ML IV SCH (13:00)
--- NOTE | 2017-06-23 13:53 | NUR ---
patient given 40 chau of KCL VIA PEG TUBE FOR POTSSIUM OF 3.6 . Also 1 gram of magnesium sulfate for mag of 1.7 IV
[2017-06-23 15:01] LABS: *BLOOD, URINE 2+ (NEGATIVE); *CLARITY,URINE CLEAR (CLEAR); *COLOR,URINE YELLOW (YELLOW); *KETONES,URINE NEGATIVE (NEGATIVE); *PROTEIN,URINE 1+ (NEGATIVE); *UROBILINOGEN,URINE 0.2 E.U./dl (NORMAL); LEUKOCYTE ESTERASE ,URINE 1+ (NEGATIVE); NITRITE, URINE POSITIVE (NEGATIVE); UGLUCOSE NEGATIVE (NEGATIVE)
[2017-06-23 15:06] LABS: *BILIRUBIN,URIN 1+ (NEGATIVE)
[2017-06-23 15:09] LABS: BACTERIA,URINE FEW /HPF (NONE SEEN); SQUAMOUS EPITHELIAL CELL,UR FEW /HPF (NONE SEEN); WBC,URINE 20-50 /HPF (0-3)
--- NOTE | 2017-06-23 15:18 | NUR ---
NOTIFIED Dr WASHINGTON OF BILRIBIN FROM URINE +1 .Spoke with face to face. Critical lab valve. at 1510 pm received results from lab 06/23/17
--- NOTE | 2017-06-23 17:16 | NUR ---
Speech did see patient and patient was not able to tolerate PMV for any length of time. Swallowing study repeated at bedside and patient was not tolerating swallowing study increase coughing. 02 saturations within 95-98% . Speech will try again at later date
[2017-06-23] MEDS: RIVAROXABAN 10 MG TABLET PO SCH (17:32)
[2017-06-23] MEDS: HALOPERIDOL LACTATE 5 MG/1 ML VIAL IM PRN (21:21)
--- NOTE | 2017-06-23 22:56 | NUR ---
Able to help at times to perform self care activities, maintains maximum range of motion,maintains vital signs WNL during activity Addendum: 06/23/17 at 2256 by KENDALL CADET RN Amended: Chente added. Addendum: 06/23/17 at 2256 by KENDALL CADET RN Amended: Chente added. Addendum: 06/23/17 at 2257 by KENDALL CADET RN Amended: Links added. Addendum: 06/23/17 at 2257 by KENDALL CADET RN Amended: Links added. Addendum: 06/23/17 at 2301 by KENDALL CADET RN Amended: Links added. Addendum: 06/23/17 at 2301 by KENDALL CADET RN Amended: Links added. Addendum: 06/23/17 at 2301 by KENDALL CADET RN Amended: Links added. Addendum: 06/23/17 at 2301 by KENDALL CADET RN Amended: Links added. Addendum: 06/23/17 at 3 by KENDALL CADET RN Amended: Links added. Addendum: 06/23/17 at 2303 by KENDALL CADET RN Amended: Chente added. Addendum: 06/23/17 at 5 by KENDALL CADET RN Amended: Links added. Addendum: 06/23/17 at 2308 by KENDALL CADET RN Amended: Links added. Addendum: 06/23/17 at 2308 by KENDALL CADET RN Amended: Links added. Addendum: 06/23/17 at 2308 by KENDALL CADET RN Amended: Links added. Addendum: 06/23/17 at 2310 by KENDALL CADET RN Amended: Links added. Addendum: 06/23/17 at 2310 by KENDALL CADET RN Amended: Links added. Addendum: 06/23/17 at 2310 by KENDALL CADET RN Amended: Links added. Addendum: 06/23/17 at 2310 by KENDALL CADET RN Amended: Links added. Addendum: 06/23/17 at 2311 by KENDALL CADET RN Amended: Links added. Addendum: 06/23/17 at 2313 by KENDALL CADET RN Amended: Chente added. Addendum: 06/23/17 at 2317 by KENDALL CADET RN Amended: Chente added.
--- NOTE | 2017-06-23 23:01 | NUR ---
Maintains patent airway,no evidences of adventitious breath sounds, vital signs WNL Addendum: 06/23/17 at 2301 by KENDALL CADET RN Amended: Chente added. Addendum: 06/23/17 at 2301 by KENDALL CADET RN Amended: Chente added. Addendum: 06/23/17 at 2302 by KENDALL CADET RN Amended: Links added. Addendum: 06/23/17 at 2302 by KENDALL CADET RN Amended: Links added. Addendum: 06/23/17 at 2303 by KENDALL CADET RN Amended: Links added. Addendum: 06/23/17 at 2304 by KENDALL CADET RN Amended: Links added. Addendum: 06/23/17 at 2305 by KENDALL CADET RN Amended: Links added. Addendum: 06/23/17 at 2309 by KENDALL CADET RN Amended: Links added. Addendum: 06/23/17 at 2309 by KENDALL CADET RN Amended: Links added. Addendum: 06/23/17 at 9 by KENDALL CADET RN Amended: Links added. Addendum: 06/23/17 at 2310 by KENDALL CADET RN Amended: Links added. Addendum: 06/23/17 at 2310 by KENDALL CADET RN Amended: Links added. Addendum: 06/23/17 at 2310 by KENDALL CADET RN Amended: Links added. Addendum: 06/23/17 at 2311 by KENDALL CADET RN Amended: Links added. Addendum: 06/23/17 at 2311 by KENDALL CADET RN Amended: Links added. Addendum: 06/23/17 at 2313 by KENDALL CADET RN Amended: Links added. Addendum: 06/23/17 at 2317 by KENDALL CADET RN Amended: Links added.
[2017-06-24] VITALS: BP 99/79
[2017-06-24] MEDS: MORPHINE SULFATE 4 MG/1 ML DISP.SYRIN IV PRN ×2 (00:47→06:19)
[2017-06-24] MEDS: ALBUTEROL SULFATE 2.5 MG/3 ML NEBU NEB SCH ×6 (02:30→23:09)
[2017-06-24] MEDS: IPRATROPIUM BROMIDE 0.5 MG/2.5 ML NEBU NEB SCH ×6 (02:30→23:09)
[2017-06-24 04:00] VITALS: BP 112/64
[2017-06-24] MEDS: PANTOPRAZOLE ORAL SUSPENSION 40 MG SUSPDR.PKT NG SCH (05:27)
[2017-06-24] MEDS: METOPROLOL TARTRATE 25 MG TABLET GT SCH ×4 (05:28→17:23)
[2017-06-24 05:35] LABS: BASOPHILS % (AUTO) 0.2 % (0.0-2.0); EOSINOPHILS # (AUTO) 0.2 K/uL (0.0-0.7); EOSINOPHILS % (AUTO) 1.2 % (0.0-7.0); HEMATOCRIT 30.7 % (36.7-47.1); HEMOGLOBIN 10.4 g/dL (12.5-16.3); LYMPHOCYTES # (AUTO) 0.8 K/uL (20.0-40.0); LYMPHOCYTES % (AUTO) 5.3 % (20.5-51.5); MEAN CORPUSCULAR HEMOGLOBIN 32.7 uug (23.8-33.4); MEAN CORPUSCULAR HGB CONC 34 g/dL (32.5-36.3); MEAN CORPUSCULAR VOLUME 96.4 fL (73.0-96.2); MONOCYTES # (AUTO) 1.2 K/uL (2.0-10.0); MONOCYTES % (AUTO) 7.7 % (0.0-11.0); NEUTROPHILS % (AUTO) 85.6 % (38.5-71.5); PLATELET COUNT (AUTO) 375 K/uL (152-348); RED BLOOD CELL COUNT(AUTO) 3.19 MIL/uL (4.06-5.63); WHITE BLOOD COUNT (AUTO) 15.2 K/uL (3.6-10.2)
[2017-06-24 05:57] LABS: ALANINE AMINOTRANSFERASE 10 U/L (16-63); ASPARTATE AMINOTRANSFERASE 11 U/L (15-37); BILIRUBIN,TOTAL 0.5 mg/dL (0.2-1.0); CARBON DIOXIDE 27 mmol/L (21-32); CHLORIDE 104 mmol/L (98-107); CREATININE 0.4 mg/dL (0.6-1.3); GLUCOSE 106 mg/dL (74-106); MAGNESIUM 1.5 mg/dL (1.8-2.4); PHOSPHOROUS 2.9 mg/dL (2.5-4.9); POTASSIUM 3.7 mmol/L (3.5-5.1); UREA NITROGEN, BLOOD 8 mg/dL (7-18)
[2017-06-24 06:00] VITALS: BP 115/72
[2017-06-24 06:21] LABS: ALKALINE PHOSPHATASE 119 U/L (50-136)
[2017-06-24] MEDS: HALOPERIDOL LACTATE 5 MG/1 ML VIAL IM PRN ×2 (08:02→16:20)
[2017-06-24] MEDS: LACTOBACILLUS RHAMNOSUS GG 1 EACH CAPSULE PO SCH ×2 (08:20→21:00)
[2017-06-24] MEDS: BENZTROPINE MESYLATE 1 MG TABLET GT SCH ×3 (08:21→17:22)
[2017-06-24] MEDS: Z GUARD REMEDY PASTE 57 GM TUBE TOP SCH ×2 (08:21→21:01)
[2017-06-24] MEDS: HALOPERIDOL LACTATE 10 MG/5 ML ORAL SOLUTION UDC GT SCH ×3 (08:21→17:23)
[2017-06-24] MEDS: NYSTATIN OINTMENT 15 GM TUBE TOP SCH ×2 (08:21→21:02)
--- NOTE | 2017-06-24 08:44 | NUR ---
pt seen on rounding. ppt continues to be agitated. pt tries to take off all tubing. [facility] Gtube patent. no residuals noted. pt on continues pulse ox. o2 sat wnl. pt on altitude chamber technician. sinus rhythm. administered haldol injection. administered soft restraints due to patient trying to take tubes off. carver intact. no signs of infection on perineal area. inner cannula changed. no sob noted. pt continues to be jittery. will continue to monitor.
--- NOTE | 2017-06-24 10:53 | NUR ---
WITHHELD tube feeding due to severe agitation. will restart when patient is not at risk for injury.
[2017-06-24] MEDS: IV NORMAL SALINE 250 ML IV PRN (11:14)
[2017-06-24] MEDS: FIBERSOURCE HN 1000ML LIQUID GT PRN (11:14)
--- NOTE | 2017-06-24 11:14 | NUR ---
started tube feeding at 1114. no residuals noted. will continue to monitor.
--- NOTE | 2017-06-24 13:47 | NUR ---
reassed bp. pt bp within normal limits 130/57. hr reduced from 100s to 80s. will continue to monitor.
[2017-06-24] MEDS: RIVAROXABAN 10 MG TABLET PO SCH (17:25)
[2017-06-24] MEDS ORDERED: MAGNESIUM SULFATE/D5W 100 ML IV SCH (17:30)
--- NOTE | 2017-06-24 18:15 | NUR ---
pt was transfered from icu unit to telemetry unit at 1530. pt continues to be beligerent. applied mittens. circulation of hands within normal limits. no discoloration noted. pt given haldol im as needed for agitation. pt had bowel movements consistent with Cdiff. mattress reapplied. pt continues to have rash. applied z guard as needed. carver continues to have inflitrates. urine remained kenya in color. iJ remained itact and flushing. pt to have 2 grams of magnesium. pt suctioned as needed. no new injuries noted. pt kept npo throughout the day. will continue to monitor.
[2017-06-24 19:00] VITALS: BP 128/63
[2017-06-24 20:17] VITALS: BP 128/63
[2017-06-24] MEDS: CEFTRIAXONE 1 G in IV DEXTROSE 5% 50 ML IV SCH (21:55)
--- NOTE | 2017-06-24 22:41 | NUR ---
CALLED NURSE CLINE RN DURING THE DAY AND VERIFIED IF HE GAVE 2 GMS OF MAGNESIUM HE SAID HE GAVE 2 GM OF MAGNESIUM .
[2017-06-25] VITALS: BP 123/64
[2017-06-25] MEDS ORDERED: VANCOMYCIN FOR PO/GT/NG USE PO SCH
[2017-06-25] MEDS: VANCOMYCIN FOR PO/GT/NG USE GT SCH ×4 (00:38→17:30)
[2017-06-25] MEDS: METOPROLOL TARTRATE 25 MG TABLET GT SCH ×4 (00:39→17:24)
[2017-06-25] MEDS: IPRATROPIUM BROMIDE 0.5 MG/2.5 ML NEBU NEB SCH ×6 (02:42→22:37)
[2017-06-25] MEDS: ALBUTEROL SULFATE 2.5 MG/3 ML NEBU NEB SCH ×6 (02:42→22:47)
[2017-06-25 04:00] VITALS: BP 110/63
[2017-06-25] MEDS: PANTOPRAZOLE ORAL SUSPENSION 40 MG SUSPDR.PKT NG SCH (05:49)
[2017-06-25 07:03] LABS: CARBON DIOXIDE 28 mmol/L (21-32); CHLORIDE 105 mmol/L (98-107); CREATININE 0.5 mg/dL (0.6-1.3); GLUCOSE 113 mg/dL (74-106); MAGNESIUM 1.8 mg/dL (1.8-2.4); POTASSIUM 4.3 mmol/L (3.5-5.1); UREA NITROGEN, BLOOD 8 mg/dL (7-18)
[2017-06-25 07:16] LABS: BASOPHILS # (AUTO) 0.1 K/uL (0.0-8.0); BASOPHILS % (AUTO) 0.5 % (0.0-2.0); EOSINOPHILS # (AUTO) 0.1 K/uL (0.0-0.7); EOSINOPHILS % (AUTO) 0.6 % (0.0-7.0); HEMATOCRIT 31.7 % (36.7-47.1); HEMOGLOBIN 10.5 g/dL (12.5-16.3); LYMPHOCYTES # (AUTO) 0.7 K/uL (20.0-40.0); MEAN CORPUSCULAR HEMOGLOBIN 31.9 uug (23.8-33.4); MEAN CORPUSCULAR HGB CONC 33 g/dL (32.5-36.3); MEAN CORPUSCULAR VOLUME 96.2 fL (73.0-96.2); MONOCYTES # (AUTO) 1.3 K/uL (2.0-10.0); MONOCYTES % (AUTO) 9.1 % (0.0-11.0); NEUTROPHILS # (AUTO) 12.4 K/uL (1.8-8.9); NEUTROPHILS % (AUTO) 84.8 % (38.5-71.5); PLATELET COUNT (AUTO) 394 K/uL (152-348); RED BLOOD CELL COUNT(AUTO) 3.29 MIL/uL (4.06-5.63); WHITE BLOOD COUNT (AUTO) 14.6 K/uL (3.6-10.2)
--- NOTE | 2017-06-25 07:25 | NUR ---
RECEIVED CLIENT IN BED, AWAKE AND ORIENTED TIMES 1, CLIENT FREQUENTLY MOVES IN BED. HAS BILATERAL MITTENS ON FOR SAFETY AND PADDED SIDE RAILS SAFETY. 1:1 SITTER. NO APPARENT SIGNS AND SYMPTOMS OF SOB, PAIN, DISTRESS OR DISCOMFORT.
[2017-06-25 07:43] VITALS: BP 111/66
[2017-06-25] MEDS: FIBERSOURCE HN 1000ML LIQUID GT PRN (08:22)
[2017-06-25] MEDS: LACTOBACILLUS RHAMNOSUS GG 1 EACH CAPSULE PO SCH ×2 (10:08→22:13)
[2017-06-25] MEDS: BENZTROPINE MESYLATE 1 MG TABLET GT SCH ×3 (10:08→17:24)
[2017-06-25] MEDS: HALOPERIDOL LACTATE 10 MG/5 ML ORAL SOLUTION UDC GT SCH ×3 (10:08→17:25)
[2017-06-25] MEDS: NYSTATIN OINTMENT 15 GM TUBE TOP SCH ×2 (10:09→22:15)
[2017-06-25] MEDS: Z GUARD REMEDY PASTE 57 GM TUBE TOP SCH ×2 (10:09→22:16)
[2017-06-25 12:00] VITALS: BP 107/58
[2017-06-25 14:16] VITALS: BP 115/65
[2017-06-25] MEDS: RIVAROXABAN 10 MG TABLET PO SCH (17:25)
[2017-06-25 19:00] VITALS: BP 116/77
--- NOTE | 2017-06-25 19:48 | NUR ---
REPORT GIVEN TO CUTTING MACHINE TENDER HELPER. CLIENT MOVES THROUGHOUT THE DAY IN HIS BED. THRASHES HIS HAND AGAINST THE BEDSIDE RAILS. GT FEEDING TOLERATING WELL. SITTER 1:1 PROVIDED FOR SAFETY. MITTENS REMOVED INTERMITTENTLY TO ASSESS CIRCULATION. BED AT LOWEST POSITION FOR SAFETY
[2017-06-25] MEDS: HALOPERIDOL LACTATE 5 MG/1 ML VIAL IM PRN (22:13)
[2017-06-25] MEDS: CEFTRIAXONE 1 G in IV DEXTROSE 5% 50 ML IV SCH (22:13)
[2017-06-26] VITALS: BP 143/58
[2017-06-26] MEDS: VANCOMYCIN FOR PO/GT/NG USE GT SCH ×4 (00:03→17:00)
[2017-06-26] MEDS: MORPHINE SULFATE 4 MG/1 ML DISP.SYRIN IV PRN (00:04)
--- NOTE | 2017-06-26 00:05 | NUR ---
Holding MN Metoprolol as pt agitated, guarding, irritable, facial grimacing noted. Administering IV Morphine for discomfort and will assess VS/comfort.
[2017-06-26] MEDS: IPRATROPIUM BROMIDE 0.5 MG/2.5 ML NEBU NEB SCH ×7 (03:29→22:36)
[2017-06-26] MEDS: ALBUTEROL SULFATE 2.5 MG/3 ML NEBU NEB SCH ×7 (03:29→22:36)
--- NOTE | 2017-06-26 03:56 | NUR ---
Pt has been awake throughout my shift, very restless and agitated. Looks up to ceiling or off to side wall with eyes widened, startles at intervals, looks like he is mouthing words to no one in particular. Very frequently kicking legs about in bed, reaching hands up to face. Lines/tubes secured. Pt has had mittens to BUE which help protect lines/tubes. I asked respiratory therapist to hold the 0400 breathing treatment as pt very agitated/restless (I have given prn Versed and morphine, which did not seem to affect the restlessness/discomfort. Pt has a sitter at bedside, we bathed pt, changed linens, resecured lines/tubes. Monitoring pt closely for safety, frequent reorientation, reassurance. Bed is in lowest position, wheels locked, bed exit alarm is activated. Tolerated Fibersource tube feeding well to PEG tube, residuals below 70 ml/hr. All three ports of his R IJ CVL aspirated and flushed easily, dressing is dry, current and occlusive. Urethral carver catheter draining to dark yellow urine with sediment to gravity bag, securement device in place. 8.0 shiley trach is patent, midline to T-piece with moderate, clear to beige thin secretions, respirations are even.Pt is on specialty mattress for skin protection, pressure points are intact, small pink area on top of knee noted, healing well. Ordered ointments applied to groin area for very light pink areas with no drainage and to buttocks/grace-rectal area. Continuing to monitor for physiologic changes/ pt safety.
[2017-06-26 04:00] VITALS: BP 119/84
[2017-06-26] MEDS: PANTOPRAZOLE ORAL SUSPENSION 40 MG SUSPDR.PKT NG SCH (05:20)
[2017-06-26] MEDS: METOPROLOL TARTRATE 25 MG TABLET GT SCH ×4 (05:22→17:01)
--- NOTE | 2017-06-26 07:41 | NUR ---
RECEIVED CLIENT IN BED AWAKE, ALERT AND ORIENTED TIMES 1. CLIENT CONTINUOUSLY MOVES IN BED. NOTABLE PRODUCTIVE COUGH. 1:1 SITTER PROVIDED FOR SAFETY. CLIENT IS ON AN AIR LOSS MATTRESS. CLIENT IS OFF HIS GT FEEDING RIGHT NOW. NO APPARENT SIGNS AND SYMPTOMS OF SOB, PAIN, DISTRESS OR DISCOMFORT. BED AT LOWEST POSITION FOR SAFETY, CALL LIGHT WITHIN REACH FOR ASSISTANCE.
[2017-06-26] MEDS: BENZTROPINE MESYLATE 1 MG TABLET GT SCH ×4 (08:16→21:45)
[2017-06-26] MEDS: LACTOBACILLUS RHAMNOSUS GG 1 EACH CAPSULE PO SCH ×2 (08:16→21:45)
[2017-06-26] MEDS: HALOPERIDOL 5 MG TABLET GT SCH ×4 (08:16→21:45)
[2017-06-26] MEDS: NYSTATIN OINTMENT 15 GM TUBE TOP SCH ×2 (08:17→21:46)
[2017-06-26] MEDS: Z GUARD REMEDY PASTE 57 GM TUBE TOP SCH ×2 (08:17→21:46)
[2017-06-26 08:27] VITALS: BP 142/75
[2017-06-26 15:32] VITALS: BP 132/64
[2017-06-26] MEDS: RIVAROXABAN 10 MG TABLET PO SCH (17:01)
--- NOTE | 2017-06-26 19:53 | NUR ---
CLIENT HAD A 1:1 SITTER FOR SAFETY. CLIENT IS SUPINE IN BED WITH THE HOB AT SEMI FOWLERS. CLIENT TENDS TO MOVE IN BED. NOTED WITH UPPER AND LOWER EXTREMITIES OF INVOLUNTARY MOVEMENT. CLIENT IS TOLERATING GT FEEDING WELL.
[2017-06-26] MEDS: CEFTRIAXONE 1 G in IV DEXTROSE 5% 50 ML IV SCH (21:46)
[2017-06-26 21:56] VITALS: BP 110/65
[2017-06-27] VITALS: BP 106/59
[2017-06-27] MEDS: VANCOMYCIN FOR PO/GT/NG USE GT SCH ×4 (00:31→17:12)
[2017-06-27] MEDS: IPRATROPIUM BROMIDE 0.5 MG/2.5 ML NEBU NEB SCH ×6 (02:38→22:34)
[2017-06-27] MEDS: ALBUTEROL SULFATE 2.5 MG/3 ML NEBU NEB SCH ×6 (02:38→22:35)
[2017-06-27 04:00] VITALS: BP 108/67
[2017-06-27] MEDS: PANTOPRAZOLE ORAL SUSPENSION 40 MG SUSPDR.PKT NG SCH (05:25)
[2017-06-27] MEDS: METOPROLOL TARTRATE 25 MG TABLET GT SCH ×4 (05:45→17:11)
--- NOTE | 2017-06-27 07:26 | NUR ---
RECEIVED CLIENT IN BED IN A SEMI FOWLERS POSITION. 1:1 SITTER PROVIDED FOR SAFETY. AIR MATTRESS IN PLACE. CLIENT IS AWAKE, ALERT AND ORIENTED TIMES 1, NOTED WITH LOWER AND UPPER EXTREMITIES INVOLUNTARY MOVEMENT
[2017-06-27 08:00] VITALS: BP 123/60
[2017-06-27] MEDS: HALOPERIDOL 5 MG TABLET GT SCH ×4 (08:16→20:45)
[2017-06-27] MEDS: BENZTROPINE MESYLATE 1 MG TABLET GT SCH ×4 (08:16→20:45)
[2017-06-27] MEDS: LACTOBACILLUS RHAMNOSUS GG 1 EACH CAPSULE PO SCH ×2 (08:16→20:45)
[2017-06-27] MEDS: NYSTATIN OINTMENT 15 GM TUBE TOP SCH ×2 (08:17→20:46)
[2017-06-27] MEDS: Z GUARD REMEDY PASTE 57 GM TUBE TOP SCH ×2 (08:19→20:47)
[2017-06-27] MEDS: FIBERSOURCE HN 1000ML LIQUID GT PRN (08:20)
[2017-06-27 08:32] LABS: BASOPHILS # (AUTO) 0.1 K/uL (0.0-8.0); BASOPHILS % (AUTO) 0.7 % (0.0-2.0); EOSINOPHILS # (AUTO) 0.4 K/uL (0.0-0.7); EOSINOPHILS % (AUTO) 3.6 % (0.0-7.0); HEMATOCRIT 32.2 % (36.7-47.1); HEMOGLOBIN 11.2 g/dL (12.5-16.3); LYMPHOCYTES # (AUTO) 1.3 K/uL (20.0-40.0); LYMPHOCYTES % (AUTO) 12.9 % (20.5-51.5); MEAN CORPUSCULAR HEMOGLOBIN 33.1 uug (23.8-33.4); MEAN CORPUSCULAR HGB CONC 35 g/dL (32.5-36.3); MONOCYTES # (AUTO) 0.7 K/uL (2.0-10.0); MONOCYTES % (AUTO) 6.9 % (0.0-11.0); NEUTROPHILS # (AUTO) 7.7 K/uL (1.8-8.9); NEUTROPHILS % (AUTO) 75.9 % (38.5-71.5); RED BLOOD CELL COUNT(AUTO) 3.39 MIL/uL (4.06-5.63)
[2017-06-27 08:46] LABS: BILIRUBIN,TOTAL 0.3 mg/dL (0.2-1.0); CREATININE 0.7 mg/dL (0.6-1.3); MAGNESIUM 1.7 mg/dL (1.8-2.4); PHOSPHOROUS 3.4 mg/dL (2.5-4.9); POTASSIUM 4.1 mmol/L (3.5-5.1); TOTAL PROTEIN, SERUM 6.9 g/dL (6.4-8.2)
[2017-06-27 08:53] LABS: PLATELET COUNT (AUTO) 505 K/uL (152-348); WHITE BLOOD COUNT (AUTO) 10.2 K/uL (3.6-10.2)
[2017-06-27] MEDS ORDERED: Z GUARD REMEDY PASTE 57 GM TUBE TOP PRN (09:45)
[2017-06-27] MEDS: NICOTINE 14 MG/24HR PATCH TD SCH (11:34)
[2017-06-27] MEDS ORDERED: MAGNESIUM OXIDE 400 MG TABLET GT ONE (11:45)
--- NOTE | 2017-06-27 11:51 | NUR ---
LISS SERVIN PROVIDED. HAND ASSESSMENT MADE DUE TO RESTRAINTS. ADEQUATE HAND CIRCULATION NOTED. CLIENT IS STILL NOTED THRASHING HIS HANDS ON THE BED'S SIDE RAILS. LOWER EXTREMITIES NOTED WITH INVOLUNTARY MOVEMENT. SITTER 1:1 PROVIDED
[2017-06-27 13:45] VITALS: BP 140/102
[2017-06-27 16:00] VITALS: BP 146/92
--- NOTE | 2017-06-27 16:25 | NUR ---
MITCHERYLS REMOVED TO ASSESS HAND AND FINGERS CIRCULATIONS, WNL.
--- NOTE | 2017-06-27 18:38 | NUR ---
Client is in bed awake, alert and oriented times one. GT feeding at 70 mls/hr and tolerating well. Assisted DEVICE REPAIR TECHNICIAN with client's change of cloths, diaper change and bed bath. Z-guard and Nystatin creams applied. Mittens were removed to assess hand and finger circulation. Client noted to have upper and lower involuntary movement of the extremities. Noted to thrash hands and legs against bed side rails. Client was also noted with productive cough. Rash area around the groin and sacral area notably healing with no open skin, no bleeding, no oozing. Sacral area noted pink in color. no apparent signs and symptoms of SOB. Unable to assess pain levels.
--- NOTE | 2017-06-27 19:40 | NUR ---
PATIENT CONFUSED, NON VERBAL, FLAT AFFECT, WITH TREMORS ON BILATERAL EXTREMITIES. TRACH INTACT NO SOB NOTED. GT FEEDING INFUSING @ 70 CC/HR. F/C DRAINING YELLOW URINE. ASSESSED BILATERAL MITTENS. PATIENT ON AIR MATRESS. OBSERVED CONTACT ISOLATION FOR STAFF FOR RESP CULTURE AND ECOLI IN THE URINE !:! SITTER AT THE BED SIDE. WILL CONTINUE TO MONITOR
[2017-06-27 20:00] VITALS: BP 104/85
[2017-06-27] MEDS: CEFTRIAXONE 1 G in IV DEXTROSE 5% 50 ML IV SCH (20:46)
[2017-06-28] VITALS: BP 118/56
[2017-06-28] MEDS: VANCOMYCIN FOR PO/GT/NG USE GT SCH ×5 (00:41→23:44)
[2017-06-28] MEDS: METOPROLOL TARTRATE 25 MG TABLET GT SCH ×5 (00:42→23:44)
[2017-06-28] MEDS: ALBUTEROL SULFATE 2.5 MG/3 ML NEBU NEB SCH ×6 (02:30→23:06)
[2017-06-28] MEDS: IPRATROPIUM BROMIDE 0.5 MG/2.5 ML NEBU NEB SCH ×6 (02:30→23:05)
[2017-06-28 04:00] VITALS: BP 110/58
[2017-06-28] MEDS: FIBERSOURCE HN 1000ML LIQUID GT PRN (05:45)
[2017-06-28] MEDS: PANTOPRAZOLE ORAL SUSPENSION 40 MG SUSPDR.PKT NG SCH (05:54)
--- NOTE | 2017-06-28 07:12 | NUR ---
PATIENT RESTLESS MOVING ON THE BED , HAS INVOLUNTARY MOVEMENTS ON BILATERAL EXTREMITIES. TRACH INTACT WITH O2 @ 6LPM . GT FEEDING KEPT OFF @ 6 AM. PATIENT ON SPECIAL MATTRESS . 1:1 SITTER AT THE BEDSIDE . SUCTIONED PRN. F/C DRAINING CLOUDY YELLOW URINE. OBSERVING CONTACT ISOLATION FRO RESPIRATORY CULTURE AND ECOLI OF URINE
[2017-06-28 08:00] VITALS: BP 124/81
--- NOTE | 2017-06-28 08:00 | NUR ---
AWAKE RESTLESS MELÉNDEZ VS TAKEN STABLE ON ASPIRATION /FALL PRECAUTION SITTER 1:1 AT BEDSIDE BED ALARM ON AND CALL LIGHT IN REACH CLOSED OBSERVATION CIRCULATION CHECK WNL
[2017-06-28] MEDS: BENZTROPINE MESYLATE 1 MG TABLET GT SCH ×4 (09:22→21:08)
[2017-06-28] MEDS: NICOTINE 14 MG/24HR PATCH TD SCH (09:22)
[2017-06-28] MEDS: HALOPERIDOL 5 MG TABLET GT SCH ×4 (09:22→21:08)
[2017-06-28] MEDS: LACTOBACILLUS RHAMNOSUS GG 1 EACH CAPSULE PO SCH ×2 (09:22→21:08)
[2017-06-28] MEDS: Z GUARD REMEDY PASTE 57 GM TUBE TOP SCH ×2 (09:23→21:09)
[2017-06-28] MEDS: NYSTATIN OINTMENT 15 GM TUBE TOP SCH ×2 (09:24→21:09)
--- NOTE | 2017-06-28 10:00 | NUR ---
REPOSITOON Q 2HR HOB UP AT ALL TIME GT FEEDING TOSHIA WELL NO SOB CONTINUE O2 VIA TRACH SUCTION TO TRACH AND MOUTH PRN SMALL WHITE THICK SPUTUM
[2017-06-28 11:55] VITALS: BP 109/46
[2017-06-28 15:55] VITALS: BP 123/60
[2017-06-28] MEDS: ACETAMINOPHEN 650 MG/20.3 ML LIQUID UDC GT PRN ×2 (17:47→23:43)
--- NOTE | 2017-06-28 18:00 | NUR ---
HEMODYNAMIC STATUS STABLE MED PRN FOR DISCOMFORT GIVEN CLOSED OBSERVATION ON ASPIRATION /FALL PRECAUTION GT FEEDING TOSHIA WELL NO N/V NO ACUTE DISTRESS SUCTION PRN TO TRACH AND MOUTH GIVEN SAFETY MEASURE PROVIDED SITTER 1:1 AT BEDSIDE AND BED ALARM ON
[2017-06-28 19:00] VITALS: BP 118/49
--- NOTE | 2017-06-28 20:30 | NUR ---
patient alert,confused, restless and trying to get out of bed,continue 1:1 sitter for safety,guero Chapin # 8intact with T piece aerosol 8l/m continue, no distress noted,requiring suction with moderated secretion noted,adequate urine out put with some sedimentation,ture and reposition,contact isolation for stool c diff, no diarrhea noted.vital signs remains stable.
[2017-06-28] MEDS: CEFTRIAXONE 1 G in IV DEXTROSE 5% 50 ML IV SCH (21:09)
[2017-06-29] VITALS: BP 119/67
[2017-06-29] MEDS: ALBUTEROL SULFATE 2.5 MG/3 ML NEBU NEB SCH ×7 (02:58→23:06)
[2017-06-29] MEDS: IPRATROPIUM BROMIDE 0.5 MG/2.5 ML NEBU NEB SCH ×7 (02:58→23:06)
[2017-06-29 04:00] VITALS: BP 132/67
[2017-06-29] MEDS: VANCOMYCIN FOR PO/GT/NG USE GT SCH ×4 (05:33→23:43)
[2017-06-29] MEDS: METOPROLOL TARTRATE 25 MG TABLET GT SCH ×5 (05:33→23:43)
[2017-06-29] MEDS: PANTOPRAZOLE ORAL SUSPENSION 40 MG SUSPDR.PKT NG SCH (05:33)
[2017-06-29] MEDS: ACETAMINOPHEN 650 MG/20.3 ML LIQUID UDC GT PRN ×3 (05:40→20:56)
--- NOTE | 2017-06-29 06:00 | NUR ---
PATIENT HAS LOW GRADE FEVER,TYLENOL GIVEN, PATIENT ASLEEP ,APPEARS COMFORTABLE.
[2017-06-29] MEDS: FIBERSOURCE HN 1000ML LIQUID GT PRN (08:00)
--- NOTE | 2017-06-29 08:00 | NUR ---
RESTING QUIET AT THIS TIME NO SOB OR PAIN ON FALL /ASPIRATION PRECAUTION SITTER 1:1 AT BEDSIDE
[2017-06-29 08:06] LABS: BASOPHILS # (AUTO) 0.1 K/uL (0.0-8.0); BASOPHILS % (AUTO) 0.5 % (0.0-2.0); EOSINOPHILS # (AUTO) 0.1 K/uL (0.0-0.7); EOSINOPHILS % (AUTO) 1.2 % (0.0-7.0); HEMATOCRIT 34.4 % (36.7-47.1); HEMOGLOBIN 11.4 g/dL (12.5-16.3); LYMPHOCYTES # (AUTO) 1.4 K/uL (20.0-40.0); LYMPHOCYTES % (AUTO) 11.6 % (20.5-51.5); MEAN CORPUSCULAR HEMOGLOBIN 31.7 uug (23.8-33.4); MEAN CORPUSCULAR HGB CONC 33 g/dL (32.5-36.3); MEAN CORPUSCULAR VOLUME 95.9 fL (73.0-96.2); MONOCYTES # (AUTO) 0.8 K/uL (2.0-10.0); MONOCYTES % (AUTO) 6.4 % (0.0-11.0); NEUTROPHILS # (AUTO) 9.7 K/uL (1.8-8.9); NEUTROPHILS % (AUTO) 80.3 % (38.5-71.5); PLATELET COUNT (AUTO) 539 K/uL (152-348); RED BLOOD CELL COUNT(AUTO) 3.59 MIL/uL (4.06-5.63); WHITE BLOOD COUNT (AUTO) 12.1 K/uL (3.6-10.2)
[2017-06-29 08:34] LABS: BILIRUBIN,TOTAL 0.2 mg/dL (0.2-1.0); CREATININE 0.7 mg/dL (0.6-1.3); PHOSPHOROUS 2.9 mg/dL (2.5-4.9); POTASSIUM 3.7 mmol/L (3.5-5.1)
[2017-06-29] MEDS: HALOPERIDOL 5 MG TABLET GT SCH ×4 (09:08→20:52)
[2017-06-29] MEDS: BENZTROPINE MESYLATE 1 MG TABLET GT SCH ×4 (09:08→20:52)
[2017-06-29] MEDS: NYSTATIN OINTMENT 15 GM TUBE TOP SCH ×2 (09:09→20:52)
[2017-06-29] MEDS: Z GUARD REMEDY PASTE 57 GM TUBE TOP SCH ×2 (09:09→20:52)
--- NOTE | 2017-06-29 10:00 | NUR ---
PHYSICAL THERAPY EXCERCISE IN BED GEN WEAK BUT MORE AWAKE /COOPERATE SOMETIMES STATE WANT TO GET UP OOB TO BRP BUT STILL UNABLE TO DO IT
[2017-06-29 10:26] VITALS: BP 106/68
[2017-06-29] MEDS: LACTOBACILLUS RHAMNOSUS GG 1 EACH CAPSULE PO SCH ×2 (11:26→20:51)
--- NOTE | 2017-06-29 14:00 | NUR ---
REMAINED ON /OFF RESTLESS MOVING SELF IN BED UP/DOWN CLOSED OBSERVATION
[2017-06-29 14:24] VITALS: BP 117/70
--- NOTE | 2017-06-29 17:30 | NUR ---
STABLE HEMODYNAMIC STATUS NO ACUTE DISTRESS GT TOSHIA WELL NO N/V OR ASPIRATION SUCTION PRN MOD SPUTUM OUT SAFETY MEASURE PROVIDED SITTER 1:1 AT BEDSIDE AND BED ALARM ON
[2017-06-29 20:06] VITALS: BP 112/53
--- NOTE | 2017-06-29 20:30 | NUR ---
patient alert, confused, hallucinated,non compliant with safety instructions, continue 1:1 sitter at bedside, still occ restless,attempting get out off bed, seen by ,order received, mouth care and suctions frequently done, moderate thick white mucous.
[2017-06-29] MEDS: CEFTRIAXONE 1 G in IV DEXTROSE 5% 50 ML IV SCH (20:52)
[2017-06-29] MEDS: HALOPERIDOL LACTATE 5 MG/1 ML VIAL IM PRN (23:43)
[2017-06-30] VITALS: BP 110/54
[2017-06-30 02:12] VITALS: BP 110/54
[2017-06-30] MEDS: ACETAMINOPHEN 650 MG/20.3 ML LIQUID UDC GT PRN ×3 (03:38→18:01)
[2017-06-30 03:43] VITALS: BP 91/67
--- NOTE | 2017-06-30 04:40 | NUR ---
PATIENT RESTLESS MOST OF TIMES, HALDOL 5 MG IM ADMIN FOR AGITATION X 1TIMES.ABLE TO REST FOR SHORT TIMES ONLY,PATIENT GETTING MORE AGGRESSIVE,EXPRESSED DESIRE TO EAT,WILL NOTIFY MD IF APPROPRIATE FOR ST EVALUATION.
[2017-06-30] MEDS: METOPROLOL TARTRATE 25 MG TABLET GT SCH ×3 (06:00→18:03)
[2017-06-30] MEDS: VANCOMYCIN FOR PO/GT/NG USE GT SCH ×3 (06:04→18:00)
[2017-06-30] MEDS: PANTOPRAZOLE ORAL SUSPENSION 40 MG SUSPDR.PKT NG SCH (06:04)
[2017-06-30] MEDS: ALBUTEROL SULFATE 2.5 MG/3 ML NEBU NEB SCH ×5 (07:49→22:44)
[2017-06-30] MEDS: IPRATROPIUM BROMIDE 0.5 MG/2.5 ML NEBU NEB SCH ×5 (07:49→22:44)
--- NOTE | 2017-06-30 08:00 | NUR ---
AWAKE CONFUSED AND RESTLESS MOVING IN BED ON ASPIRATION AND FALL PRECAUTION SITTER1;1 AT BEDSIDE CONTINUE GT FEEDING TOSHIA WELL NO N/V OR ASPIRATION CLOSED OBSERVATION
[2017-06-30] MEDS: HALOPERIDOL 5 MG TABLET GT SCH ×4 (08:23→20:45)
[2017-06-30] MEDS: LACTOBACILLUS RHAMNOSUS GG 1 EACH CAPSULE PO SCH ×2 (08:23→20:45)
[2017-06-30] MEDS: CLONAZEPAM 0.5 MG TABLET PO SCH ×3 (08:23→18:00)
[2017-06-30] MEDS: BENZTROPINE MESYLATE 1 MG TABLET GT SCH ×4 (08:23→20:45)
[2017-06-30] MEDS: Z GUARD REMEDY PASTE 57 GM TUBE TOP SCH ×2 (08:24→20:46)
[2017-06-30] MEDS: NYSTATIN OINTMENT 15 GM TUBE TOP SCH ×2 (08:24→20:47)
[2017-06-30] MEDS: FIBERSOURCE HN 1000ML LIQUID GT PRN (08:28)
--- NOTE | 2017-06-30 09:00 | NUR ---
MED AM GIVE AND COMPLETE BATH REPOSITION CIRCULATION CHECK WNL CONTINUE WRIST RESTRAINT MONITORING Q 1 HR
[2017-06-30 10:40] VITALS: BP 112/64
[2017-06-30 10:55] LABS: CREATININE 0.7 mg/dL (0.6-1.3); POTASSIUM 3.4 mmol/L (3.5-5.1)
[2017-06-30 11:18] LABS: BASOPHILS # (AUTO) 0.1 K/uL (0.0-8.0); BASOPHILS % (AUTO) 0.4 % (0.0-2.0); EOSINOPHILS # (AUTO) 0.2 K/uL (0.0-0.7); EOSINOPHILS % (AUTO) 1.4 % (0.0-7.0); HEMATOCRIT 35.1 % (36.7-47.1); HEMOGLOBIN 11.6 g/dL (12.5-16.3); LYMPHOCYTES # (AUTO) 1.5 K/uL (20.0-40.0); LYMPHOCYTES % (AUTO) 11.3 % (20.5-51.5); MEAN CORPUSCULAR HEMOGLOBIN 31.9 uug (23.8-33.4); MEAN CORPUSCULAR HGB CONC 33 g/dL (32.5-36.3); MEAN CORPUSCULAR VOLUME 96.2 fL (73.0-96.2); MONOCYTES # (AUTO) 0.7 K/uL (2.0-10.0); MONOCYTES % (AUTO) 4.9 % (0.0-11.0); NEUTROPHILS # (AUTO) 10.9 K/uL (1.8-8.9); PLATELET COUNT (AUTO) 515 K/uL (152-348); RED BLOOD CELL COUNT(AUTO) 3.65 MIL/uL (4.06-5.63); WHITE BLOOD COUNT (AUTO) 13.3 K/uL (3.6-10.2)
[2017-06-30] MEDS ORDERED: POTASSIUM CHLORIDE 20 MEQ TAB.PRT.SR PO ONE (12:15)
[2017-06-30] MEDS ORDERED: POTASSIUM CHLORIDE 20 MEQ POWDER PACKET PO ONE (14:15)
[2017-06-30 14:42] VITALS: BP 114/55
--- NOTE | 2017-06-30 18:00 | NUR ---
CONDITION STABLE REMAIN RESTLESS ON /OFF CLOSED OBSERVATION SITTER 1:1 at bed side GT FEEDING TOSHIA WELL SAFETY MEASURE PROVIDED BED ALARM ON AND CALL LIGHT IN REACH CIRCULATION WNL SOFT WRIST RESTRAINT ON CHECK Q 1 HR PER PROTOCOL
--- NOTE | 2017-06-30 19:20 | NUR ---
Awake during initial rounds. Not in distress. Tolerating Cool aerosol via trach at this time. Infrequent non productive cough noted. HOB elevated. Continuos GT feeding of Fibersource at 70 cc/hour via Enteral pump. No gastric residual obtained at this time. Hand mitten applied to both hands for safety. No circulation impairment noted. Safety measures, fall and contact isolation precaution maintained. Continue care as planned.
[2017-06-30 20:00] VITALS: BP 99/59
[2017-06-30] MEDS: CEFTRIAXONE 1 G in IV DEXTROSE 5% 50 ML IV SCH (20:45)
[2017-07-01] VITALS: BP 99/62
[2017-07-01] MEDS: VANCOMYCIN FOR PO/GT/NG USE GT SCH ×4 (00:46→17:16)
[2017-07-01] MEDS: IPRATROPIUM BROMIDE 0.5 MG/2.5 ML NEBU NEB SCH ×6 (02:49→22:49)
[2017-07-01] MEDS: ALBUTEROL SULFATE 2.5 MG/3 ML NEBU NEB SCH ×6 (02:49→22:49)
[2017-07-01] MEDS: FIBERSOURCE HN 1000ML LIQUID GT PRN ×2 (03:01→08:05)
[2017-07-01 04:03] VITALS: BP 109/58
--- NOTE | 2017-07-01 05:26 | NUR ---
Slept in between care. Some time of restlessness but no agitation noted. Able to follow command. Continue GTF as ordered, tolerated well. No s/s of aspiration noted. Noted some skin breakdowns in between of his left 5th, 4th, 3rd and 2nd fingers. Cleansed thoroughly with soap and water and left open to air. No hand mitten applied at this time to give skin a break. Will monitor patient behavior for agitation. Continue care as planned.
[2017-07-01] MEDS: METOPROLOL TARTRATE 25 MG TABLET GT SCH ×4 (05:43→17:11)
[2017-07-01] MEDS: PANTOPRAZOLE ORAL SUSPENSION 40 MG SUSPDR.PKT NG SCH (05:43)
[2017-07-01 07:09] LABS: CARBON DIOXIDE 28 mmol/L (21-32); CHLORIDE 114 mmol/L (98-107); CREATININE 0.6 mg/dL (0.6-1.3); GLUCOSE 119 mg/dL (74-106); MAGNESIUM 1.8 mg/dL (1.8-2.4); PHOSPHOROUS 3.2 mg/dL (2.5-4.9); POTASSIUM 3.7 mmol/L (3.5-5.1); UREA NITROGEN, BLOOD 23 mg/dL (7-18)
[2017-07-01 07:29] LABS: BASOPHILS # (AUTO) 0.1 K/uL (0.0-8.0); BASOPHILS % (AUTO) 0.5 % (0.0-2.0); EOSINOPHILS # (AUTO) 0.4 K/uL (0.0-0.7); EOSINOPHILS % (AUTO) 3.6 % (0.0-7.0); HEMATOCRIT 35.2 % (36.7-47.1); HEMOGLOBIN 11.8 g/dL (12.5-16.3); LYMPHOCYTES # (AUTO) 1.5 K/uL (20.0-40.0); LYMPHOCYTES % (AUTO) 13.4 % (20.5-51.5); MEAN CORPUSCULAR HEMOGLOBIN 31.9 uug (23.8-33.4); MEAN CORPUSCULAR HGB CONC 33 g/dL (32.5-36.3); MEAN CORPUSCULAR VOLUME 95.5 fL (73.0-96.2); MONOCYTES # (AUTO) 0.5 K/uL (2.0-10.0); MONOCYTES % (AUTO) 4.6 % (0.0-11.0); NEUTROPHILS # (AUTO) 8.8 K/uL (1.8-8.9); NEUTROPHILS % (AUTO) 77.9 % (38.5-71.5); PLATELET COUNT (AUTO) 484 K/uL (152-348); RED BLOOD CELL COUNT(AUTO) 3.69 MIL/uL (4.06-5.63); WHITE BLOOD COUNT (AUTO) 11.3 K/uL (3.6-10.2)
--- NOTE | 2017-07-01 07:38 | NUR ---
Client is on 1:1 sitter for safety, received client awake and moving in bed in a supine position with the HOB at a semi fowlers. No apparent signs and symptoms of SOB, pain, distress or discomfort. Air mattress in place. Bed at lowest position for safety and call light within reach for assistance. Left mitten removed at this time, hand is open to air
[2017-07-01 08:00] VITALS: BP 116/59
--- NOTE | 2017-07-01 08:02 | NUR ---
GT feeding started, running at 70cc/hr. Both mittens removed at this time to assess hand circulation and both hands open to air.
--- NOTE | 2017-07-01 09:34 | NUR ---
Both mittens off at this point, there has been no attempt of client pulling off any IV lines of GT feeding. Client is voicing that he wants to leave. PT in progress and the client is cooperative and following commands. Client was suctioned and tolerated well.
[2017-07-01] MEDS: BENZTROPINE MESYLATE 1 MG TABLET GT SCH ×4 (09:55→21:35)
[2017-07-01] MEDS: HALOPERIDOL 5 MG TABLET GT SCH ×4 (09:55→21:35)
[2017-07-01] MEDS: CLONAZEPAM 0.5 MG TABLET PO SCH ×3 (09:56→17:16)
[2017-07-01] MEDS: NYSTATIN OINTMENT 15 GM TUBE TOP SCH ×2 (10:00→21:35)
[2017-07-01] MEDS: Z GUARD REMEDY PASTE 57 GM TUBE TOP SCH ×2 (10:01→21:36)
--- NOTE | 2017-07-01 10:13 | NUR ---
Culturelle not given yet, unavailable in the Pix[facility]. Pharmacy aware and will refill Pixis. Will give medication as soon as it is available
[2017-07-01] MEDS: LACTOBACILLUS RHAMNOSUS GG 1 EACH CAPSULE PO SCH ×2 (10:25→21:35)
[2017-07-01 11:56] VITALS: BP 107/60
[2017-07-01] MEDS: ACETAMINOPHEN 650 MG/20.3 ML LIQUID UDC GT PRN ×2 (12:34→21:38)
[2017-07-01] MEDS: HALOPERIDOL LACTATE 5 MG/1 ML VIAL IM PRN (14:43)
[2017-07-01 16:04] VITALS: BP 100/47
--- NOTE | 2017-07-01 17:49 | NUR ---
Client was noted to have soiled himself, he was very aggressive as the COMPLAINT SUPERVISOR and I tried to place him back to bed from the chair to change him. He became physical aggressive trying to kick and hit both of us. Mittens were placed back on both hands as he was trying to hit both of us. He is trying to get up from either the bed or chair where ever he is placed on.
[2017-07-01] MEDS ORDERED: LORAZEPAM 1 MG TABLET GT STA (18:03)
--- NOTE | 2017-07-01 18:43 | NUR ---
Client started the morning compliant with medication and nursing care. Noted, the EXPERT WITNESS shaved him, washed his hair and cleaned him with no physical resistance. Medication was given through GT and tolerated well, GT feeding also tolerated well. Late evening, client was noted with aggressive behavior and anxiety. Re-enforced relaxation techniques with minimal effect, client became physical aggressive. Hospitalist aware and ordered a one time dose of 1mg Ativan via GT: noted, ordered and given. Client is currently in a garcia chair trying to get up and walk out. Noted to be pulling on GT, IV and trach, consistently reminding him of the dangers and moving his chair back in place from pulling tubes. New mittens provided since the previous ones were noted with feces on the left mitten and noted client trying to be bitting on the right mitten.
[2017-07-01 20:00] VITALS: BP 106/63
--- NOTE | 2017-07-01 20:00 | NUR ---
patient remains up in garcia chair,still restless, keep biting mitten and try to get up occasionally ,continue 1:1 sitter for safety, oral and trach suction , mouth care given, patient stable on aerosol 6l/m, 30%,no respiratory distress noted.
[2017-07-01] MEDS: CEFTRIAXONE 1 G in IV DEXTROSE 5% 50 ML IV SCH (21:35)
[2017-07-01] MEDS ORDERED: TEMAZEPAM 15 MG CAPSULE PO PRN (22:15)
--- NOTE | 2017-07-01 23:00 | NUR ---
PATIENT SEEN BY ,UP DATE PATIENT CONDITION,NEW ORDERS RECEIVED.
[2017-07-02] MEDS: VANCOMYCIN FOR PO/GT/NG USE GT SCH ×4 (00:05→17:24)
[2017-07-02] MEDS: METOPROLOL TARTRATE 25 MG TABLET GT SCH ×4 (00:05→17:18)
[2017-07-02] MEDS ORDERED: chlorproMAZINE 50 MG/2 ML AMPUL ONE (00:57)
[2017-07-02] MEDS: chlorproMAZINE 50 MG/2 ML AMPUL IM PRN ×2 (01:37→15:16)
[2017-07-02] MEDS: IPRATROPIUM BROMIDE 0.5 MG/2.5 ML NEBU NEB SCH ×6 (02:58→22:49)
[2017-07-02] MEDS: ALBUTEROL SULFATE 2.5 MG/3 ML NEBU NEB SCH ×6 (02:58→22:49)
--- NOTE | 2017-07-02 05:00 | NUR ---
AT 0140 PATIENT BECAME RESTLESS AND AGITATED,THORAZINE 50 MG IM ADMIN , AFTER MEDICATION GIVEN PATIENT ABLE TO SLEEP WELL, NO RESPIRATORY DISTRESS NOTED.
[2017-07-02 05:59] VITALS: BP 100/61
[2017-07-02] MEDS: PANTOPRAZOLE ORAL SUSPENSION 40 MG SUSPDR.PKT NG SCH (06:15)
--- NOTE | 2017-07-02 07:31 | NUR ---
Client was noted in a garcia chair agitated, two YARN EXAMINER's by his side trying to calm him down.
[2017-07-02 07:32] VITALS: BP 119/56
[2017-07-02] MEDS: FIBERSOURCE HN 1000ML LIQUID GT PRN (07:45)
[2017-07-02] MEDS: BENZTROPINE MESYLATE 1 MG TABLET GT SCH ×3 (08:10→17:24)
[2017-07-02] MEDS: CLONAZEPAM 0.5 MG TABLET PO SCH ×3 (08:10→20:55)
[2017-07-02] MEDS: LACTOBACILLUS RHAMNOSUS GG 1 EACH CAPSULE PO SCH ×2 (08:10→20:54)
[2017-07-02] MEDS: NYSTATIN OINTMENT 15 GM TUBE TOP SCH ×2 (08:12→20:56)
[2017-07-02] MEDS: Z GUARD REMEDY PASTE 57 GM TUBE TOP SCH ×2 (09:00→20:56)
--- NOTE | 2017-07-02 10:00 | NUR ---
Missing from patient's cassette, Halo and Z-guard pharmacy aware. Will administer once received
--- NOTE | 2017-07-02 10:54 | NUR ---
Z-guard applied as ordered. Waiting on Hal, pharmacy aware
[2017-07-02] MEDS: HALOPERIDOL LACTATE 10 MG/5 ML ORAL SOLUTION UDC GT SCH ×3 (11:30→17:24)
--- NOTE | 2017-07-02 13:17 | NUR ---
Hand circulation assessment done, Z-guard applied between fingers in both hands. Client was suctioned though T-tube.
--- NOTE | 2017-07-02 15:31 | NUR ---
Client noted with agitation behaviors and chlorproMAZINE 50mg/2ml given as ordered, Q6hr PRN. EKG taken and read, confirmation was done through pharmacy.
[2017-07-02 15:41] VITALS: BP 104/54
--- NOTE | 2017-07-02 19:22 | NUR ---
Client is in bed sleeping in a semi fowlers position. Mittens are off at this point to air out both hands and continue to heal between the fingers of the left hand. Client seemed more calm and slept most of the day after psy medication were adjusted. No apparent signs and symptoms of SOB, pain, distress or discomfort. Breathing treatments tolerated well. Vanco given as ordered. Physical tolerated well. visited him early afternoon and went well
--- NOTE | 2017-07-02 20:00 | NUR ---
patient sleeping ,no acute distress, released reji,1:1 sitter at bedside,continue c diff contact isolation per ID,patient on vancomycin , orally,patient appears comfortable,tracheostomy intact with t piece o2,suction given, minimal secretion noted.patient seen by ,medication readjusted.
[2017-07-02 20:21] VITALS: BP 99/56
[2017-07-03] MEDS: FIBERSOURCE HN 1000ML LIQUID GT PRN (00:36)
[2017-07-03] MEDS: METOPROLOL TARTRATE 25 MG TABLET GT SCH ×5 (00:43→23:11)
[2017-07-03] MEDS: VANCOMYCIN FOR PO/GT/NG USE GT SCH ×5 (00:43→23:10)
[2017-07-03] MEDS: ALBUTEROL SULFATE 2.5 MG/3 ML NEBU NEB SCH ×6 (03:12→23:20)
[2017-07-03] MEDS: IPRATROPIUM BROMIDE 0.5 MG/2.5 ML NEBU NEB SCH ×6 (03:12→23:20)
[2017-07-03 05:48] VITALS: BP 116/55
[2017-07-03] MEDS: PANTOPRAZOLE ORAL SUSPENSION 40 MG SUSPDR.PKT NG SCH (06:23)
[2017-07-03 06:52] LABS: CARBON DIOXIDE 28 mmol/L (21-32); CHLORIDE 108 mmol/L (98-107); CREATININE 0.6 mg/dL (0.6-1.3); GLUCOSE 102 mg/dL (74-106); POTASSIUM 3.8 mmol/L (3.5-5.1); UREA NITROGEN, BLOOD 17 mg/dL (7-18)
--- NOTE | 2017-07-03 06:58 | NUR ---
patient sleeping most of the night, easily awaken, calm and co operative,off mitten whole shift,
--- NOTE | 2017-07-03 07:39 | NUR ---
Client is in be sleeping with the HOB at a semi fowlers position. Client has a 1:1 sitter for safety. Air mattress in place. No apparent signs of aggressive behavior. No signs and symptoms of SOB, pain, distress or discomfort.
[2017-07-03 07:47] VITALS: BP 100/56
[2017-07-03] MEDS: CLONAZEPAM 0.5 MG TABLET PO SCH ×3 (09:54→20:59)
[2017-07-03] MEDS: NYSTATIN OINTMENT 15 GM TUBE TOP SCH ×2 (09:54→21:00)
[2017-07-03] MEDS: chlorproMAZINE 25 MG TABLET PO SCH ×3 (09:54→18:48)
[2017-07-03] MEDS: Z GUARD REMEDY PASTE 57 GM TUBE TOP SCH ×2 (09:56→21:00)
[2017-07-03] MEDS: LACTOBACILLUS RHAMNOSUS GG 1 EACH CAPSULE PO SCH ×2 (10:09→20:59)
[2017-07-03] MEDS: ACETAMINOPHEN 650 MG/20.3 ML LIQUID UDC GT PRN (13:18)
[2017-07-03 14:03] VITALS: BP 104/65
[2017-07-03 16:06] VITALS: BP 100/58
[2017-07-03 17:40] VITALS: BP 98/61
--- NOTE | 2017-07-03 17:45 | NUR ---
THORAZINE NOT GIVEN, NOT IN PYXIS, PHARMACY AWARE
[2017-07-03 19:00] VITALS: BP 98/56
--- NOTE | 2017-07-03 19:30 | NUR ---
PT IN ROOM ASLEEP IN ROOM IN NO ACUTE DISTRESS. TRACH IN PLACE IN NO ACUTE DISTRESS. G-TUBE IN TACT RUNNING FIBERSOURCE @ 70CC/HR. NO MITTENS NOTED AT THIS TIME. CONTINUE TO MONITOR. SITTER AT BEDSIDE.
--- NOTE | 2017-07-03 19:48 | NUR ---
CLIENT HAS BEEN IN BED SLEEPING THROUGHOUT THE DAY BUT EASILY AROUSABLE. GT FEEDING TOLERATING WELL. SKIN CARE PROTOCOL ORDERED. CLIENT WAS COMPLIANT, NO AGGRESSIVE BEHAVIOR NOTED. NO APPARENT SIGNS AND SYMPTOMS OF SOB, PAIN, DISTRESS OR DISCOMFORT
--- NOTE | 2017-07-03 21:43 | NUR ---
Pt in room asleep. Seen by Dr Slater and is aware of current situation. MD states pt has prn thorazine if needed for any increased agitation. Continue to monitor.
[2017-07-04] MEDS: ALBUTEROL SULFATE 2.5 MG/3 ML NEBU NEB SCH ×6 (03:14→23:01)
[2017-07-04] MEDS: IPRATROPIUM BROMIDE 0.5 MG/2.5 ML NEBU NEB SCH ×6 (03:14→23:01)
[2017-07-04 04:00] VITALS: BP 99/54
--- NOTE | 2017-07-04 05:00 | NUR ---
PT IN ROOM IN NO RESP DISTRESS. SUCTIONING AND REPOSITIONING MAINTAINED THROUGHOUT THE NIGHT. ABLE TO FOLLOW SIMPLE COMMANDS WITH NO INCREASED AGITATION OR CONFUSION. NO REACTION TO CONTINUOUS G-TUBE FEEDING AT RATE OF 70ML/HR. RATE TO BE STOPPED AT 2112-1540. CONTINUE TO MONITOR. CALL LIGHT PLACED WITHIN REACH. BP MEDICATION LOPRESSOR HELD D/T BP 99/54.
[2017-07-04] MEDS: METOPROLOL TARTRATE 25 MG TABLET GT SCH ×3 (05:31→17:22)
[2017-07-04] MEDS: VANCOMYCIN FOR PO/GT/NG USE GT SCH ×3 (05:36→17:13)
[2017-07-04] MEDS: PANTOPRAZOLE ORAL SUSPENSION 40 MG SUSPDR.PKT NG SCH (05:36)
[2017-07-04 06:45] LABS: BASOPHILS % (AUTO) 0.3 % (0.0-2.0); EOSINOPHILS # (AUTO) 0.3 K/uL (0.0-0.7); EOSINOPHILS % (AUTO) 1.6 % (0.0-7.0); HEMATOCRIT 33.5 % (36.7-47.1); HEMOGLOBIN 11.2 g/dL (12.5-16.3); LYMPHOCYTES # (AUTO) 1.2 K/uL (20.0-40.0); MEAN CORPUSCULAR HEMOGLOBIN 31.8 uug (23.8-33.4); MEAN CORPUSCULAR HGB CONC 33 g/dL (32.5-36.3); MEAN CORPUSCULAR VOLUME 95.5 fL (73.0-96.2); MONOCYTES # (AUTO) 0.7 K/uL (2.0-10.0); MONOCYTES % (AUTO) 4.2 % (0.0-11.0); NEUTROPHILS # (AUTO) 14.3 K/uL (1.8-8.9); NEUTROPHILS % (AUTO) 86.9 % (38.5-71.5); PLATELET COUNT (AUTO) 396 K/uL (152-348); RED BLOOD CELL COUNT(AUTO) 3.51 MIL/uL (4.06-5.63); WHITE BLOOD COUNT (AUTO) 16.5 K/uL (3.6-10.2)
[2017-07-04 06:47] LABS: CARBON DIOXIDE 31 mmol/L (21-32); CHLORIDE 105 mmol/L (98-107); CREATININE 0.5 mg/dL (0.6-1.3); GLUCOSE 100 mg/dL (74-106); UREA NITROGEN, BLOOD 17 mg/dL (7-18)
[2017-07-04] MEDS: chlorproMAZINE 25 MG TABLET PO SCH ×3 (08:34→17:13)
[2017-07-04] MEDS: CLONAZEPAM 0.5 MG TABLET PO SCH ×3 (08:34→21:31)
[2017-07-04] MEDS: ACETAMINOPHEN 650 MG/20.3 ML LIQUID UDC GT PRN (08:34)
[2017-07-04] MEDS: NYSTATIN OINTMENT 15 GM TUBE TOP SCH ×2 (08:35→21:32)
[2017-07-04] MEDS: Z GUARD REMEDY PASTE 57 GM TUBE TOP SCH ×2 (08:35→21:32)
[2017-07-04] MEDS: LACTOBACILLUS RHAMNOSUS GG 1 EACH CAPSULE PO SCH ×2 (09:38→21:31)
[2017-07-04 12:11] VITALS: BP 107/71
--- NOTE | 2017-07-04 18:35 | NUR ---
NO CHANGE IN PT STATUS THROUGH OUT SHIFT. PT CALM COOPERATIVE, MEDICATION COMPLIANT. PT SUCTIONED PRN, CHANGE PT POSITION Q2HRS. PT SHOWSW NO SIGNS OF RESPIRATORY DISTRESS AT THIS TIME. CONTINUE TO MONITOR PT.
[2017-07-04 19:00] VITALS: BP 98/49
--- NOTE | 2017-07-04 19:30 | NUR ---
Received patient laying comfortably in bed. No acute distress noted. Noted central line on the right jugular. Trach in place. Gtube in place. Tube feeding at 70 cc/hr. Alvarado cath draining well. Patient is in contact isolation for CDiff. Safety initiated. Call light within reach. Will continue to monitor.
[2017-07-05] VITALS: BP 97/59
[2017-07-05] MEDS: VANCOMYCIN FOR PO/GT/NG USE GT SCH ×5 (00:21→23:28)
[2017-07-05 02:54] LABS: *BILIRUBIN,URIN NEGATIVE (NEGATIVE); *BLOOD, URINE 1+ (NEGATIVE); *CLARITY,URINE CLOUDY (CLEAR); *COLOR,URINE YELLOW (YELLOW); *KETONES,URINE NEGATIVE (NEGATIVE); *PROTEIN,URINE 1+ (NEGATIVE); *UROBILINOGEN,URINE 0.2 E.U./dl (NORMAL); LEUKOCYTE ESTERASE ,URINE 2+ (NEGATIVE); NITRITE, URINE NEGATIVE (NEGATIVE); UGLUCOSE NEGATIVE (NEGATIVE)
[2017-07-05 03:13] LABS: BACTERIA,URINE FEW /HPF (NONE SEEN); SQUAMOUS EPITHELIAL CELL,UR FEW /HPF (NONE SEEN); WBC,URINE TNTC /HPF (0-3); YEAST,URINE MANY /HPF (NONE SEEN)
[2017-07-05] MEDS: IPRATROPIUM BROMIDE 0.5 MG/2.5 ML NEBU NEB SCH ×6 (03:13→22:55)
[2017-07-05] MEDS: ALBUTEROL SULFATE 2.5 MG/3 ML NEBU NEB SCH ×6 (03:14→22:55)
[2017-07-05 04:00] VITALS: BP 94/58
--- NOTE | 2017-07-05 04:55 | NUR ---
No Changes t/o shift. No acute distress noted. Trach in place. Midline on the right neck patent and intact. Avlarado draining well. Safety and comfort measures maintained t/o shift. Vital signs stable. All meds given as ordered. All needs met.
[2017-07-05] MEDS: METOPROLOL TARTRATE 25 MG TABLET GT SCH ×3 (06:00→11:55)
[2017-07-05] MEDS: PANTOPRAZOLE ORAL SUSPENSION 40 MG SUSPDR.PKT NG SCH (06:06)
[2017-07-05 06:38] LABS: BASOPHILS # (AUTO) 0.1 K/uL (0.0-8.0); BASOPHILS % (AUTO) 0.4 % (0.0-2.0); EOSINOPHILS # (AUTO) 0.2 K/uL (0.0-0.7); EOSINOPHILS % (AUTO) 1.8 % (0.0-7.0); HEMATOCRIT 36.4 % (36.7-47.1); HEMOGLOBIN 12.3 g/dL (12.5-16.3); LYMPHOCYTES # (AUTO) 1.2 K/uL (20.0-40.0); LYMPHOCYTES % (AUTO) 9.6 % (20.5-51.5); MEAN CORPUSCULAR HEMOGLOBIN 32.3 uug (23.8-33.4); MEAN CORPUSCULAR HGB CONC 34 g/dL (32.5-36.3); MEAN CORPUSCULAR VOLUME 95.3 fL (73.0-96.2); MONOCYTES # (AUTO) 0.5 K/uL (2.0-10.0); MONOCYTES % (AUTO) 4.4 % (0.0-11.0); NEUTROPHILS # (AUTO) 10.3 K/uL (1.8-8.9); NEUTROPHILS % (AUTO) 83.8 % (38.5-71.5); PLATELET COUNT (AUTO) 434 K/uL (152-348); RED BLOOD CELL COUNT(AUTO) 3.82 MIL/uL (4.06-5.63); WHITE BLOOD COUNT (AUTO) 12.3 K/uL (3.6-10.2)
[2017-07-05 07:02] LABS: ALANINE AMINOTRANSFERASE 16 U/L (16-63); ALKALINE PHOSPHATASE 118 U/L (50-136); ASPARTATE AMINOTRANSFERASE 22 U/L (15-37); BILIRUBIN,TOTAL 0.2 mg/dL (0.2-1.0); CARBON DIOXIDE 32 mmol/L (21-32); CHLORIDE 103 mmol/L (98-107); CREATININE 0.6 mg/dL (0.6-1.3); GLUCOSE 92 mg/dL (74-106); PHOSPHOROUS 3.2 mg/dL (2.5-4.9); POTASSIUM 4.2 mmol/L (3.5-5.1); TOTAL PROTEIN, SERUM 6.7 g/dL (6.4-8.2); UREA NITROGEN, BLOOD 15 mg/dL (7-18)
[2017-07-05] MEDS: NYSTATIN OINTMENT 15 GM TUBE TOP SCH ×2 (09:51→21:04)
[2017-07-05] MEDS: Z GUARD REMEDY PASTE 57 GM TUBE TOP SCH ×2 (09:51→21:04)
[2017-07-05] MEDS: chlorproMAZINE 25 MG TABLET PO SCH ×3 (09:52→17:45)
[2017-07-05] MEDS: CLONAZEPAM 0.5 MG TABLET PO SCH ×3 (09:52→21:00)
[2017-07-05] MEDS: LACTOBACILLUS RHAMNOSUS GG 1 EACH CAPSULE PO SCH ×2 (09:53→21:03)
--- NOTE | 2017-07-05 12:36 | NUR ---
BP MED AND KLONOPIN WERE HELD. PT BP IS 95/60.
[2017-07-05] MEDS: FIBERSOURCE HN 1000ML LIQUID GT PRN (12:46)
[2017-07-05] MEDS: ACETYLCYSTEINE 10% 4ML VIAL NEB SCH ×2 (15:25→22:55)
[2017-07-05] MEDS ORDERED: ACETYLCYSTEINE 20% 800 MG/4 ML VIAL NEB SCH (15:30)
--- NOTE | 2017-07-05 19:00 | NUR ---
PT NO LONGER NEEDS A SITTER. PT HAS BEEN CALM AND COOPERATIVE. PT WAS ABLE TO VERBALIZE NEEDS AND WANTS. PT HAS NO SIGNS OF AGITATION, NO HITTING STAFF OR SELF. PT IS RESTING WITHOUT RESPIRATORY DISTRESS. BED AT LOWEST LOCKED POSITION. CONTINUE TO MONITOR.
--- NOTE | 2017-07-05 19:30 | NUR ---
Received patient laying comfortably in bed. No acute distress noted. Patient able to respond to questions and make needs known. A&O x 3. No behavioral issues noted. 1:2 sitter by the door. Noted central line on the right jugular patent and intact. Trach in place, small secretions noted. Gtube in place. Tube feeding at 70 cc/hr. Alvarado cath draining well. Patient is in contact isolation for CDiff. Safety initiated. Call light within reach. Will continue to monitor.
--- NOTE | 2017-07-05 20:00 | NUR ---
Patient refused to be turned and repositioned. He says "he is ok right now". I explained that we would have to turn and reposition him to present pressure ulcers. Also, I would like to assess his back side. But still refused. Will try again later. Will continue to monitor.
[2017-07-05 20:03] VITALS: BP 100/53
--- NOTE | 2017-07-05 22:38 | NUR ---
Patient refused to be turned, repositioned and changed. Will continue to monitor.
[2017-07-06] MEDS: ALBUTEROL SULFATE 2.5 MG/3 ML NEBU NEB SCH ×5 (03:25→19:20)
[2017-07-06] MEDS: IPRATROPIUM BROMIDE 0.5 MG/2.5 ML NEBU NEB SCH ×5 (03:25→19:20)
[2017-07-06 04:00] VITALS: BP 105/62
[2017-07-06] MEDS: PANTOPRAZOLE ORAL SUSPENSION 40 MG SUSPDR.PKT NG SCH (05:01)
[2017-07-06] MEDS: VANCOMYCIN FOR PO/GT/NG USE GT SCH ×2 (05:01→12:22)
--- NOTE | 2017-07-06 05:41 | NUR ---
Patient slept intermittently t/o shift. Patient was able to make needs known. A&O x 2. Trach care provided. IV on the right neck is patent and intact. Noted skin break down in between his fingers. GTube still on place. Tube feeding running at 70 cc/ml. Patient tolerating it well. Carver care porvided. Draining ok but poor output, repositioned carver, draining slowly. Discussed with charge nurse Mamie. Safety and comfort measures maintained t/o shift. Vital signs stable. BP tends to run on the low side. All mets given as ordered. All needs met. Patient finally allowed the sitter and I to change, turn and reposition him. Back side clear of skin breakdown.
[2017-07-06] MEDS: ACETYLCYSTEINE 10% 4ML VIAL NEB SCH ×2 (07:22→15:18)
[2017-07-06] MEDS: LACTOBACILLUS RHAMNOSUS GG 1 EACH CAPSULE PO SCH (09:00)
[2017-07-06] MEDS: CLONAZEPAM 0.5 MG TABLET PO SCH ×2 (09:00→13:00)
[2017-07-06] MEDS: Z GUARD REMEDY PASTE 57 GM TUBE TOP SCH (09:00)
[2017-07-06] MEDS: NYSTATIN OINTMENT 15 GM TUBE TOP SCH (09:00)
[2017-07-06] MEDS: chlorproMAZINE 25 MG TABLET PO SCH ×2 (09:00→13:00)
[2017-07-06] MEDS: ACETAMINOPHEN 650 MG/20.3 ML LIQUID UDC GT PRN (12:47)
[2017-07-06 13:30] VITALS: BP 150/74
[2017-07-06] MEDS ORDERED: ACET650S26 GT (18:39)
[2017-07-06] MEDS ORDERED: IPRA0.2S6 NEB (18:39)
[2017-07-06] MEDS ORDERED: TEMA15CA5 PO (18:39)
[2017-07-06] MEDS ORDERED: PANT40SU2 NG (18:39)
[2017-07-06] MEDS ORDERED: HYDR25TA86 GT (18:39)
[2017-07-06] MEDS ORDERED: ALBU2.5V7 NEB ×2 (18:39)
[2017-07-06] MEDS ORDERED: ACET100V5 NEB (18:39)
[2017-07-06] MEDS ORDERED: LACT1CAP57 PO (18:39)
[2017-07-06] MEDS ORDERED: CLON0.5T4 PO ×2 (18:39)
[2017-07-06] MEDS ORDERED: NYST15OI TOP (18:39)
[2017-07-06] MEDS ORDERED: Nutritional Supplement/Fiber GT (18:39)
[2017-07-06] MEDS ORDERED: CHLO25TA13 PO (18:39)
[2017-07-06] MEDS ORDERED: CHLO25AM IM (18:39)
[2017-07-06] MEDS ORDERED: MENT71OI TOP ×2 (18:39)
--- NOTE | 2017-07-06 19:45 | NUR ---
Received patient laying comfortably in bed. No acute distress noted. Patient able to respond to questions and make needs known. A&O x 2. No behavioral issues noted. Patient is being discharged to [facility] for continued care. Per Dr. Tinsley, central line and carver will not be discontinued. Noted central line on the right jugular patent and intact. Trach in place, small secretions noted. Gtube in place. Tube feeding at 70 cc/hr. Carver cath draining well. Patient is in contact isolation for CDiff. Safety initiated. Call light within reach. Waiting for patient to be picked up. Will continue to monitor.
== END 2017-07-06 20:45 | DRG 4 ==
LOC: ER 18:00 → CCU 18:19 → TELE 06-24 15:30 → MED 06-26 11:40
PROVIDERS: ADMIT Internal Medicine; ATTEND Internal Medicine
PROC: 5A1955Z Respiratory Ventilation, Greater than 96 Consecutive Hours (ICD-10-PCS; 2017-05-14)
PROC: 0BH17EZ Insertion of Endotracheal Airway into Trachea, Via Natural or Artificial Opening (ICD-10-PCS; 2017-05-14)
PROC: 0DH67UZ Insertion of Feeding Device into Stomach, Via Natural or Artificial Opening (ICD-10-PCS; 2017-05-15)
PROC: 0BH17EZ Insertion of Endotracheal Airway into Trachea, Via Natural or Artificial Opening (ICD-10-PCS; 2017-05-21)
PROC: 05H533Z Insertion of Infusion Device into Right Subclavian Vein, Percutaneous Approach (ICD-10-PCS; 2017-05-23)
PROC: 0BH17EZ Insertion of Endotracheal Airway into Trachea, Via Natural or Artificial Opening (ICD-10-PCS; 2017-05-27)
PROC: 5A2204Z Restoration of Cardiac Rhythm, Single (ICD-10-PCS; 2017-05-28)
PROC: 05HM33Z Insertion of Infusion Device into Right Internal Jugular Vein, Percutaneous Approach (ICD-10-PCS; 2017-05-28)
PROC: B543ZZA Ultrasonography of Right Jugular Veins, Guidance (ICD-10-PCS; 2017-05-28)
PROC: 5A12012 Performance of Cardiac Output, Single, Manual (ICD-10-PCS; 2017-06-05)
PROC: 0BH17EZ Insertion of Endotracheal Airway into Trachea, Via Natural or Artificial Opening (ICD-10-PCS; 2017-06-05)
PROC: 0B110F4 Bypass Trachea to Cutaneous with Tracheostomy Device, Open Approach (ICD-10-PCS; principal; 2017-06-14 06:35)
PROC: 0DH63UZ Insertion of Feeding Device into Stomach, Percutaneous Approach (ICD-10-PCS; 2017-06-16)
DX: F10.231 Alcohol dependence with withdrawal delirium (principal); A41.01 Sepsis due to Methicillin susceptible Staphylococcus aureus; E43 Unspecified severe protein-calorie malnutrition; J69.0 Pneumonitis due to inhalation of food and vomit; G92 Toxic encephalopathy; I50.31 Acute diastolic (congestive) heart failure; A04.72 Enterocolitis due to Clostridium difficile, not specified as recurrent; J96.01 Acute respiratory failure with hypoxia; I46.9 Cardiac arrest, cause unspecified; R65.20 Severe sepsis without septic shock; N39.0 Urinary tract infection, site not specified; I31.3 Pericardial effusion (noninflammatory); D68.59 Other primary thrombophilia; J98.11 Atelectasis; J38.4 Edema of larynx; I48.0 Paroxysmal atrial fibrillation; D69.6 Thrombocytopenia, unspecified; K70.10 Alcoholic hepatitis without ascites; E83.42 Hypomagnesemia; Y90.9 Presence of alcohol in blood, level not specified; E29.1 Testicular hypofunction; Z92.21 Personal history of antineoplastic chemotherapy; E87.6 Hypokalemia; F29 Unspecified psychosis not due to a substance or known physiological condition; Z85.819 Personal history of malignant neoplasm of unspecified site of lip, oral cavity, and pharynx; Z68.23 Body mass index [BMI] 23.0-23.9, adult; D63.8 Anemia in other chronic diseases classified elsewhere; B96.20 Unspecified Escherichia coli [E. coli] as the cause of diseases classified elsewhere; J38.3 Other diseases of vocal cords; R13.10 Dysphagia, unspecified; I11.0 Hypertensive heart disease with heart failure; F10.259 Alcohol dependence with alcohol-induced psychotic disorder, unspecified; Z79.52 Long term (current) use of systemic steroids; Z79.899 Other long term (current) drug therapy; J38.7 Other diseases of larynx; I65.23 Occlusion and stenosis of bilateral carotid arteries; F41.9 Anxiety disorder, unspecified; E83.39 Other disorders of phosphorus metabolism; E86.0 Dehydration; D69.59 Other secondary thrombocytopenia; D53.9 Nutritional anemia, unspecified; I95.2 Hypotension due to drugs; T42.75XA Adverse effect of unspecified antiepileptic and sedative-hypnotic drugs, initial encounter; Y92.230 Patient room in hospital as the place of occurrence of the external cause; I70.0 Atherosclerosis of aorta
CPT/HCPCS: 36415; 36600; 43235; 70491; 71010; 71045; 71275; 74000; 82784; 83605; 83735; 84100; 84155; 84165; 84478; 85025; 85610; 85730; 86334; 87040; 87070; 87077; 87086; 92526; 92610; 92950; 93005; 93307; 94002; 94003; 94640; 97110; 97116; 97530; A4217; A4649; A4663; C9113; J0282; J0330; J0360; J0690; J0696; J1100; J1630; J1650; J1940; J2060; J2250; J2270; J2405; J2543; J2700; J3010; J3230; J3370; J3475; J3480; J3490; J3590; J7030; J7040; J7050; J7060; J7120; Q0161; Q9967